=== PATIENT | female | born 1950 | race Caucasian/White ===

== ENCOUNTER 2024-02-19 14:09 | Emergency (ER) | payer MEDICARE, MEDICAID, SELFPAY ==
[2024-02-19 14:10] VITALS: BP 146/87; PULSE 75; RESP 20; TEMP 36.4; O2SAT 96; BMI 28.1
--- NOTE | 2024-02-19 14:24 | EX.ED.DYSGE1 ---
HPI History of Present Illness Chief Complaint: Numb/Ting PFSH PFSH Home Medications ?Medication ?Instructions ?Recorded ?Last Taken ?Type Oxazepam [Serax] 10 mg PO BID PRN PRN Agitation 04/22/13 Unknown History aspirin 81 mg chewable tablet 81 mg PO DAILY@0800 04/22/13 02/18/24 History atenolol 25 mg tablet 75 mg PO BID 04/22/13 Unknown History pravastatin 10 mg tablet 10 mg PO QHS 04/22/13 Unknown History sotalol 80 mg tablet 80 mg PO BID 04/22/13 Unknown History verapamil 80 mg tablet 40 mg PO BID 05/14/14 Unknown History Allergy/AdvReac Type Severity Reaction Status Date / Time thiopental (From Pentothal) Allergy Severe Anaphylaxis Verified 02/19/24 14:14 codeine Allergy Itching Verified 02/19/24 14:14 Penicillins Allergy Unknown Verified 02/19/24 14:14 Social History Smoking Status: Heavy Smoker (>10/day) EXAM Physical Exam Const Vital Signs: 02/19/24 14:10 Temperature 97.5 F L Temperature Source Oral Pulse Rate 75 Respiratory Rate 20 H Blood Pressure 146/87 H Blood Pressure Mean 106 Pulse Ox 96 Oxygen Delivery Method Room Air MDM MDM MDM Narrative Medical decision making narrative: HISTORY OF PRESENT ILLNESS: 73-year-old female presents with concern for numbness in her right leg. She endorses a history of DVT. She further states she developed acute pain, numbness in her right leg approximately 2 hours ago. She states it hurt so bad that her leg gave out on her. She states since then she has had constant pain made difficult for her to even sit on her left side. She denies chest pain palpitations she notes baseline shortness of breath. She know she is answered COPD and still smokes approximately 10 cigarettes a day. She notes history of DVT and denies taking blood thinners. Denies leg swelling. Denies recent surgery, chemotherapy, estrogen use. She denies any falls or trauma. REVIEW OF SYSTEMS: Pertinent positives: Right leg pain Pertinent negatives: Chest pain, shortness of breath, palpitation PHYSICAL EXAM: Nursing triage notes reviewed, Vital signs reviewed Constitutional: please see mdm HENT: MMM Eyes: Pupils equal round and reactive to light, Extraocular muscles intact Neck: No stridor, no JVD, full neck ROM Lungs: Clear to auscultation, No wheezing or rales. No increased work of breathing, no conversational dyspnea, no accessory muscle use, no nasal flaring. No respiratory distress noted Heart: Regular rate and rhythm, No murmurs, No rubs and No gallops, 2+ distal pulses (radial, femoral, posterior tibial) in all extremities Abdomen: Soft, there is no tenderness, rigidity, rebound or guarding, no obvious peritoneal signs, no palpable pulsatile abdominal masses, no auscultated abdominal bruit : No CVAT Extremities: No edema, no calf tenderness, compartments are soft. Right lower extremity appeared dusky/mottled compared to left. Right lower extremity. Slightly cooler to touch. Was difficult to palpate pulses right lower extremity. It is difficult to Doppler pulses right lower extremity as well. No bruising ecchymosis or TTP over right hip. Intact range of motion in hip flexion extension internal/external rotation. Neuro: Patient is alert, oriented x 3, cranial nerves II through XII are intact, intact strength sensation bilateral upper extremities, intact strength sensation in left lower extremity. Patient had some slight weakness secondary to pain in the right lower extremity but had full sensation all dermatomal distributions Skin: No rash or lesions noted MEDICAL DECISION MAKING: Chief Complaint: Numbness External records reviewed: Reviewed prior imaging studies, allergies, reviewed the patient's problem list, vital signs, current medication Factors affecting care: History of hyperlipidemia, tobacco abuse, COPD hypertension A-fib Social determinants of health: none History obtained from others: EMS Consults: Vascular surgery (Dr. Dill), emergency medicine (Dr. Robbins) MDM Narrative: Patient was initially hemodynamically stable, afebrile and nontoxic-appearing. Exam with a cool, mottled right lower extremity, unable to Doppler pulses this is concerning for acute limb ischemia. I considered the following differential diagnosis: CVA, DVT, lumbar radiculopathy, peripheral neuropathy, acute limb ischemia, A-fib, rhabdomyolysis ALL IMAGES (IF OBTAINED) HAVE BEEN PERSONALLY REVIEWED AND INTERPRETED BY MYSELF. EKG with normal sinus rhythm, normal axis, normal intervals, no STEMI Lactate elevated consistent with endorgan hypoperfusion likely secondary to acute limb ischemia CBC with leukocytosis suggestive of systemic inflammation, no anemia or thrombocytopenia No coagulopathy BMP without evidence of significant electrolyte abnormalities, no anion gap, no acute kidney injury. CK within normal limit CTA of the abdomen with runoff was read reviewed personally by myself and showed evidence of acute limb ischemia that is consistent with patient's clinical exam. I have personally reviewed the patient's chest x-ray. Chest x-ray is unremarkable for pulmonary edema, pneumothorax, pneumonia or focal cardiopulmonary abnormality. The synthesis of the patient's history, physical exam, labs images suggest likely acute limb ischemia. I have a low suspicion for DVT as a more likely diagnosis given cool mottled extremity with no palpable abdominal pulse and signs of ischemia is acute limb ischemia. Patient to be transferred. Discussed with vascular surgery at [facility] not have vascular surgery on-call today. Vascular surgery recommended ED to ED transfer. Discussed case with the ED who accepted the patient's case The patient and/or family, caregivers express understanding. The patient and/or family, caregivers agrees with the plan. Shared decision making: I will have a discussion with the patient and or visitors regarding risk/benefits of further testing or admission. They will be made aware of of the risk/benefits inherent in this decision they will be given the opportunity to voice understanding. Total critical care time today provided was at least 60 minutes. This excludes separately billable procedures. Critical care time (if documented) is secondary to the patient having high probability of clinically significant/life threatening deterioration in the patient's condition which required my urgent intervention. Impression: 1. Acute right leg pain 2. Acute limb ischemia 3. Elevated lactate 4. History tobacco Dispo: Transfer to higher level of care This note was generated with [employer] dictation software. It may contain incorrect words, spelling, and punctuation that were not noted in review of the chart prior to signing. Discharge Plan Triage Chief Complaint: Numb/Ting ED Provider: Bryan Felder Dx/Rx/DC Orders Prescriptions: No Action atenolol 25 MG tablet 75 mg PO BID sotalol 80 MG tablet 80 mg PO BID pravastatin 10 MG tablet 10 mg PO QHS aspirin 81 MG tablet,chewable 81 mg PO DAILY@0800 Oxazepam [Serax] 10 MG capsule 10 mg PO BID PRN PRN (Reason: Agitation) verapamil 80 MG tablet 40 mg PO BID Primary Care Provider: Fanta Nichols Referrals: Fanta Nichols MD [Primary Care Provider] - Print Language: Malawian
--- NOTE | 2024-02-19 14:35 | ED.RN ---
Dr. Felder bedside
--- NOTE | 2024-02-19 14:55 | CT_ITS ---
EXAM: CT HEAD WITHOUT INTRAVENOUS CONTRAST CLINICAL INDICATION: right leg numbness TECHNIQUE: Multiple axial images were obtained of the head without intravenous contrast. This CT exam was performed using one or more of the following dose reduction techniques: automated exposure control, adjustment of the mA and/or kV according to patient size, and/or use of iterative reconstruction technique. RADIATION DOSE: CTDIvol = 44.99 mGy, DLP = 748.30 mGy-cm COMPARISON: No relevant prior studies available. FINDINGS: BRAIN AND EXTRA-AXIAL SPACES: Unremarkable. No intra- or extra-axial hemorrhage. No evidence of acute infarct. No intracranial mass or mass effect. There is preservation of the saab/white matter interface. Posterior fossa structures are unremarkable. Ventricles are appropriate for age. No hydrocephalus. Basal cisterns are patent. BONES/JOINTS: Unremarkable. No discrete lytic or blastic abnormalities. SINUSES: Maxillary sinus disease. MASTOID AIR CELLS: Unremarkable. Clear. ORBITS: Visualized globes, extraocular muscles, optic nerves and retrobulbar fat appear unremarkable. CT/Brain/Head without Contrast IMPRESSION: No acute findings in the head/brain. Electronically Signed: Ace Al MD at 16:49 EST ,
--- NOTE | 2024-02-19 14:55 | CT_ITS ---
We are attempting to reach an attending provider to discuss findings. An addendum with communication details will be sent when the communication is complete. STUDY: CTA OF THE ABDOMINAL AORTA AND BILATERAL LOWER EXTREMITIES REASON FOR EXAM: Female, 73 years old. right leg pain, dusky appearance r/o limb ischemia TECHNIQUE: Axial CT angiography multi-detector data acquisition was obtained following intravenous administration of 100mL Isovue-370 contrast. Axial images and MIP images were reconstructed from the axial data set. Post-processing of the angiographic images was performed, with multiplanar reformation and 3D reconstruction. MIPS images were obtained. Individualized dose optimization techniques were used for this CT. COMPARISON: None. FINDINGS: The visualized lung bases are unremarkable. The visualized portions of the heart are within normal limits. Normal liver. Normal gallbladder and extrahepatic biliary system. There are multiple benign calcified granulomata of the spleen. Normal pancreas. Normal bilateral adrenal glands. Normal right kidney. 2 mm nonobstructive left renal stone. Nonspecific hypodense area in the left kidney may be a cyst. Ultrasound can further evaluate if of concern. Normal visualized stomach. Normal small intestine. There are multiple colonic diverticula consistent with diverticulosis. There is non-visualization of the appendix. Normal inferior vena cava. Normal retroperitoneum. Normal urinary bladder. There is a small umbilical hernia containing fat. There are diffuse degenerative changes of the visualized lumbar spine. There is an unremarkable-appearing IVC. Abdominal aorta: There are calcifications of the abdominal aorta. This is consistent for atherosclerotic disease. There is no abdominal aortic aneurysm. Celiac and superior mesenteric arteries: There is mild diffuse narrowing. Inferior mesenteric artery: There is mild diffuse narrowing. Right renal artery(arteries): There is mild diffuse narrowing. Left renal artery(arteries): There is mild diffuse narrowing. Right common iliac artery: Occluded. Right external iliac artery: Occluded. Right internal iliac artery: There is mild diffuse narrowing. Left common iliac artery: There is mild diffuse narrowing. Left external iliac artery: There is mild diffuse narrowing. Left internal iliac artery: There is mild diffuse narrowing. RIGHT LOWER EXTREMITY Right common femoral artery: No demonstrated narrowing. Right profundus femoris: No demonstrated narrowing. Right superficial femoral: No demonstrated narrowing. Right popliteal artery: Nonvisualized. Right tibioperoneal trunk: Nonvisualized. Right anterior tibial artery: Nonvisualized. Right posterior tibial artery: Nonvisualized. Right peroneal artery: Nonvisualized. LEFT LOWER EXTREMITY Left common femoral artery: No demonstrated narrowing. Left profundus femoris: No demonstrated narrowing. Left superficial femoral: No demonstrated narrowing. Left popliteal artery: No demonstrated narrowing. Left tibioperoneal trunk: No demonstrated narrowing. Left anterior tibial artery: There is moderate diffuse narrowing, with visualization of the vessel to the distal calf. Left posterior tibial artery: There is moderate diffuse narrowing, with visualization of the vessel to the distal calf. Left peroneal artery: There is moderate diffuse narrowing, with visualization of the vessel to the distal calf. CT/CTA Abd w/Runoff W/WO Contrast IMPRESSION: Arteries of the left anterior tibial artery, posterior tibial artery, and peroneal artery distal arteries are not seen. This may be related to slow flow, stenosis, or bolus timing. Nonvisualization of the arteries of the right leg distal to the popliteal artery.This may be related to slow flow, stenosis, or bolus timing. Occluded right common iliac and right external iliac artery. Distal reconstitution into the right common femoral artery. Electronically Signed: Ace Al MD at 17:31 EST Reading Location ID and State: [facility] / [place] , Service support ,
--- NOTE | 2024-02-19 14:55 | EKG12_ITS ---
Test Reason : numbness Blood Pressure : */* mmHG Vent. Rate : 71 BPM Atrial Rate : 71 BPM P-R Int : 120 ms QRS Dur : 88 ms QT Int : 432 ms P-R-T Axes : * 61 59 degrees QTcB Int : 469 ms Normal sinus rhythm Normal ECG baseline artifact Confirmed by Reji Kang ([id number]), medical transcription editor JOB AVENDAÑO ([id number]) on 02/20/2024 9:23:06 AM Referred By: Confirmed By: Reji Kang
[2024-02-19 15:12] LABS: Absolute Lymphocyte Count 2.18 X10^3/uL (0.83-4.51); Absolute Neutrophil Count 11.6 X10^3/uL (2.0-7.7); Basophil# 0.06 X10^3/uL; Basophil% 0.4 % (0-1); Eosinophil# 0.33 X10^3/uL; Eosinophils% 2.1 % (0-5); Hematocrit 45.3 % (37-47); Hemoglobin 14.7 g/dL (12.0-15.0); Lymphocyte # 2.18 X10^3/ul (0.83-4.51); Lymphocyte % 14.1 % (19-41); Mean Corp Hgb Conc 32.5 g/dL (32-36); Mean Corpuscular Hgb 30.7 pg (27.0-32.0); Mean Corpuscular Volume 94.6 fL (81-99); Monocyte# 1.31 X10^3/uL; Monocyte% 8.5 % (0-10); NRBC Flagged by Analyzer 0 % (0-5); Neutrophil # 11.55 X10^3/uL (2.7-7.7); Neutrophil % 74.5 % (47-70); Platelet Count 236 K/mm3 (150-450); RBC Distribution Width CV 13.5 % (11.6-14.6); RBC Distribution Width SD 47.3 fl (35.1-43.9); Red Blood Count 4.79 M/mm3 (4.2-5.4); White Blood Count 15.5 K/mm3 (4.4-11.0)
--- NOTE | 2024-02-19 15:16 | ED.RN ---
Patient transportd to CT
[2024-02-19 15:20] VITALS: O2SAT 96
--- NOTE | 2024-02-19 15:20 | RAD_ITS ---
EXAM: XR CHEST, 1 VIEW CLINICAL INDICATION: cough TECHNIQUE: Frontal view of the chest. COMPARISON: 01.06.14 FINDINGS: LUNGS AND PLEURAL SPACES: Unremarkable. No consolidation or edema. No pneumothorax. No effusion. HEART: Unremarkable. Cardiac silhouette not enlarged. MEDIASTINUM: Central airways and mediastinal contour are unremarkable. BONES/JOINTS: Unremarkable. No acute fracture. SOFT TISSUES: Unremarkable. RAD/Chest 1 View (Portable) IMPRESSION: No radiographic evidence of acute cardiopulmonary disease. Electronically Signed: Ace Al MD at 16:17 EST ,
[2024-02-19 15:21] LABS: International Normalized Ratio 1.1; Prothrombin Time (Protime)PT. 13.7 SECONDS (11.7-14.9)
[2024-02-19 15:22] LABS: Partial Thromboplast Time 25.6 Seconds (24.1-36.2)
[2024-02-19 15:35] LABS: Anion Gap 7 (5-15); BUN 18 mg/dL (7-18); BUN/Creat Ratio 22.4 RATIO (10-20); CPK Total, Creatine Kinase 61 U/L (26-192); Chloride 102 mmol/L (98-107); EST Glomerular Filtration Rate 74 mL/min (>60); Est Glom Filt Rate - Afr Amer 90 mL/min (>60); Estimated Creatinine Clearance 56.51 ml/min; Glucose 149 mg/dL (74-106); Potassium 4.5 mmol/L (3.5-5.1); Sodium Level 137 mmol/L (136-145)
[2024-02-19] MEDS: LORazepam 2 MG/ML Syringe IV (15:37)
--- NOTE | 2024-02-19 15:49 | ED.RN ---
Patient transported to CT again
--- NOTE | 2024-02-19 15:50 | ED.RN ---
Addendum entered by Rachael Rizvi 02/19/24 15:54: For CT scan at 1516 Original Note: Patient transported to CT and brought back to ED room. setup technician stated patient refused to lay flat for CT stating she couldn't breathe, O2 96%. This RN attempted to administer ordered Toradol to patient, but she refused stating she didn't want any pain medication. Dr. Felder notified, new order placed and approval given to place patient on supplement oxygen.
[2024-02-19 16:01] LABS: Lactic Acid 2.2 mmol/L (0.4-1.9)
[2024-02-19] MEDS: Heparin Injection (Vial) 5,000 UNIT/ML VIAL 4000 UNIT IV (16:25)
[2024-02-19] MEDS: HEPARIN/D5w 25,000 UNITS 25,000 UNITS/250 ML IV.SOLN. 8 UNITS CONT INF (16:29)
[2024-02-19 17:00] VITALS: BP 153/89; PULSE 66; RESP 24; O2SAT 99
--- NOTE | 2024-02-19 17:45 | ED.RN ---
Report called to Ewa HERRING
[2024-02-19 17:46] VITALS: BP 153/89; PULSE 66; RESP 24; TEMP 36.4; O2SAT 99
[2024-02-19 19:08] LABS: Reflex Lactate? Y
== END 2024-02-19 17:47 | disposition short-term general hospital (02) ==
PROVIDERS: Emergency Provider Emergency Medicine; PCP Internal Medicine; Visit Provider Emergency Medicine
DX: M79.604 Pain in right leg (principal); J44.9 Chronic obstructive pulmonary disease, unspecified; I48.91 Unspecified atrial fibrillation; F17.210 Nicotine dependence, cigarettes, uncomplicated; E78.5 Hyperlipidemia, unspecified; R74.8 Abnormal levels of other serum enzymes; M62.89 Other specified disorders of muscle
CPT/HCPCS: 70450; 71045; 75635; 80048; 82550; 83605; 85025; 85610; 85730; 93005; 96365; 96375; 99285; Q9967; A4216

== ENCOUNTER 2024-03-05 10:05 | Emergency (ER) | payer MEDICARE, MEDICAID, SELFPAY ==
[2024-03-05 10:05] VITALS: BP 140/61; PULSE 68; RESP 14; TEMP 36.8; O2SAT 97
--- NOTE | 2024-03-05 10:19 | EX.ED.DYSGE1 ---
HPI History of Present Illness Chief Complaint: Lower Extremity Injury Detail of Chief Complaint: Tingling left foot that awoke patient from sleep Informant: patient Onset/Context/Timing Onset: Today Context: Sudden Onset Timing: Intermittent and Lasts (Less than 1 minute) Quality: Tingling in the entire foot Location: Left Current Severity: Gone Worsened by: Nothing Relieved by: Shaking and walking on it Associated Symptoms Associated Symptoms: No other symptoms Narrative Narrative: Patient is a 73-year-old woman. She has history of peripheral arterial disease who recently had revascularization surgery at [facility]. She is on Eliquis 5 mg twice daily. She presents because she was instructed to, after contacting her doctor. She had numbness of her left foot that lasted approximately a minute. Presently has no symptoms. There is no history of trauma. She has shortness of breath. She chronically is short of breath. This is no worse than normal. She does have history of atrial fibrillation. She denies paralysis, numbness, pallor or lack of sensation in the left lower extremity. Prior similar symptoms: Yes (Prior to revascularization surgery right lower extremity) Recent Illness/Hospitalization: Yes [facility] Medical History (Updated 03/05/24 @ 11:[address] Hitesh Baker MD) Popliteal artery occlusion, right Anticoagulant long-term use Peripheral arterial disease Home Medications ?Medication ?Instructions ?Recorded ?Last Taken ?Type Oxazepam [Serax] 10 mg PO BID PRN PRN Agitation 04/22/13 Unknown History aspirin 81 mg chewable tablet 81 mg PO DAILY@0800 04/22/13 02/18/24 History atenolol 25 mg tablet 75 mg PO BID 04/22/13 Unknown History pravastatin 10 mg tablet 10 mg PO QHS 04/22/13 Unknown History sotalol 80 mg tablet 80 mg PO BID 04/22/13 Unknown History verapamil 80 mg tablet 40 mg PO BID 05/14/14 Unknown History Allergy/AdvReac Type Severity Reaction Status Date / Time thiopental (From Pentothal) Allergy Severe Anaphylaxis Verified 03/05/24 10:05 codeine Allergy Itching Verified 03/05/24 10:05 Penicillins Allergy Unknown Verified 03/05/24 10:05 Social History Smoking Status: Heavy Smoker (>10/day) ROS ROS ED Constitutional Constitutional ED: Denies chills, fever(s), subjective, sweats or weight loss Eyes Eyes: Denies blurry vision or change in vision ENT ENT ED: Denies ear pain, rhinorrhea or sore throat Cardiovascular Cardiovascular: Denies chest pain, orthopnea, palpitations or paroxysmal nocturnal dyspnea Respiratory/Chest Respiratory/Chest: Reports dyspnea and dyspnea on exertion; Denies cough, orthopnea, paroxysmal nocturnal dyspnea or sputum Gastrointestinal Gastrointestinal: Denies abdominal pain, nausea or vomiting Musculoskeletal Musculoskeletal: Denies back pain Integumentary Denies rash Neurologic Neurologic: Reports paresthesias Hematologic/Lymphatic Hematologic/Lymphatic: Reports systems reviewed and no addt'l complaints, except as documented EXAM Physical Exam Const Vital Signs: 03/05/24 10:05 Temperature 98.3 F Temperature Source Temporal Pulse Rate 68 Respiratory Rate 14 Blood Pressure 140/61 H Blood Pressure Mean 87 Pulse Ox 97 Oxygen Delivery Method Room Air Positive well nourished and well developed General Appearance ED: well developed and NAD; Negative for cyanotic, diaphoretic or pallor HEENT Reports moist mucous membranes HEENT Narrative: Head is atraumatic normocephalic. Ears normal. Nares patent. Posterior pharynx is normal. Eyes PERRL and EOMs intact bilaterally General Eye ED: Negative for pale conjunctiva or scleral icterus Neck no JVD Chest Wall inspection of chest normal and palpation of chest normal Resp normal respiratory effort and clear to auscultation bilaterally Cardio regular rate, S1 normal heart sound, S2 normal heart sound and no murmurs Rhythm: abnormal rhythm irregularly irregular GI normal to inspection, nondistended, normoactive bowel sounds, non-tender, non-distended and no masses; Negative for hepatosplenomegaly Back/Spine no CVA tenderness Extremity Extremity Narrative: Healing wound proximal medial right leg. There is bruising noted. PT pulses 2+ and symmetric. DP pulses not palpable. There is biphasic flow bilaterally. Neither foot is cool or pale. Sensation is not abnormal. Tenderness over the incision site right lower extremity. General Extremety ED: Yes tenderness; Negative for edema General Extremity: Negative for edema Neuro oriented x3, CN's II-XII intact bilaterally and no sensory deficits noted Psych mental status grossly normal Skin Skin Narrative: Healing incision right proximal medial leg with no evidence infection. General Skin Exam: Negative for jaundice or pallor MDM MDM MDM Narrative Medical decision making narrative: CBC was obtained assess white count differential as well as H&H. This patient complained of paresthesias BMP was obtained assess sodium and potassium. Lab Data Attestation: I reviewed the patient's lab results. Lab results narrative: CBC is unremarkable. White count slightly elevated 11.4 with no shift. BMP is unremarkable. Glucose is slightly elevated 109 with a normal CO2 anion gap. Labs: Laboratory Results - last 24 hr 03/05/24 10:20 WBC 11.4 H RBC 4.03 L Hgb 12.3 Hct 39.0 MCV 96.8 MCH 30.5 MCHC 31.5 L RDW Std Deviation 49.5 H RDW Coeff of Kayli 14.3 Plt Count 390 MPV 9.3 Immature Gran % (Auto) 0.700 Neut % (Auto) 60.7 Lymph % (Auto) 23.0 [place] % (Auto) 12.1 H Eos % (Auto) 2.9 Baso % (Auto) 0.6 Absolute Neuts (auto) 6.9 Absolute Lymphs (auto) 2.61 Nucleated RBC % 0 Sodium 136 Potassium 4.2 Chloride 102 Carbon Dioxide 32.0 Anion Gap 2 L BUN 13 Creatinine 0.74 Estim Creat Clear Calc 55.18 Est GFR (MDRD) Af Amer 98 Est GFR (MDRD) Non-Af 81 BUN/Creatinine Ratio 17.5 Glucose 109 H Calcium 9.6 Discharge Plan Triage Chief Complaint: Lower Extremity Injury ED Provider: Hitesh Baker Dx/Rx/DC Orders Clinical Impression: Paresthesia of left foot, Atrial fibrillation, Hypertension, Anticoagulant long-term use, History of peripheral arterial disease Instructions: ED Paraesthesias Prescriptions: No Action atenolol 25 MG tablet 75 mg PO BID sotalol 80 MG tablet 80 mg PO BID pravastatin 10 MG tablet 10 mg PO QHS aspirin 81 MG tablet,chewable 81 mg PO DAILY@0800 Oxazepam [Serax] 10 MG capsule 10 mg PO BID PRN PRN (Reason: Agitation) verapamil 80 MG tablet 40 mg PO BID Primary Care Provider: Fanta Nichols Referrals: Fanta Nichols MD [Primary Care Provider] - As Needed Print Language: Yakut Disposition Disposition: Home, Self Care
[2024-03-05 10:25] VITALS: BMI 26.8
[2024-03-05 10:29] LABS: Absolute Lymphocyte Count 2.61 X10^3/uL (0.83-4.51); Absolute Neutrophil Count 6.9 X10^3/uL (2.0-7.7); Basophil# 0.07 X10^3/uL; Basophil% 0.6 % (0-1); Eosinophil# 0.33 X10^3/uL; Eosinophils% 2.9 % (0-5); Hemoglobin 12.3 g/dL (12.0-15.0); Lymphocyte # 2.61 X10^3/ul (0.83-4.51); Mean Corp Hgb Conc 31.5 g/dL (32-36); Mean Corpuscular Hgb 30.5 pg (27.0-32.0); Mean Corpuscular Volume 96.8 fL (81-99); Mean Platelet Vol. 9.3 fl (6.2-12.0); Monocyte# 1.37 X10^3/uL; Monocyte% 12.1 % (0-10); NRBC Flagged by Analyzer 0 % (0-5); Neutrophil # 6.89 X10^3/uL (2.7-7.7); Neutrophil % 60.7 % (47-70); Platelet Count 390 K/mm3 (150-450); RBC Distribution Width CV 14.3 % (11.6-14.6); RBC Distribution Width SD 49.5 fl (35.1-43.9); Red Blood Count 4.03 M/mm3 (4.2-5.4); White Blood Count 11.4 K/mm3 (4.4-11.0)
[2024-03-05 10:49] LABS: Anion Gap 2 (5-15); BUN 13 mg/dL (7-18); BUN/Creat Ratio 17.5 RATIO (10-20); Calcium,Total 9.6 mg/dL (8.5-10.1); Chloride 102 mmol/L (98-107); Creatinine, Serum 0.74 mg/dL (0.55-1.02); EST Glomerular Filtration Rate 81 mL/min (>60); Est Glom Filt Rate - Afr Amer 98 mL/min (>60); Estimated Creatinine Clearance 55.18 ml/min; Glucose 109 mg/dL (74-106); Potassium 4.2 mmol/L (3.5-5.1); Sodium Level 136 mmol/L (136-145)
[2024-03-05 11:06] VITALS: BP 144/72; PULSE 69; RESP 20; TEMP 37; O2SAT 98
== END 2024-03-05 11:20 | disposition home or self-care (01) ==
LOC: ED 11:07
PROVIDERS: Emergency Provider Emergency Medicine; PCP Internal Medicine; Visit Provider Emergency Medicine
DX: R20.2 Paresthesia of skin (principal); I48.91 Unspecified atrial fibrillation; Z79.01 Long term (current) use of anticoagulants; I10 Essential (primary) hypertension; Z86.79 Personal history of other diseases of the circulatory system; F17.200 Nicotine dependence, unspecified, uncomplicated
CPT/HCPCS: 80048; 85025; 99283; A4216

== ENCOUNTER 2024-04-03 15:18 | Emergency (ER) | payer MEDICARE, MEDICAID, SELFPAY ==
[2024-04-03 15:20] VITALS: BP 149/66; PULSE 64; RESP 18; TEMP 36.1; O2SAT 96; BMI 26.6
--- NOTE | 2024-04-03 15:43 | VDUE_ITS ---
Reason For Study: RUE Pain / Numbness Right Proximal Right jugular vein is spontaneous, widely patent, phasic, with no intraluminal echogenicity noted. Right subclavian vein is spontaneous, widely patent, phasic, with no intraluminal echogenicity noted. Right Lower Arm Right radial vein is compressible. Right ulnar vein is compressible. Right Arm Right axillary vein is spontaneous, patent, phasic, competent, compressible and demonstrates augmentation. Right brachial vein is compressible. Right cephalic vein is compressible. Right basilic vein is compressible. Patient Safety Preliminary Finding given To [facility] ED Nurse Responsible for patient. VL/Venous Duplex US, Unilateral Interpretation Summary Deep veins of the right upper extremity are patent and compressible segmentally . There is no evidence of deep vein thrombosis. The superficial veins of the right upper extr emity, the basilic and cephalic veins, are patent and compressible. There is no evidence of right upper extremity superficial thrombophlebitis involving the veins imaged. Ordering Physician: Flako Arredondo Performed By: Kirill Alfaro RVT ???
--- NOTE | 2024-04-03 15:43 | EX.ED.DYSGE1 ---
HPI History of Present Illness Chief Complaint: Numb/Ting Informant: patient Onset/Context/Timing Onset: Yesterday Context: Sudden Onset Timing: Intermittent Quality: Location: Right hand and index finger Worsened by: Nothing Relieved by: Movement, rubbing Narrative Narrative: Patient presents with paresthesias in her right hand that have been getting worse since yesterday. Patient states they are worse when she wakes up in the morning. Right hand feels . Patient states it is worse over her right index finger. Patient states that when she rubs it and moves it it gets better. Patient denies any weakness. Patient states nothing makes it worse. Patient is concerned that this could be a blood clot because she had similar symptoms in her leg and was diagnosed with a DVT at that time. Prior similar symptoms: Yes PFSH PFSH Medical History (Updated 04/03/24 @ 17:[address] Flako Arredondo DO) Popliteal artery occlusion, right Anticoagulant long-term use Peripheral arterial disease Home Medications ?Medication ?Instructions ?Recorded ?Last Taken ?Type Oxazepam [Serax] 10 mg PO BID PRN PRN Agitation 04/22/13 Unknown History aspirin 81 mg chewable tablet 81 mg PO DAILY@0800 04/22/13 02/18/24 History atenolol 25 mg tablet 75 mg PO BID 04/22/13 Unknown History pravastatin 10 mg tablet 10 mg PO QHS 04/22/13 Unknown History sotalol 80 mg tablet 80 mg PO BID 04/22/13 Unknown History verapamil 80 mg tablet 40 mg PO BID 05/14/14 Unknown History Allergy/AdvReac Type Severity Reaction Status Date / Time thiopental (From Pentothal) Allergy Severe Anaphylaxis Verified 04/03/24 15:19 codeine Allergy Itching Verified 04/03/24 15:19 Penicillins Allergy Unknown Verified 04/03/24 15:19 Surgical History (Updated 04/03/24 @ 15:[address] Flako Arredondo DO) History of thrombectomy Social History Smoking Status: Heavy Smoker (>10/day) ROS ROS ED Constitutional Constitutional ED: Denies chills or fever(s) Eyes Eyes: Denies blurry vision or change in vision ENT ENT ED: Reports rhinorrhea; Denies sore throat Cardiovascular Cardiovascular: Denies chest pain or palpitations Respiratory/Chest Respiratory/Chest: Reports cough; Denies dyspnea Gastrointestinal Gastrointestinal: Denies nausea or vomiting Genitourinary Genitourinary ED: Denies dysuria or hematuria Musculoskeletal Musculoskeletal: Denies back pain or neck pain Integumentary Denies abscess or rash Neurologic Neurologic: Reports paresthesias RUE (Right hand and index finger); Denies headache(s) or weakness Allergic/Immunologic Allergic/Immunologic ED: Denies mouth swelling or urticaria EXAM Physical Exam Const Vital Signs: 04/03/24 15:20 Temperature 97 F L Temperature Source Temporal Pulse Rate 64 Respiratory Rate 18 Blood Pressure 149/66 H Blood Pressure Mean 93 Pulse Ox 96 Oxygen Delivery Method Room Air Positive well nourished and well developed General Appearance ED: well developed and NAD HEENT Reports moist mucous membranes Neck supple and no JVD Extremity Extremity Narrative: Radial pulses are equal bilaterally. Capillary refill was less than 2 seconds in all digits. There is no cyanosis or pallor noted. There is full range of motion. There is some paresthesias on the volar aspect of the forearm with Tinel's testing at the wrist. There is no paresthesias with Tinel testing at the elbow. There are some paresthesias with Phalen's testing at the wrist on the right. Neuro oriented x3, CN's II-XII intact bilaterally and no sensory deficits noted Sensorium / Orientation: alert Motor Exam: strength 5/5 throughout MDM MDM MDM Narrative Medical decision making narrative: Differential diagnosis includes DVT, carpal tunnel syndrome, and paresthesias. Venous duplex of the right upper extremity will be obtained to assess for DVT. Radiography Diagnostic Testing: Venous duplex of the right upper extremity was obtained. There is no evidence of DVT. Treatment and Re-Evaluation :: Patient was advised of her findings. Patient was advised that this could be carpal tunnel syndrome. Patient was given a cock up wrist splint. Patient was instructed to use [id number] ibuprofen as needed for pain. Patient was instructed to follow-up with her primary care physician in 5 to 7 days. Patient understood and was agreeable with the plan. All questions were answered. Discharge Plan Triage Chief Complaint: Numb/Ting ED Provider: Flako Arredondo Dx/Rx/DC Orders Clinical Impression: Hand paresthesia, Atrial fibrillation Instructions: ED Paraesthesias Prescriptions: No Action atenolol 25 MG tablet 75 mg PO BID sotalol 80 MG tablet 80 mg PO BID pravastatin 10 MG tablet 10 mg PO QHS aspirin 81 MG tablet,chewable 81 mg PO DAILY@0800 Oxazepam [Serax] 10 MG capsule 10 mg PO BID PRN PRN (Reason: Agitation) verapamil 80 MG tablet 40 mg PO BID Primary Care Provider: Fanta Nichols Referrals: Fanta Nichols MD [Primary Care Provider] - 5-7 Days Print Language: Ethiopian Disposition Disposition: Home, Self Care
== END 2024-04-03 17:42 | disposition home or self-care (01) ==
PROVIDERS: Emergency Provider Emergency Medicine; PCP Internal Medicine; Visit Provider Emergency Medicine
DX: R20.2 Paresthesia of skin (principal); I48.91 Unspecified atrial fibrillation; F17.200 Nicotine dependence, unspecified, uncomplicated; Z86.718 Personal history of other venous thrombosis and embolism
CPT/HCPCS: 93971; 99282

== ENCOUNTER 2024-12-23 18:45 | Observation (INO) | payer MEDICARE, MEDICAID, SELFPAY ==
[2024-12-23 18:46] VITALS: BP 146/54; PULSE 67; RESP 14; TEMP 36.1; O2SAT 97
--- OUTSIDE RECORDS SUMMARY | 2024-12-23 19:14 | XMS RPT_ITS | CCD ---
Author Organization [facility] Care Team Providers Care [employer] Melt Supervisor Name Role Phone BEN, VERONICA Unavailable Unavailable BEN, VERONICA Unavailable Unavailable TALAMPAS, ELENA Unavailable Unavailable BEN, VERONICA Unavailable Unavailable BEN, VERONICA Unavailable Unavailable TALAMPAS, ELENA Unavailable Unavailable Elena Andino MD Primary Care Provider Javier Leonard RN Unavailable UnavailElena Conde MD Primary Care Provider Javire Leonard RN Unavailable UnavailElena Conde MD Primary Care Provider Amarjit Herrera RN Unavailable Unavailmichael Herrera RN, Amarjit Cruz Unavailable UnavailElena Conde MD Primary Care Provider THU ELENA D Primary Care Unavailable ALLEN PRESTON Admitting Unavailable ALLEN PRESTON Attending Unavailable FAREED CARNEY Consulting Unavailable Love OPTOMECHANICAL ENGINEER.GUIDANCE CONSULTANT, Gene Unavailable Radha OPTOMECHANICAL ENGINEER.CPC CODER, Dorcas Unavailable Bryan Felder Attending Unavailable Talampas, Elena D Primary Care Unavailable Hitesh Baker Attending Unavailable Talampas, Elena D Primary Care Unavailable Flako Arredondo Attending Unavailable Talampas, Elena D Primary Care Unavailable Radha OPTOMECHANICAL ENGINEER.CPC CODER, Dorcas Unavailable Love OPTOMECHANICAL ENGINEER.GUIDANCE CONSULTANT, Gene Unavailable LOVEJUANI Attending Unavailable TALAMPAS, ELENA D Primary Care Unavailable AMY ACOSTA Attending Unavailabl e TALAMPAS, ELENA D Primary Care Unavailable Allergies Allergy Classification Reported Allergen(s) Allergy Type Date of Onset Reaction(s) Facility Albuterol (1 source) Albuterol Drug Allergy 1 Intolerance [facility] Work Phone: Famotidine (1 source) Famotidine Drug Allergy 5 Itching [facility] Work Phone: HMG-CoA Reductase Inhibitors (statins) (1 source) atorvastatin Drug Allergy 2 GI Upset [facility] Lincosamides (antibiotic) (1 source) Clindamycin Drug Allergy 4 Diarrhea [facility] nickel (1 source) nickel Drug Allergy 5 Rash [facility] Work Phone: Opioid Agonists (1 source) Codeine Drug Allergy 5 Unknown [facility] Work Phone: Penicillins (antibiotic) (1 source) Penicillins Drug Allergy 5 Unknown [facility] Thiopental (1 source) Thiopental Drug Allergy 5 Intolerance [facility] Work Phone: (20 sources) atorvastatin; Translations: [ATORVASTATIN CALCIUM] Drug Allergy 2 GI Upset [facility] Repository (20 sources) clindamycin; Translations: [CLINDAMYCIN] Drug Allergy 4 Diarrhea [facility] Rep[facility] (20 sources) codeine; Translations: [CODEINE] Drug Allergy 5 Unknown [facility] (20 sources) nickel; Translations: [NICKEL] Drug Allergy 5 Rash [facility] (20 sources) Penicillins; Translations: [PENICILLINS] Propensity to adverse reactions (disorder) 5 Unknown [facility] (20 sources) PROPOXYPHENE N-ACETAMINOPHEN; Translations: [PROPOXYPHENE N-ACETAMINOPHEN] Propensity to adverse reactions (disorder) 5 Intolerance [facility] Rep[facility] (1 source) OTHER; Translations: [OTHER] Propensity to adverse reactions (disorder) [facility] Rep[facility] (20 sources) NITRATE ANALOGUES; Translations: [NITRATE ANALOGUES] Propensity to adverse reactions (disorder) 3 Intolerance [facility] Rep[facility] (20 sources) FAMOTIDINE IN 0.9 % NACL; Translations: [FAMOTIDINE IN 0.9 % NACL] Propensity to adverse reactions (disorder) 5 Itching [facility] Rep[facility] (20 sources) Albuterol; Translations: [ALBUTEROL] Drug Allergy 1 Intolerance [facility] Work Phone: (20 sources) lotions [Other] Propensity to adverse reactions 5 Intolerance [facility] Work Phone: (20 sources) sodium penathol [Other] Propensity to adverse reactions 5 Intolerance [facility] Work Phone: (20 sources) Thiopental; Translations: [THIOPENTAL] Drug Allergy 5 Intolerance [facility] Work Phone: (1 source) Thiopental Drug Allergy 4 [facility] Repository Medications Current Medications Medication Drug Class(es) Dates Sig (Normalized) Sig (Original) [id number] actuat albuterol 0.09 mg/actuat metered dose inhaler (20 sources) beta2-Adrenergic Agonist Start: 02-09-2021 End: 08-22-2023 take 2 puff(s) by inhalation every four hours as needed for wheezing albuterol HFA (VENTOLIN HFA) 90 mcg/actuation inhaler Inhale 2 Puffs as instructed every 4 hours as needed for wheezing/shortness of breath. 1 Each 2 08/22/2023 Active Comment on above: Inhale 2 Puffs as in structed every 4 hours as needed for wheezing/shortness of breath. apixaban 5 mg oral tablet (20 sources) Factor Xa Inhibitor Start: 02-20-2024 End: 09-17-2024 take 1 tablet by mouth twice daily ELIQUIS 5 mg tab(s) take 1 tablet by mouth twice a day 180 tablet 3 05/23/2024 Active aspirin 81 mg delayed release oral tablet (20 sources) Platelet Aggregation Inhibitor, Nonsteroidal Anti-inflammatory Drug take 1 tablet by mouth once daily aspirin, enteric coated (ASPIRIN, ENTERIC COATED) 81 mg EC tablet Take 81 mg by mouth once daily. Active Comment on above: Take 81 mg by mouth once daily. atenolol 50 mg oral tablet (20 sources) beta-Adrenergic Darlene Start: 09-07-2024 atenolol (TENORMIN) 50 mg tablet Indications: Paroxysmal atrial fibrillation (HCC) take 1 AND 1/2 tablet by mouth twice a day 270 tablet 09/07/2024 Active Start: 03-21-2024 End: 09-17-2024 take 1.5 tablets by mouth twice daily atenolol (TENORMIN) 50 mg tablet Indications: Paroxysmal atrial fibrillation (HCC) Take 1.5 tablets by mouth two times a day. 270 tablet 1 03/21/2024 09/07/2024 Discontinued Start: 09-13-2023 take 1.5 tablets by mouth twice daily atenolol (TENORMIN) 50 mg tablet Indications: Paroxysmal atrial fibrillation (HCC) Take 1.5 tablets by mouth two times a day. 270 tablet 1 09/13/2023 Active Start: 06-29-2022 End: 09-09-2023 take 1.5 tablets by mouth twice daily atenolol (TENORMIN) 50 mg tablet Indications: Paroxysmal atrial fibrillation (HCC) Take 1.5 tablets by mouth two times a day. 90 tablet 2 06/22/2023 09/09/2023 Discontinued Start: 07-06-2021 take 1.5 tablets by mouth twice daily atenolol (TENORMIN) 50 mg tablet Indications: Paroxysmal atrial fibrillation (HCC) Take 1.5 tablets by mouth twice daily. 270 tablet 3 07/06/2021 Active Comment on above: Take 1.5 tablets by mouth twice daily. Take 1.5 tablets by mouth two times a day. levothyroxine sodium 0.025 mg oral tablet (20 sources) l-Thyroxine Start: End: take 1 tablet by mouth once daily levothyroxine (SYNTHROID) 25 mcg tablet Take 1 tablet by mouth once daily. 90 tablet 3 11/19/2024 Active Start: 07-27-2022 take 1 tablet by abelino th once daily for thyroid dysfunction levothyroxine (LEVOXYL) 25 mcg tablet Take 1 tablet by mouth once daily. Take on empty stomach. For Thyroid 30 tablet 11 07/27/2022 Active Comment on above: Take 1 tablet by abelino th once daily. Take on empty stomach. For Thyroid take 1 tablet by abelino th once daily ON AN EMPTY STOMACH for THYROID 10 actuat olodaterol 0.0025 mg/actuat / tiotropium 0.0025 mg/actuat inhalation spray (20 sources) Anticholinergic, beta2-Adrenergic Agonist Start: 1 End: 3 tiotropium-olodater ol (STIOLTO RESPIMAT) 2.5-2.5 mcg/actuation Inhale 2 Puffs as instructed once daily. 4 g 2 07/22/2022 Active Comment on above: Inhale 2 Puffs as in structed once daily. oxazepam 10 mg oral capsule (20 sources) Benzodiazepine Start: 3 End: 5 take 1 capsule by mouth twice daily as needed oxazepam (SERAX) 10 mg capsule Indications: Generalized anxiety disorder Take 1 capsule by mouth two times a day as needed for up to 180 days. 60 capsule 5 10/04/2024 04/02/2025 Active Start: 04-06-2022 End: 02-14-2023 take 1 capsule by mouth twice daily as needed oxazepam (SERAX) 10 mg capsule Indications: Generalized anxiety disorder Take 1 capsule by mouth twice daily as needed for up to 60 days. 60 capsule 1 12/16/2022 02/14/2023 Active Start: 07-21-2021 End: 03-16-2022 take 1 capsule by mouth twice daily as needed oxazepam (SERAX) 10 mg capsule Indications: Generalized anxiety disorder Take 1 capsule by mouth twice daily as needed for up to 180 days. 180 capsule 1 09/17/2021 Active Start: 06-11-2021 take 1 capsule by mo [facility] twice daily as needed oxazepam (SERAX) 10 mg capsule Indications: Generalized anxiety disorder Take 1 capsule by mouth twice daily as needed for up to 30 days. 60 capsule 0 06/11/2021 Active Comment on above: Take 1 capsule by mo ut twice daily as needed for up to 30 days. Take 1 capsule by mo ut twice daily as needed for up to 180 days. Take 1 capsule by mo uth twice daily as needed for up to 60 days. Take 1 capsule by mo uth two times a day as needed for up to 60 days. perflutren lipid microspheres 1.3 mL in NaCl (PF) 0.9% 10 mL injection (DEFINITY) (20 sources) Start: 02-10-20 End: 05-11-19 perflutren lipid microspheres 1.3 mL in NaCl (PF) 0.9% 10 mL injection (DEFINITY) pravastatin sodium 40 mg oral tablet (20 sources) HMG-CoA Reductase Inhibitor Start: 06-11-19 End: 11-22-19 pravastatin (PRAVACHOL) 40 mg tablet Indications: Hyperlipidemia, unspecified hyperlipidemia type TAKE 1 AND 1/2 TABLETS BY MOUTH DAILY AT BEDTIME 135 tablet 3 11/22/2023 Active Comment on above: TAKE 1 AND 1/2 TABLE TS BY MOUTH DAILY AT BEDTIME 125 ml sodium chloride 9 mg/ml prefilled syringe (20 sources) Start: 02-10-20 End: 05-11-19 sodium chloride 0.9 % (flush) 10 mL (BD POSIFLUSH) sotalol hydrochloride 80 mg oral tablet (20 sources) Antiarrhythmic Start: 03-31-20 End: 11-22-19 take 1 tablet by mouth twice daily sotalol (BETAPACE) 80 mg tablet Indications: Paroxysmal atrial fibrillation (HCC) Take 1 tablet by mouth two times a day. 180 tablet 3 11/22/2023 Active Start: 06-29-2022 End: 07-22-2022 take 1 tablet by mouth twice daily sotalol (BETAPACE) 80 mg tablet Indications: Paroxysmal atrial fibrillation (HCC) Take 1 tablet by mouth twice daily. 180 tablet 1 07/22/2022 Active Start: 04-06-2022 take 1 tablet by abelino th twice daily sotalol (BETAPACE) 80 mg tablet Indications: Paroxysmal atrial fibrillation (HCC) Take 1 tablet by mouth twice daily. 180 tablet 0 04/06/2022 Active Start: 01-12-2022 take 1 tablet by abelino th twice daily sotalol (BETAPACE) 80 mg tablet Indications: Paroxysmal atrial fibrillation (HCC) Take 1 tablet by mouth twice daily. 180 tablet 0 01/12/2022 Active Start: 09-08-2020 End: 01-09-2022 take 1 tablet by mouth twice daily sotalol (BETAPACE) 80 mg tablet Indications: Paroxysmal atrial fibrillation (HCC) Take 1 tablet by mouth twice daily. 180 tablet 3 09/08/2020 01/09/2022 Discontinued Comment on above: Take 1 tablet by abelino th twice daily. Take 1 tablet by abelino th two times a day. Trolamine Salicylate-Aloe Vera (ASPERCREME) 10 % crea (20 sources) Start: 5 Trolamine Salicylate-Aloe Vera (ASPERCREME) 10 % crea Apply 1 application to affected area four times daily as needed. 1 Tube 2 01/24/2015 Active Comment on above: Apply 1 application to affected area four times daily as needed. verapamil hydrochloride 40 mg oral tablet (20 sources) Calcium Channel Darlene Start: End: take 1 tablet by mouth twice daily verapamil 40 mg tablet Indications: Paroxysmal atrial fibrillation (HCC) take 1 tablet by mouth twice a day 180 tablet 1 09/11/2024 Active Start: 09-13-2023 take 1 tablet by abelino twice daily verapamil 40 mg tablet Indications: Paroxysmal atrial fibrillation (HCC) Take 1 tablet by mouth two times a day. 180 tablet 1 09/13/2023 Active Start: 07-17-2021 End: 07-17-2021 take 1 tablet by mouth three times daily verapamil (CALAN, ISOPTIN) 40 mg tablet Indications: Paroxysmal atrial fibrillation (HCC) Take 1 tablet by mouth three times daily. 270 tablet 3 07/17/2021 07/17/2021 Discontinued Start: 09-08-2020 End: 09-09-2023 take 1 tablet by mouth twice daily verapamil 40 mg tablet Indications: Paroxysmal atrial fibrillation (HCC) Take 1 tablet by mouth two times a day. 180 tablet 0 08/22/2023 09/09/2023 Discontinued Comment on above: Take 1 tablet by abelino twice daily. Take 1 tablet by abelino three times daily. Take 1 tablet by abelino two times a day. Completed/Discontinued Medications Medication Drug Class(es) Dates Sig (Normalized) Sig (Original) 24 hr nicotine 0.292 mg/hr transdermal system (20 sources) Cholinergic Nicotinic Agonist Start: 03-09-2021 End: 08-22-2023 nicotine (NICODERM CQ) 7 mg/24 hr Apply 1 Patch as directed every 24 hours. 28 Patch 1 07/22/2022 08/22/2023 Discontinued Comment on above: Apply 1 Patch as dir ected every 24 hours. trolamine salicylate 100 mg/ml topical cream (20 sources) Start: 01-24-2015 Trolamine Salicylate-Aloe Vera (ASPERCREME) 10 % crea Apply 1 application to affected area four times daily as needed. 1 Tube 2 01/24/2015 Active Comment on above: Apply 1 application to affected area four times daily as needed. 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] Onset: 02-19-2024 02-20-2024 Chronic Cardiac dysrhythmias (20 sources) Ventricular tachycardia; Translations: [Atrial fibrillation] Onset: 07-23-2005 07-23-2005 Chronic Chronic obstructive pulmonary disease and bronchiectasis (20 sources) Chronic obstructive lung disease; Translations: [Chronic obstructive pulmonary disease, unspecified] Onset: 04-14-2011 01-04-2018 Chronic Coronary atherosclerosis and other heart disease (20 sources) Coronary arteriosclerosis; Translations: [Atherosclerotic heart disease of [place] coronary artery without angina pectoris] Onset: 10-25-2011 10-25-2011 Chronic Disorders of lipid metabolism (20 sources) Hyperlipidemia; Translations: [Hyperlipidemia, unspecified] Onset: 10-25-2011 10-25-2011 Chronic Essential hypertension (20 sources) Essential hypertension; Translations: [Essential (primary) hypertension] Onset: 02-09-2021 02-09-2021 Chronic Immunizations and screening for infectious disease (2 sources) Requires varicella vaccination; Translations: [Encounter for immunization] Onset: 10-04-2024 Episodic Nutritional deficiencies (3 sources) Vitamin D deficiency; Translations: [Vitamin D deficiency, unspecified] Onset: 10-04-2024 08-22-2023 Chronic Osteoarthritis (20 sources) Degenerative joint disease involving multiple joints; Translations: [Polyosteoarthritis, unspecified] 07-04-2017 Chronic Other and ill-defined heart disease (20 sources) Left atrial enlargement; Translations: [Cardiomegaly] Onset: 02-20-2024 02-20-2024 Chronic Other connective tissue disease (1 source) Pain in right leg; Translations: [Pain in right leg] Onset: 03-12-2024 Episodic Other nervous system disorders (1 source) Paresthesia of skin; Translations: [Paresthesia of skin] Onset: 05-04-2024 Episodic Other non-traumatic joint disorders (1 source) Chronic ankle pain; Translations: [Pain in left ankle and joints of left foot] 08-30-2023 Episodic Other screening for suspected conditions (not mental disorders or infectious disease) (20 sources) Patient encounter status; Translations: [Encounter for screening for malignant neoplasm of colon] Onset: 10-04-2024 Episodic Peripheral and visceral atherosclerosis (20 sources) Occlusion of right popliteal artery; Translations: [Unspecified atherosclerosis of [place] arteries of extremities, right leg] Onset: 02-20-2024 02-20-2024 Chronic Residual codes; unclassified (3 sources) Menopause present; Translations: [Asymptomatic menopausal state] Episodic Residual codes; unclassified (1 source) Asymptomatic menopausal state; Translations: [Asymptomatic menopause] Onset: 10-04-2024 Episodic Screening and history of mental health and substance abuse codes (1 source) Encounter for screening for depression; Translations: [Screening for depression] Onset: 10-04-2024 Episodic Substance-related disorders (20 sources) Tobacco user; Translations: [Nicotine dependence, unspecified, uncomplicated] 07-23-2005 Chronic Thyroid disorders (4 sources) Hypothyroidism; Translations: [Hypothyroidism, unspecified] Chronic Unclassified (1 source) Unknown / UNK(Unknown) Onset: 08-19-2017 Past or Other Problems Problem Classification Problem Date Documented Da te Episodic/Chronic Other circulatory disease (20 sources) Other disorder of circulatory system; Translations: [Unspecified circulatory system disorder] Onset: 02-19-2024 02-20-2024 Episodic Other lower respiratory disease (20 sources) Dyspnea on exertion; Translations: [Dyspnea, unspecified] Onset: 02-09-2021 02-09-2021 Episodic Phlebitis; thrombophlebitis and thromboembolism (20 sources) Venous thrombosis; Translations: [Acute embolism and thrombosis of unspecified vein] Onset: 07-06-2010 07-06-2010 Episodic Unclassified (2 sources) Patient encounter status 07-24-2024 Results Test Name Value Interpretation Reference Range Facility CNOVon 10-04-2024 CNOV Office Visit (INTMWS ) LEXI LONDONO ([id number]) 1950 F Date Time Provider Department 10/04/24 2:40 PM GENE LOVE During your visit today, we recorded the following information about you: Pulse Respiration Blood pressure Weight 65/minute 16/minute 109/58 65 kg Height 1.585 m Gene Love APRN.GUIDANCE CONSULTANT 10/04/2024 4:00 PM Addendum Lexi Londono is a 74 year old female here for a Medicare wellness visit. Medicare Health Risk Assessment General Health Fair Exercise: Minutes/Day 0 min Exercise: Days/Week 0 days Alcohol: Daily Use Never Alcohol: Drinks/Day Patient does not drink Alcohol: 6 or more drinks Never Feel off balance No Concerns: Teeth/Dentures Yes Concerns: Sexual function No Troubled by feelings Anxious; Stressed; Angry; Irritable Frequency: Eating healthy diet Several days ADLs requiring help Driving Safety precautions in home/vehicle Yes Smoke, vape, chews tobacco Yes, but I'm not ready to quit Difficulty hearing No Difficulty seeing Yes Current Providers Specialists: I have reviewed specialist-related care of the patient in the medical record. Medical/Family history review Reviewed and updated problem list, medical/surgical/famil y/social history, medications, and allergies. Opioid use review Opioid Medications (last 90 days) No data to display Anxiety/Depression screening PHQ-2 Score: 2 (Lower risk for depression) Recommendation: no further intervention at this time Cognitive screening Mini Cog Score: 4 Cognitive screening reviewed and No further action needed (score 3-5). Functional Observation Was the patient's Timed Up AND Go test unsteady or >= 12 seconds? No Advance Care Planning Patient did not wish or was not able to name a surrogate decision maker or provide an advance care plan Measurements BP 109/58 Pulse 65 Resp 16 Ht 158.5 cm (5' 2.4) Wt 65 kg (143 lb 4.8 oz) BMI 25.87 kg/m? Vision Screening: Declines visual acuity screen Annual Wellness Exam: - Engages in daily physical activity through chores and yard work; reports increased fatigue. - Denies alcohol use. - Reports bad teeth but does not see a dentist due to appointment-related anxiety. - Describes diet as pretty good. - Requires assistance with driving. - Smokes approximately 10 cigarette per day; has attempted to quit multiple times without success. - Reports mediocre mood, with occasional feelings of depression; denies need for medication or counseling. - No issues with memory or getting up and down from a chair. - No family or friends to speak on her behalf if needed. - Denies recent falls. - Reports adequate hearing. - Reports vision difficulties; does not see an eye doctor. - Denies seeing any specialists outside of primary care. - Denies desire for pneumonia vaccine or COVID booster due to previous adverse reactions. - Denies desire for bone density test or mammogram. Anxiety: - Taking Oxazepam; recently switched pharmacy to [facility]. - Denies liking other medications previously tried. Cardiac Issues: - Taking Sotalol and amlodipine. - Not seeing a hand tennis ball coverer; last hand tennis ball coverer was Dr. Mills. - Willing to see a hand tennis ball coverer if available in [place]. - Reports feeling well and managing with current medications. Vascular Issues: - Underwent leg surgery in February; left AMA without understanding the procedure or its outcome. - Denies current follow-up with a vascular doctor. - Reports leg and foot feel numby and dislikes the sensation. Latest Ref Rng 07/22/2022 08/16/2022 WBC 3.70 - 11.00 k/uL 9.86 RBC 3.90 - 5.20 m/uL 4.70 Hemoglobin 11.5 - 15.5 g/dL 14.7 Hematocrit 36.0 - 46.0 % 44.7 MCV 80.0 - 100.0 fL 95.1 MCH 26.0 - 34.0 pg 31.3 MCHC 30.5 - 36.0 g/dL 32.9 RDW-CV 11.5 - 15.0 % 13.3 Platelet Count 150 - 400 k/uL 248 MPV 9.0 - 12.7 fL 11.0 Neut% % 53.7 Abs Neut (ANC) 1.45 - 7.50 k/uL 5.30 Lymph% % 29.4 Abs Lymph 1.00 - 4.00 k/uL 2.90 [place]% % 11.5 Abs [place] <0.87 k/uL 1.13 (H) Eosin% % 4.6 Abs Eosin <0.46 k/uL 0.45 Baso% % 0.6 Abs Baso <0.11 k/uL 0.06 Immature Gran % % 0.2 IMMATURE GRANS (ABS) <0.10 k/uL <0.03 NRBC /100 WBC 0.0 Absolute nRBC <0.01 k/uL <0.01 DTYPE Auto Protein, Total 6.3 - 8.0 g/dL 7.2 Albumin 3.9 - 4.9 g/dL 4.1 Calcium 8.5 - 10.2 mg/dL 9.6 Bilirubin, Total 0.2 - 1.3 mg/dL 0.4 Alkaline Phosphatase 34 - 123 U/L 97 AST 13 - 35 U/L 26 ALT 7 - 38 U/L 20 Glucose 74 - 99 mg/dL 87 BUN 7 - 21 mg/dL 8 Creatinine 0.58 - 0.96 mg/dL 0.81 Sodium 136 - 144 mmol/L 138 Potassium 3.7 - 5.1 mmol/L 4.3 Chloride 97 - 105 mmol/L 99 CO2 22 - 30 mmol/L 27 Anion Gap 9 - 18 mmol/L 12 eGFR >=60 mL/min/1.73m? 77 Total Cholesterol, Nonfasting <200 mg/dL 164 Triglycerides, Nonfasting <150 mg/dL 170 (H) HDL Cholesterol, Nonfasting >39 mg/dL 45 LDL Cholesterol Calculated, Non (more content not included)... Normal [facility] LEXI LONDONO ([id number]) 1950 F Date Time Provider Department 09/13/24 ELENA ANDINO INTMWS During your visit today, we recorded the following information about you: Evelia Cochran RN 09/13/2024 11:05 AM Signed Patient calls and is worried that she has been having issues with sleeping. Patient states that she has not been able to sleep for the past 4-5 days and she is worried that lack of sleep is going to cause her to have a heart attack. Patient states that she had palpitations the other day because she is not sleeping. Patient asking why she is unable to sleep. Advised patient that she needs to set up appointment with provider to discuss sleeping issues. Patient states that she has not showered and her hair is dirty and she cannot come into appointment. Offered to schedule patient an appointment for tomorrow. Patient declined. Patient asked if there is any extra stress in her life that would cause sleeping issues. Patient reports that 2 mother cats with kittens were dropped off at her house and that they are starving. Patient states that she cannot let them starve but she does not have food for the cats. Patient reports that everyone drops cats in her neighborhood. Asked patient if she tried calling [employer]. Patient reports that they will not do anything for cats and she is stressed out by this. Patient is asking what she can do to help her with her sleeping issues. Patient is going to call pharmacy to see what she can take for sleep. Please review and advise, ALEX Varela Rosa, APRN.CPC CODER 09/21/2024 8:34 AM Signed Noted, agree, recommend appointment to discuss options to help with sleep, she has an upcoming appointment with Gene, can discuss then or sooner if needing addressed before that. Allergies As of Date: 09/13/2024 Noted Allergy Reaction ALBUTEROL 03/09/2021 5 - Intolerance Comments: Anxiety. Something zoomed through my heart. CLINDAMYCIN 10/01/2013 6 - Diarrhea CODEINE 12/29/2004 16 - Unknown DARVOCET A500 (PROPOXYPHENE N-PAT*04/16/2005 5 - Intolerance LIPITOR (ATORVASTATIN CALCIUM) 04/05/2012 8 - GI Upset Comments: abdomen bloating initial c/o then retracted by pt NICKEL 12/17/2014 2 - Rash Comments: allergic to all metals, including gold and razor blades NTG (NITRATE ANALOGUES) 03/06/2013 5 - Intolerance Comments: hypotension PENICILLINS 12/29/2004 16 - Unknown PEPCID (FAMOTIDINE IN 0.9 % NACL) 04/16/2005 9 - Itching Comments: face itched SODIUM PENTATHAL (THIOPENTAL) 04/16/2005 5 - Intolerance Comments: No listed severity or specific reaction when entered as Other Date Reviewed: 03/21/2024 Reviewed by: Amy Acosta APRN.CPC CODER - Fully Assessed Reason for Visit: Patient Update [1234] Prescriptions as of 09/21/2024 - verapamil 40 mg tablet take 1 tablet by mouth twice a day - atenolol (TENORMIN) 50 mg tablet take 1 AND 1/2 tablet by mouth twice a day - ELIQUIS 5 mg tab(s) take 1 tablet by mouth twice a day - oxazepam (SERAX) 10 mg capsule Take 1 capsule by mouth two times a day as needed for up to 120 days. - pravastatin (PRAVACHOL) 40 mg tablet TAKE 1 AND 1/2 TABLETS BY MOUTH DAILY AT BEDTIME - levothyroxine (SYNTHROID) 25 mcg tablet Take 1 tablet by mouth once daily. - sotalol (BETAPACE) 80 mg tablet Take 1 tablet by mouth two times a day. - albuterol HFA (VENTOLIN HFA) 90 mcg/actuation inhaler Inhale 2 Puffs as instructed every 4 hours as needed for wheezing/shortness of breath. - tiotropium-olodaterol (STIOLTO RESPIMAT) 2.5-2.5 mcg/actuation Inhale 2 Puffs as instructed once daily. - aspirin, enteric coated (ASPIRIN, ENTERIC COATED) 81 mg EC tablet Take 81 mg by mouth once daily. - Trolamine Salicylate-Aloe Vera (ASPERCREME) 10 % crea Apply 1 application to affected area four times daily as needed. 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] 02/19/2024 Acute lower limb ischemia [I99.8] 02/19/2024 Popliteal artery occlusion, 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*02/20/2024 Femoral popliteal artery thrombus (HCC) [I74.3] 02/20/2024 Enlarged LA (left atrium) [I51.7] 02/20/2024 Encounter Status:Closed by DORCAS RIOS on 09/21/24 [facility] 08-07-2024 CNPN Telephone (COUMWS) LEXI LONDONO ([id number]) 1950 F Date Time Provider Department 08/07/24 ELENA ANDINO COUMTAZ During your visit today, we recorded the following information about you: Kenia Negrete, ALEX 08/07/2024 5:16 PM Signed patient is calling in stating that Oxazepam is on the national shortage list, and is wanting to see if she can be prescribed something similar to it that is not on a shortage as knowing this is making her anxiety increase wondering if she will be able to have her medication or not. please review and advise patient needs called back with information Elena Andino MD 08/09/2024 1:20 AM Signed Lorazepam 0.5 mg is the closest to oxazepam 10mg with how it is metabolized and how long it takes to work as well as how long it lasts. The equivalency is 1 mg lorazepam to 15 to 30 mg of oxazepam. Can try lorazepam 0.5 mg twice daily If dose is too potent (strong), may cut the dose in half. Will try a 2 weeks supply for now. Let me know whether med effective and tolerated by Tuesday before RX due for refill so know if need to try something else Lynn De León MA 08/10/2024 9:25 AM Signed Call to pt and notified her of message and instructions below from pt. Pt verbalized understanding. Pt may try taking 1/2 dosage first prior to taking full dosage. She will update office on how she's doing prior to needing a refill. She's hoping the shortage will be over prior to needing next refill. Lynn De León MA Allergies As of Date: 08/07/2024 Noted Allergy Reaction ALBUTEROL 03/09/2021 5 - Intolerance Comments: Anxiety. Something zoomed through my heart. CLINDAMYCIN 10/01/2013 6 - Diarrhea CODEINE 12/29/2004 16 - Unknown DARVOCET A500 (PROPOXYPHENE N-PAT*04/16/2005 5 - Intolerance LIPITOR (ATORVASTATIN CALCIUM) 04/05/2012 8 - GI Upset Comments: abdomen bloating initial c/o then retracted by pt NICKEL 12/17/2014 2 - Rash Comments: allergic to all metals, including gold and razor blades NTG (NITRATE ANALOGUES) 03/06/2013 5 - Intolerance Comments: hypotension PENICILLINS 12/29/2004 16 - Unknown PEPCID (FAMOTIDINE IN 0.9 % NACL) 04/16/2005 9 - Itching Comments: face itched SODIUM PENTATHAL (THIOPENTAL) 04/16/2005 5 - Intolerance Comments: No listed severity or specific reaction when entered as Other Date Reviewed: 03/21/2024 Reviewed by: Amy Acosta APRN.CPC CODER - Fully Assessed Reason for Visit: Medication Problem [65] Primary Visit Diagnosis:Generalized anxiety disorder [F41.1] Order(s):LORazepam (ATIVAN) 0.5 mgTake 1 tablet by mouth two times a day as needed for up to 14 days.Disp: 28 tabletRfl: 0 Prescriptions as of 08/10/2024 - LORazepam (ATIVAN) 0.5 mg Take 1 tablet by mouth two times a day as needed for up to 14 days. - ELIQUIS 5 mg tab(s) take 1 tablet by mouth twice a day - oxazepam (SERAX) 10 mg capsule Take 1 capsule by mouth two times a day as needed for up to 120 days. - atenolol (TENORMIN) 50 mg tablet Take 1.5 tablets by mouth two times a day. - verapamil 40 mg tablet Take 1 tablet by mouth two times a day. - pravastatin (PRAVACHOL) 40 mg tablet TAKE 1 AND 1/2 TABLETS BY MOUTH DAILY AT BEDTIME - levothyroxine (SYNTHROID) 25 mcg tablet Take 1 tablet by mouth once daily. - sotalol (BETAPACE) 80 mg tablet Take 1 tablet by mouth two times a day. - albuterol HFA (VENTOLIN HFA) 90 mcg/actuation inhaler Inhale 2 Puffs as instructed every 4 hours as needed for wheezing/shortness of breath. - tiotropium-olodaterol (STIOLTO RESPIMAT) 2.5-2.5 mcg/actuation Inhale 2 Puffs as instructed once daily. - aspirin, enteric coated (ASPIRIN, ENTERIC COATED) 81 mg EC tablet Take 81 mg by mouth once daily. - Trolamine Salicylate-Aloe Vera (ASPERCREME) 10 % crea Apply 1 application to affected area four times daily as needed. 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 Will try this m (more content not included)... [facility] CNPN Telephone (INTMWS) LEXI LONDONO ([id number]) 1950 F Date Time Provider Department 07/30/24 ELENA ANDINO INTMWS During your visit today, we recorded the following information about you: Evelia Cochran, RN 07/30/2024 9:29 AM Signed Patient calls and states that prior authorization needs done on medication. Called and spoke with pharmacist at [facility]. Pharmacy did send over prior authorization for medication through cover my medications. Insurance is not wanting to cover the medication due to patient's age and the class medication is in. Prior Authorization Documentation Prior authorization requested for the following medication: Medication: Oxepam Provider: Dr. Elena Andino Insurance Company Name: Medicare Patient ID number: [id number] Pharmacy Name: [facility] Telephone number: [phone] Blanca Polanco LPN 07/30/2024 10:24 AM Signed Unable to complete PA electronically. Called the pharmacy and pharmacy benefits info is ID number [id number] [facility] [id number] N [id number] Group rx [id number]. This was completed via covermymeds. lexi londono (Styles: [id number]) - [id number] Oxazepam 10MG capsules status: PA Request Created: July 30, 2024 Sent: July 30, 2024 Blanca Polanco LPN 07/30/2024 1:47 PM Signed lexi londono (Styles: [id number]) ELISABETH Need Help? Call us at Outcome Approved today by [facility] 2017 ELISABETH Case: [id number], Status: Approved, Coverage Starts on: 04/18/2024 12:00:00 AM, Coverage Ends on: 04/17/2025 12:00:00 AM. Questions? Contact . Effective Date: 04/18/2024 Authorization Expiration Date: 04/17/2025 Drug Oxazepam 10MG capsules Blanca PolancoBUCKY 07/30/2024 2:10 PM Signed Message left to pt with approval. Allergies As of Date: 07/30/2024 Noted Allergy Reaction ALBUTEROL 03/09/2021 5 - Intolerance Comments: Anxiety. Something zoomed through my heart. CLINDAMYCIN 10/01/2013 6 - Diarrhea CODEINE 12/29/2004 16 - Unknown DARVOCET A500 (PROPOXYPHENE N-PAT*04/16/2005 5 - Intolerance LIPITOR (ATORVASTATIN CALCIUM) 04/05/2012 8 - GI Upset Comments: abdomen bloating initial c/o then retracted by pt NICKEL 12/17/2014 2 - Rash Comments: allergic to all metals, including gold and razor blades NTG (NITRATE ANALOGUES) 03/06/2013 5 - Intolerance Comments: hypotension PENICILLINS 12/29/2004 16 - Unknown PEPCID (FAMOTIDINE IN 0.9 % NACL) 04/16/2005 9 - Itching Comments: face itched SODIUM PENTATHAL (THIOPENTAL) 04/16/2005 5 - Intolerance Comments: No listed severity or specific reaction when entered as Other Date Reviewed: 03/21/2024 Reviewed by: Amy Acosta APRN.CPC CODER - Fully Assessed Reason for Visit: Insurance Authorization [[id number]] Visit Diagnosis:Generalized anxiety disorder [F41.1] Comment:Stable on current dose Serax. Prescriptions as of 07/30/2024 - ELIQUIS 5 mg tab(s) take 1 tablet by mouth twice a day - oxazepam (SERAX) 10 mg capsule Take 1 capsule by mouth two times a day as needed for up to 120 days. - atenolol (TENORMIN) 50 mg tablet Take 1.5 tablets by mouth two times a day. - verapamil 40 mg tablet Take 1 tablet by mouth two times a day. - pravastatin (PRAVACHOL) 40 mg tablet TAKE 1 AND 1/2 TABLETS BY MOUTH DAILY AT BEDTIME - levothyroxine (SYNTHROID) 25 mcg tablet Take 1 tablet by mouth once daily. - sotalol (BETAPACE) 80 mg tablet Take 1 tablet by mouth two times a day. - albuterol HFA (VENTOLIN HFA) 90 mcg/actuation inhaler Inhale 2 Puffs as instructed every 4 hours as needed for wheezing/shortness of breath. - tiotropium-olodaterol (STIOLTO RESPIMAT) 2.5-2.5 mcg/actuation Inhale 2 Puffs as instructed once daily. - aspirin, enteric coated (ASPIRIN, ENTERIC COATED) 81 mg EC tablet Take 81 mg by mouth once daily. - Trolamine Salicylate-Aloe Vera (ASPERCREME) 10 % crea Apply 1 application to affected area four times daily as needed. 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] 02/19/2024 Acute lower limb ischemia [I99.8] 02/19/2024 Popliteal artery occlusion, 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 Pt was not sure why. Please advise and contact patient. Monica Maguire, RN 07/24/2024 8:31 AM Signed Called and spoke with pt to get more information. Pt states she isn't sure why her insurance isn't paying for it anymore. Informed pt that she needs to contact her insurance or the pharmacy to find out the reason why the medication is not covered anymore. Pt did not have any prescription information. Pt instructed to call Medicare to confirm her prescription coverage. Will send to PA to see for review. Per Prior Auth note on Oxazepam: [facility] message stating waiting for auth details sent on 07/22 at 541 pm. The below is noted: [employer] MEDICARE PART D (BIN#[id number] PCN#[id number]) - MR: Product Not on FormularyHUMANA MEDICARE PART D (BIN#[id number] PCN#[id number] MEDICARE PART D (BIN#[id number] PCN#[id number]) - RAPD: PREFERRED PRODUCT INFORMATION. Allergies As of Date: 07/23/2024 Noted Allergy Reaction ALBUTEROL 03/09/2021 5 - Intolerance Comments: Anxiety. Something zoomed through my heart. CLINDAMYCIN 10/01/2013 6 - Diarrhea CODEINE 12/29/2004 16 - Unknown DARVOCET A500 (PROPOXYPHENE N-PAT*04/16/2005 5 - Intolerance LIPITOR (ATORVASTATIN CALCIUM) 04/05/2012 8 - GI Upset Comments: abdomen bloating initial c/o then retracted by pt NICKEL 12/17/2014 2 - Rash Comments: allergic to all metals, including gold and razor blades NTG (NITRATE ANALOGUES) 03/06/2013 5 - Intolerance Comments: hypotension PENICILLINS 12/29/2004 16 - Unknown PEPCID (FAMOTIDINE IN 0.9 % NACL) 04/16/2005 9 - Itching Comments: face itched SODIUM PENTATHAL (THIOPENTAL) 04/16/2005 5 - Intolerance Comments: No listed severity or specific reaction when entered as Other Date Reviewed: 03/21/2024 Reviewed by: Amy Acosat APRN.CPC CODER - Fully Assessed Reason for Visit: Medication Problem [65] Prescriptions as of 07/25/2024 - ELIQUIS 5 mg tab(s) take 1 tablet by mouth twice a day - oxazepam (SERAX) 10 mg capsule Take 1 capsule by mouth two times a day as needed for up to 120 days. - atenolol (TENORMIN) 50 mg tablet Take 1.5 tablets by mouth two times a day. - verapamil 40 mg tablet Take 1 tablet by mouth two times a day. - pravastatin (PRAVACHOL) 40 mg tablet TAKE 1 AND 1/2 TABLETS BY MOUTH DAILY AT BEDTIME - levothyroxine (SYNTHROID) 25 mcg tablet Take 1 tablet by mouth once daily. - sotalol (BETAPACE) 80 mg tablet Take 1 tablet by mouth two times a day. - albuterol HFA (VENTOLIN HFA) 90 mcg/actuation inhaler Inhale 2 Puffs as instructed every 4 hours as needed for wheezing/shortness of breath. - tiotropium-olodaterol (STIOLTO RESPIMAT) 2.5-2.5 mcg/actuation Inhale 2 Puffs as instructed once daily. - aspirin, enteric coated (ASPIRIN, ENTERIC COATED) 81 mg EC tablet Take 81 mg by mouth once daily. - Trolamine Salicylate-Aloe Vera (ASPERCREME) 10 % crea Apply 1 application to affected area four times daily as needed. 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] 02/19/2024 Acute lower limb ischemia [I99.8] 02/19/2024 Popliteal artery occlusion, 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 Elena Andino MD Status:DEP ER Location: ED HPI History of Present Illness Chief Complaint: Numb/Ting Informant: patient Onset/Context/Timing Onset: Yesterday Context: Sudden Onset Timing: Intermittent Quality: Location: Right hand and index finger Worsened by: Nothing Relieved by: Movement, rubbing Narrative Narrative: Patient presents with paresthesias in her right hand that have been getting worse since yesterday. Patient states they are worse when she wakes up in the morning. Right hand feels . Patient states it is worse over her right index finger. Patient states that when she rubs it and moves it it gets better. Patient denies any weakness. Patient states nothing makes it worse. Patient is concerned that this could be a blood clot because she had similar symptoms in her leg and was diagnosed with a DVT at that time. Prior similar symptoms: Yes [facility] Medical History (Updated 04/03/24 @ 17:[address] Flako Arredondo, DO) Popliteal artery occlusion, right Anticoagulant long-term use Peripheral arterial disease Home Medications ???Medication ???Instructions ???Recorded ???Last Taken ???Type Oxazepam [Serax] 10 mg PO BID PRN PRN Agitation 04/22/13 Unknown History aspirin 81 mg chewable tablet 81 mg PO DAILY@0800 04/22/13 02/18/24 History atenolol 25 mg tablet 75 mg PO BID 04/22/13 Unknown History pravastatin 10 mg tablet 10 mg PO QHS 04/22/13 Unknown History sotalol 80 mg tablet 80 mg PO BID 04/22/13 Unknown History verapamil 80 mg tablet 40 mg PO BID 05/14/14 Unknown History Allergy/AdvReac Type Severity Reaction Status Date / Time thiopental (From Pentothal) Allergy Severe Anaphylaxis Verified 04/03/24 15:19 codeine Allergy Itching Verified 04/03/24 15:19 Penicillins Allergy Unknown Verified 04/03/24 15:19 Surgical History (Updated 04/03/24 @ 15:[address] Flako Arredondo, DO) History of thrombectomy Social History Smoking Status: Heavy Smoker (>10/day) ROS ROS ED Constitutional Constitutional ED: Denies chills or fever(s) Eyes Eyes: Denies blurry vision or change in vision ENT ENT ED: Reports rhinorrhea; Denies sore throat Cardiovascular Cardiovascular: Denies chest pain or palpitations Respiratory/Chest Respiratory/Chest: Reports cough; Denies dyspnea Gastrointestinal Gastrointestinal: Denies nausea or vomiting Genitourinary Genitourinary ED: Denies dysuria or hematuria Musculoskeletal Musculoskeletal: Denies back pain or neck pain Integumentary Denies abscess or rash Neurologic Neurologic: Reports paresthesias RUE (Right hand and index finger); Denies headache(s) or weakness Allergic/Immunologic Allergic/Immunologic ED: Denies mouth swelling or urticaria EXAM Physical Exam Const Vital Signs: 04/03/24 15:20 Temperature 97 F L Temperature Source Temporal Pulse Rate 64 Respiratory Rate 18 Blood Pressure 149/66 H Blood Pressure Mean 93 Pulse Ox 96 Oxygen Delivery Method Room Air Positive well nourished and well developed General Appearance ED: well developed and NAD HEENT Reports moist mucous membranes Neck supple and no JVD Extremity Extremity Narrative: Radial pulses are equal bilaterally. Capillary refill was less than 2 seconds in all digits. There is no cyanosis or pallor noted. There is full range of motion. There is some paresthesias on the volar aspect of the forearm with Tinel's testing at the wrist. There is no paresthesias with Tinel testing at the elbow. There are some paresthesias with Phalen's testing at the wrist on the right. Neuro oriented x3, CN's II-XII intact bilaterally and no sensory deficits noted Sensorium / Orientation: alert Motor Exam: strength 5/5 throughout MDM MDM MDM Narrative Medical decision making narrative: Differential diagnosis includes DVT, carpal tunnel syndrome, and paresthesias. Venous duplex of the right upper extremity will be obtained to assess for DVT. Radiography Diagnostic Testing: Venous duplex of the right upper extremity was obtained. There is no evidence of DVT. Treatment and Re-Evaluation :: Patient was advised of her findings. Patient was advised that this could be carpal tunnel syndrome. Patient was given a cock up wrist splint. Patient was instructed to use [id number] ibuprofen as needed for pain. Patient was instructed to follow-up with her primary care physician in 5 to 7 days. Patient understood and was agreeable with the plan. All questions were answered. Dischar (more content not included)... Normal [facility] Venous Duplex US, Unilateral on 04-03-2024 Venous Duplex US, Unilateral [facility] [address] [place] [address] Venous Duplex US, Unilateral 04/03/24 1546 MR#: [id number] Acct: [id number] Name: LEXI LONDONO Rep #: [id number] : 1950 73 From: Willard Schmidt MD Attending Dr: Status: DEP ER Ordering Dr: Flako Arredondo DO Date: 04/03/24 Location: ED Sex: F C Admitted: Reason For Study: RUE Pain / Numbness Right Proximal Right jugular vein is spontaneous, widely patent, phasic, with no intraluminal echogenicity noted. Right subclavian vein is spontaneous, widely patent, phasic, with no intraluminal echogenicity noted. Right Lower Arm Right radial vein is compressible. Right ulnar vein is compressible. Right Arm Right axillary vein is spontaneous, patent, phasic, competent, compressible and demonstrates augmentation. Right brachial vein is compressible. Right cephalic vein is compressible. Right basilic vein is compressible. Patient Safety Preliminary Finding given To [facility] ED Nurse Responsible for patient. VL/Venous Duplex US, Unilateral Interpretation Summary Deep veins of the right upper extremity are patent and compressible segmentally. There is no evidence of deep vein thrombosis. The superficial veins of the right upper extremity, the basilic and cephalic veins, are patent and compressible. There is no evidence of right upper extremity superficial thrombophlebitis involving the veins imaged. Ordering Physician: Flako Arredondo Performed By: Kirill Alfaro, Alex ??? 04/03/242240 Date Willard Schmidt MD CC: Dr. Flako Arredondo, DO; Dr. Elena nAdino MD Date Dictated: 04/03/24 1546 Date Transcribed: 04/03/242240 Electrical Instrumentation Technician: Blanca [facility] 04-02-2024 [facility] Telephone (INTMWS) LEXI LONDONO ([id number]) 1950 F Date Time Provider Department 04/02/24 ELENA ANDINO INTMWS During your visit today, we recorded the following information about you: Evelia Cochran RN 04/02/2024 3:58 PM Signed Patient calls and states that she is on Eliquis 5 mg twice a day. Patient is also taking baby aspirin 81 mg. Patient calling and asking if it is ok to continue taking both medications? Please review and advise, ALEX Varela Liza D, MD 04/03/2024 12:52 AM Signed Reviewed that she left AMA in February after treated for peripheral limb ischemia with thrombectomy of iliac artery and popliteal artery. Her discharge summary included Eliquis and aspirin was continued. Okay to continue on both. Noted that she was seen by Amy Acosta CNP 03/21/24. Next appointment in August. Follow up sooner as needed. Nasra Ruiz RN 04/03/2024 9:22 AM Signed Attempted to contact patient and no answer. Voicemail box is not set up. Please try contacting patient again. Thank you. Nelli Ibarra LPN 04/03/2024 4:13 PM Signed Attempted to call x2, vm has not been set up, will continue to try to contact Patient. Sherie Oneill LPN, LPN 04/03/2024 4:16 PM Signed Pt called in and message below given. Pt verbalizes understanding. Sherie Calles LPN Allergies As of Date: 04/02/2024 Noted Allergy Reaction ALBUTEROL 03/09/2021 5 - Intolerance Comments: Anxiety. Something zoomed through my heart. CLINDAMYCIN 10/01/2013 6 - Diarrhea CODEINE 12/29/2004 16 - Unknown DARVOCET A500 (PROPOXYPHENE N-PAT*04/16/2005 5 - Intolerance LIPITOR (ATORVASTATIN CALCIUM) 04/05/2012 8 - GI Upset Comments: abdomen bloating initial c/o then retracted by pt NICKEL 12/17/2014 2 - Rash Comments: allergic to all metals, including gold and razor blades NTG (NITRATE ANALOGUES) 03/06/2013 5 - Intolerance Comments: hypotension PENICILLINS 12/29/2004 16 - Unknown PEPCID (FAMOTIDINE IN 0.9 % NACL) 04/16/2005 9 - Itching Comments: face itched SODIUM PENTATHAL (THIOPENTAL) 04/16/2005 5 - Intolerance Comments: No listed severity or specific reaction when entered as Other Date Reviewed: 03/21/2024 Reviewed by: Amy Acosta APRN.CPC CODER - Fully Assessed Reason for Visit: Patient Question [7367] Prescriptions as of 04/03/2024 - apixaban (ELIQUIS) 5 mg tab(s) Take 1 tablet by mouth two times a day. - oxazepam (SERAX) 10 mg capsule Take 1 capsule by mouth two times a day as needed for up to 180 days. - atenolol (TENORMIN) 50 mg tablet Take 1.5 tablets by mouth two times a day. - verapamil 40 mg tablet Take 1 tablet by mouth two times a day. - pravastatin (PRAVACHOL) 40 mg tablet TAKE 1 AND 1/2 TABLETS BY MOUTH DAILY AT BEDTIME - levothyroxine (SYNTHROID) 25 mcg tablet Take 1 tablet by mouth once daily. - sotalol (BETAPACE) 80 mg tablet Take 1 tablet by mouth two times a day. - albuterol HFA (VENTOLIN HFA) 90 mcg/actuation inhaler Inhale 2 Puffs as instructed every 4 hours as needed for wheezing/shortness of breath. - tiotropium-olodaterol (STIOLTO RESPIMAT) 2.5-2.5 mcg/actuation Inhale 2 Puffs as instructed once daily. - aspirin, enteric coated (ASPIRIN, ENTERIC COATED) 81 mg EC tablet Take 81 mg by mouth once daily. - Trolamine Salicylate-Aloe Vera (ASPERCREME) 10 % crea Apply 1 application to affected area four times daily as needed. 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] 02/19/2024 Acute lower limb ischemia [I99.8] 02/19/2024 Popliteal artery occlusion, 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*02/20/2024 Femoral popliteal artery thrombus (HCC) [I74.3] 02/20/2024 Enlarged LA (left atrium) [I51.7] 02/20/2024 Encounter Status:Closed by SHERIE CALLES on 04/03/24 [facility] CNOVon 03-21-2024 CNOV Office Visit (FAMPWS ) LEXI LONDONO ([id number]) 1950 F Date Time Provider Department 03/21/24 6:20 PM AMY ACOSTA FAMPWS During your visit today, we recorded the following information about you: Pulse Respiration Blood pressure Weight 63/minute 16/minute 118/64 66.7 kg Amy Acosta, LYRIC.CPC CODER 03/21/2024 7:10 PM Signed Chief Complaint Patient presents with: 6 month fup HPI Lexi Londono is a 73 year old female who presents here today for Above Complaints. Lexi is an established patient of Dr. Thu MD. She is a new patient to me today. Concerns today... Needing refills of medications. No concerns or complaints today. Recent [facility] ER visit on 03/05 d/t LLE tingling x 1 min. Hx of PAD with recent revascularization surgery via thrombectomy last month. Reports leg is still sore sometimes but otherwise doing very well. Past medical history, appointments, medications, allergies reviewed. Previous Medical History PAST MEDICAL HISTORY Diagnosis Date Adhesive capsulitis of right shoulder 12/17/2014 Atrial fibrillation (HCC) Benign neoplasm of colon Tubular adenoma in 2005 Claudication (HCC) 12/01/2010 COPD (chronic obstructive pulmonary disease) (HCC) Generalized osteoarthrosis, unspecified site HLD (hyperlipidemia) HTN (hypertension) Internal hemorrhoids without mention of complication Noncompliance with medication regimen 12/06/2010 PMH - PAST MEDICAL HISTORY OF ASPVD Tendonitis left leg 04/14/2011 Tobacco use disorder Unspecified constipation Previous Surgical History PAST SURGICAL HISTORY Procedure Laterality Date COLSC FLX W/RMVL OF TUMOR POLYP LESION SNARE TQ 09/16/05 Family History FAMILY HISTORY Problem Relation Age of Onset Heart Father Heart Mother None Mother None Brother None Brother None Sister None Sister Hypertension Sister Hypertension Sister other (hepatitis) Sister C Cancer Maternal Grandmother colon ca Cancer Maternal Aunt ca Patient Allergies ALLERGIES Allergen Reactions Albuterol Intolerance Anxiety. Something zoomed through my heart. Clindamycin Diarrhea Codeine Unknown Darvocet A500 [Prop* Intolerance Lipitor [Atorvastat* GI Upset abdomen bloating initial c/o then retracted by pt Nickel Rash allergic to all metals, including gold and razor blades Ntg [Nitrate Analog* Intolerance hypotension Penicillins Unknown Pepcid [Famotidine * Itching face itched Sodium Pentathal [T* Intolerance No listed severity or specific reaction when entered as Other Current Medications Current Outpatient Medications on File Prior to Visit Medication Sig apixaban (ELIQUIS) 5 mg tab(s) Take 1 tablet by mouth two times a day. oxazepam (SERAX) 10 mg capsule Take 1 capsule by mouth two times a day as needed for up to 60 days. pravastatin (PRAVACHOL) 40 mg tablet TAKE 1 AND 1/2 TABLETS BY MOUTH DAILY AT BEDTIME levothyroxine (SYNTHROID) 25 mcg tablet Take 1 tablet by mouth once daily. sotalol (BETAPACE) 80 mg tablet Take 1 tablet by mouth two times a day. albuterol HFA (VENTOLIN HFA) 90 mcg/actuation inhaler Inhale 2 Puffs as instructed every 4 hours as needed for wheezing/shortness of breath. tiotropium-olodaterol (STIOLTO RESPIMAT) 2.5-2.5 mcg/actuation Inhale 2 Puffs as instructed once daily. aspirin, enteric coated (ASPIRIN, ENTERIC COATED) 81 mg EC tablet Take 81 mg by mouth once daily. Trolamine Salicylate-Aloe Vera (ASPERCREME) 10 % crea Apply 1 application to affected area four times daily as needed. No current facility-administered medications on file prior to visit. Social History Social History Tobacco Use Smoking status: Every Day Current packs/day: 0.25 Average packs/day: 0.3 packs/day for 30.0 years (7.5 ttl pk-yrs) Types: Cigarettes Smokeless tobacco: Never Tobacco comments: 5-6 cigs to no more than 10 per day the past year or so. August 30, 2023--10 per day or less depending on stressors Substance Use Topics Alcohol use: No Drug use: Yes Frequency: 2.0 times per week Types: Marijuana Comment: for back pain as needed REVIEW OF SYSTEMS: as above Reviewed relevant PMHx, PSHx, Social Hx, current medications and allergies. Review of Symptoms REVIEW OF SYSTEMS See HPI. EXAM: BP 118/64 (BP Site: Left Arm, BP Position: Sitting, BP Cuff Size: Regular Adult) Pulse 63 Resp 16 Wt 66.7 kg (147 lb) SpO2 97% BMI 25.23 kg/m? General Appearance: Well appearing, alert, in no acute distress, well-hydrated, well nourished.. Skin: Skin color, texture, turgor normal, no suspicious rashes or lesions. Head: Normocephalic, no masses, lesions, tenderness or abnormalities. Lungs: Lungs clear to auscultation. No wheezing, rhonchi, rales.. Heart: RRR without murmur, gallop, or rubs. No ectopy. Health Maintenance List Pneumococcal Vaccine: 65+(1 of 2 - (more content not included)... Normal [facility]20[facility] LEXI LOND[facility] ([id number]) 1950 F Date Time Provider Department 03/21/24 ELENA ANDINO INTMWS During your visit today, we recorded the following information about you: CatrerarmandoAnnemarie 03/21/2024 9:33 AM Signed Patient requesting medication that is Patient last seen: 08-30-23 Patient future visit scheduled: yes PHARMACY: [facility] Leonie Anton MA 03/21/2024 9:37 AM Signed Patient phones requesting refills as follows: Requested Prescriptions Pending Prescriptions Disp Refills atenolol (TENORMIN) 50 mg tablet 270 tablet 1 Sig: Take 1.5 tablets by mouth two times a day. Please review and advise. KATIE Campbell Stephanie, RN 03/21/2024 4:14 PM Signed Ijeoma calls back and states that patient does not have enough medication for tomorrow. Please call Ije[facility] when sent to pharmacy. ALEX Varela Sue E, LPN 03/21/2024 5:46 PM Signed Patient called back and states the other medication needing prescribed is for the verapamil 40mg two times daily. BUCKY Braden Liza D, MD 03/21/2024 7:56 PM Signed Seen by Amy Henson. RXs taken care of by her. Allergies As of Date: 03/21/2024 Noted Allergy Reaction ALBUTEROL 03/09/2021 5 - Intolerance Comments: Anxiety. Something zoomed through my heart. CLINDAMYCIN 10/01/2013 6 - Diarrhea CODEINE 12/29/2004 16 - Unknown DARVOCET A500 (PROPOXYPHENE N-PAT*04/16/2005 5 - Intolerance LIPITOR (ATORVASTATIN CALCIUM) 04/05/2012 8 - GI Upset Comments: abdomen bloating initial c/o then retracted by pt NICKEL 12/17/2014 2 - Rash Comments: allergic to all metals, including gold and razor blades NTG (NITRATE ANALOGUES) 03/06/2013 5 - Intolerance Comments: hypotension PENICILLINS 12/29/2004 16 - Unknown PEPCID (FAMOTIDINE IN 0.9 % NACL) 04/16/2005 9 - Itching Comments: face itched SODIUM PENTATHAL (THIOPENTAL) 04/16/2005 5 - Intolerance Comments: No listed severity or specific reaction when entered as Other Date Reviewed: 03/21/2024 Reviewed by: Amy Acosta APRN.CPC CODER - Fully Assessed Reason for Visit: requesting medication that is [Other] Visit Diagnosis:Paroxysmal atrial fibrillation (HCC) [I48.0] Prescriptions as of 03/21/2024 - apixaban (ELIQUIS) 5 mg tab(s) Take 1 tablet by mouth two times a day. - oxazepam (SERAX) 10 mg capsule Take 1 capsule by mouth two times a day as needed for up to 180 days. - atenolol (TENORMIN) 50 mg tablet Take 1.5 tablets by mouth two times a day. - verapamil 40 mg tablet Take 1 tablet by mouth two times a day. - pravastatin (PRAVACHOL) 40 mg tablet TAKE 1 AND 1/2 TABLETS BY MOUTH DAILY AT BEDTIME - levothyroxine (SYNTHROID) 25 mcg tablet Take 1 tablet by mouth once daily. - sotalol (BETAPACE) 80 mg tablet Take 1 tablet by mouth two times a day. - albuterol HFA (VENTOLIN HFA) 90 mcg/actuation inhaler Inhale 2 Puffs as instructed every 4 hours as needed for wheezing/shortness of breath. - tiotropium-olodaterol (STIOLTO RESPIMAT) 2.5-2.5 mcg/actuation Inhale 2 Puffs as instructed once daily. - aspirin, enteric coated (ASPIRIN, ENTERIC COATED) 81 mg EC tablet Take 81 mg by mouth once daily. - Trolamine Salicylate-Aloe Vera (ASPERCREME) 10 % crea Apply 1 application to affected area four times daily as needed. 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, [address] CA,Total 9.6 mg/dL Normal 8.5-10.1 [facility] Comment on above: Performed By: #### L 500.2500, L100.0100 ####[facility] [address] [place], [address] Chloride [Moles/Vol] 102 mmol/L Normal 98-107 [facility] Comment on above: Performed By: #### L 500.2500, L100.0100 ####[facility] [address] [place], [address] CO2 [Moles/Vol] 32.0 mmol/L Normal 21.0-32.0 [facility] Comment on above: Performed By: #### L 500.2500, L100.0100 ####[facility] [address] [place], [address] Creatinine [Mass/Vol] 0.74 mg/dL Normal 0.55-1.02 [facility] Comment on above: Result Comment: The validity of the calculated GFR GFRAA in patients over 70 years has not been determined. Clinical correlation is essential. Performed By: #### L 500.2500, L100.0100 ####[facility] [address] [place], [address] ECRCL 55.18 ml/min Normal [facility] Comment on above: Performed By: #### L 500.2500, L100.0100 ####[facility] [address] [place], [address] EST GFR - AA 98 mL/min Normal >60 [facility] Comment on above: Result Comment: Afri can Panamanian GFR Calc Performed By: #### L 500.2500, L100.0100 ####[facility] [address] [place], [address] GAP 2 Low 5-15 [facility] Comment on above: Performed By: #### L 500.2500, L100.0100 ####[facility] [address] [place], [address] GFR/1.73 sq M.predicted among non-blacks MDRD (S/P/Bld) [Vol rate/Area] 81 mL/min/{1.73_m2} Normal >60 [facility] Comment on above: Result Comment: Non- GFR Calc Performed By: #### L 500.2500, L100.0100 ####[facility] [address] [place], [address] Glucose [Mass/Vol] 109 mg/dL High 74-106 [facility] Comment on above: Result Comment: Fast ing Glucose result from 100 to 125 mg/dL suggests IMPAIRED HOMEOSTASIS per A.D.A. criteria. Performed By: #### L 500.2500, L100.0100 ####[facility] [address] [place], [address] Potassium [Moles/Vol] 4.2 mmol/L Normal 3.5-5.1 [facility] Comment on above: Performed By: #### L 500.2500, L100.0100 ####[facility] [address] [place], [address] Sodium [Moles/Vol] 136 mmol/L Normal 136-145 [facility] Comment on above: Performed By: #### L 500.2500, L100.0100 ####[facility] [address] [place], [address] Urea nitrogen [Mass/Vol] 13 mg/dL Normal 7-18 [facility] Comment on above: Performed By: #### L 500.2500, L100.0100 ####[facility] [address] [place], [address] CBC W/Diff, Automatedon 02-16 Absolute Lymph 2.61 X10 3/uL Normal 0.83-4.51 [facility] Comment on above: Performed By: #### L 500.2500, L100.0100 ####[facility] [address] [place], [address] Absolute Neut 6.9 X10 3/uL Normal 2.0-7.7 [facility] Comment on above: Performed By: #### L 500.2500, L100.0100 ####[facility] [address] [place], [address] Basophils/100 WBC (Bld) 0.6 % Normal 0-1 [facility] Comment on above: Performed By: #### L 500.2500, L100.0100 ####[facility] [address] [place], [address] Eosinophils/100 WBC (Bld) 2.9 % Normal 0-5 [facility] Comment on above: Performed By: #### L 500.2500, L100.0100 ####[facility] [address] [place], [address] Erythrocyte distribution width (RBC) [Ratio] 14.3 % Normal 11.6-14.6 [facility] Comment on above: Performed By: #### L 500.2500, L100.0100 ####[facility] [address] [place], [address] Hematocrit (Bld) [Volume fraction] 39.0 % Normal 37-47 [facility] Comment on above: Performed By: #### L 500.2500, L100.0100 ####[facility] [address] [place], [address] Hemoglobin (Bld) [Mass/Vol] 12.3 g/dL Normal 12.0-15.0 [facility] Comment on above: Performed By: #### L 500.2500, L100.0100 ####[facility] [address] [place], [address] IG% 0.700 Normal 0.0-0.9 [facility] Comment on above: Result Comment: IG% - Immature Granulocytes (promyelocytes, myelocytes and metamyelocytes) > 1% indicates that a LEFT SHIFT is Present. Performed By: #### L 500.2500, L100.0100 ####[facility] [address] [place], [address] Lymphocytes/100 WBC (Bld) 23.0 % Normal 19-41 [facility] Comment on above: Performed By: #### L 500.2500, L100.0100 ####[facility] [address] [place], [address] MCH (RBC) [Entitic mass] 30.5 pg Normal 27.0-32.0 [facility] Comment on above: Performed By: #### L 500.2500, L100.0100 ####[facility] [address] [place], [address] MCHC (RBC) [Mass/Vol] 31.5 g/dL Low 32-36 [facility] Comment on above: Performed By: #### L 500.2500, L100.0100 ####[facility] [address] [place], [address] MCV (RBC) [Entitic vol] 96.8 fL Normal 81-99 [facility] Comment on above: Performed By: #### L 500.2500, L100.0100 ####[facility] [address] [place], [address] Monocytes/100 WBC (Bld) 12.1 % High 0-10 [facility] Comment on above: Performed By: #### L 500.2500, L100.0100 ####[facility] [address] [place], [address] Neutrophils/100 WBC (Bld) 60.7 % Normal 47-70 [facility] Comment on above: Performed By: #### L 500.2500, L100.0100 ####[facility] [address] [place], [address] Nucleated RBC (Bld) [#/Vol] 0 10*3/uL Normal 0-5 [facility] Comment on above: Performed By: #### L 500.2500, L100.0100 ####[facility] [address] [place], [address] Platelet mean volume (Bld) [Entitic vol] 9.3 fL Normal 6.2-12.0 [facility] Comment on above: Performed By: #### L 500.2500, L100.0100 ####[facility] [address] [place], [address] Platelets (Bld) [#/Vol] 390 10*3/uL Normal 150-450 [facility] Comment on above: Performed By: #### L 500.2500, L100.0100 ####[facility] [address] [place], [address] RBC (Bld) [#/Vol] 4.03 10*6/uL Low 4.2-5.4 [facility] Comment on above: Performed By: #### L 500.2500, L100.0100 ####[facility] [address] [place], [address] RDW SD 49.5 fl High 35.1-43.9 [facility] Comment on above: Performed By: #### L 500.2500, L100.0100 ####[facility] [address] [place], [address] WBC (Bld) [#/Vol] 11.4 10*3/uL High 4.4-11.0 [facility] Comment on above: Performed By: #### L 500.2500, L100.0100 ####[facility] [address] [place], [address] Emergency Department Summary on 03-05-2024 Emergency Department Summary [facility] Medical Records Department [address] [place] [address] Emergency Department Summary 03/05/24 MR#: [id number] Acct: [id number] Name: LEXI LONDONO Rep #: [id number] : 1950 73 From: Hitesh Baker MD PCP: Dr. Elena Andino MD Status:PRE ER Location: ED HPI History of Present Illness Chief Complaint: Lower Extremity Injury Detail of Chief Complaint: Tingling left foot that awoke patient from sleep Informant: patient Onset/Context/Timing Onset: Today Context: Sudden Onset Timing: Intermittent and Lasts (Less than 1 minute) Quality: Tingling in the entire foot Location: Left Current Severity: Gone Worsened by: Nothing Relieved by: Shaking and walking on it Associated Symptoms Associated Symptoms: No other symptoms Narrative Narrative: Patient is a 73-year-old woman. She has history of peripheral arterial disease who recently had revascularization surgery at [facility]. She is on Eliquis 5 mg twice daily. She presents because she was instructed to, after contacting her doctor. She had numbness of her left foot that lasted approximately a minute. Presently has no symptoms. There is no history of trauma. She has shortness of breath. She chronically is short of breath. This is no worse than normal. She does have history of atrial fibrillation. She denies paralysis, numbness, pallor or lack of sensation in the left lower extremity. Prior similar symptoms: Yes (Prior to revascularization surgery right lower extremity) Recent Illness/Hospitalizatio n: Yes [facility] Medical History (Updated 03/05/24 @ 11:[address] Hitesh Baker MD) Popliteal artery occlusion, right Anticoagulant long-term use Peripheral arterial disease Home Medications ???Medication ???Instructions ???Recorded ???Last Taken ???Type Oxazepam [Serax] 10 mg PO BID PRN PRN Agitation 04/22/13 Unknown History aspirin 81 mg chewable tablet 81 mg PO DAILY@0800 04/22/13 02/18/24 History atenolol 25 mg tablet 75 mg PO BID 04/22/13 Unknown History pravastatin 10 mg tablet 10 mg PO QHS 04/22/13 Unknown History sotalol 80 mg tablet 80 mg PO BID 04/22/13 Unknown History verapamil 80 mg tablet 40 mg PO BID 05/14/14 Unknown History Allergy/AdvReac Type Severity Reaction Status Date / Time thiopental (From Pentothal) Allergy Severe Anaphylaxis Verified 03/05/24 10:05 codeine Allergy Itching Verified 03/05/24 10:05 Penicillins Allergy Unknown Verified 03/05/24 10:05 Social History Smoking Status: Heavy Smoker (>10/day) ROS ROS ED Constitutional Constitutional ED: Denies chills, fever(s), subjective, sweats or weight loss Eyes Eyes: Denies blurry vision or change in vision ENT ENT ED: Denies ear pain, rhinorrhea or sore throat Cardiovascular Cardiovascular: Denies chest pain, orthopnea, palpitations or paroxysmal nocturnal dyspnea Respiratory/Chest Respiratory/Chest: Reports dyspnea and dyspnea on exertion; Denies cough, orthopnea, paroxysmal nocturnal dyspnea or sputum Gastrointestinal Gastrointestinal: Denies abdominal pain, nausea or vomiting Musculoskeletal Musculoskeletal: Denies back pain Integumentary Denies rash Neurologic Neurologic: Reports paresthesias Hematologic/Lymphatic Hematologic/Lymphatic: Reports systems reviewed and no addt'l complaints, except as documented EXAM Physical Exam Const Vital Signs: 03/05/24 10:05 Temperature 98.3 F Temperature Source Temporal Pulse Rate 68 Respiratory Rate 14 Blood Pressure 140/61 H Blood Pressure Mean 87 Pulse Ox 97 Oxygen Delivery Method Room Air Positive well nourished and well developed General Appearance ED: well developed and NAD; Negative for cyanotic, diaphoretic or pallor HEENT Reports moist mucous membranes HEENT Narrative: Head is atraumatic normocephalic. Ears normal. Nares patent. Posterior pharynx is normal. Eyes PERRL and EOMs intact bilaterally General Eye ED: Negative for pale conjunctiva or scleral icterus Neck no JVD Chest Wall inspection of chest normal and palpation of chest normal Resp normal respiratory effort and clear to auscultation bilaterally Cardio regular rate, S1 normal heart sound, S2 normal heart sound and no murmurs Rhythm: abnormal rhythm irregularly irregular GI normal to inspection, nondistended, normoactive bowel sounds, non-tender, non-distended and no masses; Negative for hepatosplenomegaly Back/Spine no CVA tenderness Extremity Extremity Narrative: Healing wound proximal medial right leg. There is bruising noted. PT pulses 2+ and symmetric. DP pulses not palpable. There is biphasic flow bilaterally. Neither foot is cool or pale. Sensation is not abnormal. Tenderness over the incision site right lower extremity (more content not included)... Normal [facility] ALLIED HEALTHon 02-20-2024 ALLIED HEALTH HNO ID: [id number] Author: DIANA ROCK RT(R) Service: Radiology Author Type: Swimming Pool Maintenance Supervisor Type: Allied Health Filed: 02/20/2024 09:48 Note Text: Radiology Service Progress Note DATE OF SERVICE: February 20, 2024 TIME: 9:47 AM PATIENT IDENTITY VERIFICATION COMPLETED USING TWO (2) STANDARD IDENTIFIERS: Name and Date of confirmed by patient verbally and Name and Date of confirmed by identification band. FALL SCREENING: Has the patient had 2 falls in the last year or 1 fall with injury or currently using an Ambulatory Assistive Device (Walker, Cane, Wheelchair, Crutches, etc.)? Inpatient: Screened on floor PATIENT GENDER DATA: Female. status: : No status: NO. PATIENT RELEVANT IMPLANT DATA REVIEWED: Not Applicable PATIENT PRESENTS WITH AN IMPLANTABLE OR ATTACHED FOREST LOGISTICS MANAGER: No ALLERGIES: Reviewed and unchanged CONTRAST ALLERGY: NO. EXAM: CT -CONTRAST INDUCED NEPHROPATHY RISK FACTORS: Not applicable CREATININE: Creatinine Date Value Ref Range Status 02/20/2024 0.50 (L) 0.58 - 0.96 mg/dL Final 07/22/2022 0.81 0.58 - 0.96 mg/dL Final 08/10/2018 0.74 0.58 - 0.96 mg/dL Final Estimated Glomerular Filtration Rate Date Value Ref Range Status 02/20/2024 99 >=60 mL/min/1.73m? Final Comment: Estimated Glomerular Filtration Rate (eGFR) is calculated using the 2020 CKD-EPI creatinine equation. This equation utilizes serum creatinine, sex, and age as parameters. The creatinine assay has traceable calibration to isotope dilution-mass spectrometry. Refer to KDIGO guidelines for clinical interpretation. In patients with unstable renal function, e.g. those with acute kidney injury, the eGFR may not accurately reflect actual GFR. eGFR- Date Value Ref Range Status 08/10/2018 >60 Final P.O.C.T. RESULTS: POC done: Yes, See Lab Tab February 20, 2024 TREATMENT: N/A and No Hydration needed. PERIPHERAL IV DATA: Inpatient - refer to LDA documentation RADIOLOGY DEPARTMENT: CT; Exam(s) Completed: CTA Chest SIGNATURE: RT Armand(R) PATIENT NAME: Lexi Londono DATE: February 20, 2024 TIME: 9:47 AM Normal [facility] ANES POSTPROC EVALon 024 ANES POSTPROC EVAL HNO ID: [id number] Author: BETHEL FLAHERTY MD Service: Anesthesiology Author Type: Anesthesiologist Type: Anesthesia Postprocedure Evaluation Filed: 02/20/2024 03:08 Note Text: POST ANESTHESIA EVALUATION NOTE : 1950 Procedure Summary Date: 02/19/24 Room / Location: SD OR / SD OR Anesthesia Start: 2043 Anesthesia Stop: 02/20/2445 Procedures: ANGIOGRAM EXTREMITY LOWER (Right: Leg) THROMBECTOMY FEMOROPOPLITEAL ARTERY VIA LEG INCISION (Right: Leg) Diagnosis: Ischemia of extremity (Ischemia of extremity [I99.8]) Surgeons: Allen Preston MD Responsible Provider: Bethel Flaherty MD Anesthesia Type: general ASA Status: 4 - Emergent Anesthesia Type: general Airway Type: ETT Last Vitals Vitals Value Taken Time BP 169/77 02/20/24224 Temp 02/20/24306 Pulse 65 02/20/24305 Resp 17 02/20/24305 SpO2 98 % 02/20/24305 Vitals shown include unfiled device data. Post Anesthesia Patient Status Patient Evaluation: ICU. PACU/ICU Patient Condition: stable. Anticipated Disposition: inpatient floor planned admission. Neurological Status: aware and responsive. Pulmonary Status: breathing comfortably on supplemental oxygen Airway Control: returned to baseline unsupported. Cardiovascular Status: stable. Pain Management: clinically adequate - multimodal analgesia pain management approach Postoperative Hydration: acceptable. Intraoperative Events: no significant anesthesia events Post Operative Nausea/Vomiting Status: no significant post operative nausea or vomiting Recommendation: further care per PACU/ICU/floor team. Anesthesia Observations No Documentation SIGNATURE: Bethel Flaherty MD PATIENT NAME: Lexi Londono DATE: February 20, 2024 TIME: 3:07 AM CSN: [id number] Normal [facility] BRIEF OP NOTon 02-20-2024 BRIEF OP NOT HNO ID: [id number] Author: ALLEN PRESTON MD Service: Vascular Surgery Author Type: Resident Type: Brief Op Note Filed: 02/22/2024 10:44 Note Text: Attestation signed by Allen Preston MD at 02/22/2024 10:44 AM Attending Note I personally saw and examined the patient. I reviewed the resident's note. I agree with the resident's assessment and plan unless otherwise noted. Signature: Allen Preston MD Date: 02/22/2024 Time: 10:44 AM BRIEF OP NOTE LOG ID: [id number] Surgery/Procedure Date: 02/19/2024 - 02/20/2024 Incision/Procedure Start Time: 9:39 PM Incision Close/Procedure End Time: 12:23 AM Surgeon(s) and Western Philosophy Professor(s): Surgeons and Role: * Allen Preston MD - Primary * Mary Kate Morrow DO - Resident - Assisting Physician Western Philosophy Professor: Christiana Roque PA-C Procedure(s): Angiography, Prenumbra thrombectomy right external iliac, Cut down and thrombectomy of right popliteal artery Anesthesia: General Findings: Right iliac thrombus, right popliteal thrombus. Please see operative report for full details Drains: None Estimated Blood Loss: 100 cc Specimens: ID Type Source Tests Collected by Time Destination 1 : Blood Blood TYPE + SCREEN Allen Preston MD 02/19/2024 9:41 PM 2 : Blood Blood CONFIRM BLOOD TYPE Allen Preston MD 02/19/2024 9:53 PM A : RIGHT POPLITEAL THROMBUS Tissue Blood Clot (Specify Site in Comments) SURGICAL PATHOLOGY Allen Preston MD 02/19/2024 11:52 PM Wound Classification: Class 1, operative wound clean, non-traumatic, with no inflammation encountered, no break in technique, gastrointestinal and genitor-urinary tracts not entered Complications: None Pre-Op/Pre-Procedure Diagnosis: Pre-Op Diagnosis Codes: * Ischemia of extremity [I99.8] Post-Op/Post-Procedure Diagnosis: Same SIGNATURE: Mary Kate Morrow DO PATIENT NAME: Lexi Londono DATE: February 20, 2024 TIME: 12:29 AM PAGER/CONTACT #: [phone] From 5pm to 6 am and on weekends, please page general surgery on-call 2174 Normal [facility] Basic metabolic 2000 panelon 02-20-2024 Anion gap [Moles/Vol] 9 mmol/L Normal 8-15 [facility] Comment on above: Order Comment: Speci men Type: BLOOD SPECIMENOrdering Facility: [facility] Address: [address] [place] [address] Performed By: #### 2 4321-2 ####[facility]ATORYCLIA [id number] [place] [address] [place] Calcium [Mass/Vol] 8.7 mg/dL Normal 8.5-10.2 [facility] Comment on above: Order Comment: Speci men Type: BLOOD SPECIMENOrdering Facility: [facility] Address: [address] [place] [address] Performed By: #### 2 4321-2 ####[facility] LABORATORYCLIA [id number] [place] [address] [place] Chloride [Moles/Vol] 101 mmol/L Normal 98-107 [facility] Comment on above: Order Comment: Speci men Type: BLOOD SPECIMENOrdering Facility: [facility] Address: [address] [place] [address] Performed By: #### 2 4321-2 ####[facility]ORYCLIA [id number] [place] [address] [place] CO2 [Moles/Vol] 26 mmol/L Normal 22-30 [facility] Comment on above: Order Comment: Speci men Type: BLOOD SPECIMENOrdering Facility: [facility] Address: [address] [place] [address] Performed By: #### 2 4321-2 ####[facility] LABORATORYCLIA [id number] [place] [address] [place] Creatinine [Mass/Vol] 0.50 mg/dL Low 0.58-0.96 [facility] Comment on above: Order Comment: Speci men Type: BLOOD SPECIMENOrdering Facility: [facility] Address: [address] [place] [address] Performed By: #### 2 4321-2 ####[facility] LABORATORYCLIA [id number] [place] [address] [place] Creatinine and Glomerular filtration rate.predicted panel (S/P/Bld) 99 mL/min/1.73m??? Normal >=60 [facility] Comment on above: Order Comment: Specjazlyn rolon Type: BLOOD SPECIMENOrdering Facility: [facility] Address: [address] [place] [address] Result Comment: Florencia mated Glomerular Filtration Rate (eGFR) is calculated using the 2020 CKD-EPI creatinine equation. This equation utilizes serum creatinine, sex, and age as parameters. The creatinine assay has traceable calibration to isotope dilution-mass spectrometry. Refer to KDIGO guidelines for clinical interpretation. In patients with unstable renal function, e.g. those with acute kidney injury, the eGFR may not accurately reflect actual GFR. Performed By: #### 2 4321-2 ####[facility] LABORATORYCLIA [id number] [place] [id number] [place] Glucose [Mass/Vol] 157 mg/dL High 74-99 [facility] Comment on above: Order Comment: Brandee rolon Type: BLOOD SPECIMENOrdering Facility: [facility] Address: [address] [place] [address] Result Comment: The [place] Diabetes Association (ADA) provides guidance for cutoff values for fasting glucose and random glucose. The ADA defines fasting as no caloric intake for at least 8 hours. Fasting plasma glucose results between 100 to 125 mg/dL indicate increased risk for diabetes (prediabetes). Fasting plasma glucose results greater than or equal to 126 mg/dL meet the criteria for diagnosis of diabetes. In the absence of unequivocal hyperglycemia, results should be confirmed by repeat testing. In a patient with classic symptoms of hyperglycemia or hyperglycemic crisis, random plasma glucose results greater than or equal to 200 mg/dL meet the criteria for diagnosis of diabetes. Reference: Standards of Medical Care in Diabetes 2016, [place] [employer] Association. Diabetes Care. 2016.39(Suppl 1). Performed By: #### 2 4321-2 ####[facility] LABORATORYCLIA [id number] [place] [id number] [place] Potassium [Moles/Vol] 4.4 mmol/L Normal 3.7-5.1 [facility] Comment on above: Order Comment: Speci men Type: BLOOD SPECIMENOrdering Facility: [facility] Address: [address] [place] [address] Performed By: #### 2 4321-2 ####[facility] LABORATORYCLIA [id number] [address] STATES OF [facility] Sodium [Moles/Vol] 136 mmol/L Normal 136-144 [facility] Comment on above: Order Comment: Speci men Type: BLOOD SPECIMENOrdering Facility: [facility] Address: [address] [place] [address] Performed By: #### 2 4321-2 ####[facility] LABORATORYCLIA [id number] [address] [place] [facility] Urea nitrogen [Mass/Vol] 10 mg/dL Normal 7-21 [facility] Comment on above: Order Comment: Speci men Type: BLOOD SPECIMENOrdering Facility: [facility] Address: [address] [place] [address] Performed By: #### 2 4321-2 ####[facility] LABORATORYCLIA [id number] [address] [place] CBC panel Auto (Bld)on 02-19 Erythrocyte distribution width (RBC) [Ratio] 13.7 % Normal 11.5-15.0 [facility] Comment on above: Order Comment: Speci men Type: BLOOD SPECIMENOrdering Facility: [facility] Address: [address] [place] [address] Performed By: #### 5 8410-2 ####[facility] LABORATORYCLIA [id number] [address] Hematocrit (Bld) [Volume fraction] 40.6 % Normal 36.0-46.0 [facility] Comment on above: Order Comment: Speci men Type: BLOOD SPECIMENOrdering Facility: [facility] Address: [address] [place] [address] Performed By: #### 5 8410-2 ####[facility] LABORATORYCLIA [id number] [address] [place] Hemoglobin (Bld) [Mass/Vol] 13.2 g/dL Normal 11.5-15.5 [facility] Comment on above: Order Comment: Speci men Type: BLOOD SPECIMENOrdering Facility: [facility] Address: [address] [place] [address] Performed By: #### 5 8410-2 ####[facility] LABORATORYCLIA [id number] [address] [place] [facility] MCH (RBC) [Entitic mass] 31.3 pg Normal 26.0-34.0 [facility] Comment on above: Order Comment: Speci men Type: BLOOD SPECIMENOrdering Facility: [facility] Address: [address] [place] [address] Performed By: #### 5 8410-2 ####[facility] LABORATORYCLIA [id number] [address] STATES [facility] MCHC (RBC) [Mass/Vol] 32.5 g/dL Normal 30.5-36.0 [facility] Comment on above: Order Comment: Speci men Type: BLOOD SPECIMENOrdering Facility: [facility] Address: [address] [place] [address] Performed By: #### 5 8410-2 ####[facility] LABORATORYCLIA [id number] [address] [place] MCV (RBC) [Entitic vol] 96.2 fL Normal 80.0-100.0 [facility] Comment on above: Order Comment: Speci men Type: BLOOD SPECIMENOrdering Facility: [facility] Address: [address] [place] [address] Performed By: #### 5 8410-2 ####[facility] LABORATORYCLIA [id number] [address] Nucleated RBC (Bld) [#/Vol] 10*3/uL Normal <0.01 [facility] Comment on above: Order Comment: Speci men Type: BLOOD SPECIMENOrdering Facility: [facility] Address: [address] [place] [address] Performed By: #### 5 8410-2 ####[facility] LABORATORYCLIA [id number] [address] Platelet mean volume (Bld) [Entitic vol] 10.2 fL Normal 9.0-12.7 [facility] Comment on above: Order Comment: Speci men Type: BLOOD SPECIMENOrdering Facility: [facility] Address: [facility] [place] [address] Performed By: #### 5 8410-2 ####[facility] LABORATORYCLIA [id number] [address] [place] Platelets (Bld) [#/Vol] 165 10*3/uL Normal 150-400 [facility] Comment on above: Order Comment: Speci men Type: BLOOD SPECIMENOrdering Facility: [facility] Address: [address] [place] [address] Performed By: #### 5 8410-2 ####[facility] LABORATORYCLIA [id number] [address] STATES [facility] RBC (Bld) [#/Vol] 4.22 10*6/uL Normal 3.90-5.20 [facility] Comment on above: Order Comment: Speci men Type: BLOOD SPECIMENOrdering Facility: [facility] Address: [address] [place] [address] Performed By: #### 5 8410-2 ####[facility]ORATORYCLIA [id number] [address] [place] WBC (Bld) [#/Vol] 16.52 10*3/uL High 3.70-11.00 [facility] Comment on above: Order Comment: Speci men Type: BLOOD SPECIMENOrdering Facility: [facility] Address: [address] [place] [address] Performed By: #### 5 8410-2 ####[facility] LABORATORYCLIA [id number] [address] [place] Erythrocyte distribution width (RBC) [Ratio] 13.4 % Normal 11.5-15.0 [facility] Comment on above: Order Comment: Speci men Type: BLOOD SPECIMENOrdering Facility: [facility] Address: [address] [place] [address] Performed By: #### 5 8410-2 ####[facility]ORATORYCLIA [id number] [address] OF [facility] Hematocrit (Bld) [Volume fraction] 41.9 % Normal 36.0-46.0 [facility] Comment on above: Order Comment: Speci men Type: BLOOD SPECIMENOrdering Facility: [facility] Address: [address] [place] [address] Performed By: #### 5 8410-2 ####[facility]ORATORYCLIA [id number] [address] [place] Hemoglobin (Bld) [Mass/Vol] 13.4 g/dL Normal 11.5-15.5 [facility] Comment on above: Order Comment: Speci men Type: BLOOD SPECIMENOrdering Facility: [facility] Address: [address] [place] [address] Performed By: #### 5 8410-2 ####[facility]ORATORYCLIA [id number] [address] [place] MCH (RBC) [Entitic mass] 30.8 pg Normal 26.0-34.0 [facility] Comment on above: Order Comment: Speci men Type: BLOOD SPECIMENOrdering Facility: [facility] Address: [address] [place] [address] Performed By: #### 5 8410-2 ####[facility] LABORATORYCLIA [id number] [address] [place] [facility] MCHC (RBC) [Mass/Vol] 32.0 g/dL Normal 30.5-36.0 [facility] Comment on above: Order Comment: Speci men Type: BLOOD SPECIMENOrdering Facility: [facility] Address: [address] [place] [address] Performed By: #### 5 8410-2 ####[facility] LABORATORYCLIA [id number] [address] [place] [facility] MCV (RBC) [Entitic vol] 96.3 fL Normal 80.0-100.0 [facility] Comment on above: Order Comment: Speci men Type: BLOOD SPECIMENOrdering Facility: [facility] Address: [address] [place] [address] Performed By: #### 5 8410-2 ####[facility] LABORATORYCLIA [id number] [address] [place] Nucleated RBC (Bld) [#/Vol] 10*3/uL Normal <0.01 [facility] Comment on above: Order Comment: Speci men Type: BLOOD SPECIMENOrdering Facility: [facility] Address: [address] [place] [address] Performed By: #### 5 8410-2 ####[facility]ORATORYCLIA [id number] [address] Platelet mean volume (Bld) [Entitic vol] 10.2 fL Normal 9.0-12.7 [facility] Comment on above: Order Comment: Speci men Type: BLOOD SPECIMENOrdering Facility: [facility] Address: [address] [place] [address] Performed By: #### 5 8410-2 ####[facility]ORATORYCLIA [id number] [address] [place] Platelets (Bld) [#/Vol] 192 10*3/uL Normal 150-400 [facility] Comment on above: Order Comment: Speci men Type: BLOOD SPECIMENOrdering Facility: [facility] Address: [address] [place] [address] Performed By: #### 5 8410-2 ####[facility]ORATORYCLIA [id number] [address] [place] RBC (Bld) [#/Vol] 4.35 10*6/uL Normal 3.90-5.20 [facility] Comment on above: Order Comment: Speci gonzales Type: BLOOD SPECIMENOrdering Facility: [facility] Address: [address] [place] [id number] Performed By: #### 5 8410-2 ####[facility] LABORATORYCLIA [id number] [place] [id number] [facility] [place] WBC (Bld) [#/Vol] 15.63 10*3/uL High 3.70-11.00 [facility] Comment on above: Order Comment: Brandee rolon Type: BLOOD SPECIMENOrdering Facility: [facility] Address: [address] [facility]bebeASH[facility] [address] [id number] Performed By: #### 5 8410-2 ####[facility] LABORATORYCLIA [id number] [place] [id number] [facility] CNDSon 02-20-2024 CNDS HNO ID: [id number] Author: DESTINY PAVON MD Service: General Surgery Author Type: Resident Type: Discharge Summary Filed: 02/21/2024 12:44 Note Text: Attestation signed by Destiny Pavon MD at 02/21/2024 12:44 PM Attending Note I discussed with resident. The patient was not examined by the attending. I reviewed the resident's note. I agree with the resident's assessment and plan unless otherwise noted. Patient left AMA Signature: Destiny Pavon MD Date: 02/21/2024. Time: 12:44 PM DISCHARGE SUMMARY PATIENT NAME: Lexi Londono Code Status: Not on file Highest Readmission Risk Score: 18 The 30 day readmissions risk score is derived from an internally validated risk model which evaluates patient level characteristics, utilization history, medication orders and lab results up until the day of discharge. Patients with a score of 40 or above are considered highest risk for readmission. Specific patient level drivers will be listed at the bottom of the summary. Admission Information Admission Information ADMIT DATE: 02/19/2024 DISCHARGE DATE: 02/20/2024 MY DOCTORS AND MEDICAL TEAM: My Main Hospital Doctor: Allen Preston MD Primary Care Provider: Elena Andino MD My Medical Team Members: Treatment Team: Attending Provider: Allen Preston MD Consulting: Fareed Carney MD MY CONDITION AT DISCHARGE: AGAINST MEDICAL ADVICE REASON I WAS IN THE HOSPITAL: Patient came to the hospital as a transfer due to concerns about peripheral limb ischemia. She had a CTA which showed occlusion of the right iliac and right popliteal arteries. After extensive discussion patient agreed to proceed with thrombectomy of iliac artery and popliteal artery. She was taken the operating room and had a thrombectomy performed. Postoperatively she was monitored in the ICU and started on a heparin drip. Cardiology evaluated the patient due to the multiple antihypertensive and A-fib. They recommended patient only needs to be on the sotalol twice daily. She was adamant that she needed to be on all of her antihypertensive medications as she wanted to leave in order to self treat. We discussed the implications of her leaving AGAINST MEDICAL ADVICE. She was understanding of all of this. She still continued to ask for Numbers. At this point she was discharged AGAINST MEDICAL ADVICE. 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 * OPERATIONS PERFORMED WHILE IN THE HOSPITAL: Left-sided groin puncture, thrombectomy of right iliac artery, popliteal cutdown and thrombectomy of popliteal artery IMPORTANT TEST/PROCEDURES: No procedures performed TEST RESULTS NOT AVAILABLE AT THIS TIME: No pending results Discharge Disposition Discharge Disposition: AMA Activity When You Leave the Hospital Other: Continue use wheeled walker as utilized by Occupational Therapy. They also recommended outpatient Occupational Therapy. Diet Instructions Drink 6 to 8 glasses of fluids per day Resume your pre-hospital diet For Pain When You Leave the Hospital Continue taking previously prescribed pain medications as directed If you become constipated, you may use any dnyd-wxv-zkfydgd treatment such as Milk of Magnesia, Sennakot, Prune Juice, Suppositories, etc. in addition to the stool softener/fiber supplement No alcohol or driving while on pain medication Use acetaminophen (Tylenol) as recommended on the bottle Use the dispensed medication (see prescription) You should use an xyju-nhn-bnhhhdo stool softener (Docusate sodium) and/or a fiber supplement (Metamucil, Fiber Con) every day while taking prescribed pain medication Wound/Surgical Site Care Your incision has skin glue. It will peel off on its own. It can get wet Call Your Doctor If There is severe pain at the operative site You have persistent nausea/vomiting over 24 hours You have persistent or heavy bleeding You have redness, swelling, pus or drainage from the wound Your temperature is greater than 101F Follow Up Appointments Follow-Up Appointment When: In 2 weeks Patient/Parents to call for appointment?: Yes Allen Preston MD [phone] [address], [address] [facility] [address] PCP Requested Referral Additional Provider to Provider Information: Principal Problem: Acute lower limb ischemia Active Problems: Iliac artery occlusion, right (HCC) Popliteal artery occlusion, 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 Normal [facility] CONSULTon 02-20-2024 CONSULT HNO ID: [id number] Author: HIREN TANNER MD Service: Cardiovascular Medicine Author Type: Physician Type: Consults Filed: 02/20/2024 15:37 Note Text: CVICU Consult PATIENT NAME: Lexi Londono CONSULTED FOR: DATE: 02/19/2024 Subjective HPI 73 year old female with a history of -COPD (not on home O2) -Hypothyroidism on levothyroxine -Afib on sotalol, atenolol and verapamil -Hyperlipidemia on pravastatin -Hypertension -Ventricular arrhythmia [2016] who presents from an outside ED with right lower extremity numbness and ischemia since 2pm today. Patient states around 2 pm today her right lower extremity started to feel numb and heavy, with loss of sensation below the level of her right knee. Motor remained intact. Heparin drip was started at the outside ED and a CTA was obtained revealing a RLE thrombus within the popliteal area. She has a palpable right femoral pulse, but no dopplerable signals in the right popliteal, PT/DP. Pt is a 60 pack year smoking history . She is now s/p right common and external iliac suction thrombectomy and right below knee popliteal artery cutdown with popliteal, anterior tibial, and posterior tibial arteries Juan Carlos thromboembolectomy on 02/19/2024. Cardiology consulted for atrial fibrillation and severely dilated left atrium ECHO 02/20/2024 EF 69%, mild concentric left ventricular hypertrophy. Grade I left ventricular diastolic dysfunction. The left atrial cavity is severely dilated. The right atrial cavity is dilated. EKG- normal sinus rhythm Last Cardiology office visit- Apr 2021 -continue sotalol, atenolol, verapamil -CHADSVASC elevated, eliquis reccommended On bedside evaluation, she has complaints of some pain in the right leg but otherwise no complaints of shortness of breath, pain or palpitations. Review of Systems HENT: Negative for congestion, dental problem, drooling and ear discharge. Eyes: Negative for pain, discharge and itching. Respiratory: Negative for apnea, cough, choking, chest tightness and shortness of breath. Cardiovascular: Negative for chest pain and palpitations. Gastrointestinal: Negative for abdominal distention and abdominal pain. Genitourinary: Negative for difficulty urinating and dyspareunia. Neurological: Negative for dizziness, seizures and light-headedness. Psychiatric/Behavioral : Negative for agitation. PAST MEDICAL HISTORY Diagnosis Date Adhesive capsulitis of right shoulder 12/17/2014 Atrial fibrillation (HCC) Benign neoplasm of colon Tubular adenoma in 2006 Claudication (HCC) 12/01/2010 COPD (chronic obstructive pulmonary disease) (HCC) Generalized osteoarthrosis, unspecified site HLD (hyperlipidemia) HTN (hypertension) Internal hemorrhoids without mention of complication Noncompliance with medication regimen 12/06/2010 PMH - PAST MEDICAL HISTORY OF ASPVD Tendonitis left leg 04/14/2011 Tobacco use disorder Unspecified constipation PAST SURGICAL HISTORY Procedure Laterality Date COLSC FLX W/RMVL OF TUMOR POLYP LESION SNARE TQ 09/16/05 FAMILY HISTORY Problem Relation Age of Onset Heart Father Heart Mother None Mother None Brother None Brother None Sister None Sister Hypertension Sister Hypertension Sister other (hepatitis) Sister C Cancer Maternal Grandmother colon ca Cancer Maternal Aunt ca Social History Tobacco Use Smoking status: Every Day Current packs/day: 0.25 Average packs/day: 0.3 packs/day for 30.0 years (7.5 ttl pk-yrs) Types: Cigarettes Smokeless tobacco: Never Tobacco comments: 5-6 cigs to no more than 10 per day the past year or so. August 30, 2023--10 per day or less depending on stressors Substance Use Topics Alcohol use: No Drug use: Yes Frequency: 2.0 times per week Types: Marijuana Comment: for back pain as needed No current facility-administered medications on file prior to encounter. Current Outpatient Medications on File Prior to Encounter Medication Sig oxazepam (SERAX) 10 mg capsule Take 1 capsule by mouth two times a day as needed for up to 60 days. pravastatin (PRAVACHOL) 40 mg tablet TAKE 1 AND 1/2 TABLETS BY MOUTH DAILY AT BEDTIME levothyroxine (SYNTHROID) 25 mcg tablet Take 1 tablet by mouth once daily. sotalol (BETAPACE) 80 mg tablet Take 1 tablet by mouth two times a day. atenolol (TENORMIN) 50 mg tablet Take 1.5 tablets by mouth two times a day. verapamil 40 mg tablet Take 1 tablet by mouth two times a day. albuterol HFA (VENTOLIN HFA) 90 mcg/actuation inhaler Inhale 2 Puffs as instructed every 4 hours as needed for wheezing/shortness of breath. tiotropium-olodaterol (STIOLTO RESPIMAT) 2.5-2.5 mcg/actuation Inhale 2 Puffs as instructed once daily. aspirin, enteric coated (ASPIRIN, ENTERIC COATED) 81 mg EC tablet Take 81 mg by mouth once daily. Trolamine Salicylate-Aloe Vera (ASPERCREME) 10 % crea Apply 1 application to affected area four times daily as needed. Objective (more content not included)... Normal [facility] CTA CHEST (NONGATED) W IVCON on 02-20-2024 CTA CHEST (NONGATED) W IVCON * * *Final Report* * * DATE OF EXAM: Feb 20 2024 9:48AM [facility] 0123 - CTA CHEST (NONGATED) W IVCON / PROCEDURE REASON: Arterial occlusion, aorta, arch, branches * * * * Physician Interpretation * * * * EXAM TITLE: CTA CHEST (NONGATED) W IVCON DATE: 02/20/2024 INDICATION: Patient with history of right leg ischemia due to thrombosis of the right common iliac and external iliac arteries. COMPARISON: None. Following administration of intravenous contrast, a series of axial images taken from lung apices to hemidiaphragms. Maximum intensity projection images were created in the sagittal coronal plane. Contrast: 100 mL Omnipaque [id number] Dose-Length Product: 409 mGy*cm CT Dose Reduction Employed: Automated exposure control and/or iterative reconstruction was used. Findings: Thoracic aorta: Aortic root: 3.2 cm sinus to sinus. Sinotubular junction: 2.6 cm. Ascending aorta: 3.0 cm. Arch: Anterior 2.9 cm and posterior 2.7 cm. Descendin.3 cm distally. Minimal atherosclerotic plaque within the mid and posterior arch as well as descending aorta. No obvious luminal thrombus or significant ulcerated plaque within the aorta. Arteries arising off the arch: Widely patent. Mediastinum: Heart size upper normal to slightly enlarged. No significant coronary artery calcifications. No significant mediastinal lymph node enlargement. Pulmonary arteries: Patent. No evidence of pulmonary embolus. Lungs: Mild centrilobular emphysema. Bronchial wall thickening noted throughout the bronchi of the right lower lobe particularly. Atelectasis/consolidat ion at right lung base with trace effusion. Trace effusion at left lung base. Minimal wall thickening involving the right and left lower lobe. Chest wall/bony structures: Mild compression deformity superior endplate of T7 and T9. No significant additional findings. Limited images through the upper abdomen: Calcified granuloma in the spleen. Atrophic changes in the right lobe of the liver with slight nodularity of the liver which could be seen in the setting of developing cirrhosis. IMPRESSION: 1. No significant aneurysmal dilatation of thoracic aorta. 2. No luminal thrombus within the thoracic aorta and no obvious ulcerated plaque. 3. Patent arteries arising off the aortic arch. 4. Fairly extensive bronchial wall thickening involving the bronchi in the right lower lobe and to a lesser extent left lower lobe. Suspect an inflammatory/infectiou s bronchitis. Atelectasis versus pneumonia at right lung base. Electrical Instrumentation Technician: VINCENZO Transcribe Date/Time: Feb 20 2024 10:17A Dictated by : PALOMA KHAN MD This examination was interpreted and the report reviewed and electronically signed by: PALOMA KHAN MD on Feb 20 2024 10:50AM EST [id number] Normal [facility] ECHO WITH AGITATED SALINE CO NTRASTon 02-20-2024 ECHO WITH AGITATED SALINE CONTRAST Echocardiography Report: Transthoracic Echo [facility] Date of service: 02/20/2024 7:49:29 [facility] Ordering physician: ALLEN PRESTON Indication: Nonsustained atrial fibrillation Technologist: Tiffanie Torres [facility] and staff Interpreting physician: Fareed Carney MD PATIENT: Name: MISS LEXI LONDONO : 1950 Age: 73 years Gender: F History of arrhythmia, hypertension and COPD. Primary rhythm: sinus. Height: 156.20 cm BSA: 1.77 m Weight: 72.58 kg BMI: 29.7 kg/m Heart rate 70 bpm Blood pressure 129/54 mmHg Technically difficult exam due to suboptimal positioning and body habitus. Color Doppler was utilized to interrogate the cardiac valves assessed and spectral Doppler was utilized to determine the flow velocities and pressure gradients reported in this exam. MEASUREMENTS: Value Indexed Normal Max aortic dimension 2.6 cm Ao < 3.8 Left atrial volume 97 ml (4ch A-L) 54 ml/m Sourav <= 34 LV ID (diastole) 3.5 cm (2D) 2.00 cm/m LV ID (systole) 2.3 cm (2D) 1.31 cm/m IVS, leaflet tips 1.1 cm (2D) Posterior wall thickness 1.1 cm (2D) Left ventricular mass 118 g (2D) 67 g/m LV stroke volume 45 ml (2D biplane) LV end diastolic volume 65 ml (2D biplane) 36.8 ml/m 29<=EDVi<62 LV end systolic volume 20 ml (2D biplane) 11.5 ml/m Ejection Fraction 69 % (2D biplane) EF > 54 FINDINGS: LEFT VENTRICLE The left ventricle is normal in size. There is mild concentric left ventricular hypertrophy. Left ventricular systolic function is normal globally. Grade I left ventricular diastolic dysfunction. Mitral annular lateral E/e': 8.5. Mitral annular septal E/e': 11.3. Definity contrast used for endocardial border detection. Wall Motion: All scored segments are normal. RIGHT VENTRICLE The right ventricle is normal in size. Right ventricular systolic function is normal. Estimated right ventricular systolic pressure is 28 mmHg consistent with normal pulmonary artery pressures. Estimated right atrial pressure is 3 mmHg based on IVC assessment. LEFT ATRIUM The left atrial cavity is severely dilated. RIGHT ATRIUM The right atrial cavity is dilated. Unable to reliably measure RA volume due to technical limitations. Inferior Vena Cava: The inferior vena cava appears normal measuring 1.7 cm. The vessel decreases greater than 50 percent with inspiration. MITRAL VALVE There is mild mitral annular calcification observed posterior. There is trace mitral valve regurgitation. There is no thickening. The pressure half time is 74 msec. The peak mitral E/A ratio is 1.84. The average mitral E/e' ratio is 9.9. The mitral flow deceleration time is 254 msec. TRICUSPID VALVE The tricuspid valve leaflets are structurally normal. There is trace tricuspid valve regurgitation. The hepatic venous pattern showed normal systolic flow. AORTIC VALVE There is no aortic valve regurgitation. Tricuspid aortic valve. There is mild thickening. The peak gradient is 4 mmHg (peak velocity = 97.7 cm/s). The mean gradient is 1 mmHg. The LVOT mean velocity is 35.3 cm/s. The aortic VTI is 16.0 cm. The mean velocity in the aortic valve is 51.3 cm/s. The dimensionless valve index is 0.65. PULMONIC VALVE The pulmonic valve cusps are structurally normal. There is trace pulmonic valve regurgitation. AORTA The visualized aorta is normal in size. Measurements - Sinus: 2.6 cm. INTERATRIAL SEPTUM There is no evidence of intracardiac shunting as detected by Doppler. INTERVENTRICULAR SEPTUM There is no flow through the interventricular septum as detected by Doppler. PERICARDIUM There is no pericardial effusion. There is an epicardial fat pad. CONCLUSIONS: - Technically difficult exam due to suboptimal positioning and body habitus. - Exam indication: Nonsustained atrial fibrillation - The left ventricle is normal in size. There is mild concentric left ventricular hypertrophy. Left ventricular systolic function is normal. EF = 69 5% (2D biplane) Definity contrast used for endocardial border detection. Grade I left ventricular diastolic dysfunction. - The right ventricle is normal in size. Right ventricular systolic function is normal. - The left atrial cavity is severely dilated. - The right atrial cavity is dilated. - Exam was compared with the prior OUTSIDE echocardiographic exam performed on 02/12/2021(Kersey). * * * Final * * * CC [facility] Image : [id number] Normal [facility] PT panel Coag (PPP)on 2023 INR Coag (PPP) [Relative time] 1.1 {INR} Normal 0.9-1.3 [facility] Comment on above: Order Comment: Brandee rolon Type: BLOOD SPECIMENOrdering Facility: [facility] Address: [address] [place] [address] Result Comment: Ligia min K Antagonist (VKA) Therapeutic Range: INR 2 to 3 (Target INR of 2.5) Note: For patients treated with VKA drugs, such as warfarin, the [place] [employer] 2012 Guideline recommends a therapeutic INR range of 2 to 3 (target INR of 2.5). This recommendation includes high-risk patients with antiphospholipid syndrome with previous arterial or venous thromboembolism, current-generation mechanical or bioprosthetic aortic heart valve replacement. Note: Patients with mechanical aortic valve replacement and additional risk factors for thromboembolic events (atrial fibrillation, previous thromboembolism, LV dysfunction, hypercoagulable conditions) or an older generation mechanical AVR (i.e., ball in-Cage) or any mechanical MVR should have a INR therapeutic range of 2.5 to 3.5 (target INR of 3). Hanna GH, et al. Chest 2012, 141:7S-47S Ryan RA, et al. [facility] 2017, 70: 252-289 Performed By: #### 3 4528-0, 83275-5 ####[facility] LABORATORYCLIA [id number] [address] STATES OF [facility] PT Coag (PPP) [Time] 11.3 s Normal 9.7-13.0 [facility] Comment on above: Order Comment: Brandee rolon Type: BLOOD SPECIMENOrdering Facility: [facility] Address: [address] [place] [id number] Performed By: #### 3 4528-0, 71590-8 ####[facility] CENTERIA [id number] [address] OF [facility] THERAPY NTon 02-20-2024 THERAPY NT HNO ID: [id number] Author: ALICIA HAMILTON, OTR/L Service: Occupational Therapy Author Type: Occupational Therapist Type: Therapy (PT/OT/Speech/Resp) Filed: 02/20/2024 16:27 Note Text: Occupational Therapy Evaluation Summary SERVICE DATE: 02/20/2024 SERVICE TIME: 1532 to 1600 RO[facility]: [id number] OT 6 Clicks Score: 18 DISCHARGE RECOMMENDATIONS Home OT Recommended Discharge Disposition Comments: Pt declining SNF placement, adament she will be going home at d/c. Pt would benefit from Home OT and assist from family/friends for ADLs and IADLs, rec use of shower chair and ww at home Recommended Discharge Disposition Due to: Functional deficits requiring ongoing therapy service prior to discharge home., ADL impairment, Functional status decline, Requires multiple therapy disciplines Anticipated Discharge Needs: Physical Assist at Home Physical Assist at Home for: Cleaning, Laundry, Meals, Self Care, Shopping, Transportation ASSESSMENT Response to Therapy Interventions: Good Participation in Activities, Low Activity Tolerance, Requires Additional Time to Complete Activities, Requires Encouragement to Complete Activities Pt seen for OT evaluation today s/p R LE thrombectomy, POD#1. Pt able to naviagate in room with CGA with ww. Benefits from verbal cuing for safety awareness throughout. Pt tolerated brief activity OOB, was mildly short of breath and required frequent rest breaks. Noted to lean on surfaces throughout activities, when standing, and when sitting EOB, reports feeling too tired to hold herself up. PRECAUTIONS Fall Risk CURRENT HOSPITAL COURSE Pt presented to outside ED d/t sensory loss in right lower extremity. 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 Reports she ambulates without a device but will use her power scooter when spending time in the yard. Pt admits to furniture walking. Does not drive, orders groceries online and has them delivered Baseline Cognition: Oriented to self, Oriented to place, Oriented to time, Oriented to situation SUBJECTIVE Pt agreeable to session, reports feeling lethargic today. Wants to go home COGNITION Orientation Deficits: Not oriented to Time Responsiveness: Awake, Lethargic Follows Commands: 1-step Commands, Cueing Needed Cueing to Follow Commands: Minimum Executive Function Deficits: Safety Awareness, Judgement Confusion Assessment Method (CAM - ICU Score): Negative (02/20/24) THERAPY DIAGNOSIS Reduced mobility-other, Decreased activities of daily living (ADL), Muscle Weakness (generalized), Unsteadiness on feet TREATMENT INTERVENTIONS Evaluation, Self Mcfp Management (62903) Timed Code Treatment (minutes): 13 Skilled Treatment Time (minutes): 28 $ Evaluation - Moderate (49784) Billed Units: 1 unit Self Mcfp Management (04800) Treatment Minutes: 13 $ Self Mcfp Management (33085) Billed Units: 1 unit TRAINING AND EDUCATION PROVIDED Activity Adaptation/Brass Roller y Strategies, Bed Mobility, Benefits of In-Hospital Mobility, Discharge Planning, Environmental Modification, Functional Mobility Involving ADLs, Grooming Tasks, Positioning, Sitting Balance to Improve [place] with ADLs/Self-Care, Precautions/Restrictio ns, Standing Balance to Improve [place] with ADLs/Self-Care, Toileting , Transfer - Sit to Stand, Transfer - Toilet/Commode, Upper Extremity Dressing THERAPEUTIC SKILLS USED Activity Dosing, Cues for Sequencing/Proper Technique for Activity, Cuing Verbal, Cuing Visual, Management of Critical Lines, Tubes and/or Drains, Movement Facilitation, Physical Assist, Therapeutic Use of Self, Teach-Back for Education FUNCTIONAL STATUS Activities of Daily Living Assist Level Additional Information Feeding Independent Grooming Contact Guard Assistance, Additional Information Pt able to complete oral hygiene standing at sink, required increased time to complete. Pt O2 desaturated to 87 when standing, pt mildly short of breath and leaning on sink surface for support d/t fatigue. Pt requested comb but then declined to complete task as she was feeling too tired Bathing Upper Body Minimal Assistance Bathing Lower Body Minimal Assistance Dressing Upper Body Minimal Assistance, Additional Information assist to manage gown during mobility Dressing Lower Body Contact Guard Assistance, Additional Information Pt able to complete seated in bed Toileting Contact Guard Assistance, Additional Information Pt able to transfer to [facility] for toile (more content not included)... Normal [facility] aPTT PPPon 02-20-2024 aPTT Coag (PPP) [Time] 46.8 s High 23.0-32.4 [facility] Comment on above: Order Comment: Speci men Type: BLOOD SPECIMENOrdering Facility: [facility] Address: [address] [place] [address] Performed By: #### 1 4979-9 ####[facility] LABORATORYCLIA [id number] [address] aPTT Coag (PPP) [Time] 95.7 s High 23.0-32.4 [facility] Comment on above: Order Comment: Speci men Type: BLOOD SPECIMENOrdering Facility: [facility] Address: [address] [place] [address] Performed By: #### 1 4979-9 ####[facility] LABORATORYCLIA [id number] [address] aPTT Coag (PPP) [Time] 34.9 s High 23.0-32.4 [facility] Comment on above: Order Comment: Speci men Type: BLOOD SPECIMENOrdering Facility: [facility] Address: [address] [place] [address] Performed By: #### 3 4528-0, 03564-7 ####[facility] LABORATORYCLIA [id number] [address] [place] 12 Lead EKGon 02-19-2024 12 Lead EKG [facility] Cardiovascular Services [address] [place] [address] 12 Lead EKG 02/19/24 1509 MR#: [id number] Acct: [id number] Name: LEXI LONDONO Rep #: [id number] : 1950 73 From: Reji Kang MD Attending Dr: Status: DEP ER Ordering Dr: Bryan Felder DO Date: 02/19/24 Location: ED Sex: F C Admitted: Test Reason : numbness Blood Pressure : */* mmHG Vent. Rate : 71 BPM Atrial Rate : 71 BPM P-R Int : 120 ms QRS Dur : 88 ms QT Int : 432 ms P-R-T Axes : * 61 59 degrees QTcB Int : 469 ms Normal sinus rhythm Normal ECG baseline artifact Confirmed by Reji Kang ([id number]), legal editor JOB AVENDAÑO ([id number]) on 02/20/2024 9:23:06 AM Referred By: Confirmed By: Reji Kang 02/20/24 0923 Date Reji Kang MD CC: Dr. Elena Andino MD; Dr. Bryan Felder DO Signed Normal [facility] ANES PRE-OPon 02-19-2024 ANES PRE-OP HNO ID: [id number] Author: BETHEL FLAHERTY MD Service: Anesthesiology Author Type: Anesthesiologist Type: Anesthesia Preprocedure Evaluation Filed: 02/20/2024 01:05 Note Text: ANESTHESIOLOGY DAY OF SURGERY NOTE : 1950 Procedure Information Date/Time: 02/19/242019 Procedures: ANGIOGRAM EXTREMITY LOWER (Right: Leg) THROMBECTOMY FEMOROPOPLITEAL ARTERY VIA LEG INCISION (Right: Leg) Location: [place] OR [address] [place] [address] OR Surgeons: Allen Preston MD Estimated body mass index is 29.74 kg/m? as calculated from the following: Height as of 07/22/22: 156.2 cm (5' 1.5). Weight as of this encounter: 72.6 kg (160 lb). Most recent hematocrit and potassium results: Hematocrit 44.7 07/22/2022 Potassium 4.3 07/22/2022 Relevant Problems CARDIO (+) ASHD (arteriosclerotic heart disease) (+) Acute lower limb ischemia (+) Atrial fibrillation (HCC) (+) Dyspnea on exertion (+) Femoral popliteal artery thrombus (HCC) (+) Iliac artery occlusion, right (HCC) (+) Popliteal artery occlusion, right (HCC) (+) Primary hypertension (+) Venous thrombosis PULMONARY (+) COPD (chronic obstructive pulmonary disease) (HCC) (+) Dyspnea on exertion - 1/2 PPD smoker, COPD, inconsistent inhaler use - Presents for thrombectomy due to cold leg I - PHYSICAL EVALUATION AIRWAY Patient intubated: No. Tracheostomy tube not present Mallampati: III. TM distance: >3 FB. Neck ROM: full ROM without neurological symptoms. Mouth opening: adequate. Short neck: no. Thick neck: no DENTAL Dental findings: missing tooth/teeth and poor dentition. II - ANESTHESIA PLAN ASA Score: 4; emergent. Anesthetic Plan: general Airway type: ETT The patient is a current smoker. NPO Status: adequate Beta Darlene Monitoring Plan Monitoring plan: invasive hemodynamic monitoring. Monitoring method: arterial Line Post Procedure Analgesic Plan Postoperative analgesic plan: multimodal analgesia and go to ICU. Informed Consent Anesthetic risks, benefits, alternatives, personnel and consent discussed: yes. Patient / Responsible Alliance Party agrees to proceed: yes Patient / Surrogate agrees to blood products: Yes Potential Anesthesia issues that may suggest increased risk of complications or contraindication to planned procedure: none. Vitals Value Taken Time BP 133/71 02/19/241999 Pulse 66 02/19/241999 Resp 29 02/19/241999 Temp 36.8 ?C (98.2 ?F) 02/19/24 1848 SpO2 93 % 02/19/241999 Vitals shown include unfiled device data. Facility-Administered Medications as of 02/19/2024 Medication Dose Route Frequency heparin iv infusion 25,000 units in NaCl 0.45% 250 mL STANDARD NOMOGRAM 0-3,000 Units/hr INTRAVENOUS CONTINUOUS And heparin RATE CHANGE bolus 1,000-10,000 Units for subtherapeutic PTTAC results 1,000-10,000 Units INTRAVENOUS PRN heparin nomogram - NO INITIAL BOLUS OTHER ONCE (heparin bolus) Outpatient Medications as of 02/19/2024 Medication Sig oxazepam (SERAX) 10 mg capsule Take 1 capsule by mouth two times a day as needed for up to 60 days. pravastatin (PRAVACHOL) 40 mg tablet TAKE 1 AND 1/2 TABLETS BY MOUTH DAILY AT BEDTIME levothyroxine (SYNTHROID) 25 mcg tablet Take 1 tablet by mouth once daily. sotalol (BETAPACE) 80 mg tablet Take 1 tablet by mouth two times a day. atenolol (TENORMIN) 50 mg tablet Take 1.5 tablets by mouth two times a day. verapamil 40 mg tablet Take 1 tablet by mouth two times a day. albuterol HFA (VENTOLIN HFA) 90 mcg/actuation inhaler Inhale 2 Puffs as instructed every 4 hours as needed for wheezing/shortness of breath. tiotropium-olodaterol (STIOLTO RESPIMAT) 2.5-2.5 mcg/actuation Inhale 2 Puffs as instructed once daily. aspirin, enteric coated (ASPIRIN, ENTERIC COATED) 81 mg EC tablet Take 81 mg by mouth once daily. Trolamine Salicylate-Aloe Vera (ASPERCREME) 10 % crea Apply 1 application to affected area four times daily as needed. I have interviewed and examined the patient. I have reviewed the medical record and/or the pre-anesthesia evaluation, pertinent labs, and test results. This contains updated information obtained within 48 hours of Surgery/Procedure. SIGNATURE: Bethel Flaherty MD PATIENT NAME: Lexi Londono DATE: February 19, 2024 TIME: 8:01 PM CSN: [id number] Normal [facility] Basic Metabolic Profile (BMP )on 02-19-2024 BUN/CRE 22.4 RATIO High 10-20 [facility] Comment on above: Performed By: #### L 100.0100, L300.3900, L300.4310, L500.2500, L501.3620, L503.6005 #### [facility] Laboratory [address] [place], [address] CA,Total 9.0 mg/dL Normal 8.5-10.1 [facility] Comment on above: Performed By: #### L 100.0100, L300.3900, L300.4310, L500.2500, L501.3620, L503.6005 #### [facility] [address] [place], [address] Chloride [Moles/Vol] 102 mmol/L Normal 98-107 [facility] Comment on above: Performed By: #### L 100.0100, L300.3900, L300.4310, L500.2500, L501.3620, L503.6005 #### [facility] [address] [place], [address] CO2 [Moles/Vol] 28.0 mmol/L Normal 21.0-32.0 [facility] Comment on above: Performed By: #### L 100.0100, L300.3900, L300.4310, L500.2500, L501.3620, L503.6005 #### [facility] [address] [place], [address] Creatinine [Mass/Vol] 0.80 mg/dL Normal 0.55-1.02 [facility] Comment on above: Result Comment: The validity of the calculated GFR GFRAA in patients over 70 years has not been determined. Clinical correlation is essential. Performed By: #### L 100.0100, L300.3900, L300.4310, L500.2500, L501.3620, L503.6005 #### [facility] [address] [place], [address] ECRCL 56.51 ml/min Normal [facility] Comment on above: Performed By: #### L 100.0100, L300.3900, L300.4310, L500.2500, L501.3620, L503.6005 #### [facility] [address] [place], [address] EST GFR - AA 90 mL/min Normal >60 [facility] Comment on above: Result Comment: Afri can Panamanian GFR Calc Performed By: #### L 100.0100, L300.3900, L300.4310, L500.2500, L501.3620, L503.6005 #### [facility] [address] [place], [address] GAP 7 Normal 5-15 [facility] Comment on above: Performed By: #### L 100.0100, L300.3900, L300.4310, L500.2500, L501.3620, L503.6005 #### [facility] [address] [place], [address] GFR/1.73 sq M.predicted among non-blacks MDRD (S/P/Bld) [Vol rate/Area] 74 mL/min/{1.73_m2} Normal >60 [facility] Comment on above: Result Comment: Non- GFR Calc Performed By: #### L 100.0100, L300.3900, L300.4310, L500.2500, L501.3620, L503.6005 #### [facility] [address] [place], [address] Glucose [Mass/Vol] 149 mg/dL High 74-106 [facility] Comment on above: Result Comment: Fast ing Glucose result greater than or equal to 126 mg/dL suggests DIABETES MELLITUS per A.D.A. criteria. Performed By: #### L 100.0100, L300.3900, L300.4310, L500.2500, L501.3620, L503.6005 #### [facility] [address] [place], [address] Potassium [Moles/Vol] 4.5 mmol/L Normal 3.5-5.1 [facility] Comment on above: Result Comment: Slig ht Hemolysis, Result may be falsely increased. Performed By: #### L 100.0100, L300.3900, L300.4310, L500.2500, L501.3620, L503.6005 #### [facility] [address] [place], [address] Sodium [Moles/Vol] 137 mmol/L Normal 136-145 [facility] Comment on above: Performed By: #### L 100.0100, L300.3900, L300.4310, L500.2500, L501.3620, L503.6005 #### [facility] [address] [place], [address] Urea nitrogen [Mass/Vol] 18 mg/dL Normal 7-18 [facility] Comment on above: Performed By: #### L 100.0100, L300.3900, L300.4310, L500.2500, L501.3620, L503.6005 #### [facility] [address] [place], [address] Brain/Head without Contrasto n 02-19-2024 Brain/Head without Contrast [facility] Imaging Services [address] [place] [address] Brain/Head without Contrast MR#: [id number] Acct: [id number] Name: LEXI LONDONO Rep #: [id number] : 1950 F 73 From: Ace Quijano PCP: Dr. Elena Andino MD Status: [facility] ER Study: Brain/Head without Contrast Date of Exam: 07/09 Exam# [id number] Ordering Dr: Bryan Felder DO [id number] EXAM: CT HEAD WITHOUT INTRAVENOUS CONTRAST CLINICAL INDICATION: right leg numbness TECHNIQUE: Multiple axial images were obtained of the head without intravenous contrast. This CT exam was performed using one or more of the following dose reduction techniques: automated exposure control, adjustment of the mA and/or kV according to patient size, and/or use of iterative reconstruction technique. RADIATION DOSE: CTDIvol = 44.99 mGy, DLP = 748.30 mGy-cm COMPARISON: No relevant prior studies available. FINDINGS: BRAIN AND EXTRA-AXIAL SPACES: Unremarkable. No intra- or extra-axial hemorrhage. No evidence of acute infarct. No intracranial mass or mass effect. There is preservation of the saab/white matter interface. Posterior fossa structures are unremarkable. Ventricles are appropriate for age. No hydrocephalus. Basal cisterns are patent. BONES/JOINTS: Unremarkable. No discrete lytic or blastic abnormalities. SINUSES: Maxillary sinus disease. MASTOID AIR CELLS: Unremarkable. Clear. ORBITS: Visualized globes, extraocular muscles, optic nerves and retrobulbar fat appear unremarkable. CT/Brain/Head without Contrast IMPRESSION: No acute findings in the head/brain. Electronically Signed: Ace Al MD at 16:49 EST , CC: Dr. Elena Andino MD; Dr. Bryan Felder DO Electrical Instrumentation Technician: Signed Normal [facility] CBC W/Diff, Automatedon 11-0 -2023 Absolute Lymph 2.18 X10 3/uL Normal 0.83-4.51 [facility] Comment on above: Performed By: #### L 100.0100, L300.3900, L300.4310, L500.2500, L501.3620, L503.6005 #### [facility] [address] [place], [address] Absolute Neut 11.6 X10 3/uL High 2.0-7.7 [facility] Comment on above: Performed By: #### L 100.0100, L300.3900, L300.4310, L500.2500, L501.3620, L503.6005 #### [facility] [address] [place], [address] Basophils/100 WBC (Bld) 0.4 % Normal 0-1 [facility] Comment on above: Performed By: #### L 100.0100, L300.3900, L300.4310, L500.2500, L501.3620, L503.6005 #### [facility] [address] [place], [address] Eosinophils/100 WBC (Bld) 2.1 % Normal 0-5 [facility] Comment on above: Performed By: #### L 100.0100, L300.3900, L300.4310, L500.2500, L501.3620, L503.6005 #### [facility] [address] [place], [address] Erythrocyte distribution width (RBC) [Ratio] 13.5 % Normal 11.6-14.6 [facility] Comment on above: Performed By: #### L 100.0100, L300.3900, L300.4310, L500.2500, L501.3620, L503.6005 #### [facility] [address] [place], [address] Hematocrit (Bld) [Volume fraction] 45.3 % Normal 37-47 [facility] Comment on above: Performed By: #### L 100.0100, L300.3900, L300.4310, L500.2500, L501.3620, L503.6005 #### [facility] [address] [place], [address] Hemoglobin (Bld) [Mass/Vol] 14.7 g/dL Normal 12.0-15.0 [facility] Comment on above: Performed By: #### L 100.0100, L300.3900, L300.4310, L500.2500, L501.3620, L503.6005 #### [facility] [address] [place], [address] IG% 0.400 Normal 0.0-0.9 [facility] Comment on above: Result Comment: IG% - Immature Granulocytes (promyelocytes, myelocytes and metamyelocytes) > 1% indicates that a LEFT SHIFT is Present. Performed By: #### L 100.0100, L300.3900, L300.4310, L500.2500, L501.3620, L503.6005 #### [facility] [address] [place], [address] Lymphocytes/100 WBC (Bld) 14.1 % Low 19-41 [facility] Comment on above: Performed By: #### L 100.0100, L300.3900, L300.4310, L500.2500, L501.3620, L503.6005 #### [facility] [address] [place], [address] MCH (RBC) [Entitic mass] 30.7 pg Normal 27.0-32.0 [facility] Comment on above: Performed By: #### L 100.0100, L300.3900, L300.4310, L500.2500, L501.3620, L503.6005 #### [facility] [address] [place], [address] MCHC (RBC) [Mass/Vol] 32.5 g/dL Normal 32-36 [facility] Comment on above: Performed By: #### L 100.0100, L300.3900, L300.4310, L500.2500, L501.3620, L503.6005 #### [facility] [address] [place], [address] MCV (RBC) [Entitic vol] 94.6 fL Normal 81-99 [facility] Comment on above: Performed By: #### L 100.0100, L300.3900, L300.4310, L500.2500, L501.3620, L503.6005 #### [facility] [address] [place], [address] Monocytes/100 WBC (Bld) 8.5 % Normal 0-10 [facility] Comment on above: Performed By: #### L 100.0100, L300.3900, L300.4310, L500.2500, L501.3620, L503.6005 #### [facility] [address] [place], [address] Neutrophils/100 WBC (Bld) 74.5 % High 47-70 [facility] Comment on above: Performed By: #### L 100.0100, L300.3900, L300.4310, L500.2500, L501.3620, L503.6005 #### [facility] [address] [place], [address] Nucleated RBC (Bld) [#/Vol] 0 10*3/uL Normal 0-5 [facility] Comment on above: Performed By: #### L 100.0100, L300.3900, L300.4310, L500.2500, L501.3620, L503.6005 #### [facility] [address] [place], [address] Platelet mean volume (Bld) [Entitic vol] 10.0 fL Normal 6.2-12.0 [facility] Comment on above: Performed By: #### L 100.0100, L300.3900, L300.4310, L500.2500, L501.3620, L503.6005 #### [facility] [address] [place], [address] Platelets (Bld) [#/Vol] 236 10*3/uL Normal 150-450 [facility] Comment on above: Performed By: #### L 100.0100, L300.3900, L300.4310, L500.2500, L501.3620, L503.6005 #### [facility] [address] [place], [address] RBC (Bld) [#/Vol] 4.79 10*6/uL Normal 4.2-5.4 [facility] Comment on above: Performed By: #### L 100.0100, L300.3900, L300.4310, L500.2500, L501.3620, L503.6005 #### [facility] [address] [place], [address] RDW SD 47.3 fl High 35.1-43.9 [facility] Comment on above: Performed By: #### L 100.0100, L300.3900, L300.4310, L500.2500, L501.3620, L503.6005 #### [facility] [address] [place], [address] WBC (Bld) [#/Vol] 15.5 10*3/uL High 4.4-11.0 [facility] Comment on above: Performed By: #### L 100.0100, L300.3900, L300.4310, L500.2500, L501.3620, L503.6005 #### [facility] [address] [place], [place], [address] CONFIRM BLOOD TYPEon 024 ABO O Normal [facility] Comment on above: Order Comment: Speci men Type: BLOOD SPECIMENOrdering Facility: [facility] Address: [address] [place] [address] Performed By: #### C ONABO ####[facility] BLOOD BANKCLIA [id number] [place] [address] [place] Rh Nom (Bld) Positive Normal [facility] Comment on above: Order Comment: Speci men Type: BLOOD SPECIMENOrdering Facility: [facility] Address: [address] [place] [address] Performed By: #### C ONABO ####[facility] BLOOD BANKCLIA [id number] [place] [address] [place] CPK Total, Creatine Kinaseon 02-19-2024 CPK TOTAL 61 U/L Normal 26-192 [facility] Comment on above: Performed By: #### L 100.0100, L300.3900, L300.4310, L500.2500, L501.3620, L503.6005 ####[facility] [id number] [place], [place], [id number] CTA Abd w/Runoff W/WO Contra ston 02-19-2024 CTA Abd w/Runoff W/WO Contrast [facility] Imaging Services [address] [place] [address] CTA Abd w/Runoff W/WO Contrast MR#: [id number] Acct: [id number] Name: LEXI LONDONO Rep #: [id number] : 1950 F 73 From: Ace Quijano PCP: Dr. Elena Andino MD Status: DEP ER Study: CTA Abd w/Runoff W/WO Contrast Date of Exam: 04/20/23 Exam# [id number] Ordering Dr: Bryan Felder DO ADDENDUM by Dr. Ace Al MD on 02/19/24 at 1746 ====== ADDENDUM ====== [id number] ADDENDUM: Additional delayed images were obtained of the bilateral lower extremities. Persistent nonvisualization of the arteries distal to the right trifurcation. The vessels of the trifurcation are seen on the left side to the level of the ankle. Electronically Signed: Ace Al MD at 17:46 EST Reading Location ID and State: [facility] / [place] , Service support , N.B. : The above Results were Read Back by Ace Al MD to Bryan Felder DO, and understanding confirmed on 02/19/2024 17:41:27 (ET). 02/19/24 1746 Date cc: Dr. Elena Andino MD; Dr. Bryan Felder DO * Signed ADDENDUM by Dr. Ace Al MD on 02/19/[address]/CTA Abd w/Runoff W/WO Contrast IMPRESSION: undefined 02/19/24 1753 Date cc: Dr. Elena Andino MD; Dr. Bryan Felder, DO * Signed We are attempting to reach an attending provider to discuss findings. An addendum with communication details will be sent when the communication is complete. [id number] STUDY: CTA OF THE ABDOMINAL AORTA AND BILATERAL LOWER EXTREMITIES REASON FOR EXAM: Female, 73 years old. right leg pain, dusky appearance r/o limb ischemia TECHNIQUE: Axial CT angiography multi-detector data acquisition was obtained following intravenous administration of 100mL Isovue-370 contrast. Axial images and MIP images were reconstructed from the axial data set. Post-processing of the angiographic images was performed, with multiplanar reformation and 3D reconstruction. MIPS images were obtained. Individualized dose optimization techniques were used for this CT. COMPARISON: None. FINDINGS: The visualized lung bases are unremarkable. The visualized portions of the heart are within normal limits. Normal liver. Normal gallbladder and extrahepatic biliary system. There are multiple benign calcified granulomata of the spleen. Normal pancreas. Normal bilateral adrenal glands. Normal right kidney. 2 mm nonobstructive left renal stone. Nonspecific hypodense area in the left kidney may be a cyst. Ultrasound can further evaluate if of concern. Normal visualized stomach. Normal small intestine. There are multiple colonic diverticula consistent with diverticulosis. There is non-visualization of the appendix. Normal inferior vena cava. Normal retroperitoneum. Normal urinary bladder. There is a small umbilical hernia containing fat. There are diffuse degenerative changes of the visualized lumbar spine. There is an unremarkable-appearing IVC. Abdominal aorta: There are calcifications of the abdominal aorta. This is consistent for atherosclerotic disease. There is no abdominal aortic aneurysm. Celiac and superior mesenteric arteries: There is mild diffuse narrowing. Inferior mesenteric artery: There is mild diffuse narrowing. Right renal artery(arteries): There is mild diffuse narrowing. Left renal artery(arteries): There is mild diffuse narrowing. Right common iliac artery: Occluded. Right external iliac artery: Occluded. Right internal iliac artery: There is mild diffuse narrowing. Left common iliac artery: There is mild diffuse narrowing. Left external iliac artery: There is mild diffuse narrowing. Left internal iliac artery: There is mild diffuse narrowing. RIGHT LOWER EXTREMITY Right common femoral artery: No demonstrated narrowing. Right profundus femoris: No demonstrated narrowing. Right superficial femoral: No demonstrated narrowing. Right popliteal artery: Nonvisualized. Right tibioperoneal trunk: Nonvisualized. Right anterior tibial artery: Nonvisualized. Right posterior tibial artery: Nonvisualized. Right peroneal artery: Nonvisualized. LEFT LOWER EXTREMITY Left common femoral artery: No demonstrated narrowing. Left profundus femoris: No demonstrated narrowing. Left superficial femoral: No demonstrated narrowing. Left popliteal artery: No demonstrated narrowing. Left tibioperoneal trunk: No demonstrated narrowing. Left anterior tibial artery: There is moderate diffuse narrowing, with visualization of the vessel to the distal calf. Left posterio (more content not included)... Normal [facility] Chest 1 View (Portable)on Chest 1 View (Portable) [facility] Imaging Services [address] [place] [address] Chest 1 View (Portable) MR#: [id number] Acct: [id number] Name: LEXI LONDONO Rep #: [id number] : 1950 F 73 From: Ace Quijano PCP: Dr. Elena Andino MD Status: REG ER Study: Chest 1 View (Portable) Date of Exam: 02/19/24 Exam# [id number] Ordering Dr: Bryan eFlder DO [id number] EXAM: XR CHEST, 1 VIEW CLINICAL INDICATION: cough TECHNIQUE: Frontal view of the chest. COMPARISON: 01.06.14 FINDINGS: LUNGS AND PLEURAL SPACES: Unremarkable. No consolidation or edema. No pneumothorax. No effusion. HEART: Unremarkable. Cardiac silhouette not enlarged. MEDIASTINUM: Central airways and mediastinal contour are unremarkable. BONES/JOINTS: Unremarkable. No acute fracture. SOFT TISSUES: Unremarkable. RAD/Chest 1 View (Portable) IMPRESSION: No radiographic evidence of acute cardiopulmonary disease. Electronically Signed: Ace Al MD at 16:17 EST , CC: Dr. Elena Andino MD; Dr. Bryan Felder DO Electrical Instrumentation Technician: Signed [facility] ED NOTEon 02-19-2024 ED NOTE HNO ID: [id number] Author: ESSENCE FRIEND, ALEX Service: ? Author Type: Registered Nurse Type: ED Notes Filed: 02/19/2024 20:38 Note Text: Pt to OR 10 at this time. [facility] ED NOTE HNO ID: [id number] Author: NAMRATA FAYE RN Service: ? Author Type: Registered Nurse Type: ED Notes Filed: 02/19/2024 18:41 Note Text: Bed: 45-ED Expected date: Expected time: Means of arrival: Comments: [place] tx [facility] ED PROV NOTEon 02-19-2024 ED PROV NOTE HNO ID: [id number] Author: DEBBY LAYNE MD Service: Emergency Medicine Author Type: Physician Type: ED Provider Notes Filed: 02/19/2024 19:14 Note Text: ED attending note 73-year-old female transferred here from outside hospital for urgent vascular evaluation. Reports feeling changes in her leg this afternoon around 1 PM. Went to an outside hospital where she was found to have a cold leg without pulses. Vascular CT study with runoff to the leg showed blockage at the popliteal area. They initiated heparin after discussing with vascular surgery here. Arrange for ED to ED transfer. On arrival patient thinks that her leg might be feeling a little bit improved. Leg is still cold by my exam. No pulses dopplerable at the PT or the DP. Weakly dopplerable at the popliteal. Heparin continued and surgery notified DEBBY LAYNE 02/19/241913 [facility] ED PROV NOTE HNO ID: [id number] Author: DEBBY LAYNE MD Service: Emergency Medicine Author Type: Physician Type: ED Provider Notes Filed: 02/24/2024 12:35 Note Text: ED Provider Note Patient Name: Lexi Londono : 1950 SERVICE DATE: 02/19/24 History Patient presents with: Leg Pain: Pt transfer from [facility] where she presented with RLE numbness. Pt transferred for vascular consult r/t RLE ischemia. Pt presents with cool RLE but states she is getting some feeling back in leg and it feels cold. Heparin at 800 units/hr running. Patient is a 73-year-old female presenting to the emergency department as a transfer from [facility] for vascular consult due to right leg numbness and concern for ischemia on imaging. Patient states she used to be on Eliquis for A-fib but took herself off of it 2 years ago. She states that today around 1 PM she started feeling some numbness and coolness in her right lower extremity. She was found to not have pulses either palpable or dopplerable there. CT study showed no flow below the popliteal region. Heparin was started and vascular surgery was notified here. She was transferred here for vascular consult. Patient states that she is starting to have some feeling back in her right lower extremity since heparin has been started. PAST MEDICAL HISTORY Diagnosis Date Adhesive capsulitis of right shoulder 12/17/2014 Atrial fibrillation (HCC) Benign neoplasm of colon Tubular adenoma in 2006 Claudication (HCC) 12/01/2010 COPD (chronic obstructive pulmonary disease) (HCC) Generalized osteoarthrosis, unspecified site HLD (hyperlipidemia) HTN (hypertension) Internal hemorrhoids without mention of complication Noncompliance with medication regimen 12/06/2010 PMH - PAST MEDICAL HISTORY OF ASPVD Tendonitis left leg 04/14/2011 Tobacco use disorder Unspecified constipation PAST SURGICAL HISTORY Procedure Laterality Date COLSC FLX W/RMVL OF TUMOR POLYP LESION SNARE TQ 09/16/05 FAMILY HISTORY Problem Relation Age of Onset Heart Father Heart Mother None Mother None Brother None Brother None Sister None Sister Hypertension Sister Hypertension Sister other (hepatitis) Sister C Cancer Maternal Grandmother colon ca Cancer Maternal Aunt ca Social History Tobacco Use Smoking status: Every Day Current packs/day: 0.25 Average packs/day: 0.3 packs/day for 30.0 years (7.5 ttl pk-yrs) Types: Cigarettes Smokeless tobacco: Never Tobacco comments: 5-6 cigs to no more than 10 per day the past year or so. August 30, 2023--10 per day or less depending on stressors Substance and Sexual Activity Alcohol use: No Drug use: Yes Frequency: 2.0 times per week Types: Marijuana Comment: for back pain as needed Sexual activity: Not Currently ALLERGIES Allergen Reactions Albuterol Intolerance Anxiety. Something zoomed through my heart. Clindamycin Diarrhea Codeine Unknown Darvocet A500 [Prop* Intolerance Lipitor [Atorvastat* GI Upset abdomen bloating initial c/o then retracted by pt Nickel Rash allergic to all metals, including gold and razor blades Ntg [Nitrate Analog* Intolerance hypotension Penicillins Unknown Pepcid [Famotidine * Itching face itched Sodium Pentathal [T* Intolerance No listed severity or specific reaction when entered as Other Review of Systems Constitutional: Negative for chills and fever. Respiratory: Negative for shortness of breath. Cardiovascular: Negative for chest pain and palpitations. Gastrointestinal: Negative for abdominal pain, nausea and vomiting. Neurological: Positive for numbness. All other systems reviewed and are negative. Physical Exam Vitals BP Pulse Temp Temp src Resp SpO2 Weight Height 02/19/24 1848 02/19/24 1848 02/19/24 1848 02/19/24 1848 02/19/24 1848 02/19/24 1848 02/19/24 18402/20/24 0100 115/65 64 36.8 ?C (98.2 ?F) Oral (!) 29 99 % 72.6 kg (160 lb) 1.626 m (5' 4) Physical Exam Vitals and nursing note reviewed. Constitutional: General: She is not in acute distress. Appearance: Normal appearance. She is not toxic-appearing or diaphoretic. HENT: Head: Normocephalic and atraumatic. Cardiovascular: Rate and Rhythm: Normal rate and regular rhythm. Pulses: Normal pulses. Heart sounds: Normal heart sounds. No murmur heard. No friction rub. No gallop. Pulmonary: Effort: Pulmonary effort is normal. Breath sounds: Normal breath sounds. No wheezing, rhonchi or rales. Comments: On 2 L nasal cannula Abdominal: General: Abdomen is flat. Palpations: Abdomen is soft. Tenderness: There is no abdominal tenderness. There is no guarding or rebound. Musculoskeletal: Cervical back: Normal range of motion and neck supple. Comments: Right lower extremity is cool to the touch compared to the left lower extremity. No palpable or dopplerable DP or PT pulses on the right. They are present on the left. There are (more content not included)... Normal [facility] EKGon 02-19-2024 Electrocardiogram Ventricular Rate : 6 4 BPM Atrial Rate : 64 BPM P-R Interval : 142 ms QRS Duration : 76 ms Q-T Interval : 462 ms QTC Calculation(Bazett) : 476 ms Calculated R Alex : 61 degrees Calculated T Alex : 81 degrees NORMAL SINUS RHYTHM NORMAL ECG NO PREVIOUS ECGS AVAILABLE Confirmed by CHARLENE SMITH MD ([id number]) on 03/14/2024 4:12:12 AM NAME : LEXI LONDONO PID : [id number] : 1950 Gender : Female Race : ORD : Procedure Date : Feb 19 2024 18:50:01 Edit Date : Mar 14 2024 04:12:14 Diagnosis: NORMAL SINUS RHYTHM NORMAL ECG NO PREVIOUS ECGS AVAILABLE Confirmed by CHARLENE SMITH MD ([id number]) on 03/14/2024 4:12:12 AM Test Reason : Location : 4 : [facility] EM Overread By : CHARLENE SMITH MD Edited By : CHARLENE SMITH MD Referred By : , Acquired by : ALLEN GARCIA [facility] Emergency Department Summary on 02-19-2024 Emergency Department Summary [facility] Medical Records Department [address] [place] [id number] Emergency Department Summary 02/19/24 MR#: [id number] Acct: [id number] Name: LEXI LONDONO Rep #: [id number] : 1950 73 From: Bryan Felder DO PCP: Dr. Elena Andino MD Status:REG ER Location: ED HPI History of Present Illness Chief Complaint: Numb/Ting PFSH PFSH Home Medications ???Medication ???Instructions ???Recorded ???Last Taken ???Type Oxazepam [Serax] 10 mg PO BID PRN PRN Agitation 04/22/13 Unknown History aspirin 81 mg chewable tablet 81 mg PO DAILY@0800 04/22/13 02/18/24 History atenolol 25 mg tablet 75 mg PO BID 04/22/13 Unknown History pravastatin 10 mg tablet 10 mg PO QHS 04/22/13 Unknown History sotalol 80 mg tablet 80 mg PO BID 04/22/13 Unknown History verapamil 80 mg tablet 40 mg PO BID 05/14/14 Unknown History Allergy/AdvReac Type Severity Reaction Status Date / Time thiopental (From Pentothal) Allergy Severe Anaphylaxis Verified 02/19/24 14:14 codeine Allergy Itching Verified 02/19/24 14:14 Penicillins Allergy Unknown Verified 02/19/24 14:14 Social History Smoking Status: Heavy Smoker (>10/day) EXAM Physical Exam Const Vital Signs: 02/19/24 14:10 Temperature 97.5 F L Temperature Source Oral Pulse Rate 75 Respiratory Rate 20 H Blood Pressure 146/87 H Blood Pressure Mean 106 Pulse Ox 96 Oxygen Delivery Method Room Air MDM MDM MDM Narrative Medical decision making narrative: HISTORY OF PRESENT ILLNESS: 73-year-old female presents with concern for numbness in her right leg. She endorses a history of DVT. She further states she developed acute pain, numbness in her right leg approximately 2 hours ago. She states it hurt so bad that her leg gave out on her. She states since then she has had constant pain made difficult for her to even sit on her left side. She denies chest pain palpitations she notes baseline shortness of breath. She know she is answered COPD and still smokes approximately 10 cigarettes a day. She notes history of DVT and denies taking blood thinners. Denies leg swelling. Denies recent surgery, chemotherapy, estrogen use. She denies any falls or trauma. REVIEW OF SYSTEMS: Pertinent positives: Right leg pain Pertinent negatives: Chest pain, shortness of breath, palpitation PHYSICAL EXAM: Nursing triage notes reviewed, Vital signs reviewed Constitutional: please see mdm HENT: MMM Eyes: Pupils equal round and reactive to light, Extraocular muscles intact Neck: No stridor, no JVD, full neck ROM Lungs: Clear to auscultation, No wheezing or rales. No increased work of breathing, no conversational dyspnea, no accessory muscle use, no nasal flaring. No respiratory distress noted Heart: Regular rate and rhythm, No murmurs, No rubs and No gallops, 2+ distal pulses (radial, femoral, posterior tibial) in all extremities Abdomen: Soft, there is no tenderness, rigidity, rebound or guarding, no obvious peritoneal signs, no palpable pulsatile abdominal masses, no auscultated abdominal bruit : No CVAT Extremities: No edema, no calf tenderness, compartments are soft. Right lower extremity appeared dusky/mottled compared to left. Right lower extremity. Slightly cooler to touch. Was difficult to palpate pulses right lower extremity. It is difficult to Doppler pulses right lower extremity as well. No bruising ecchymosis or TTP over right hip. Intact range of motion in hip flexion extension internal/external rotation. Neuro: Patient is alert, oriented x 3, cranial nerves II through XII are intact, intact strength sensation bilateral upper extremities, intact strength sensation in left lower extremity. Patient had some slight weakness secondary to pain in the right lower extremity but had full sensation all dermatomal distributions Skin: No rash or lesions noted MEDICAL DECISION MAKING: Chief Complaint: Numbness External records reviewed: Reviewed prior imaging studies, allergies, reviewed the patient's problem list, vital signs, current medication Factors affecting care: History of hyperlipidemia, tobacco abuse, COPD hypertension A-fib Social determinants of health: none History obtained from others: EMS Consults: Vascular surgery (Dr. Preston), emergency medicine (Dr. Robbins) MDM Narrative: Patient was initially hemodynamically stable, afebrile and nontoxic-appearing. Exam with a cool, mottled right lower extremity, unable to Doppler pulses this is concerning for acute limb ischemia. I considered the following differential diagnosis: CVA, DVT, lumbar radiculopathy, peripheral neuropathy, acute limb ischemia, A-fib, rhabdomyolysis ALL IMAGES (IF OBTAINED) HAVE BEEN PERSONALLY REVIEWED AND INTERPRETED BY MYSELF. EKG with normal sinus rhythm, normal axis (more content not included)... Normal [facility] HISTORY PHYSICALon HISTORY PHYSICAL HNO ID: [id number] Author: ALLEN PRESTON MD Service: Vascular Surgery Author Type: Resident Type: H&P Filed: 02/19/2024 21:15 Note Text: Attestation signed by Allen Preston MD at 02/19/2024 9:15 PM Attending Note I personally saw and examined the patient. I reviewed the resident's note. I agree with the resident's assessment and plan unless otherwise noted. Patient presenting with Marissa 2A ALI with sensory deficit to RLE CTA showing Right IVETTE/EIA occlusion with no opacification of R popliteal or infrageniculate vessels. History of AF non-compliant with AC. Started on heparin gtt, foot with mottling, pale, numbness. Plan for RLE thrombectomy possible 4 compartment fasciotomy. The risks and benefits of this planned approach were discussed in detail including but not limited to bleeding, arterial injury, infection, HI, contrast nephropathy, distal embolization and limb loss. We also discussed that the outcome of the arteriogram may be that Ms. Londono will require open surgery to address the arterial disease. Alternatives of continued medical therapy and observation were discussed. Ms. Londono expressed a clear understanding of our discussion as well as the procedure and alternatives and agreed to proceed with thrombectomy. Signature: Allen Preston MD Date: 02/19/2024 Time: 8:44 PM CONSULT: Vascular Surgery Service SERVICE DATE: 02/19/2024 SERVICE TIME: 7:34 PM REASON FOR CONSULT: RLE ischemia REQUESTING PHYSICIAN: ED NATURE OF CONSULT: emergent Subjective 73 year old female with a history of COPD (not on home O2), Afib (not on AC for years as she states she does not need it), who presents from an outside ED with right lower extremity numbness and ischemia since 2pm today. Patient states around 2 pm today her right lower extremity started to feel numb and heavy, with loss of sensation below the level of her right knee. Motor remained intact. Heparin drip was started at the outside ED and a CTA was obtained revealing a RLE thrombus within the popliteal area. Patient states she has some sensation back in her RLE and motor is intact, pain has improved as well. She has a palpable right femoral pulse, but no dopplerable signals in the right popliteal, PT/DP. Pt is a 60 pack year smoking history Vascular/Thoracic Surgical History or Testing: None Smoking Status: 60 pack year smoking history Ambulatory Status: mobile FUNCTIONAL STATUS: Independent PAST MEDICAL HISTORY Diagnosis Date Adhesive capsulitis of right shoulder 12/17/2014 Atrial fibrillation (HCC) Benign neoplasm of colon Tubular adenoma in 2006 Claudication (HCC) 12/01/2010 COPD (chronic obstructive pulmonary disease) (HCC) Generalized osteoarthrosis, unspecified site HLD (hyperlipidemia) HTN (hypertension) Internal hemorrhoids without mention of complication Noncompliance with medication regimen 12/06/2010 PMH - PAST MEDICAL HISTORY OF ASPVD Tendonitis left leg 04/14/2011 Tobacco use disorder Unspecified constipation PAST SURGICAL HISTORY Procedure Laterality Date COLSC FLX W/RMVL OF TUMOR POLYP LESION SNARE TQ 09/16/05 FAMILY HISTORY Problem Relation Age of Onset Heart Father Heart Mother None Mother None Brother None Brother None Sister None Sister Hypertension Sister Hypertension Sister other (hepatitis) Sister C Cancer Maternal Grandmother colon ca Cancer Maternal Aunt ca Social History Tobacco Use Smoking status: Every Day Current packs/day: 0.25 Average packs/day: 0.3 packs/day for 30.0 years (7.5 ttl pk-yrs) Types: Cigarettes Smokeless tobacco: Never Tobacco comments: 5-6 cigs to no more than 10 per day the past year or so. August 30, 2023--10 per day or less depending on stressors Substance Use Topics Alcohol use: No Drug use: Yes Frequency: 2.0 times per week Types: Marijuana Comment: for back pain as needed (Not in a hospital admission) No current facility-administered medications for this encounter. Allergies As of Date: 02/19/2024 Allergen Noted Reaction ALBUTEROL 03/09/2021 Intolerance CLINDAMYCIN 10/01/2013 Diarrhea CODEINE 12/29/2004 Unknown DARVOCET A500 [PROPOXYPHENE N-PAT*04/16/2005 Intolerance LIPITOR [ATORVASTATIN CALCIUM] 04/05/2012 GI Upset NICKEL 12/17/2014 Rash NTG [NITRATE ANALOGUES] 03/06/2013 Intolerance PENICILLINS 12/29/2004 Unknown PEPCID [FAMOTIDINE IN 0.9 % NACL] 04/16/2005 Itching SODIUM PENTATHAL [THIOPENTAL] 04/16/2005 Intolerance Fully Assessed 02/19/2024 COMPLETE REVIEW OF SYSTEMS: GENERAL: No weight loss, malaise or fevers RESPIRATORY: Severe COPD, Coarse breath sounds CARDIOVASCULAR: Negative for chest pain, leg swelling, hypertension, CHF or palpitations GI: No nausea, vomiting, or diarrhea MUSCULOSKELETAL: Endors (more content not included)... Normal [facility] Lactic Acidon 02-19-2024 Lactate [Moles/Vol] 2.2 mmol/L Invalid Interpretation Code 0.4-1.9 [facility] Comment on above: Order Comment: Y Result Comment: Crit ical Result(s) Called at: 16:00:40 02/19/2024 by: JOSE WHITTINGTON. Results read back by Hannah Mckenzie Performed By: #### L 100.0100, L300.3900, L300.4310, L500.2500, L501.3620, L503.6005 ####[facility] [address] [place], [address] OPERATIVE NOon 02-19-2024 OPERATIVE NO HNO ID: [id number] Author: ALLEN PRESTON MD Service: Vascular Surgery Author Type: Physician Type: Operative Report Filed: 02/20/2024 00:53 Note Text: OPERATIVE/PROCEDURE REPORT LOG ID: [id number] Surgery/Procedure Date: 02/19/2024 - 02/20/2024 Incision/Procedure Start Time: 9:39 PM Incision Close/Procedure End Time: 12:23 AM Surgeon(s)/Procedurali st(s) and [employer] Professor(s): Surgeons and Role: * Allen Preston MD - Primary * Mary Kate Morrow DO - Resident - Assisting Physician [employer] Professor: Christiana Roque PA-C PROCEDURE INDICATION: 73 year old female who presents for a right lower extremity thrombectomy for marissa 2A acute limb ischemia. INTERVENTIONAL PROCEDURE: Ultrasound-guided left common femoral access Aorta and pelvic angiogram with radiographic interpretation Right lower extremity angiogram with radiographic interpretation Right common and external iliac suction thrombectomy Right below knee popliteal artery cutdown Below knee popliteal, anterior tibial, posterior tibial artery Juan Carlos thromboembolectomy Anesthesia: General PROCEDURAL DETAILS The patient was taken to the operating room and laid supine on the table. A huddle was performed with the surgery and nursing teams confirming the patient as Lexi Londono with a date of 1950, the correct medical record number, allergies, as well as and nature and laterality of the procedure. Anesthesia was induced by the anesthesia team. The patient received preoperative antibiotics. The abdomen, entire right leg, left leg to the thigh were prepped and draped in the usual sterile fashion. Ultrasound guidance was used during the procedure to establish and assess the patency of the common femoral artery to be punctured. Using a micropuncture system the left common femoral artery was accessed using real-time sonography. Needle entry into the artery was visualized with ultrasound and permanent ultrasound images were obtained. A 5-Bahamian sheath was exchanged into the COUNTERSINKER over a stiff glide wire. The wire and a SOS catheter were advanced into the distal abdominal aorta and a diagnostic aorto-biiliac arteriogram was performed. Next, up and over access was obtained. A 7F sheath was then exchanged up and over the aortic bifurcation to origin of the contralateral common femoral artery. Systemic heparin was administered with redosing as appropriate for the remainder of the case. Using a Lightening [place] 7 catheter, suction thrombectomy was performed throughout the right common and external iliac artery. Completion arteriogram revealed restored flow through the intervened upon segment with a technically satisfactory result and no evidence of significant residual thrombus. The catheter was advanced to the below knee popliteal artery, suction was attempted with the CAT 7 and CAT 6 catheters, DSA imaging showed persistent total occlusion. The long sheath was exchanged for a short sheath and the wire was removed. A Mynx closure device was used and additional manual pressure was held until hemostasis achieved. On-table duplex ultrasound was performed confirming no access site pseudoaneurysm, dissection, or occlusion. Next, A longitudinal incision was made distal to the knee on the medial leg. The gastroc and soleus muscles were retracted posteriorly and the below knee popliteal artery, anterior tibial, and TPT were circumferentiall dissected and controlled with vessel loops. Transverse arteriotomy was made with an 11 blade and Crump scissors on the BK popliteal artery just above the bifurcation. Embolectomy of the popliteal was performed with a 3 Juan Carlos balloon catheter. There was return of chronic thrombus. Following 2 clean passes, there was excellent pulsatile inflow. Embolectomy of the DUANE and CLIENT INSIGHTS CONSULTANT were performed with a 2 Juan Carlos balloon catheter. No thrombus returned. There was good back bleeding and the outflow was flushed with heparinized saline. The arteriotomy was closed using interrupted 7-0 Prolene sutures. Flow was reestablished in the usual fashion. Doppler signals in the wound were appropriate. There was a biphasic CLIENT INSIGHTS CONSULTANT signal and a monophasic DP in the foot. Protamine was given, hemostasis was achieved in the wound. The wound was irrigated, The deep layers were closed with 2-0 and 3-0 running Vicryl suture, and the skin was closed with running 4-0 Monocryl suture. The skin was dressed with Sureclose. ARTERIOGRAM FINDINGS: Aorta: Patent Right Lower Extremity: Common iliac artery: Acute Total Occlusion External iliac artery:Acute Total Occlusion Common femoral artery: No Stenosis Profunda femoral artery: No Stenosis Superficial femoral artery: No Stenosis Popliteal artery: Acute Total Occlusion No visualization of right DUANE, TPT, CLIENT INSIGHTS CONSULTANT, peroneal Pre-Op/Pre-Procedure Diagnosis: Acute Ischemia of right lower extremity Post-Op/Post-Procedure Diagnosis: Same Estimated Blood Loss: 100 mls Spec (more content not included)... Normal [facility] Partial Thromboplast Timeon 02-19-2024 aPTT Coag (Bld) [Time] 25.6 s Normal 24.1-36.2 [facility] Comment on above: Performed By: #### L 100.0100, L300.3900, L300.4310, L500.2500, L501.3620, L503.6005 #### [facility] [address] [place], [address] Prothrombin Time w/INRon INR Coag (PPP) [Relative time] 1.1 {INR} Normal [facility] Comment on above: Performed By: #### L 100.0100, L300.3900, L300.4310, L500.2500, L501.3620, L503.6005 #### [facility] [address] [place], [address] PT Coag (PPP) [Time] 13.7 s Normal 11.7-14.9 [facility] Comment on above: Performed By: #### L 100.0100, L300.3900, L300.4310, L500.2500, L501.3620, L503.6005 #### [facility] [address] [place], [address] SURGICAL PATHOLOGYon 024 CASE REPORT Normal [facility] Comment on above: Order Comment: Speci men Type: TISSUE SPECIMENOrdering Facility: [facility] Address: [address] [place] [address] Result Comment: Surg ical Pathology Report Case: [id number] Authorizing Provider: Allen Preston MD Collected: 02/19/2024 11:52 PM Ordering Location: [place] [facility] Received: 02/20/2024 08:02 AM Pathologist: Mildred Valenzuela MD Specimen: Blood Clot (Specify Site in Comments), RIGHT POPLITEAL THROMBUS Performed By: #### S ####[facility] LABORATORYCLIA [id number] [address] OF [facility] CLINICAL HISTORY Normal [facility] Comment on above: Order Comment: Francisi gonzales Type: TISSUE SPECIMENOrdering Facility: [facility] Address: [address] [place] [address] Result Comment: Pre- op diagnosis: Ischemia of extremity [I99.8] Performed By: #### S ####[facility] LABORATORYCLIA [id number] [address] FINAL DIAGNOSIS Normal [facility] Comment on above: Order Comment: Speci men Type: TISSUE SPECIMENOrdering Facility: [facility] Address: [address] [place] [address] Result Comment: Cont ents of right popliteal artery, removal: - Organizing blood clot. Performed By: #### S ####[facility] LABORATORYCLIA [id number] [address] FINAL PERFORMING LAB Normal [facility] Comment on above: Order Comment: Speci men Type: TISSUE SPECIMENOrdering Facility: [facility] Address: [address] [place] [address] Result Comment: Diag nostic interpretation performed at [facility], [address] [place] [address] CLIA# [id number] [employer] Hitch Driver: Flako Hamilton M.D. Performed By: #### S ####[facility] LABORATORYCLIA [id number] [address] GROSS DESCRIPTION Normal [facility] Comment on above: Order Comment: Speci men Type: TISSUE SPECIMENOrdering Facility: [facility] Address: [address] [place] [address] Result Comment: A. B lood Clot (Specify Site in Comments) Received in formalin labeled as right popliteal thrombus are multiple irregular shaped segments of dark red organized thrombus aggregating to 2.0 x 2.0 x 0.3 cm. A vascular wall is not grossly appreciated. B2B Sales Professional sections are submitted in 1 cassette. Gross examination performed at [facility], [address] [place] [address] CLIA#[id number] [facility] February 20, 2024 10:37 AM Performed By: #### S ####[facility] LABORATORYCLIA [id number] [address] OF [facility] TYPE + SCREENon 02-19-2024 ABO O Normal [facility] Comment on above: Order Comment: Speci men Type: BLOOD SPECIMENOrdering Facility: [facility] Address: [address] [place] [address] Performed By: #### T SCR ####[facility] BLOOD BANKCLIA [id number] [address] [place] Rh Nom (Bld) Positive Normal [facility] Comment on above: Order Comment: Speci men Type: BLOOD SPECIMENOrdering Facility: [facility] Address: [address] [place] [address] Performed By: #### T SCR ####[facility] BLOOD BANKCLIA [id number] [address] TYPE AND SCREEN EXPIRATION 02/22/2024 23:59 Normal [facility] Comment on above: Order Comment: Speci men Type: BLOOD SPECIMENOrdering Facility: [facility] Address: [facility] [place] [address] Performed By: #### T SCR ####[facility] BLOOD BANKCLIA [id number] [place] [address] [place] T3 FREE BLDon 07-26-2022 Free T3 [Mass/Vol] 3.6 pg/mL 2.3 - 4.1 pg/mL [facility] T4 FREE/FREE THYROXon 2022 Free T4 [Mass/Vol] 1.0 ng/dL 0.9 - 1.7 ng/dL [facility] CBC W Auto Differential pane l (Bld)on 07-23-2022 Basophils (Bld) [#/Vol] 0.06 10*3/uL <0.11 k/uL [facility] Basophils/100 WBC (Bld) 0.6 % [facility] Differential cell count method Nom (Bld) Auto [facility] Eosinophils (Bld) [#/Vol] 0.45 10*3/uL <0.46 k/uL [facility] Eosinophils/100 WBC (Bld) 4.6 % [facility] Erythrocyte distribution width (RBC) [Ratio] 13.3 % 11.5 - 15.0 % [facility] Hematocrit (Bld) [Volume fraction] 44.7 % 36.0 - 46.0 % [facility] Hemoglobin (Bld) [Mass/Vol] 14.7 g/dL 11.5 - 15.5 g/dL [facility] Immature granulocytes (Bld) [#/Vol] <0.10 k/uL [facility] Immature granulocytes/100 WBC (Bld) 0.2 % [facility] Lymphocytes (Bld) [#/Vol] 2.90 10*3/uL 1.00 - 4.00 k/uL [facility] Lymphocytes/100 WBC (Bld) 29.4 % [facility] MCH (RBC) [Entitic mass] 31.3 pg 26.0 - 34.0 pg [facility] MCHC (RBC) [Mass/Vol] 32.9 g/dL 30.5 - 36.0 g/dL [facility] MCV (RBC) [Entitic vol] 95.1 fL 80.0 - 100.0 fL [facility] Monocytes (Bld) [#/Vol] 1.13 10*3/uL High <0.87 k/uL [facility] Monocytes/100 WBC (Bld) 11.5 % [facility] Neutrophils (Bld) [#/Vol] 5.30 10*3/uL 1.45 - 7.50 k/uL [facility] Neutrophils/100 WBC (Bld) 53.7 % [facility] Nucleated RBC (Bld) [#/Vol] <0.01 k/uL [facility] Nucleated RBC/100 WBC (Bld) [Ratio] 0.0 /100 WBC [facility] Platelet mean volume (Bld) [Entitic vol] 11.0 fL 9.0 - 12.7 fL [facility] Platelets (Bld) [#/Vol] 248 10*3/uL 150 - 400 k/uL [facility] RBC (Bld) [#/Vol] 4.70 10*6/uL 3.90 - 5.2 0 m/uL [facility] WBC (Bld) [#/Vol] 9.86 10*3/uL 3.70 - 11. 00 k/uL [facility] Vital Signs Date Time Vital Sign Value Performing Clinician Sumeet back 10-04-2024 14:54-0400 Body height 158.5 cm [facility] OPTOMECHANICAL ENGINEER.GUIDANCE CONSULTANT Work Phone: [facility] 10-04-2024 14:54-0400 Body mass index (BMI) [Ratio] 25.87 kg/m2 [facility] OPTOMECHANICAL ENGINEER.GUIDANCE CONSULTANT Work Phone: [facility] 10-04-2024 14:54-0400 Body weight 65 kg [facility] OPTOMECHANICAL ENGINEER.GUIDANCE CONSULTANT Work Phone: [facility] 10-04-2024 14:54-0400 Diastolic blood pressure 58 mm[Hg] [facility] OPTOMECHANICAL ENGINEER.GUIDANCE CONSULTANT Work Phone: [facility] 10-04-2024 14:54-0400 Heart rate 65 /min [facility] OPTOMECHANICAL ENGINEER.GUIDANCE CONSULTANT Work Phone: [facility] 10-04-2024 14:54-0400 Respiratory rate 16 /min Gene Love OPTOMECHANICAL ENGINEER.GUIDANCE CONSULTANT Work Phone: [facility] 10-04-2024 14:54-0400 Systolic blood pressure 109 mm[Hg] Gene Love OPTOMECHANICAL ENGINEER.GUIDANCE CONSULTANT Work Phone: [facility] 03-21-2024 18:55-0500 Body mass index (BMI) [Ratio] 25.23 kg/m2 Amy Acosta OPTOMECHANICAL ENGINEER.CPC CODER Work Phone: [facility] 03-21-2024 18:55-0500 Body weight 66.68 kg Amy Acosta OPTOMECHANICAL ENGINEER.CPC CODER Work Phone: [facility] 03-21-2024 18:55-0500 Diastolic blood pressure 64 mm[Hg] Amy Acosta OPTOMECHANICAL ENGINEER.CPC CODER Work Phone: [facility] 03-21-2024 18:55-0500 Heart rate 63 /min Amy Acosta OPTOMECHANICAL ENGINEER.CPC CODER Work Phone: [facility] 03-21-2024 18:55-0500 Respiratory rate 16 /min Amy Acosta OPTOMECHANICAL ENGINEER.CPC CODER Work Phone: [facility] 03-21-2024 18:55-0500 SaO2% (BldA) [Mass fraction] 97 % Amy Acosta OPTOMECHANICAL ENGINEER.CPC CODER Work Phone: [facility] 03-21-2024 18:55-0500 Systolic blood pressure 118 mm[Hg] Amy Acosta OPTOMECHANICAL ENGINEER.CPC CODER Work Phone: [facility] 08-30-2023 18:42-0400 Body mass index (BMI) [Ratio] 27.7 kg/m2 Elena Andino MD Work Phone: [facility] 08-30-2023 18:42-0400 Body temperature 97.3 [degF] Elena Andino MD Work Phone: [facility] 08-30-2023 18:42-0400 Body weight 67.59 kg Elena Andino MD Work Phone: [facility] 08-30-2023 18:42-0400 Diastolic blood pressure 62 mm[Hg] Elena Andino MD Work Phone: [facility] 08-30-2023 18:42-0400 Heart rate 66 /min Elena Andino MD Work Phone: [facility] 08-30-2023 18:42-0400 Respiratory rate 18 /min Elena Andino MD Work Phone: [facility] 08-30-2023 18:42-0400 SaO2% (BldA) [Mass fraction] 97 % Elena Andino MD Work Phone: [facility] 08-30-2023 18:42-0400 Systolic blood pressure 108 mm[Hg] Elena Andino MD Work Phone: [facility] 08-31-2022 18:22-0400 Body temperature 98.29 [degF] Elena Andino MD Work Phone: [facility] 08-31-2022 18:22-0400 Body weight 73.03 kg Elena Andino MD Work Phone: [facility] 08-31-2022 18:22-0400 Diastolic blood pressure 62 mm[Hg] Elena Andino MD Work Phone: [facility] 08-31-2022 18:22-0400 Heart rate 62 /min Elena Andino MD Work Phone: [facility] 08-31-2022 18:22-0400 Respiratory rate 18 /min Elena Andino MD Work Phone: [facility] 08-31-2022 18:22-0400 SaO2% (BldA) [Mass fraction] 96 % Elena Andino MD Work Phone: [facility] 08-31-2022 18:22-0400 Systolic blood pressure 116 mm[Hg] Elena Andino MD Work Phone: [facility] 07-22-2022 15:12-0400 Body height 156.2 cm Gene Love OPTOMECHANICAL ENGINEER.GUIDANCE CONSULTANT Work Phone: [facility] 07-22-2022 15:12-0400 Body weight 73.03 kg Gene Love OPTOMECHANICAL ENGINEER.GUIDANCE CONSULTANT Work Phone: [facility] 07-22-2022 15:12-0400 Diastolic blood pressure 84 mm[Hg] Gene Love OPTOMECHANICAL ENGINEER.GUIDANCE CONSULTANT Work Phone: [facility] 07-22-2022 15:12-0400 Heart rate 66 /min Gene Love OPTOMECHANICAL ENGINEER.GUIDANCE CONSULTANT Work Phone: [facility] 07-22-2022 15:12-0400 Respiratory rate 16 /min Gene Love OPTOMECHANICAL ENGINEER.GUIDANCE CONSULTANT Work Phone: [facility] 07-22-2022 15:12-0400 SaO2% (BldA) [Mass fraction] 96 % Gene Love OPTOMECHANICAL ENGINEER.GUIDANCE CONSULTANT Work Phone: [facility] 07-22-2022 15:12-0400 Systolic blood pressure 136 mm[Hg] Gene Love OPTOMECHANICAL ENGINEER.GUIDANCE CONSULTANT Work Phone: [facility] 07-17-2021 14:09-0400 Diastolic blood pressure 83 mm[Hg] Gene Love OPTOMECHANICAL ENGINEER.GUIDANCE CONSULTANT Work Phone: [facility] 07-17-2021 14:09-0400 Systolic blood pressure 163 mm[Hg] Gene Loev OPTOMECHANICAL ENGINEER.GUIDANCE CONSULTANT Work Phone: [facility] 07-17-2021 14:00-0400 Body weight 70.76 kg Gene Love OPTOMECHANICAL ENGINEER.GUIDANCE CONSULTANT Work Phone: [facility] 07-17-2021 14:00-0400 Heart rate 68 /min Gene Love OPTOMECHANICAL ENGINEER.GUIDANCE CONSULTANT Work Phone: [facility] 07-17-2021 14:00-0400 Respiratory rate 16 /min Gene Love OPTOMECHANICAL ENGINEER.GUIDANCE CONSULTANT Work Phone: [facility] 07-17-2021 14:00-0400 SaO2% (BldA) [Mass fraction] 96 % Gene Love OPTOMECHANICAL ENGINEER.GUIDANCE CONSULTANT Work Phone: [facility] Encounters Encounter Date Encounter Type Care Provider Facility Start: 11-19-2024 End: 11-19-2024 Refill Elena Andino MD Work Phone: [facility] [place] Comment on above: Refill Request Start: 10-04-2024 End: 10-04-2024 ambulatory GENE LOVE Facility:[facility] Start: 10-04-2024 End: 10-04-2024 Patient encounter procedure Gene Love OPTOMECHANICAL ENGINEER.GUIDANCE CONSULTANT Work Phone: [facility] [place] Comment on above: Medicare annual well ness visit, subsequent (Primary Dx); Generalized anxiety disorder; Iliac artery occlusion, right (HCC); Chronic obstructive pulmonary disease, unspecified COPD type (HCC); Paroxysmal atrial fibrillation (HCC); Screening for colon cancer; ASHD (arteriosclerotic heart disease); Encounter for immunization; Screening for depression; Asymptomatic menopause; Encounter for screening mammogram for breast cancer; Primary hypertension; Vitamin D deficiency Start: 10-02-2024 End: 10-04-2024 Refill Elena Andino MD Work Phone: [facility] [place] Comment on above: Refill Request Start: 09-13-2024 End: 09-21-2024 Telephone encounter Elena Andino MD Work Phone: [facility] [place] Comment on above: Patient Update Start: 09-08-2024 End: 09-11-2024 Refill Amy Acosta APRN.CPC CODER Work Phone: [facility] [place] Comment on above: Refill Request Start: 09-07-2024 End: 09-17-2024 Refill Amy Acosta OPTOMECHANICAL ENGINEER.CPC CODER Work Phone: [facility] [place] Comment on above: Refill Request Start: 08-27-2024 End: 08-27-2024 [facility] [employer] Start: 08-27-2024 End: 08-27-2024 Patient encounter procedure Cassidy Shine MA [facility] Comment on above: Population Health Na vigation Outreach ([facility] [place] [facility] ) Start: 07-30-2024 End: 07-30-2024 Orders Only Elena Andino MD Work Phone: [facility] [place] Start: 07-30-2024 End: 07-30-2024 Telephone encounter Elena Andino MD Work Phone: [facility] [place] Comment on above: Insurance Authorizat ion Start: 07-25-2024 End: 07-25-2024 ambulatory Elena Andino MD Work Phone: [facility] [place] Comment on above: Patient Question Start: 07-24-2024 End: 08-24-2024 ambulatory Elena Andino MD Work Phone: [facility] [place] Start: 07-23-2024 End: 07-25-2024 Telephone encounter Elena Andino MD Work Phone: [facility] [place] Comment on above: Medication Problem Start: 07-22-2024 End: 07-22-2024 Orders Only Elena Andino MD Work Phone: [facility] [place] Start: 05-22-2024 End: 05-23-2024 Refill Elena Andino MD Work Phone: [facility] [place] Comment on above: Med Change Request Start: 05-21-2024 End: 05-22-2024 Refill Elena Andino MD Work Phone: [facility] [place] Comment on above: Refill Request Start: 04-12-2024 End: 04-12-2024 Refill Amy Acosta APRN.CPC CODER Work Phone: [facility] [place] Comment on above: Med Change Request Start: 04-03-2024 End: 04-03-2024 Emergency department patient visit Flako Arredondo Facility:[facility] Start: 04-02-2024 End: 04-03-2024 Telephone encounter Elena Andino MD Work Phone: [facility] [place] Comment on above: Patient Question Start: 03-21-2024 End: 03-21-2024 ambulatory AMY ACOSTA Facility:[facility] Start: 03-21-2024 End: 03-21-2024 Office outpatient visit 25 minutes Amy Acosta OPTOMECHANICAL ENGINEER.CPC CODER Work Phone: [facility] [place] Comment on above: Popliteal artery occ lusion, right (HCC) (Primary Dx); Generalized anxiety disorder; Paroxysmal atrial fibrillation (HCC) Start: 03-21-2024 End: 03-21-2024 Telephone encounter Elena Andino MD Work Phone: [facility] [place] Comment on above: requesting medicatio n that is Start: 03-05-2024 End: 03-05-2024 ambulatory Elena Andino MD Work Phone: [facility] [place] Comment on above: Left leg numbness Start: 03-05-2024 End: 03-05-2024 Emergency department patient visit Hitesh Baker Facility:[facility] Start: 02-19-2024 End: 02-20-2024 Evaluation and management of inpatient ELENA ANDINO Facility:[facility] Start: 02-19-2024 End: 02-19-2024 Emergency department patient visit Bryan Felder Facility:[facility] Start: 01-02-2024 End: 01-03-2024 Refill Elena Andino MD Work Phone: [facility] [place] Comment on above: Refill Request Start: 11-22-2023 End: 12-28-2023 Refill Elena Andino MD Work Phone: [facility] [place] Comment on above: Refill Request (Out of one medication, please send today.) Start: 11-14-2023 ambulatory Amarjit Herrera RN [facility] Comment on above: Community Monitoring Outreach Start: 10-10-2023 ambulatory Amarjit Herrera RN [facility] Comment on above: Community Monitoring Outreach Start: 09-09-2023 Refill Elena stern MD Work Phone: [facility] [place] Comment on above: Refill Request Start: 09-01-2023 ambulatory Amarjit M Herrera RN [facility] Comment on above: Community Monitoring Outreach Start: 08-30-2023 End: 08-30-2023 Office outpatient visit 25 minutes Elena Andino MD Work Phone: [facility] [place] Comment on above: Generalized anxiety disorder (Primary Dx); Chronic pain of left ankle; Chronic obstructive pulmonary disease, unspecified COPD type (HCC); Paroxysmal atrial fibrillation (HCC); Encounter for long-term current use of medication Start: 08-24-2023 ambulatory Elena stern MD Work Phone: [facility] [place] Start: 08-22-2023 Refill Elena stern MD Work Phone: [facility] [place] Comment on above: Refill Request Start: 08-20-2023 Refill Dorcas Rios APRN.CNP Work Phone: [facility] Comment on above: Refill Request Start: 08-01-2023 ambulatory Amarjit Herrera RN [facility] Comment on above: Community Monitoring Outreach Start: 06-22-2023 Refill Elena stern MD Work Phone: [facility] [place] Comment on above: Refill Request [facility] Start: 05-19-2023 ambulatory Amarjit Herrera RN [facility] Comment on above: Community Monitoring Outreach Start: 04-14-2023 ambulatory Amarjit Herrera RN [facility] Comment on above: Community Monitoring Outreach Start: 03-07-2023 ambulatory Amarjit Herrera RN [facility] Comment on above: Community Monitoring Outreach Start: 02-10-2023 Refill Elena stern MD Work Phone: [facility] Comment on above: Refill Request Start: 02-01-2023 ambulatory Amarjit Herrera RN [facility] Comment on above: Community Monitoring Outreach Start: 01-07-2023 ambulatory Amarjit Herrera RN [facility] Comment on above: Community Monitoring Outreach Start: 12-23-2022 Telephone encounter Elena waters MD Work Phone: [facility] [place] Comment on above: Patient Question Start: 12-15-2022 Refill Elena stern MD Work Phone: [facility] [place] Comment on above: Refill Request Start: 12-13-2022 ambulatory Amarjit Herrera RN [facility] Comment on above: Community Monitoring Outreach Start: 11-08-2022 ambulatory Amarjit Herrera RN [facility] Comment on above: Community Monitoring Outreach Start: 10-06-2022 ambulatory Amarjit Herrera RN [facility] Comment on above: Community Monitoring Outreach Start: 09-12-2022 ambulatory Amarjit Herrera RN [facility] Comment on above: Community Monitoring Outreach Start: 08-31-2022 End: 08-31-2022 Office outpatient visit 25 minutes Elena Andino MD Work Phone: [facility] [place] Comment on above: Generalized anxiety disorder (Primary Dx); Acquired hypothyroidism; Chronic obstructive pulmonary disease, unspecified COPD type (HCC); Tobacco use disorder; Primary hypertension; Dyspnea on exertion Start: 08-13-2022 ambulatory Amarjit Herrera RN [facility] Comment on above: Community Monitoring Outreach Start: 08-05-2022 Telephone encounter Elena waters MD Work Phone: [facility] [place] Comment on above: Patient Question Start: 07-23-2022 Telephone encounter Gene dutton OPTOMECHANICAL ENGINEER.GUIDANCE CONSULTANT Work Phone: [facility] [place] Comment on above: Results Start: 07-22-2022 End: 07-22-2022 Office outpatient visit 25 minutes Gene Love OPTOMECHANICAL ENGINEER.GUIDANCE CONSULTANT Work Phone: [facility] [place] Comment on above: Chronic obstructive pulmonary disease, unspecified COPD type (HCC) (Primary Dx); Encounter for immunization; Need for shingles vaccine; Screening for osteoporosis; Asymptomatic menopause; Screening for colon cancer; Screening for diabetes mellitus (DM); Paroxysmal atrial fibrillation (HCC); Generalized anxiety disorder; Tobacco use disorder; Hyperlipidemia, unspecified hyperlipidemia type; Primary hypertension; Dyspnea on exertion; Colon cancer screening; ASHD (arteriosclerotic heart disease); Mucopurulent chronic bronchitis (HCC) Start: 07-21-2022 ambulatory Amarjit Herrera RN [facility] Comment on above: Community Monitoring Outreach Start: 07-08-2022 ambulatory Amarjit Herrera RN [facility] Comment on above: Community Monitoring Outreach Start: 06-28-2022 Telephone encounter Elena waters MD Work Phone: [facility] [place] Comment on above: Forms (Appointment R eminder) Start: 06-21-2022 ambulatory Amarjit Herrera RN [facility] Comment on above: Community Monitoring Outreach Start: 05-18-2022 ambulatory Amarjit Herrera RN [facility] Comment on above: Community Monitoring Outreach Start: 04-26-2022 ambulatory Amarjti Herrera RN [facility] Comment on above: Community Monitoring Outreach Start: 03-18-2022 ambulatory Amarjit Herrera RN [facility] Comment on above: Community Monitorig Outreach Start: 03-15-2022 ambulatory Amarjit Herrera RN [facility] Comment on above: Community Monitoring Outreach Start: 02-10-2022 ambulatory Javier Leonard RN [facility] Comment on above: Community Monitoring Outreach Start: 01-19-2022 ambulatory Javier Leonard RN [facility] Comment on above: Community Monitoring Outreach Start: 01-11-2022 ambulatory Javier Leonard RN [facility] Comment on above: Community Monitoring Outreach Start: 01-09-2022 Refill Elena stern MD Work Phone: [facility] [place] Comment on above: Refill Request Start: 12-11-2021 ambulatory Javier Leonard RN [facility] Comment on above: Community Monitoring Outreach Start: 11-09-2021 ambulatory Javier Leonard RN [facility] Comment on above: Community Monitoring Outreach (COPD Telephonic CDM Outreach) Start: 10-14-2021 ambulatory Javier Leonard RN [facility] Comment on above: Community Monitoring Outreach (COPD Telephonic CDM Outreach) Start: 10-05-2021 ambulatory Javier Leonard RN [facility] Comment on above: Community Monitoring Outreach (COPD Telephonic CDM Outreach) Start: 09-28-2021 ambulatory Javier Leonard RN [facility] Comment on above: Community Monitoring Outreach (COPD Telephonic CDM Outreach) Start: 09-17-2021 Refill Elena stern MD Work Phone: [facility] [place] Comment on above: Refill Request (OUT OF MEDICATION) Community Monitoring Outreach (COPD Telephonic CDM Outreach ) Start: 09-16-2021 Telephone encounter Elena waters MD Work Phone: [facility] [place] Comment on above: Forms Start: 09-02-2021 ambulatory Javier Leonard RN [facility] Comment on above: Community Monitoring Outreach (COPD Telephonic CDM Outreach) Start: 08-17-2021 ambulatory Javier Leonard RN [facility] Comment on above: Community Monitoring Outreach (COPD Telephonic CDM Outreach) Start: 08-12-2021 ambulatory Javier Leonard RN [facility] Comment on above: Community Monitoring Outreach (COPD Telephonic CDM Outreach) Start: 08-03-2021 ambulatory Javier Leonard RN [facility] Comment on above: Community Monitoring Outreach (COPD Telephonic CDM Outreach) Start: 07-30-2021 ambulatory Javier Leonard RN [facility] Comment on above: Community Monitoring Outreach (COPD Telephonic CDM Outreach) Start: 07-17-2021 End: 07-17-2021 Patient encounter procedure Gene Gonzalesleena ERVINGUIDANCE CONSULTANT Work Phone: [facility] [place] Comment on above: Tobacco use disorder (Primary Dx); Chronic obstructive pulmonary disease, unspecified COPD type (HCC); Hyperlipidemia, unspecified hyperlipidemia type; Generalized anxiety disorder; Primary hypertension; ASHD (arteriosclerotic heart disease); Dyspnea on exertion; Colon cancer screening; Paroxysmal atrial fibrillation (HCC) Start: 07-16-2021 ambulatory Javier Leonard RN [facility] Comment on above: Community Monitoring Outreach (COPD Telephonic CDM Outreach) Start: 08-22-2018 [facility] Facility :[facility] Start: 08-19-2017 End: 08-19-2017 [facility] Facility:[facility] Procedures Date Procedure Procedure Detail Performing Clinician Start: 10-04-2024 Adult depression scr eening assessment Gene Love OPTOMECHANICAL ENGINEER.GUIDANCE CONSULTANT Work Phone: Start: 02-19-2024 Antibody screen ELENA WEAVER Comment on above: Order Comment: Speci men Type: BLOOD SPECIMENOrdering Facility: [facility] Address: [address] [place] [address] Performed By: #### T SCR ####[facility] BLOOD BANKCLIA [id number] [place] [address] [place] Start: 07-22-2022 [employer] COVI D-19 BIVALENT BOOSTER VACCINE, AGE 12+ YR Gene Love OPTOMECHANICAL ENGINEER.GUIDANCE CONSULTANT Work Phone: Start: 07-22-2022 Lipid 1996 panel - S colin or Plasma Amarjit Herrera RN Start: 09-08-2020 Adult depression scr eening assessment Javier Leonard RN Start: 02-10-2016 Mammography Javier german RN Plan of Treatment Date Care Activity Detail Author Start: 07-23-2027 Lipid 1996 panel - S colin or Plasma Lipid Screening [facility] Start: 07-23-2027 Lipid panel Lipid Screening [facility] Start: 07-23-2027 LIPID SCREEN LIPID SCREEN [facility] Start: 02-19-2027 Diabetes Screening Diabetes Screenin g [facility] Start: 10-04-2025 Annual PCP Team Lock Expert primitivo Disease Visit Annual PCP Team Chronic Disease Visit [facility] Start: 10-04-2025 Covid-19 Vaccine ( season) Covid-19 Vaccine () [facility] Comment on above: Postponed from 12/17 (Declined at this time) Start: 10-04-2025 Depression Screening Depression Scre ening [facility] Start: 10-04-2025 Medicare Annual Well ness Visit Medicare Annual Wellness Visit [facility] Start: 10-04-2025 Pneumococcal Vaccine : 50+ (1 of 2 - PCV) Pneumococcal Vaccine: 50+ (1 of 2 - PCV) [facility] Comment on above: Postponed from 09/23 (Declined at this time) Start: 07-26-2025 End: 07-26-2025 Patient encounter procedure 07/26/2025 4:20 PM EDT Office Visit [facility] [place] [address] [facility] [place] [address] Elena Andino MD [address] [facility] [place] [address] 6 month f/u with ekg (appt per pt) [facility] [place] Comment on above: 6 month f/u with ekg (appt per pt) Start: 07-22-2025 DIABETES SCREEN DIABETES SCREEN [facility] Start: 07-22-2025 Diabetes Screening Diabetes Screenin g [facility] Start: 03-21-2025 Annual PCP Team Lock Expert primitivo Disease Visit Annual PCP Team Chronic Disease Visit [facility] Start: 03-21-2025 BP Controlled (<130/80) BP Controlle d (<130/80) [facility] Start: 12-17-2024 Influenza vaccination [facility] Start: 10-04-2024 End: 10-04-2024 Patient encounter procedure 10/04/2024 2:40 PM EDT Office Visit [facility] [place] [address] [facility] [place] [address] Gene Love APRN.GUIDANCE CONSULTANT [address] [place] [address] medicare wellness/ HCC gaps [facility] [place] Comment on above: medicare wellness/ H CC gaps Start: 10-04-2024 End: 01-03-2025 25-hydroxyvitamin D3 [Mass/volume] in Serum or Plasma VITAMIN D 25 HYDROXY Lab Routine Paroxysmal atrial fibrillation (HCC) Primary hypertension Vitamin D deficiency Expected: 10/04/2024, Expires: 01/03/2025 [facility] [facility] Comment on above: Expected: 10/04/2024 , Expires: 01/03/2025 Start: 10-04-2024 End: 01-03-2025 CBC W Auto Differential panel - Blood COMPLETE BLOOD COUNT AND DIFFERENTIAL Lab Routine Paroxysmal atrial fibrillation (HCC) Primary hypertension Expected: 10/04/2024, Expires: 01/03/2025 [facility] Comment on above: Expected: 10/04/2024 , Expires: 01/03/2025 Start: 10-04-2024 End: 01-03-2025 Comprehensive metabolic 2000 panel - Serum or Plasma COMPREHENSIVE METABOLIC PANEL Lab Routine Paroxysmal atrial fibrillation (HCC) Primary hypertension Expected: 10/04/2024, Expires: 01/03/2025 [facility] Comment on above: Expected: 10/04/2024 , Expires: 01/03/2025 Start: 10-04-2024 End: 01-03-2025 Lipid 1996 panel - Serum or Plasma LIPID PANEL, FASTING Lab Routine Paroxysmal atrial fibrillation (HCC) Primary hypertension Expected: 10/04/2024, Expires: 01/03/2025 [facility] Comment on above: Expected: 10/04/2024 , Expires: 01/03/2025 Start: 10-04-2024 End: 01-03-2025 TSH W/REFLEX FT4 TSH W/REFLEX FT4 Lab Routine Paroxysmal atrial fibrillation (HCC) Primary hypertension Expected: 10/04/2024, Expires: 01/03/2025 [facility] Comment on above: Expected: 10/04/2024 , Expires: 01/03/2025 Start: 2024 RSV Vaccine (1 - 1-d ose 75+ series) RSV Vaccine (1 - 1-dose 75+ series) [facility] Start: 09-04-2024 End: 09-04-2024 Patient encounter procedure 09/04/2024 6:40 PM EDT Office Visit Internal Medicine [place] [address] [facility] [place], [place] [address] Elena Andino MD [address] [place] [address] 6 month follow up [facility] [place] Comment on above: 6 month follow up Start: 08-29-2024 Annual PCP Team Lock Expert primitivo Disease Visit Annual PCP Team Chronic Disease Visit [facility] Start: 08-29-2024 BP Controlled (<130/80) BP Controlle d (<130/80) [facility] Start: 04-18-2024 Advance Directive Discussion Advance Directive Discussion [facility] Start: 03-06-2024 End: 03-06-2024 Patient encounter procedure 03/06/2024 6:40 PM EST Office Visit Internal Medicine [place] [address] [place] [address] Elena Andino MD [address] [place] [address] 6 month follow up Internal Medicine [place] Comment on above: 6 month follow up Start: 12-18-2023 Covid-19 Vaccine () Covid-19 Vaccine () [facility] Start: 12-18-2023 Covid-19 Vaccine () Covid-19 Vaccine () [facility] Start: 12-18-2023 Influenza vaccination [facility] Start: 09-01-2023 ANNUAL PCP TEAM WEALTH MANAGEMENT CONSULTANT PRIMITIVO DISEASE VISIT ANNUAL PCP TEAM CHRONIC DISEASE VISIT [facility] Start: 09-01-2023 BP CONTROLLED (<130/80) BP CONTROLLE D (<130/80) [facility] Start: 08-30-2023 End: 08-30-2023 Patient encounter procedure 08/30/2023 6:20 PM EDT Office Visit Internal Medicine [place] [address] [place] [address] Elena Andino MD [address] [place] [address] 6 mo follow up Internal Medicine [place] Comment on above: 6 mo follow up Start: 08-30-2023 End: 11-29-2023 TOXICOLOGY SCREEN, ROUTINE URINE TOXICOLOGY SCREEN, ROUTINE URINE Lab Routine Encounter for long-term current use of medication Expected: 08/30/2023, Expires: 11/29/2023 [facility] Work Phone: Comment on above: Expected: 08/30/2023 , Expires: 11/29/2023 Start: 08-22-2023 End: 11-21-2023 25-hydroxyvitamin D3 [Mass/volume] in Serum or Plasma VITAMIN D 25 HYDROXY Lab Routine Vitamin D deficiency Encounter for long-term current use of medication Expected: 08/22/2023, Expires: 11/21/2023 [facility] Work Phone: Comment on above: Expected: 08/22/2023 , Expires: 11/21/2023 Start: 08-22-2023 End: 11-21-2023 CBC panel - Blood by Automated count COMPLETE BLOOD COUNT Lab Routine Primary hypertension Encounter for long-term current use of medication Expected: 08/22/2023, Expires: 11/21/2023 [facility] Comment on above: Expected: 08/22/2023 , Expires: 11/21/2023 Start: 08-22-2023 End: 11-21-2023 Comprehensive metabolic 2000 panel - Serum or Plasma COMPREHENSIVE METABOLIC PANEL Lab Routine Primary hypertension Encounter for long-term current use of medication Expected: 08/22/2023, Expires: 11/21/2023 [facility] Comment on above: Expected: 08/22/2023 , Expires: 11/21/2023 Start: 08-22-2023 End: 11-21-2023 Lipid 1996 panel - Serum or Plasma LIPID PANEL BASIC Lab Routine Hyperlipidemia, unspecified hyperlipidemia type Encounter for long-term current use of medication Expected: 08/22/2023, Expires: 11/21/2023 [facility] Comment on above: Expected: 08/22/2023 , Expires: 11/21/2023 Start: 08-22-2023 End: 11-21-2023 Thyrotropin [Units/volume] in Serum or Plasma THYROID STIMULATING HORMONE Lab Routine Acquired hypothyroidism Encounter for long-term current use of medication Expected: 08/22/2023, Expires: 11/21/2023 [facility] Comment on above: Expected: 08/22/2023 , Expires: 11/21/2023 Start: 08-22-2023 End: 11-21-2023 Thyroxine (T4) free [Mass/volume] in Serum or Plasma T4 FREE/FREE THYROXINE Lab Routine Acquired hypothyroidism Encounter for long-term current use of medication Expected: 08/22/2023, Expires: 11/21/2023 [facility] Comment on above: Expected: 08/22/2023 , Expires: 11/21/2023 Start: 08-22-2023 End: 11-21-2023 Triiodothyronine (T3) Free [Mass/volume] in Serum or Plasma T3, FREE Lab Routine Acquired hypothyroidism Encounter for long-term current use of medication Expected: 08/22/2023, Expires: 11/21/2023 [facility] Comment on above: Expected: 08/22/2023 , Expires: 11/21/2023 Start: 08-11-2023 LIPID SCREEN LIPID SCREEN [facility] Start: 07-23-2023 ANNUAL PCP TEAM WEALTH MANAGEMENT CONSULTANT PRIMITIVO DISEASE VISIT ANNUAL PCP TEAM CHRONIC DISEASE VISIT [facility] Start: 07-23-2023 BP CONTROLLED (<130/80) BP CONTROLLE D (<130/80) [facility] Start: 07-23-2023 Hepatitis B surface antibody level LDL CHOLESTEROL [facility] Start: 04-18-2023 Advance Directive Discussion Advance Directive Discussion [facility] Start: 04-18-2023 Behavioral Health Screening Behavioral Health Screening [facility] Start: 04-18-2023 Depression Assessment Depression Ass essment [facility] Start: 12-23-2022 End: 02-22-2023 Thyrotropin [Units/volume] in Serum or Plasma TSH BLD Lab Routine Hypothyroidism, unspecified type Expected: 12/23/2022, Expires: 02/22/2023 [facility] Work Phone: Comment on above: Expected: 12/23/2022 , Expires: 02/22/2023 Start: 12-17-2022 Covid-19 Vaccine ( season) Covid-19 Vaccine ( season) [facility] Start: 12-17-2022 Influenza vaccination [facility] Start: 11-21-2022 COVID-19 VACCINE (6 - Pfizer series) COVID-19 VACCINE (6 - Pfizer series) [facility] Start: 09-16-2022 End: 11-16-2022 Thyrotropin [Units/volume] in Serum or Plasma TSH BLD Lab Routine Elevated TSH Hypothyroidism, unspecified type Expected: 09/16/2022 (Approximate), Expires: 11/16/2022 [facility] Work Phone: Comment on above: Expected: 09/16/2022 (Approximate), Expires: 11/16/2022 Start: 07-23-2022 End: 09-22-2022 THYROID PEROXIDASE ANTIBODY BLOOD THYROID PEROXIDASE ANTIBODY BLOOD Lab Routine Elevated TSH Expected: 07/23/2022, Expires: 09/22/2022 [facility] Work Phone: Comment on above: Expected: 07/23/2022 , Expires: 09/22/2022 Start: 07-22-2022 End: 09-21-2022 Alpha 1 antitrypsin [Mass/volume] in Serum or Plasma [facility] Work Phone: Comment on above: Expected: 07/22/2022 , Expires: 09/21/2022 Start: 07-22-2022 End: 09-21-2022 Comprehensive metabolic 2000 panel - Serum or Plasma [facility] Work Phone: Comment on above: Expected: 07/22/2022 , Expires: 09/21/2022 Start: 07-22-2022 End: 09-21-2022 LIPID PANEL, NONFASTING [facility] Work Phone: Comment on above: Expected: 07/22/2022 , Expires: 09/21/2022 Start: 07-22-2022 End: 09-21-2022 Thyrotropin [Units/volume] in Serum or Plasma [facility] Work Phone: Comment on above: Expected: 07/22/2022 , Expires: 09/21/2022 Start: 07-17-2022 ANNUAL PCP TEAM WEALTH MANAGEMENT CONSULTANT PRIMITIVO DISEASE VISIT ANNUAL PCP TEAM CHRONIC DISEASE VISIT [facility] Start: 04-19-2022 SHINGRIX VACCINE (1 of 2) PARKER GRIX VACCINE (1 of 2) [facility] Comment on above: Postponed from 09/23 (Insurance Coverage) Start: 04-19-2022 Urine microalbumin profile DTAP,TDAP ,TD (1 - Tdap) [facility] Comment on above: Postponed from 09/23 (Insurance Coverage) Start: 04-18-2022 ADVANCE DIRECTIVE DISCUSSION ADVANCE DIRECTIVE DISCUSSION [facility] Start: 04-18-2022 DEPRESSION ASSESSMENT DEPRESSION ASS ESSMENT [facility] Start: 03-09-2022 BP CONTROLLED (<130/80) BP CONTROLLE D (<130/80) [facility] Start: 12-17-2021 Influenza vaccination [facility] Start: 09-08-2021 Adult depression scr eening assessment DEPRESSION SCREENING [facility] Start: 09-08-2021 ANNUAL PCP TEAM WEALTH MANAGEMENT CONSULTANT PRIMITIVO DISEASE VISIT ANNUAL PCP TEAM CHRONIC DISEASE VISIT [facility] Start: 08-10-2021 DIABETES SCREEN DIABETES SCREEN [facility] Start: 07-24-2021 End: 2021 CBC W Auto Differential panel - Blood CBC + DIFF Lab Routine ASHD (arteriosclerotic heart disease) Expected: 07/24/2021 (Approximate), Expires: 2021 [facility] Work Phone: Comment on above: Expected: 07/24/2021 (Approximate), Expires: 2021 Start: 07-24-2021 End: 2021 Comprehensive metabolic 2000 panel - Serum or Plasma COMP METABOLIC PANEL Lab Routine ASHD (arteriosclerotic heart disease) Expected: 07/24/2021 (Approximate), Expires: 2021 [facility] Work Phone: Comment on above: Expected: 07/24/2021 (Approximate), Expires: 2021 Start: 07-24-2021 End: 2021 LIPID PANEL BASIC LIPID PANEL BASIC Lab Routine ASHD (arteriosclerotic heart disease) Expected: 07/24/2021 (Approximate), Expires: 2021 [facility] Work Phone: Comment on above: Expected: 07/24/2021 (Approximate), Expires: 2021 Start: 07-17-2021 End: 09-16-2021 LIPID PANEL, NONFASTING LIPID PANEL, NONFASTING Lab Routine Hyperlipidemia, unspecified hyperlipidemia type ASHD (arteriosclerotic heart disease) Expected: 07/17/2021, Expires: 09/16/2021 [facility] Work Phone: Comment on above: Expected: 07/17/2021 , Expires: 09/16/2021 Start: 04-27-2021 COVID-19 VACCINE (4 - Booster for Pfizer series) COVID-19 VACCINE (4 - Booster for Pfizer series) [facility] Start: 04-18-2021 ADVANCE DIRECTIVE DISCUSSION ADVANCE DIRECTIVE DISCUSSION [facility] Start: 04-18-2021 DEPRESSION ASSESSMENT DEPRESSION ASS ESSMENT [facility] Start: 02-20-2021 COVID-19 VACCINE (4 - Booster for Pfizer series) COVID-19 VACCINE (4 - Booster for Pfizer series) [facility] Start: 12-17-2020 Influenza vaccination INFLUENZA (#1) [facility] Start: 08-11-2019 Hepatitis B surface antibody level LDL CHOLESTEROL [facility] Start: 07-13-2017 COLORECTAL CANCER SCREENING COLORECTAL CANCER SCREENING [facility] Start: 07-13-2017 FECAL OCCULT BLOOD FECAL OCCULT BLOO D [facility] Start: 07-13-2017 Screening for malign ant neoplasm of colon [facility] Start: 02-09-2017 Mammography [facility] Start: 02-09-2017 Screening for malign ant neoplasm of breast Mammogram Screening [facility] Start: 2014 BONE DENSITY BONE DENSITY [facility] Start: 2014 Bone Density Screening Bone Density Screening [facility] Start: 2014 Screening for osteoporosis Bone Dens ity Screening [facility] Start: 2009 RSV Vaccine (1 - 1-d ose 60+ series) RSV Vaccine (1 - 1-dose 60+ series) [facility] Start: 2009 RSV Vaccine (1 - Ris k 60-74 years 1-dose series) RSV Vaccine (1 - Risk 60-74 years 1-dose series) [facility] Start: 09-24-1999 SHINGRIX VACCINE (1 of 2) PARKER GRIX VACCINE (1 of 2) [facility] Start: 1994 COLOGUARD (FIT-DNA) COLOGUARD (FIT-D NA) [facility] Start: 1994 Colonoscopy COLONOSCOPY [facility] Start: [address] COLONOGRAPHY [facility] Start: 1994 Screening for malign ant neoplasm of colon [facility] Start: 1994 SIGMOIDOSCOPY SIGMOIDOSCOPY [facility] Start: 09-24-1979 Zoledronic acid therapy ALPHA- 1 ANTITRYPSIN DEFICIENCY SCREENING [facility] Start: 1968 Pneumococcal Vaccine : 50+ (1 of 2 - PCV) Pneumococcal Vaccine: 50+ (1 of 2 - PCV) [facility] Start: 1968 Urine microalbumin profile [facility] Start: 09-24-1967 BP CONTROLLED (<130/80) BP CONTROLLE D (<130/80) [facility] Start: 09-24-1967 Depression Screening Depression Scre ening [facility] Start: 09-24-1955 Pneumococcal Vaccine : 65+ (1 - PCV) Pneumococcal Vaccine: 65+ (1 - PCV) [facility] Start: 09-24-1955 Pneumococcal Vaccine : 65+ (1 of 2 - PCV) Pneumococcal Vaccine: 65+ (1 of 2 - PCV) [facility] Start: 09-24-1955 PNEUMOCOCCAL: 65+ (1 - PCV) PNEUMOCOCCAL: 65+ (1 - PCV) [facility] End: 11-03-2025 BD DXA TRABECULAR BONE SCORE (TBS) BD DXA TRABECULAR BONE SCORE (TBS) Radiology Routine Asymptomatic menopause 1 Occurrences starting 10/04/2024 until 11/03/2025 [facility] Comment on above: 1 Occurrences starti ng 10/04/2024 until 11/03/2025 End: 08-23-2025 DBT Breast - bilateral screening MARIA R SCREENING W BRADY Radiology Routine Encounter for screening mammogram for breast cancer 1 Occurrences starting 07/24/2024 until 08/23/2025 [facility] Work Phone: Comment on above: 1 Occurrences starti ng 07/24/2024 until 08/23/2025 End: 11-03-2025 DBT Breast - bilateral screening MARIA R SCREENING W BRADY Radiology Routine Encounter for screening mammogram for breast cancer 1 Occurrences starting 10/04/2024 until 11/03/2025 [facility] Comment on above: 1 Occurrences starti ng 10/04/2024 until 11/03/2025 End: 11-03-2025 DXA Skeletal system.axial Views for bone density DXA-AXIAL SKELETON Radiology Routine Asymptomatic menopause 1 Occurrences starting 10/04/2024 until 11/03/2025 [facility] Comment on above: 1 Occurrences starti ng 10/04/2024 until 11/03/2025 End: 08-21-2023 DXA-AXIAL SKELETON DXA-AXIAL SKELETON Radiology Routine Screening for osteoporosis Asymptomatic menopause 1 Occurrences starting 07/22/2022 until 08/21/2023 [facility] Work Phone: Comment on above: 1 Occurrences starti ng 07/22/2022 until 08/21/2023 ECG COMPLETE ECG COMPLETE ECG Routine Paroxysmal atrial fibrillation (HCC) Primary hypertension Ordered: 10/04/2024 [facility] Comment on above: Ordered: 10/04/2024 Hemoglobin.gastroint estina l.lower [Presence] in Stool by Immunoassay FECAL OCCULT BLOOD TEST Lab Routine Colon cancer screening Ordered: 07/17/2021 [facility] Work Phone: Comment on above: Ordered: 07/17/2021 Hemoglobin.gastroint estina l.lower [Presence] in Stool by Immunoassay FECAL OCCULT BLOOD TEST Lab Routine Screening for colon cancer Ordered: 07/22/2022 [facility] Work Phone: Comment on above: Ordered: 07/22/2022 Hemoglobin.gastroint estina l.lower [Presence] in Stool by Immunoassay IMMUNOCHEMICAL FECAL OCCULT BLOOD TEST Lab Routine Screening for colon cancer Ordered: 10/04/2024 [facility] Work Phone: Comment on above: Ordered: 10/04/2024 End: 09-22-2024 MG Breast Screening MARIA R SCREENING Radiology Routine Encounter for screening mammogram for breast cancer 1 Occurrences starting 08/24/2023 until 09/22/2024 [facility] Work Phone: Comment on above: 1 Occurrences starti ng 08/24/2023 until 09/22/2024 Pneumococcal vaccination PNEUMOC OCCAL VACCINE (PREVNAR 20) Immunization/Injection Routine Encounter for immunization 1 Occurrences starting 07/22/2022 [facility] Work Phone: Comment on above: 1 Occurrences starti ng 07/22/2022 End: 11-13-2022 Screening mammography bi 2-view breast inc cad MARIA R SCREENING Radiology Routine Encounter for screening mammogram for breast cancer 1 Occurrences starting 10/14/2021 until 11/13/2022 [facility] Work Phone: Comment on above: 1 Occurrences starti ng 10/14/2021 until 11/13/2022 Tdap vaccine 7 yrs/> im TDAP VAC CINE, AGE 7+ YR (ADACEL, BOOSTRIX) Immunization/Injection Routine Encounter for immunization 1 Occurrences starting 07/22/2022 [facility] Work Phone: Comment on above: 1 Occurrences starti ng 07/22/2022 [facility] Immunizations Immunization Date Immunization Notes Care Provider Silvia longoria 07-22-2022 COVID-19 booster vaccine, age 12+ yr, bivalent (PFIZER-BIONTECH) Gene Love OPTOMECHANICAL ENGINEER.GUIDANCE CONSULTANT Work Phone: [facility] Work Phone: 07-30-2021 COVID-19 original vaccine, age 12+ yr, monovalent (PFIZER-BIONTECH - MONTENEGRO TOP) Amarjit Herrera RN [facility] 12-26-2020 COVID-19 vaccine, ag e 12+ yr (PFIZER-BIONTECH - PURPLE TOP) Javier Leonard RN [facility] 07-23-2020 COVID-19 vaccine, ag e 12+ yr (PFIZER-BIONTECH - PURPLE TOP) Javier Leonard RN [facility] Work Phone: 07-01-2020 COVID-19 vaccine, ag e 12+ yr (PFIZER-BIONTECH - PURPLE TOP) Javier Leonard RN [facility] Work Phone: 01-04-2018 influenza virus vaccine, unspecified formulation Amarjit Herrera RN [facility] Payers Date Payer Category Payer Self-pay 2018 Medicaid [employer] [id number] 2018-Present [phone] [address] [place] [address] Medicaid [id number] 2015 Medicaid [id number] 2015 Medicaid [id number] 2014 Medicare MEDICARE MEDICAR E A AND B [id number] 2014-Present [phone] [place] [address] Medicare [id number] 2014 Medicare [id number] 2014 Medicare [id number] Medicare [id number] Unknown [id number] Unknown [id number] Unknown [id number] Social History Date Type Detail Facility Start: 04-22-2021 End: 03-21-2024 Tobacco smoking status NHIS Smokes tobacco daily [facility] History of tobacco use Cigarette Smoker [facility] Start: 04-22-2021 End: 10-04-2024 Alcohol intake Current non-drinker of alcohol (finding) [facility] Start: 04-22-2021 End: 07-22-2022 Tobacco Comment 5-6 cigs daily [facility] Start: 1950 Sex Assigned At Not on file [facility] Start: 07-07-2021 End: 07-17-2021 Exposure to SARS-CoV-2 (event) Not sure [facility] Work Phone: Start: 04-22-2021 End: 08-31-2022 Cigarettes smoked current (pack per day) - Reported 0.3 [facility] Work Phone: Start: 04-22-2021 End: 03-21-2024 Tobacco use and exposure Smokeless tobacco non-user [facility] Start: 08-31-2022 Tobacco Comment 5-6 cigs to no more than 10 per day the past year or so. [facility] Start: 08-31-2022 End: 10-04-2024 Tobacco use panel [facility] Work Phone: Adult Depression Screening Assessment 2 [facility] Work Phone: Start: 08-30-2023 Tobacco Comment 5-6 cigs to no more than 10 per day the past year or so. August 30, 2023--10 per day or less depending on stressors [facility] How often to you hav e a drink containing alcohol? Never [facility] Goals Date Patient Goal Desired Activity /State Personal health goal Comment on above: Formatting of this n ote might be different from the original. Decrease the number of cigarette's smoked Personal health goal Comment on above: Formatting of this n ote might be different from the original. Improve Health, decrease amount smoked Personal health goal Comment on above: Formatting of this n ote might be different from the original. Patient has the following Chronic Obstructive Pulmonary Disease goals: Two PCP visits annually Education provided and reviewed with patient - sent on 03/08/23 Understanding COPD Patient will meet these goals by 04/17/2024 (describe interventions done by PCC) Comment on above: Formatting of this n ote might be different from the original. Decrease the number of cigarette's smoked Comment on above: Formatting of this n ote might be different from the original. Improve Health, decrease amount smoked Functional Status Date Assessment Result Facility 10-04-2024 Total score [AUDIT-C] 0 10/05/19 25 2:56 PM Sonia Garcia LPN [facility] 02-20-2024 Are you deaf, or do you have serious difficulty hearing No 02/20/2024 10:59 PM Janel Thakur RN No [facility] 02-20-2024 Are you blind, or do you have serious difficulty seeing, even when wearing glasses No 02/20/2024 10:59 PM Janel Thakur RN No [facility] 02-20-2024 Do you have serious difficulty walking or climbing stairs Yes 02/20/2024 10:59 PM Janel Thakur RN Yes [facility] 02-20-2024 Do you have difficul ty dressing or bathing No 02/20/2024 10:59 PM Janel Thakur RN No [facility] 02-20-2024 Because of a physica l, mental, or emotional condition, do you have difficulty doing errands alone such as visiting a physician's office or shopping No 02/20/2024 10:59 PM Janel Thakur RN No [facility] Mental Status Date Assessment Result Facility 02-20-2024 Because of a physica l, mental, or emotional condition, do you have serious difficulty concentrating, remembering, or making decisions No 02/20/2024 10:59 PM Janel Thakur RN No [facility] Clinical Notes 07-16-2021 to 11-19-2024 Telephone Encounter - Anthony Gonzalez RN - 11/19/2024 12:49 PM EDTTelephone Encounter - Anthony Gonzalez RN - 11/19/2024 12:49 PM EDTTelephone Encounter - Anthony Gonzalez RN - 10/02/2024 4:13 PM EDT Note Date & Type Note Facility 11-19-2024 Telephone encounter Note Ijeoma checking on refill and advise Rx was sent to pharmacy today. [facility] 11-19-2024 Miscellaneous Notes Ijeoma checking on refill and advise Rx was sent to pharmacy today. TC patient. No answer or VM. Nelly Aaron MA The patient has been identified by name and date of : Yes Caregiver verified no other encounters exist for this prescription request: Yes Caregiver confirmed with patient/requestor that no other refills are due, in the near future, with this provider at this time: Yes The last office visit in the department: 10/04/2024 Does the patient have a future office visit with this provider/department: Yes 07/26/2025 Requested Prescriptions No prescriptions requested or ordered in this encounter Patient is out of medication after dose today. Patient didn't realize she didn't have refills sent to [facility]. Ijeoma would like a call at [phone] once sent so she knows to reach out to [facility] to have filled. Katrina Link RN November 19, 2024 8:39 AM documented in this encounter [facility] 11-19-2024 Telephone encounter Note TC patient. No answer or VM. Nelly Aaron MA [facility] 11-19-2024 Telephone encounter Note The patient has been identified by name and date of : Yes Caregiver verified no other encounters exist for this prescription request: Yes Caregiver confirmed with patient/requestor that no other refills are due, in the near future, with this provider at this time: Yes The last office visit in the department: 10/04/2024 Does the patient have a future office visit with this provider/department: Yes 07/26/2025 Requested Prescriptions No prescriptions requested or ordered in this encounter Patient is out of medication after dose today. Patient didn't realize she didn't have refills sent to [facility]. Ijeoma would like a call at [phone] once sent so she knows to reach out to [facility] to have filled. Katrina Link RN November 19, 2024 8:39 AM [facility] 10-04-2024 Telephone encounter Note Already filled today when saw Gene [facility] 10-04-2024 Miscellaneous Notes Already filled today when saw Gene The patient has been identified by name and date of : Yes Caregiver verified no other encounters exist for this prescription request: Yes Caregiver confirmed with patient/requestor that no other refills are due, in the near future, with this provider at this time: Yes The last office visit in the department: 08/30/2023 Does the patient have a future office visit with this provider/department: Yes 10/04/2024 Requested Prescriptions Pending Prescriptions Disp Refills oxazepam (SERAX) 10 mg capsule 60 capsule 3 Sig: Take 1 capsule by mouth two times a day as needed for up to 120 days. Anthony Gonzalez RN October 02, 2024 4:13 PM documented in this encounter [facility] 10-04-2024 Note HNO ID: [id number] Author: GENE LOVE APRN.GUIDANCE CONSULTANT Service: ? Author Type: Nurse Specialist Type: Progress Notes Filed: 10/04/2024 16:00 Note Text: Lexi Londono is a 74 year old female here for a Medicare wellness visit. Medicare Health Risk Assessment General Health Fair Exercise: Minutes/Day 0 min Exercise: Days/Week 0 days Alcohol: Daily Use Never Alcohol: Drinks/Day Patient does not drink Alcohol: 6 or more drinks Never Feel off balance No Concerns: Teeth/Dentures Yes Concerns: Sexual function No Troubled by feelings Anxious; Stressed; Angry; Irritable Frequency: Eating healthy diet Several days ADLs requiring help Driving Safety precautions in home/vehicle Yes Smoke, vape, chews tobacco Yes, but I'm not ready to quit Difficulty hearing No Difficulty seeing Yes Current Providers Specialists: I have reviewed specialist-related care of the patient in the medical record. Medical/Family history review Reviewed and updated problem list, medical/surgical/family/social history, medications, and allergies. Opioid use review Opioid Medications (last 90 days) No data to display Anxiety/Depression screening PHQ-2 Score: 2 (Lower risk for depression) Recommendation: no further intervention at this time Cognitive screening Mini Cog Score: 4 Cognitive screening reviewed and No further action needed (score 3-5). Functional Observation Was the patient's Timed Up AND Go test unsteady or >= 12 seconds? No Advance Care Planning Patient did not wish or was not able to name a surrogate decision maker or provide an advance care plan Measurements BP 109/58 Pulse 65 Resp 16 Ht 158.5 cm (5' 2.4) Wt 65 kg (143 lb 4.8 oz) BMI 25.87 kg/m? Vision Screening: Declines visual acuity screen Annual Wellness Exam: - Engages in daily physical activity through chores and yard work; reports increased fatigue. - Denies alcohol use. - Reports bad teeth but does not see a dentist due to appointment-related anxiety. - Describes diet as pretty good. - Requires assistance with driving. - Smokes approximately 10 cigarette per day; has attempted to quit multiple times without success. - Reports mediocre mood, with occasional feelings of depression; denies need for medication or counseling. - No issues with memory or getting up and down from a chair. - No family or friends to speak on her behalf if needed. - Denies recent falls. - Reports adequate hearing. - Reports vision difficulties; does not see an eye doctor. - Denies seeing any specialists outside of primary care. - Denies desire for pneumonia vaccine or COVID booster due to previous adverse reactions. - Denies desire for bone density test or mammogram. Anxiety: - Taking Oxazepam; recently switched pharmacy to [facility]. - Denies liking other medications previously tried. Cardiac Issues: - Taking Sotalol and amlodipine. - Not seeing a hand tennis ball coverer; last hand tennis ball coverer was Dr. Mills. - Willing to see a hand tennis ball coverer if available in [place]. - Reports feeling well and managing with current medications. Vascular Issues: - Underwent leg surgery in February; left AMA without understanding the procedure or its outcome. - Denies current follow-up with a vascular doctor. - Reports leg and foot feel numby and dislikes the sensation. Latest Ref Rng 07/22/2022 08/16/2022 WBC 3.70 - 11.00 k/uL 9.86 RBC 3.90 - 5.20 m/uL 4.70 Hemoglobin 11.5 - 15.5 g/dL 14.7 Hematocrit 36.0 - 46.0 % 44.7 MCV 80.0 - 100.0 fL 95.1 MCH 26.0 - 34.0 pg 31.3 MCHC 30.5 - 36.0 g/dL 32.9 RDW-CV 11.5 - 15.0 % 13.3 Platelet Count 150 - 400 k/uL 248 MPV 9.0 - 12.7 fL 11.0 Neut% % 53.7 Abs Neut (ANC) 1.45 - 7.50 k/uL 5.30 Lymph% % 29.4 Abs Lymph 1.00 - 4.00 k/uL 2.90 [place]% % 11.5 Abs [place] <0.87 k/uL 1.13 (H) Eosin% % 4.6 Abs Eosin <0.46 k/uL 0.45 Baso% % 0.6 Abs Baso <0.11 k/uL 0.06 Immature Gran % % 0.2 IMMATURE GRANS (ABS) <0.10 k/uL <0.03 NRBC /100 WBC 0.0 Absolute nRBC <0.01 k/uL <0.01 DTYPE Auto Protein, Total 6.3 - 8.0 g/dL 7.2 Albumin 3.9 - 4.9 g/dL 4.1 Calcium 8.5 - 10.2 mg/dL 9.6 Bilirubin, Total 0.2 - 1.3 mg/dL 0.4 Alkaline Phosphatase 34 - 123 U/L 97 AST 13 - 35 U/L 26 ALT 7 - 38 U/L 20 Glucose 74 - 99 mg/dL 87 BUN 7 - 21 mg/dL 8 Creatinine 0.58 - 0.96 mg/dL 0.81 Sodium 136 - 144 mmol/L 138 Potassium 3.7 - 5.1 mmol/L 4.3 Chloride 97 - 105 mmol/L 99 CO2 22 - 30 mmol/L 27 Anion Gap 9 - 18 mmol/L 12 eGFR >=60 mL/min/1.73m? 77 Total Cholesterol, Nonfasting <200 mg/dL 164 Triglycerides, Nonfasting <150 mg/dL 170 (H) HDL Cholesterol, Nonfasting >39 mg/dL 45 LDL Cholesterol Calculated, Nonfasting <100 mg/dL 85 Non HDL Cholesterol, Nonfasting <130 mg/dL 119 VLDL Cholesterol, Nonfasting <30 mg/dL 34 (H) Total Chol/HDL Ratio, Nonfasting <5.10 mg/dL 3.64 LDL/HDL Ratio, Nonfasting <2.54 mg/dL 1.89 Alpha 1 Antitrypsin 90 - 200 mg/dL 177 TSH 0.270 - 4.200 mIU/L (more content not included)... [facility] 10-04-2024 History of Present illness Narrative Images from the original note were not included. Lexi Londono is a 74 year old female here for a Medicare wellness visit. Medicare Health Risk Assessment General Health Fair Exercise: Minutes/Day 0 min Exercise: Days/Week 0 days Alcohol: Daily Use Never Alcohol: Drinks/Day Patient does not drink Alcohol: 6 or more drinks Never Feel off balance No Concerns: Teeth/Dentures Yes Concerns: Sexual function No Troubled by feelings Anxious; Stressed; Angry; Irritable Frequency: Eating healthy diet Several days ADLs requiring help Driving Safety precautions in home/vehicle Yes Smoke, vape, chews tobacco Yes, but I'm not ready to quit Difficulty hearing No Difficulty seeing Yes Current Providers Specialists: I have reviewed specialist-related care of the patient in the medical record. Medical/Family history review Reviewed and updated problem list, medical/surgical/family/social history, medications, and allergies. Opioid use review Opioid Medications (last 90 days) No data to display Anxiety/Depression screening PHQ-2 Score: 2 (Lower risk for depression) Recommendation: no further intervention at this time Cognitive screening Mini Cog Score: 4 Cognitive screening reviewed and No further action needed (score 3-5). Functional Observation Was the patient's Timed Up & Go test unsteady or >= 12 seconds? No Advance Care Planning Patient did not wish or was not able to name a surrogate decision maker or provide an advance care plan Measurements BP 109/58 Pulse 65 Resp 16 Ht 158.5 cm (5' 2.4) Wt 65 kg (143 lb 4.8 oz) BMI 25.87 kg/m Vision Screening: Declines visual acuity screen Annual Wellness Exam: - Engages in daily physical activity through chores and yard work; reports increased fatigue. - Denies alcohol use. - Reports bad teeth but does not see a dentist due to appointment-related anxiety. - Describes diet as pretty good. - Requires assistance with driving. - Smokes approximately 10 cigarette per day; has attempted to quit multiple times without success. - Reports mediocre mood, with occasional feelings of depression; denies need for medication or counseling. - No issues with memory or getting up and down from a chair. - No family or friends to speak on her behalf if needed. - Denies recent falls. - Reports adequate hearing. - Reports vision difficulties; does not see an eye doctor. - Denies seeing any specialists outside of primary care. - Denies desire for pneumonia vaccine or COVID booster due to previous adverse reactions. - Denies desire for bone density test or mammogram. Anxiety: - Taking Oxazepam; recently switched pharmacy to [facility]. - Denies liking other medications previously tried. Cardiac Issues: - Taking Sotalol and amlodipine. - Not seeing a hand tennis ball coverer; last hand tennis ball coverer was Dr. Mills. - Willing to see a hand tennis ball coverer if available in [place]. - Reports feeling well and managing with current medications. Vascular Issues: - Underwent leg surgery in February; left AMA without understanding the procedure or its outcome. - Denies current follow-up with a vascular doctor. - Reports leg and foot feel numby and dislikes the sensation. Latest Ref Rng 07/22/2022 08/16/2022 WBC 3.70 - 11.00 k/uL 9.86 RBC 3.90 - 5.20 m/uL 4.70 Hemoglobin 11.5 - 15.5 g/dL 14.7 Hematocrit 36.0 - 46.0 % 44.7 MCV 80.0 - 100.0 fL 95.1 MCH 26.0 - 34.0 pg 31.3 MCHC 30.5 - 36.0 g/dL 32.9 RDW-CV 11.5 - 15.0 % 13.3 Platelet Count 150 - 400 k/uL 248 MPV 9.0 - 12.7 fL 11.0 Neut% % 53.7 Abs Neut (ANC) 1.45 - 7.50 k/uL 5.30 Lymph% % 29.4 Abs Lymph 1.00 - 4.00 k/uL 2.90 [place]% % 11.5 Abs [place] <0.87 k/uL 1.13 (H) Eosin% % 4.6 Abs Eosin <0.46 k/uL 0.45 Baso% % 0.6 Abs Baso <0.11 k/uL 0.06 Immature Gran % % 0.2 IMMATURE GRANS (ABS) <0.10 k/uL <0.03 NRBC /100 WBC 0.0 Absolute nRBC <0.01 k/uL <0.01 DTYPE Auto Protein, Total 6.3 - 8.0 g/dL 7.2 Albumin 3.9 - 4.9 g/dL 4.1 Calcium 8.5 - 10.2 mg/dL 9.6 Bilirubin, Total 0.2 - 1.3 mg/dL 0.4 Alkaline Phosphatase 34 - 123 U/L 97 AST 13 - 35 U/L 26 ALT 7 - 38 U/L 20 Glucose 74 - 99 mg/dL 87 BUN 7 - 21 mg/dL 8 Creatinine 0.58 - 0.96 mg/dL 0.81 Sodium 136 - 144 mmol/L 138 Potassium 3.7 - 5.1 mmol/L 4.3 Chloride 97 - 105 mmol/L 99 CO2 22 - 30 mmol/L 27 Anion Gap 9 - 18 mmol/L 12 eGFR >=60 mL/min/1.73m 77 Total Cholesterol, Nonfasting <200 mg/dL 164 Triglycerides, Nonfasting <150 mg/dL 170 (H) HDL Cholesterol, Nonfasting >39 mg/dL 45 LDL Cholesterol Calculated, Nonfasting <100 mg/dL 85 Non HDL Cholesterol, Nonfasting <130 mg/dL 119 VLDL Cholesterol, Nonfasting <30 mg/dL 34 (H) Total Chol/HDL Ratio, Nonfasting <5.10 mg/dL 3.64 LDL/HDL Ratio, Nonfasting <2.54 mg/dL 1.89 Alpha 1 Antitrypsin 90 - 200 mg/dL 177 TSH 0.270 - 4.200 mIU/L 8.670 (H) Free T4 0.9 - 1.7 ng/dL 1.0 Free T3 2.3 - 4.1 pg/mL 3.6 THYROID PEROXIDASE ANTIBODY <5.6 IU/mL <3.0 Assessment/Plan Medicare annual wellness visit, subsequent (Z00.00) - Counseled on healthy diet and regular exercise - Fall avoidance information provided - Personalized prevention plan provided ASSESSMENT/PLAN: 2. Generalized anxiety disorder - ICD9: 300.02, ICD10: F41.1 Continue current treatment unchanged. Consider counseling if so desires. - OXAZEPAM 10 MG CAPSULE 3. 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 4. Chronic obstructive pulmonary disease, unspecified COPD type (HCC) - ICD9: 496, ICD10: J44.9 - Symptoms controlled - Continue current medications 5. Paroxysmal atrial fibrillation (HCC) - ICD9: 427.31, ICD10: I48.0 Continue present management for now. EKG at next visit. Endorse follow-up with cardiology at least annually. - ECG COMPLETE - COMPREHENSIVE METABOLIC PANEL - COMPLETE BLOOD COUNT AND DIFFERENTIAL - LIPID PANEL, FASTING - TSH W/REFLEX FT4 - VITAMIN D 25 HYDROXY - CONSULT TO CARDIOLOGY 6. Screning for colon cancer - ICD9: V76.51, ICD10: Z12.11 - IMMUNOCHEMICAL FECAL OCCULT BLOOD TEST 7. ASHD (arteriosclerotic heart disease) - ICD9: 414.00, ICD10: I25.10 - LIPID PANEL, FASTING 8. Encounter for immunization - ICD9: V03.89, ICD10: Z23 declined - [employer] COVID-19 VACCINE AGE 12+ YR (COMIRNATY) - TDAP PRINTED PHARMACY INSTRUCTIONS - PNEUMOCOCCAL VACCINE, 20 VALENT (PREVNAR 20) - SHINGRIX PRINTED PHARMACY INSTRUCTIONS - RSV PRINTED PHARMACY INSTRUCTIONS 9. Screening for depression - ICD9: V79.0, ICD10: Z13.31 - DEPRESSION SCREENING 10. Asymptomatic menopause - ICD9: V49.81, ICD10: Z78.0 - DXA-AXIAL SKELETON - BD DXA TRABECULAR BONE SCORE (TBS) 11. Encounter for screening mammogram for breast cancer - ICD9: V76.12, ICD10: Z12.31 - Encourage monthly BSE - MARIA R SCREENING W BRADY 12. Primary hypertension - ICD9: 401.9, ICD10: I10 controlled - Continue current medications - Encouraged sodium restriction, DASH or Mediterranean diet - Recommend regular aerobic exercise - ECG COMPLETE - COMPREHENSIVE METABOLIC PANEL - COMPLETE BLOOD COUNT AND DIFFERENTIAL - LIPID PANEL, FASTING - TSH W/REFLEX FT4 - VITAMIN D 25 HYDROXY - CONSULT TO CARDIOLOGY 13. Vitamin D deficiency - ICD9: 268.9, ICD10: E55.9 - VITAMIN D 25 HYDROXY Gene Love APRN.CNS documented in this encounter [facility] 10-04-2024 Instructions Gene Love APRN.CNS - 10/04/2024 3:01 PM EDT Screening schedule The following prevention plan is recommended: Depression Screening Never done DTaP,Tdap,Td Vaccine(1 - Tdap) Never done Pneumococcal Vaccine: 50+(1 of 2 - PCV) Never done Shingrix Vaccine(1 of 2) Never done Bone Density Screening Never done Mammogram Screening due on 02/09/2017 Colorectal Cancer Screening due on 07/13/2017 LDL Cholesterol due on 07/23/2023 Covid-19 Vaccine(2023- season) due on 12/18/2023 Advance Directive Discussion due on 04/18/2024 RSV Vaccine(1 - 1-dose 75+ series) Never done WHAT YOU CAN DO TO PREVENT FALLS Many falls can be prevented. By making some changes, you can lower your chances of falling. Four things YOU can do to prevent falls for you* and your caregiver 1. Begin a regular exercise program Exercise is one of the most important ways to lower your chances of falling. It makes you stronger and helps you feel better. Exercises that improve balance and coordination (like Yo Chi) are the most helpful. Lack of exercise leads to weakness and increases your chances of falling. Ask your doctor or health care provider about the best type of exercise program for you. 2. Have your health care provider review your medicines Have your doctor or pharmacist review all the medicines you take, even [id number] medicines. As you get older, the way medicines work in your body can change. Some medicines, or combinations of medicines, can make you sleepy or dizzy and can cause you to fall. 3. Have your vision checked Have your eyes checked by an eye doctor at least once a year. You may be wearing the wrong glasses or have a condition like glaucoma or cataracts that limits your vision. Poor vision can increase your chances of falling. 4. Make your home safer About half of all falls happen at home. To make your home safer: Remove things you can trip over (like papers, books, clothes, and shoes) from stairs and places where you walk. Remove small throw rugs or use double-sided tape to keep the rugs from slipping. Keep items you use often in cabinets you can reach easily without using a step stool. Have grab bars put in next to your toilet and in the tub or shower. Use non-slip mats in the bathtub and on shower floors. Improve the lighting in your home. As you get older, you need brighter lights to see well. Hang light-weight curtains or shades to reduce glare. Have handrails and lights put in on all staircases. Wear shoes both inside and outside the house. Avoid going barefoot or wearing slippers. For more information, contact: Centers for Disease Control and Prevention www.cdc.gov/injury * This information may not apply if you have certain medical conditions. BONE MINERAL DENSITY PATIENT INSTRUCTIONS ======== Bone mineral density testing measures the amount of calcium in certain parts of your bones. This information determines how strong your bones are. The test is used to detect osteoporosis, a disease in which the bone's mineral content and density are low, increasing a person's risk of fractures. The lumbar spine (lower back) and the hip are the skeletal sites usually examined. For the test, remember that: 1. You cannot take this test if you are . 2. Eat a normal diet on the day of the test. 3. Take your medications as you normally would. 4. DO NOT take calcium supplements (such as Tums) for 24 hours before the test. 5. On the day of the test, leave valuables (jewelry or credit cards) at home. 6. The test should be performed prior to oral, rectal or IV contrast studies, or at least 7 days after any of these studies. For the test, you may be asked to wear a hospital gown. You will lie on your back, on a padded table, in a comfortable position. Generally, you can resume your usual activities immediately. documented in this encounter [facility] 10-02-2024 Telephone encounter Note The patient has been identified by name and date of : Yes Caregiver verified no other encounters exist for this prescription request: Yes Caregiver confirmed with patient/requestor that no other refills are due, in the near future, with this provider at this time: Yes The last office visit in the department: 08/30/2023 Does the patient have a future office visit with this provider/department: Yes 10/04/2024 Requested Prescriptions Pending Prescriptions Disp Refills oxazepam (SERAX) 10 mg capsule 60 capsule 3 Sig: Take 1 capsule by mouth two times a day as needed for up to 120 days. Anthony Gonzalez RN October 02, 2024 4:13 PM [facility] 09-21-2024 Telephone encounter Note Noted, agree, recommend appointment to discuss options to help with sleep, she has an upcoming appointment with Gene, can discuss then or sooner if needing addressed before that. [facility] 09-21-2024 Miscellaneous Notes Noted, agree, recommend appointment to discuss options to help with sleep, she has an upcoming appointment with Gene, can discuss then or sooner if needing addressed before that. Patient calls and is worried that she has been having issues with sleeping. Patient states that she has not been able to sleep for the past 4-5 days and she is worried that lack of sleep is going to cause her to have a heart attack. Patient states that she had palpitations the other day because she is not sleeping. Patient asking why she is unable to sleep. Advised patient that she needs to set up appointment with provider to discuss sleeping issues. Patient states that she has not showered and her hair is dirty and she cannot come into appointment. Offered to schedule patient an appointment for tomorrow. Patient declined. Patient asked if there is any extra stress in her life that would cause sleeping issues. Patient reports that 2 mother cats with kittens were dropped off at her house and that they are starving. Patient states that she cannot let them starve but she does not have food for the cats. Patient reports that everyone drops cats in her neighborhood. Asked patient if she tried calling [employer]. Patient reports that they will not do anything for cats and she is stressed out by this. Patient is asking what she can do to help her with her sleeping issues. Patient is going to call pharmacy to see what she can take for sleep. Please review and advise, Evelia Cochran RN documented in this encounter [facility] 09-17-2024 Telephone encounter Note Patient scheduled 10/04/24 with Gene Love. [facility] 09-17-2024 Miscellaneous Notes Patient scheduled 10/04/24 with Gene Love. Patient missed May appointment. Not yet rescheduled The following approved medication requests have been transmitted electronically. Requested Prescriptions Signed Prescriptions Disp Refills atenolol (TENORMIN) 50 mg tablet 270 tablet 0 Sig: take 1 AND 1/2 tablet by mouth twice a day Authorizing Provider: ELENA ANDINO MD Will give more refills at follow up appointment. Prescription Refill Information The patient has been identified by name and date of : Yes Caregiver verified no other encounters exist for this prescription request: Yes Caregiver confirmed with patient/requestor that no other refills are due, in the near future, with this provider at this time: Yes The last office visit in the department: 03/21/24 Does the patient have a future office visit with this provider/department: No Requested Prescriptions Pending Prescriptions Disp Refills atenolol (TENORMIN) 50 mg tablet [Pharmacy Med Name: ATENOLOL 50 MG TABLET] 270 tablet 1 Sig: take 1 AND 1/2 tablet by mouth twice a day Yarelis Stevens LPN September 07, 2024 11:20 AM documented in this encounter [facility] 09-13-2024 Telephone encounter Note Patient calls and is worried that she has been having issues with sleeping. Patient states that she has not been able to sleep for the past 4-5 days and she is worried that lack of sleep is going to cause her to have a heart attack. Patient states that she had palpitations the other day because she is not sleeping. Patient asking why she is unable to sleep. Advised patient that she needs to set up appointment with provider to discuss sleeping issues. Patient states that she has not showered and her hair is dirty and she cannot come into appointment. Offered to schedule patient an appointment for tomorrow. Patient declined. Patient asked if there is any extra stress in her life that would cause sleeping issues. Patient reports that 2 mother cats with kittens were dropped off at her house and that they are starving. Patient states that she cannot let them starve but she does not have food for the cats. Patient reports that everyone drops cats in her neighborhood. Asked patient if she tried calling [employer]. Patient reports that they will not do anything for cats and she is stressed out by this. Patient is asking what she can do to help her with her sleeping issues. Patient is going to call pharmacy to see what she can take for sleep. Please review and advise, Evelia Cochran RN [facility] 09-11-2024 Telephone encounter Note Prescription Refill Information The patient has been identified by name and date of : Yes Caregiver verified no other encounters exist for this prescription request: Yes Caregiver confirmed with patient/requestor that no other refills are due, in the near future, with this provider at this time: Yes The last office visit in the department: 03/21/2024 Does the patient have a future office visit with this provider/department: No Requested Prescriptions Pending Prescriptions Disp Refills verapamil 40 mg tablet [Pharmacy Med Name: VERAPAMIL 40 MG TABLET] 180 tablet 1 Sig: take 1 tablet by mouth twice a day Mildred Rahman LPN September 11, 2024 10:12 AM [facility] 09-11-2024 Miscellaneous Notes Prescription Refill Information The patient has been identified by name and date of : Yes Caregiver verified no other encounters exist for this prescription request: Yes Caregiver confirmed with patient/requestor that no other refills are due, in the near future, with this provider at this time: Yes The last office visit in the department: 03/21/2024 Does the patient have a future office visit with this provider/department: No Requested Prescriptions Pending Prescriptions Disp Refills verapamil 40 mg tablet [Pharmacy Med Name: VERAPAMIL 40 MG TABLET] 180 tablet 1 Sig: take 1 tablet by mouth twice a day Mildred Rahman LPN September 11, 2024 10:12 AM documented in this encounter [facility] 09-07-2024 Telephone encounter Note Patient missed May appointment. Not yet rescheduled The following approved medication requests have been transmitted electronically. Requested Prescriptions Signed Prescriptions Disp Refills atenolol (TENORMIN) 50 mg tablet 270 tablet 0 Sig: take 1 AND 1/2 tablet by mouth twice a day Authorizing Provider: ELENA ANDINO MD Will give more refills at follow up appointment. [facility] 09-07-2024 Telephone encounter Note Prescription Refill Information The patient has been identified by name and date of : Yes Caregiver verified no other encounters exist for this prescription request: Yes Caregiver confirmed with patient/requestor that no other refills are due, in the near future, with this provider at this time: Yes The last office visit in the department: 03/21/24 Does the patient have a future office visit with this provider/department: No Requested Prescriptions Pending Prescriptions Disp Refills atenolol (TENORMIN) 50 mg tablet [Pharmacy Med Name: ATENOLOL 50 MG TABLET] 270 tablet 1 Sig: take 1 AND 1/2 tablet by mouth twice a day Yarelis Stevens LPN September 07, 2024 11:20 AM [facility] 08-27-2024 History of Present illness Narrative POPULATION HEALTH NAVIGATION OUTREACH Actio Updated appointment note [facility] Topic Due (Y or N) Comments Medicare Wellness Y PCP Follow up Colorectal Cancer Screening Y Controlling Blood Pressure A1C HCC Y Flu Vaccine Care Everywhere Reviewed MyChart Activation Updated Appointment Note Y Reason for Outreach Care Gap/HCC or Scheduling Wellness Visits Care Gaps due: Medicare Annual Wellness Visit Colorectal Cancer Screening Patient Contacted: Unable or unnecessary to reach patient: HCC related PCP field updated Updated appointment notes Navigation Signature: Cassidy Shine MA August 27, 2024 11:54 AM documented in this encounter [facility] 08-27-2024 Note HNO ID: [id number] Author: CASSIDY SHINE MA Service: ? Author Type: Billing Assistant Type: Progress Notes Filed: 08/27/2024 11:58 Note Text: POPULATION HEALTH NAVIGATION OUTREACH Actio Updated appointment note HCC Cl[facility]re Topic Due (Y or N) Comments Medicare Wellness Y PCP Follow up Colorectal Cancer Screening Y Controlling Blood Pressure A1C HCC Y Flu Vaccine Care Everywhere Reviewed MyChart Activation Updated Appointment Note Y Reason for Outreach Care Gap/HCC or Scheduling Wellness Visits Care Gaps due: Medicare Annual Wellness Visit Colorectal Cancer Screening Patient Contacted: Unable or unnecessary to reach patient: HCC related PCP field updated Updated appointment notes Navigation Signature: Cassidy Shine MA August 27, 2024 11:54 AM [facility] 08-27-2024 Note Patient Outreach (JUDITH TNAV) LEXI LONDONO ([id number]) 1950 F Date Time Provider Department 5/12/25 CASSIDY SHINEV During your visit today, we recorded the following information about you: Cassidy Shine MA 08/27/2024 11:58 AM Signed POPULATION HEALTH NAVIGATION OUTREACH Actio Updated appointment note [facility] Topic Due (Y or N) Comments Medicare Wellness Y PCP Follow up Colorectal Cancer Screening Y Controlling Blood Pressure A1C HCC Y Flu Vaccine Care Everywhere Reviewed MyChart Activation Updated Appointment Note Y Reason for Outreach Care Gap/HCC or Scheduling Wellness Visits Care Gaps due: Medicare Annual Wellness Visit Colorectal Cancer Screening Patient Contacted: Unable or unnecessary to reach patient: HCC related PCP field updated Updated appointment notes Navigation Signature: Cassidy Shine MA August 27, 2024 11:54 AM Allergies As of Date: 08/27/2024 Noted Allergy Reaction ALBUTEROL 03/09/2021 5 - Intolerance Comments: Anxiety. Something zoomed through my heart. CLINDAMYCIN 10/01/2013 6 - Diarrhea CODEINE 12/29/2004 16 - Unknown DARVOCET A500 (PROPOXYPHENE N-PAT*04/16/2005 5 - Intolerance LIPITOR (ATORVASTATIN CALCIUM) 04/05/2012 8 - GI Upset Comments: abdomen bloating initial c/o then retracted by pt NICKEL 12/17/2014 2 - Rash Comments: allergic to all metals, including gold and razor blades NTG (NITRATE ANALOGUES) 03/06/2013 5 - Intolerance Comments: hypotension PENICILLINS 12/29/2004 16 - Unknown PEPCID (FAMOTIDINE IN 0.9 % NACL) 04/16/2005 9 - Itching Comments: face itched SODIUM PENTATHAL (THIOPENTAL) 04/16/2005 5 - Intolerance Comments: No listed severity or specific reaction when entered as Other Date Reviewed: 03/21/2024 Reviewed by: Amy Acosta, LYRIC.CPC CODER - Fully Assessed Reason for Visit: Population Health Navigation Outreach [3910] Cmt: LORA CURIEL PCSA Prescriptions as of 08/27/2024 - ELIQUIS 5 mg tab(s) take 1 tablet by mouth twice a day - oxazepam (SERAX) 10 mg capsule Take 1 capsule by mouth two times a day as needed for up to 120 days. - atenolol (TENORMIN) 50 mg tablet Take 1.5 tablets by mouth two times a day. - verapamil 40 mg tablet Take 1 tablet by mouth two times a day. - pravastatin (PRAVACHOL) 40 mg tablet TAKE 1 AND 1/2 TABLETS BY MOUTH DAILY AT BEDTIME - levothyroxine (SYNTHROID) 25 mcg tablet Take 1 tablet by mouth once daily. - sotalol (BETAPACE) 80 mg tablet Take 1 tablet by mouth two times a day. - albuterol HFA (VENTOLIN HFA) 90 mcg/actuation inhaler Inhale 2 Puffs as instructed every 4 hours as needed for wheezing/shortness of breath. - tiotropium-olodaterol (STIOLTO RESPIMAT) 2.5-2.5 mcg/actuation Inhale 2 Puffs as instructed once daily. - aspirin, enteric coated (ASPIRIN, ENTERIC COATED) 81 mg EC tablet Take 81 mg by mouth once daily. - Trolamine Salicylate-Aloe Vera (ASPERCREME) 10 % crea Apply 1 application to affected area four times daily as needed. 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 [facility] 07-30-2024 Miscellaneous Notes Message left to pt with approval. lexi londono (Styles: [id number]) PA Need Help? Call us at Outcome Approved today by [facility] 2017 PA Case: [id number], Status: Approved, Coverage Starts on: 04/18/2024 12:00:00 AM, Coverage Ends on: 04/17/2025 12:00:00 AM. Questions? Contact . Effective Date: 04/18/2024 Authorization Expiration Date: 04/17/2025 Drug Oxazepam 10MG capsules Unable to complete PA electronically. Called the pharmacy and pharmacy benefits info is ID number [id number] [facility] [id number] N [id number] Group rx [id number]. This was completed via covermymeds. lexi londono (Styles: [email or web address]) - [id number] Oxazepam 10MG capsules status: PA Request Created: July 30, 2024 Sent: July 30, 2024 Patient calls and states that prior authorization needs done on medication. Called and spoke with pharmacist at [facility]. Pharmacy did send over prior authorization for medication through cover my medications. Insurance is not wanting to cover the medication due to patient's age and the class medication is in. Prior Authorization Documentation Prior authorization requested for the following medication: Medication: Oxepam Provider: Dr. Elena Andino Insurance Company Name: Medicare Patient ID number: [id number] Pharmacy Name: [facility] Telephone number: [phone] documented in this encounter [facility] 07-30-2024 Telephone encounter Note lexi londono (Styles: [id number]) PA Need Help? Call us at Outcome Approved today by [facility] 2017 PA Case: [id number], Status: Approved, Coverage Starts on: 04/18/2024 12:00:00 AM, Coverage Ends on: 04/17/2025 12:00:00 AM. Questions? Contact . Effective Date: 04/18/2024 Authorization Expiration Date: 04/17/2025 Drug Oxazepam 10MG capsules [facility] 07-30-2024 Telephone encounter Note Unable to complete PA electronically. Called the pharmacy and pharmacy benefits info is ID number [id number] [facility] [id number] N [id number] Group rx [id number]. This was completed via covermymeds. lexi londono (Styles: [email or web address]) - [id number] Oxazepam 10MG capsules status: PA Request Created: July 30, 2024 Sent: July 30, 2024 [facility] 07-30-2024 Telephone encounter Note Patient calls and states that prior authorization needs done on medication. Called and spoke with pharmacist at [facility]. Pharmacy did send over prior authorization for medication through cover my medications. Insurance is not wanting to cover the medication due to patient's age and the class medication is in. Prior Authorization Documentation Prior authorization requested for the following medication: Medication: Oxepam Provider: Dr. Elena Andino Insurance Company Name: Medicare Patient ID number: [id number] Pharmacy Name: [facility] Telephone number: [phone] [facility] 07-25-2024 Telephone encounter Note Triage Protocol Advised: (Upgraded): Pt to follow advise given and call PCP office by 07/30/24 if sx's do not improve, to make appt. Reason for Disposition All other vaginal symptoms (Exception: Feels like prior yeast infection, minor abrasion, mild rash < 24 hour duration, mild itching.) Answer Assessment - Initial Assessment Questions . Answer Assessment - Initial Assessment Questions Pt reports irritation to perineum area. Began months ago after having hospital procedure and had catheter. Pt unable to see area but states irritation. Pt reports some pink discharge at times after wiping. Pt states she believes this is not coming from her vagina or rectum, that it is the skin that is irritated. Pt has been applying alcohol to her perineum in hope to heal area but this has worsened it. Has been using Dial soap as well. 1. SYMPTOM: irritation 2. LOCATION: perineum 3. ONSET: months ago 4. PAIN: only when wiping area 5. ITCHING:no 6. CAUSE: 7. OTHER SYMPTOMS: No fever, itching, vaginal bleeding, pain with urination, injury to genital area, no vaginal foreign body Protocols used: Medication Question Vtoh-ERUJA-KE, Vaginal Riwaekul-GEHJJ-XE [facility] 07-25-2024 Miscellaneous Notes Triage Protocol Advised: (Upgraded): Pt to follow advise given and call PCP office by 07/30/24 if sx's do not improve, to make appt. Reason for Disposition All other vaginal symptoms (Exception: Feels like prior yeast infection, minor abrasion, mild rash < 24 hour duration, mild itching.) Answer Assessment - Initial Assessment Questions . Answer Assessment - Initial Assessment Questions Pt reports irritation to perineum area. Began months ago after having hospital procedure and had catheter. Pt unable to see area but states irritation. Pt reports some pink discharge at times after wiping. Pt states she believes this is not coming from her vagina or rectum, that it is the skin that is irritated. Pt has been applying alcohol to her perineum in hope to heal area but this has worsened it. Has been using Dial soap as well. 1. SYMPTOM: irritation 2. LOCATION: perineum 3. ONSET: months ago 4. PAIN: only when wiping area 5. ITCHING:no 6. CAUSE: 7. OTHER SYMPTOMS: No fever, itching, vaginal bleeding, pain with urination, injury to genital area, no vaginal foreign body Protocols used: Medication Question Klhr-[id number]-OP, Vaginal Nvedqupr-ARMOR-AI documented in this encounter [facility] 07-24-2024 Telephone encounter Note Called and spoke with pt to get more information. Pt states she isn't sure why her insurance isn't paying for it anymore. Informed pt that she needs to contact her insurance or the pharmacy to find out the reason why the medication is not covered anymore. Pt did not have any prescription information. Pt instructed to call Medicare to confirm her prescription coverage. Will send to PA to see for review. Per Prior Auth note on Oxazepam: [employer] has a message stating waiting for auth details sent on 07/22 at 541 pm. The below is noted: [employer] MEDICARE PART D (BIN#[id number] PCN#[id number]) - MR: Product Not on FormularyHUMANA MEDICARE PART D (BIN#[id number] PCN#[id number] MEDICARE PART D (BIN#[id number] PCN#[id number]) - RAPD: PREFERRED PRODUCT INFORMATION. [facility] 07-24-2024 Miscellaneous Notes Called and spoke with pt to get more information. Pt states she isn't sure why her insurance isn't paying for it anymore. Informed pt that she needs to contact her insurance or the pharmacy to find out the reason why the medication is not covered anymore. Pt did not have any prescription information. Pt instructed to call Medicare to confirm her prescription coverage. Will send to PA to see for review. Per Prior Auth note on Oxazepam: [employer] has a message stating waiting for auth details sent on 07/22 at 541 pm. The below is noted: [employer] MEDICARE PART D (BIN#[id number] PCN#[id number]) - MR: Product Not on FormularyHUMANA MEDICARE PART D (BIN#[id number] PCN#[id number] MEDICARE PART D (BIN#[id number] PCN#[id number]) - RAPD: PREFERRED PRODUCT INFORMATION. Pt called in stating that the pharmacy called her and her insurance stated they would not cover the oxazepam. Pt was not sure why. Please advise and contact patient. documented in this encounter [facility] 07-24-2024 Note Patient Outreach (IN TMWS) LEXI LONDONO ([id number]) 1950 F Date Time Provider Department 07/24/24 ELENA ANDINO INTMWS During your visit today, we recorded the following information about you: Allergies As of Date: 07/24/2024 Noted Allergy Reaction ALBUTEROL 03/09/2021 5 - Intolerance Comments: Anxiety. Something zoomed through my heart. CLINDAMYCIN 10/01/2013 6 - Diarrhea CODEINE 12/29/2004 16 - Unknown DARVOCET A500 (PROPOXYPHENE N-PAT*04/16/2005 5 - Intolerance LIPITOR (ATORVASTATIN CALCIUM) 04/05/2012 8 - GI Upset Comments: abdomen bloating initial c/o then retracted by pt NICKEL 12/17/2014 2 - Rash Comments: allergic to all metals, including gold and razor blades NTG (NITRATE ANALOGUES) 03/06/2013 5 - Intolerance Comments: hypotension PENICILLINS 12/29/2004 16 - Unknown PEPCID (FAMOTIDINE IN 0.9 % NACL) 04/16/2005 9 - Itching Comments: face itched SODIUM PENTATHAL (THIOPENTAL) 04/16/2005 5 - Intolerance Comments: No listed severity or specific reaction when entered as Other Date Reviewed: 03/21/2024 Reviewed by: Amy Acosta APRN.CPC CODER - Fully Assessed Visit Diagnosis:Encounter for screening mammogram for breast cancer [Z12.31] Order(s):[facility] [[id number]] Order #: [id number] FUTURE Prescriptions as of 08/24/2024 - ELIQUIS 5 mg tab(s) take 1 tablet by mouth twice a day - oxazepam (SERAX) 10 mg capsule Take 1 capsule by mouth two times a day as needed for up to 120 days. - atenolol (TENORMIN) 50 mg tablet Take 1.5 tablets by mouth two times a day. - verapamil 40 mg tablet Take 1 tablet by mouth two times a day. - pravastatin (PRAVACHOL) 40 mg tablet TAKE 1 AND 1/2 TABLETS BY MOUTH DAILY AT BEDTIME - levothyroxine (SYNTHROID) 25 mcg tablet Take 1 tablet by mouth once daily. - sotalol (BETAPACE) 80 mg tablet Take 1 tablet by mouth two times a day. - albuterol HFA (VENTOLIN HFA) 90 mcg/actuation inhaler Inhale 2 Puffs as instructed every 4 hours as needed for wheezing/shortness of breath. - tiotropium-olodaterol (STIOLTO RESPIMAT) 2.5-2.5 mcg/actuation Inhale 2 Puffs as instructed once daily. - aspirin, enteric coated (ASPIRIN, ENTERIC COATED) 81 mg EC tablet Take 81 mg by mouth once daily. - Trolamine Salicylate-Aloe Vera (ASPERCREME) 10 % crea Apply 1 application to affected area four times daily as needed. 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 Pt was not sure why. Please advise and contact patient. [facility] 05-23-2024 Telephone encounter Note The following approved medication requests have been transmitted electronically. Requested Prescriptions Signed Prescriptions Disp Refills ELIQUIS 5 mg tab(s) 180 tablet 3 Sig: take 1 tablet by mouth twice a day Authorizing Provider: ELENA ANDINO MD [facility] 05-23-2024 Miscellaneous Notes The following approved medication requests have been transmitted electronically. Requested Prescriptions Signed Prescriptions Disp Refills ELIQUIS 5 mg tab(s) 180 tablet 3 Sig: take 1 tablet by mouth twice a day Authorizing Provider: ELENA ANDINO MD Requesting 90 day supply. Nelli Ibarra LPN documented in this encounter [facility] 05-22-2024 Telephone encounter Note Requesting 90 day supply. Nelli Ibarra LPN [facility] 05-22-2024 Telephone encounter Note Was seen in March. Has May follow up scheduled with me. Refills to last till August appointment. Will give refills at August appointment. The following approved medication requests have been transmitted electronically. Requested Prescriptions Signed Prescriptions Disp Refills apixaban (ELIQUIS) 5 mg tab(s) 60 tablet 3 Sig: Take 1 tablet by mouth two times a day. Authorizing Provider: ELENA ANDINO oxazepam (SERAX) 10 mg capsule 60 capsule 3 Sig: Take 1 capsule by mouth two times a day as needed for up to 120 days. Authorizing Provider: ELENA ANDINO MD [facility] 05-22-2024 Miscellaneous Notes Was seen in March. Has May follow up scheduled with me. Refills to last till August appointment. Will give refills at August appointment. The following approved medication requests have been transmitted electronically. Requested Prescriptions Signed Prescriptions Disp Refills apixaban (ELIQUIS) 5 mg tab(s) 60 tablet 3 Sig: Take 1 tablet by mouth two times a day. Authorizing Provider: ELENA ANDINO oxazepam (SERAX) 10 mg capsule 60 capsule 3 Sig: Take 1 capsule by mouth two times a day as needed for up to 120 days. Authorizing Provider: ELENA ANDINO MD Prescription Refill Information The patient has been identified by name and date of : Yes Caregiver verified no other encounters exist for this prescription request: Yes Caregiver confirmed with patient/requestor that no other refills are due, in the near future, with this provider at this time: Yes The last office visit in the department: 08-30-23 Does the patient have a future office visit with this provider/department: Yes Requested Prescriptions Pending Prescriptions Disp Refills apixaban (ELIQUIS) 5 mg tab(s) 60 tablet 5 Sig: Take 1 tablet by mouth two times a day. oxazepam (SERAX) 10 mg capsule 60 capsule 5 Sig: Take 1 capsule by mouth two times a day as needed for up to 180 days. Patient requesting 90 days Annemarie Rosaline May 21, 2024 10:40 AM documented in this encounter [facility] 05-21-2024 Telephone encounter Note Prescription Refill Information The patient has been identified by name and date of : Yes Caregiver verified no other encounters exist for this prescription request: Yes Caregiver confirmed with patient/requestor that no other refills are due, in the near future, with this provider at this time: Yes The last office visit in the department: 08-30-23 Does the patient have a future office visit with this provider/department: Yes Requested Prescriptions Pending Prescriptions Disp Refills apixaban (ELIQUIS) 5 mg tab(s) 60 tablet 5 Sig: Take 1 tablet by mouth two times a day. oxazepam (SERAX) 10 mg capsule 60 capsule 5 Sig: Take 1 capsule by mouth two times a day as needed for up to 180 days. Patient requesting 90 days Annemarie Rosaline May 21, 2024 10:40 AM [facility] 04-03-2024 Telephone encounter Note Pt called in and message below given. Pt verbalizes understanding. Sherie Calles LPN [facility] 04-03-2024 Miscellaneous Notes Pt called in and message below given. Pt verbalizes understanding. Sherie Calles LPN Attempted to call x2, vm has not been set up, will continue to try to contact Patient. Nelli Ibarra LPN Attempted to contact patient and no answer. Voicemail box is not set up. Please try contacting patient again. Thank you. Reviewed that she left [place] in February after treated for peripheral limb ischemia with thrombectomy of iliac artery and popliteal artery. Her discharge summary included Eliquis and aspirin was continued. Okay to continue on both. Noted that she was seen by Amy Acosta CNP 03/21/24. Next appointment in August. Follow up sooner as needed. Patient calls and states that she is on Eliquis 5 mg twice a day. Patient is also taking baby aspirin 81 mg. Patient calling and asking if it is ok to continue taking both medications? Please review and advise, Evelia Cochran RN documented in this encounter [facility] 04-03-2024 Telephone encounter Note Attempted to call x2, vm has not been set up, will continue to try to contact Patient. Nelli Ibarra LPN [facility] 04-03-2024 Telephone encounter Note Attempted to contact patient and no answer. Voicemail box is not set up. Please try contacting patient again. Thank you. [facility] 04-03-2024 Telephone encounter Note Reviewed that she left [place] in February after treated for peripheral limb ischemia with thrombectomy of iliac artery and popliteal artery. Her discharge summary included Eliquis and aspirin was continued. Okay to continue on both. Noted that she was seen by Amy Acosta CNP 03/21/24. Next appointment in August. Follow up sooner as needed. [facility] 04-02-2024 Telephone encounter Note Patient calls and states that she is on Eliquis 5 mg twice a day. Patient is also taking baby aspirin 81 mg. Patient calling and asking if it is ok to continue taking both medications? Please review and advise, Evelia Cochran RN [facility] 03-21-2024 Telephone encounter Note Seen by Amy Henson. RXs taken care of by her. [facility] 03-21-2024 Miscellaneous Notes Seen by Amy Henson. RXs taken care of by her. Patient called back and states the other medication needing prescribed is for the verapamil 40mg two times daily. Stefani Vega LPN Ije[facility] calls back and states that patient does not have enough medication for tomorrow. Please call Ijeoma when sent to pharmacy. Evelia Cochran RN Patient phones requesting refills as follows: Requested Prescriptions Pending Prescriptions Disp Refills atenolol (TENORMIN) 50 mg tablet 270 tablet 1 Sig: Take 1.5 tablets by mouth two times a day. Please review and advise. Leonie Anton MA Patient requesting medication that is Patient last seen: 08-30-23 Patient future visit scheduled: yes PHARMACY: [facility]. documented in this encounter [facility] 03-21-2024 History of Present illness Narrative Chief Complaint Patient presents with: 6 month fup HPI Lexi Londono is a 73 year old female who presents here today for Above Complaints. Lexi is an established patient of Dr. Thu MD. She is a new patient to me today. Concerns today... Needing refills of medications. No concerns or complaints today. Recent [facility] ER visit on 03/05 d/t LLE tingling x 1 min. Hx of PAD with recent revascularization surgery via thrombectomy last month. Reports leg is still sore sometimes but otherwise doing very well. Past medical history, appointments, medications, allergies reviewed. Previous Medical History PAST MEDICAL HISTORY Diagnosis Date Adhesive capsulitis of right shoulder 12/17/2014 Atrial fibrillation (HCC) Benign neoplasm of colon Tubular adenoma in 2005 Claudication (HCC) 12/01/2010 COPD (chronic obstructive pulmonary disease) (HCC) Generalized osteoarthrosis, unspecified site HLD (hyperlipidemia) HTN (hypertension) Internal hemorrhoids without mention of complication Noncompliance with medication regimen 12/06/2010 PMH - PAST MEDICAL HISTORY OF ASPVD Tendonitis left leg 04/14/2011 Tobacco use disorder Unspecified constipation Previous Surgical History PAST SURGICAL HISTORY Procedure Laterality Date COLSC FLX W/RMVL OF TUMOR POLYP LESION SNARE TQ 09/16/05 Family History FAMILY HISTORY Problem Relation Age of Onset Heart Father Heart Mother None Mother None Brother None Brother None Sister None Sister Hypertension Sister Hypertension Sister other (hepatitis) Sister C Cancer Maternal Grandmother colon ca Cancer Maternal Aunt ca Patient Allergies ALLERGIES Allergen Reactions Albuterol Intolerance Anxiety. Something zoomed through my heart. Clindamycin Diarrhea Codeine Unknown Darvocet A500 [Prop* Intolerance Lipitor [Atorvastat* GI Upset abdomen bloating initial c/o then retracted by pt Nickel Rash allergic to all metals, including gold and razor blades Ntg [Nitrate Analog* Intolerance hypotension Penicillins Unknown Pepcid [Famotidine * Itching face itched Sodium Pentathal [T* Intolerance No listed severity or specific reaction when entered as Other Current Medications Current Outpatient Medications on File Prior to Visit Medication Sig apixaban (ELIQUIS) 5 mg tab(s) Take 1 tablet by mouth two times a day. oxazepam (SERAX) 10 mg capsule Take 1 capsule by mouth two times a day as needed for up to 60 days. pravastatin (PRAVACHOL) 40 mg tablet TAKE 1 AND 1/2 TABLETS BY MOUTH DAILY AT BEDTIME levothyroxine (SYNTHROID) 25 mcg tablet Take 1 tablet by mouth once daily. sotalol (BETAPACE) 80 mg tablet Take 1 tablet by mouth two times a day. albuterol HFA (VENTOLIN HFA) 90 mcg/actuation inhaler Inhale 2 Puffs as instructed every 4 hours as needed for wheezing/shortness of breath. tiotropium-olodaterol (STIOLTO RESPIMAT) 2.5-2.5 mcg/actuation Inhale 2 Puffs as instructed once daily. aspirin, enteric coated (ASPIRIN, ENTERIC COATED) 81 mg EC tablet Take 81 mg by mouth once daily. Trolamine Salicylate-Aloe Vera (ASPERCREME) 10 % crea Apply 1 application to affected area four times daily as needed. No current facility-administered medications on file prior to visit. Social History Social History Tobacco Use Smoking status: Every Day Current packs/day: 0.25 Average packs/day: 0.3 packs/day for 30.0 years (7.5 ttl pk-yrs) Types: Cigarettes Smokeless tobacco: Never Tobacco comments: 5-6 cigs to no more than 10 per day the past year or so. August 30, 2023--10 per day or less depending on stressors Substance Use Topics Alcohol use: No Drug use: Yes Frequency: 2.0 times per week Types: Marijuana Comment: for back pain as needed REVIEW OF SYSTEMS: as above Reviewed relevant PMHx, PSHx, Social Hx, current medications and allergies. Review of Symptoms REVIEW OF SYSTEMS See HPI. EXAM: BP 118/64 (BP Site: Left Arm, BP Position: Sitting, BP Cuff Size: Regular Adult) Pulse 63 Resp 16 Wt 66.7 kg (147 lb) SpO2 97% BMI 25.23 kg/m General Appearance: Well appearing, alert, in no acute distress, well-hydrated, well nourished.. Skin: Skin color, texture, turgor normal, no suspicious rashes or lesions. Head: Normocephalic, no masses, lesions, tenderness or abnormalities. Lungs: Lungs clear to auscultation. No wheezing, rhonchi, rales.. Heart: RRR without murmur, gallop, or rubs. No ectopy. Health Maintenance List Pneumococcal Vaccine: 65+(1 of 2 - PCV) Never done Depression Screening Never done DTaP,Tdap,Td Vaccine(1 - Tdap) Never done Shingrix Vaccine(1 of 2) Never done RSV Vaccine(1 - Risk 60-74 years 1-dose series) Never done Bone Density Screening Never done Mammogram Screening due on 02/09/2017 Colorectal Cancer Screening due on 07/13/2017 Advance Directive Discussion due on 04/18/2023 LDL Cholesterol due on 07/23/2023 Influenza Vaccine(1) due on 12/18/2023 Covid-19 Vaccine( season) due on 12/18/2023 Annual PCP Team Chronic Disease Visit due on 08/29/2024 BP Controlled (<130/80) due on 08/29/2024 Diabetes Screening due on 02/19/2027 Lipid Screening due on 07/23/2027 Alpha-1 Antitrypsin Deficiency Screening Completed Spirometry Completed Hepatitis C Screening Completed ASSESSMENT/PLAN: 1. Generalized anxiety disorder - ICD9: 300.02, ICD10: F41.1 Stable, refilled. - OXAZEPAM 10 MG CAPSULE PDMP website checked and validated. All prescriptions have been APPROPRIATELY filled. No suspicious activity was identified. 03/21/2024 by Amy Acosta APRN.CNP 2. Paroxysmal atrial fibrillation (HCC) - ICD9: 427.31, ICD10: I48.0 stable, refilled. - ATENOLOL 50 MG TABLET - VERAPAMIL 40 MG TABLET 3. 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 RTO as scheduled with PCP team for routine physical. Medical Decision Making: Problems: Moderate: 2+ stable chronic illnesses Data: Independent interpretation of test from other physician/QHCP Risk: Moderate: Drug management Medical Decision Making Level: 4 - Moderate Prescription instructions reviewed with patient as applicable. Potential red flag symptoms discussed with the patient. Reviewed appropriate action plan to take if red flag symptoms occur. Patient agreeable to treatment plan. Amy Henson APRN.[facility]PC COD[facility] [id number] [place] [address] documented in this encounter [facility] 03-21-2024 Note HNO ID: [id number] Author: AMY ACOSTA APRN.CNP Service: ? Author Type: Nurse Practitioner Type: Progress Notes Filed: 03/21/2024 19:10 Note Text: Chief Complaint Patient presents with: 6 month fup HPI Lexi Londono is a 73 year old female who presents here today for Above Complaints. Lexi is an established patient of Dr. Thu MD. She is a new patient to me today. Concerns today... Needing refills of medications. No concerns or complaints today. Recent [facility] ER visit on 03/05 d/t LLE tingling x 1 min. Hx of PAD with recent revascularization surgery via thrombectomy last month. Reports leg is still sore sometimes but otherwise doing very well. Past medical history, appointments, medications, allergies reviewed. Previous Medical History PAST MEDICAL HISTORY Diagnosis Date Adhesive capsulitis of right shoulder 12/17/2014 Atrial fibrillation (HCC) Benign neoplasm of colon Tubular adenoma in 2006 Claudication (HCC) 12/01/2010 COPD (chronic obstructive pulmonary disease) (HCC) Generalized osteoarthrosis, unspecified site HLD (hyperlipidemia) HTN (hypertension) Internal hemorrhoids without mention of complication Noncompliance with medication regimen 12/06/2010 PMH - PAST MEDICAL HISTORY OF ASPVD Tendonitis left leg 04/14/2011 Tobacco use disorder Unspecified constipation Previous Surgical History PAST SURGICAL HISTORY Procedure Laterality Date COLSC FLX W/RMVL OF TUMOR POLYP LESION SNARE TQ 09/16/05 Family History FAMILY HISTORY Problem Relation Age of Onset Heart Father Heart Mother None Mother None Brother None Brother None Sister None Sister Hypertension Sister Hypertension Sister other (hepatitis) Sister C Cancer Maternal Grandmother colon ca Cancer Maternal Aunt ca Patient Allergies ALLERGIES Allergen Reactions Albuterol Intolerance Anxiety. Something zoomed through my heart. Clindamycin Diarrhea Codeine Unknown Darvocet A500 [Prop* Intolerance Lipitor [Atorvastat* GI Upset abdomen bloating initial c/o then retracted by pt Nickel Rash allergic to all metals, including gold and razor blades Ntg [Nitrate Analog* Intolerance hypotension Penicillins Unknown Pepcid [Famotidine * Itching face itched Sodium Pentathal [T* Intolerance No listed severity or specific reaction when entered as Other Current Medications Current Outpatient Medications on File Prior to Visit Medication Sig apixaban (ELIQUIS) 5 mg tab(s) Take 1 tablet by mouth two times a day. oxazepam (SERAX) 10 mg capsule Take 1 capsule by mouth two times a day as needed for up to 60 days. pravastatin (PRAVACHOL) 40 mg tablet TAKE 1 AND 1/2 TABLETS BY MOUTH DAILY AT BEDTIME levothyroxine (SYNTHROID) 25 mcg tablet Take 1 tablet by mouth once daily. sotalol (BETAPACE) 80 mg tablet Take 1 tablet by mouth two times a day. albuterol HFA (VENTOLIN HFA) 90 mcg/actuation inhaler Inhale 2 Puffs as instructed every 4 hours as needed for wheezing/shortness of breath. tiotropium-olodaterol (STIOLTO RESPIMAT) 2.5-2.5 mcg/actuation Inhale 2 Puffs as instructed once daily. aspirin, enteric coated (ASPIRIN, ENTERIC COATED) 81 mg EC tablet Take 81 mg by mouth once daily. Trolamine Salicylate-Aloe Vera (ASPERCREME) 10 % crea Apply 1 application to affected area four times daily as needed. No current facility-administered medications on file prior to visit. Social History Social History Tobacco Use Smoking status: Every Day Current packs/day: 0.25 Average packs/day: 0.3 packs/day for 30.0 years (7.5 ttl pk-yrs) Types: Cigarettes Smokeless tobacco: Never Tobacco comments: 5-6 cigs to no more than 10 per day the past year or so. August 30, 2023--10 per day or less depending on stressors Substance Use Topics Alcohol use: No Drug use: Yes Frequency: 2.0 times per week Types: Marijuana Comment: for back pain as needed REVIEW OF SYSTEMS: as above Reviewed relevant PMHx, PSHx, Social Hx, current medications and allergies. Review of Symptoms REVIEW OF SYSTEMS See HPI. EXAM: BP 118/64 (BP Site: Left Arm, BP Position: Sitting, BP Cuff Size: Regular Adult) Pulse 63 Resp 16 Wt 66.7 kg (147 lb) SpO2 97% BMI 25.23 kg/m? General Appearance: Well appearing, alert, in no acute distress, well-hydrated, well nourished.. Skin: Skin color, texture, turgor normal, no suspicious rashes or lesions. Head: Normocephalic, no masses, lesions, tenderness or abnormalities. Lungs: Lungs clear to auscultation. No wheezing, rhonchi, rales.. Heart: RRR without murmur, gallop, or rubs. No ectopy. Health Maintenance List Pneumococcal Vaccine: 65+(1 of 2 - PCV) Never done Depression Screening Never done DTaP,Tdap,Td Vaccine(1 - Tdap) Never done Shingrix Vaccine(1 of 2) Never done RSV Vaccine(1 - Risk 60-74 years 1-dose series) Never done Bone Density Screening Never done Mammogram Screening due on 02/09/2017 [facility] (more content not included)... [facility] 03-21-2024 Telephone encounter Note Patient called back and states the other medication needing prescribed is for the verapamil 40mg two times daily. Stefani Vega LPN [facility] 03-21-2024 Telephone encounter Note Ijeoma calls back and states that patient does not have enough medication for tomorrow. Please call Ijeoma when sent to pharmacy. Evelia Cochran RN [facility] 03-21-2024 Telephone encounter Note Patient phones requesting refills as follows: Requested Prescriptions Pending Prescriptions Disp Refills atenolol (TENORMIN) 50 mg tablet 270 tablet 1 Sig: Take 1.5 tablets by mouth two times a day. Please review and advise. Leonie Anton MA [facility] 03-21-2024 Telephone encounter Note Patient requesting medication that is Patient last seen: 08-30-23 Patient future visit scheduled: yes PH[facility]ACY: [facility] 03-05-2024 Telephone encounter Note Patient reports she woke up this morning with numbness in left foot. Reports no other symptoms. Reports 2-3 weeks ago she was admitted to [facility] with blood clots in right leg- and surgery was done to remove them. Reports she didn't have any symptoms with the right leg blood clots. Reports she has hx of blood clots in both legs years ago. Protocol recommends ER Now or pcp triage. Pt agreeable to ER to r/o DVT left leg. Pt has a friend who will drive her. Pt agreeable to call back to schedule f/u appt with pcp. Reason for Disposition [1] Numbness (i.e., loss of sensation) of the face, arm / hand, or leg / foot on one side of the body AND [2] sudden onset AND [3] brief (now gone) Answer Assessment - Initial Assessment Questions 1. SYMPTOM: Woke up this morning with numbness in left foot. Reports when she walked it off the numbness went away. [place] normal except for the numbness. Reports no reddness or swelling in left leg and no pain, but didn't have these signs with the right leg either. 2-3 weeks ago was admitted to [facility] and had emergency surgery to remove blood clots in right leg. Patient doesn't know how many blood clots. Taking eliquis. Pt left AMA because her heart was racing, and she begged them to give her atenolol, but they would not. Reports she was in the hospital one night and one day. Patient reports when she got home, she took her atenolol, and after 2 days she started feeling better, and palpitations went away. Reports she had DVT's in both legs years ago- took blood thinner back then for maybe a year and took herself off of them. 2. ONSET This morning. 3. LAST NORMAL: Yesterday left foot felt normal. 4. PATTERN Gone now. Went back to normal within minutes after waking up. 5. CARDIAC SYMPTOMS: No CP, No SOB, No palpitations. Left leg is a little more tired than right, but that is not new. Reports it's b/c she is using it more than her right. 6. NEUROLOGIC SYMPTOMS: No headache, No dizziness, No vision loss, No double vision, No changes in her speech, Is not unsteady on feet. Reports the left leg is stronger than the right leg. Has a glued incision on right leg due to surgery, below the knee on inside near the calf. Reports this area is getting stronger. 7. OTHER SYMPTOMS: No other symptoms. 8. : No Protocols used: Neurologic [id number] [facility] 03-05-2024 Miscellaneous Notes Patient reports she woke up this morning with numbness in left foot. Reports no other symptoms. Reports 2-3 weeks ago she was admitted to [facility] with blood clots in right leg- and surgery was done to remove them. Reports she didn't have any symptoms with the right leg blood clots. Reports she has hx of blood clots in both legs years ago. Protocol recommends ER Now or pcp triage. Pt agreeable to ER to r/o DVT left leg. Pt has a friend who will drive her. Pt agreeable to call back to schedule f/u appt with pcp. Reason for Disposition [1] Numbness (i.e., loss of sensation) of the face, arm / hand, or leg / foot on one side of the body AND [2] sudden onset AND [3] brief (now gone) Answer Assessment - Initial Assessment Questions 1. SYMPTOM: Woke up this morning with numbness in left foot. Reports when she walked it off the numbness went away. [place] normal except for the numbness. Reports no reddness or swelling in left leg and no pain, but didn't have these signs with the right leg either. 2-3 weeks ago was admitted to [facility] and had emergency surgery to remove blood clots in right leg. Patient doesn't know how many blood clots. Taking eliquis. Pt left AMA because her heart was racing, and she begged them to give her atenolol, but they would not. Reports she was in the hospital one night and one day. Patient reports when she got home, she took her atenolol, and after 2 days she started feeling better, and palpitations went away. Reports she had DVT's in both legs years ago- took blood thinner back then for maybe a year and took herself off of them. 2. ONSET This morning. 3. LAST NORMAL: Yesterday left foot felt normal. 4. PATTERN Gone now. Went back to normal within minutes after waking up. 5. CARDIAC SYMPTOMS: No CP, No SOB, No palpitations. Left leg is a little more tired than right, but that is not new. Reports it's b/c she is using it more than her right. 6. NEUROLOGIC SYMPTOMS: No headache, No dizziness, No vision loss, No double vision, No changes in her speech, Is not unsteady on feet. Reports the left leg is stronger than the right leg. Has a glued incision on right leg due to surgery, below the knee on inside near the calf. Reports this area is getting stronger. 7. OTHER SYMPTOMS: No other symptoms. 8. : No Protocols used: Neurologic [id number] documented in this encounter [facility] 02-20-2024 Note HNO ID: [id number] Author: MARY KATE MORROW DO Service: General Surgery Author Type: Resident Type: Plan of Care Filed: 02/20/2024 22:18 Note Text: Was paged bedside due to patient's desire to leave the hospital. When discussed with the patient. She is very concerned that she is not receiving all of her antihypertensive in a day A-fib medications. She states that she has not received her atenolol. And that she would like to leave the hospital because she is afraid that she will go into A-fib and have a heart attack. I discussed with the patient in detail that our cardiology service had seen and evaluated the patient for atrial fibrillation and recommended continuation of home sotalol 80 mg twice daily would be the only antihypertensive patient would need. Would not need atenolol or verapamil. They would recommend Eliquis at discharge for A-fib. We discussed how she is not currently medically stable for discharge. We discussed in depth that she would be leaving AGAINST MEDICAL ADVICE. I tried numerous times to convince the patient to stay for further treatment. We discussed her current perioperative state. We discussed how she were to not continue with treatment that she could have a rethrombosis of her extremity. She states that she understands these but she believes that she needs her atenolol and wants to go home and self treat. This was all discussed with Dr. Pavon. At this point patient will be discharged AGAINST MEDICAL ADVICE. Mary Kate Morrow DO PGY-5 02/20/2024 10:18 PM [facility] 02-20-2024 Note HNO ID: [id number] Author: MYRTLE MCLEAN RN Service: Care Management Author Type: Registered Nurse Type: Care Mgt Initial Assessment Filed: 02/20/2024 16:01 Note Text: CARE MANAGEMENT: ASSESSMENT AND DISCHARGE PLAN SERVICE DATE: February 20, 2024 SERVICE TIME: 3:55 PM PCP: Elena Andino MD Primary Contact: Extended Emergency Contact Information Primary Emergency Contact: Ijeoma Pereyra Mobile Relation: Friend Admission Status: Inpatient Insurance Provider: MEDICARE A AND B Discharge Planning requested by: Per Department Practice Potential Transition Plans To Be Determined;Home;Home Care Advance Directives Current Advance Directive: None Housing Counselor Attempted to Assist with AD Completion: Yes Action: Education Provided Current Living Arrangements and Support Lives with: Alone Type of Residence: Private Residence (House) Does the patient have to climb stairs at home?: Yes Support: Family members, Friends/neighbors How do you manage to accomplish the following: Independent: Bathe/Shower;Dress;Meals/Meal Prep;Going to the bathroom;Medication Management;Transportation to appointments/community Needs Assistance: Ambulation Current Services/Equipment Current Post-Acute Service(s): DME Current DME Type: Rollator Scooter, Rolling walker Discharge Planning Patient Goal(s): General wellness, Be able to go home [place] of Choice Explained: [place] of [place] Given: No Reason Not Given: No placements necessary Are you interested in bedside delivery of your medications? Yes Discharge Planning Participant(s): Patient Patient/Family Comments: Caregiver Assessment: Caregiver is ready, willing and able to meet the patient's needs as recommended by the inter-professional team: No Caregiver needed Transport at Discharge: Transportation Arrangements: Car Destination: Home Needs Prior to Discharge: Needs Prior to Discharge: To Be Determined;OT/PT Evaluation;Facility or Agency Choices;Discharge Prescriptions;Pharmacy Bedside Delivery Post-Acute Discharge Plan: Met with patient at bedside. Lives alone in ranch-style home. Has family support - brother and grandson who reside nearby. Indep with self-care. Has scooter and walker for mobility. Doesn't drive. Friend Ijeoma takes her to appts. (+) PCP (+) RX. - [facility]. Awaiting PT/OT evals. D/C plan TBD. CM to follow. SIGNATURE: Myrtle Mclean RN PATIENT NAME: Lexi Londono DATE: February 20, 2024 TIME: 3:54 PM CONTACT #: [phone] [facility] 02-20-2024 Note HNO ID: [id number] Author: ALLEN PRESTON MD Service: Vascular Surgery Author Type: Resident Type: Progress Notes Filed: 02/20/2024 14:30 Note Text: Attestation with edits by Allen Preston MD at 02/20/2024 2:30 PM Attending Note I personally saw and examined the patient. I reviewed the resident's note. I agree with the resident's assessment and plan unless otherwise noted. 1 Day Post-Op right common and external iliac suction thrombectomy and right below knee popliteal artery cutdown with popliteal, anterior tibial, and posterior tibial arteries Juan Carlos thromboembolectomy for Marissa 2A. Pain controlled this AM, motor and sensory intact. Foot WWP. Palpable bilateral DP/PT - Cardiology consult for GMT guidance with history of AF, no OP hand tennis ball coverer following - Continue hep gtt, will transition to DOAC on dc - PVRs - Anticipate dc today v. tomorrow Signature: Allen Preston MD Date: 02/20/2024 Time: 2:26 PM Vascular Surgery Progress Note SERVICE DATE: February 20, 2024 Vascular and Thoracic Service Pager: For questions or concerns Mon-Fri 6a-5p please page [phone]. After 5pm and on Weekends and Holidays, please page [phone] if in ICU or [phone] if on RNF. Subjective SUBJECTIVE: NAEON. Patient met on rounds lying comfortably in bed. She has no complaints of pain, and denies any changes to motor/sensation in her lower extremities. No concerns or complaints at this time. Denies N/V/CP/SOB Diet: DIET HEART HEALTHY Objective OBJECTIVE: Vitals: Temp (24hrs), Av.5 ?C (97.7 ?F), Min:36.1 ?C (97 ?F), Max:36.8 ?C (98.2 ?F) BP (!) 116/46 Pulse 76 Temp 36.1 ?C (97 ?F) (Temporal) Resp 21 Ht 162.6 cm (5' 4) Wt 69.5 kg (153 lb 3.5 oz) SpO2 95% BMI 26.30 kg/m? O2 Therapy: Room Air IANDO: Date 02/19/24699 - 02/20/2465802/20/24699 - 02/21/24 0659 Shift [id number] 2087-8379 9886-1964 24 Hour Total [id number] [id number] 5878-6363 24 Hour Total INTAKE IV 200 1636 1836 Volume (mL) 36 36 Volume (mL) (vancomycin iv piggyback 1 g in D5W 200 mL (VANCOCIN)) 200 200 Volume (mL) (ceFAZolin iv piggyback 1 g in D5W (iso-osmotic) 50 mL (ANCEF)) 100 100 Volume (mL) (lactated ringers iv infusion) 500 500 Volume (mL) (NaCl 0.9% iv infusion) 1000 1000 Shift Total 200 1636 1836 OUTPUT Urine 550 550 200 200 Output ([REMOVED] Indwelling Urinary Catheter 02/20/24 [facility] Deutsch 16 Fr 02/20/24 0900) 550 550 200 200 Shift Total 550 550 200 200 Weight (kg) 72.6 69.5 69.5 69.5 69.5 69.5 69.5 MEDICATIONS Current Facility-Administered Medications Medication Dose Route Frequency sotalol 80 mg (BETAPACE) 80 mg ORAL BID albuterol HFA 90 mcg/actuation 2 Puff (PROVENTIL HFA, VENTOLIN HFA) 2 Puff INHALATION q 4 H PRN levothyroxine 25 mcg tab(s) (SYNTHROID) 25 mcg ORAL DAILY NaCl 0.9% iv flush bag 20 mL INTRAVENOUS PRN acetaminophen 975 mg tab(s) (TYLENOL) 975 mg ORAL QID heparin iv infusion 25,000 units in NaCl 0.45% 250 mL LOW DOSE/ACS NOMOGRAM 0-3,000 Units/hr INTRAVENOUS CONTINUOUS And heparin RATE CHANGE bolus 1,000-4,000 Units for subtherapeutic PTTAC results 1,000-4,000 Units INTRAVENOUS PRN iv contrast (radiology procedure) INTRAVENOUS DIRECTED PRN sodium chloride 0.9 % (flush) 2-10 mL (BD POSIFLUSH) 2-10 mL INTRAVENOUS DIRECTED PRN aspirin, enteric coated 81 mg tab(s) 81 mg ORAL DAILY verapamil 40 mg tab(s) 40 mg ORAL BID oxyCODONE IR 5-10 mg tab(s) (ROXICODONE) 5-10 mg ORAL q 4 H PRN fentaNYL 50 mcg/mL 25 mcg injection (SUBLIMAZE) 25 mcg INTRAVENOUS q 2 H PRN Labs: Recent Labs 02/20/24 0424 02/20/24 0124 NA 136 -- K 4.4 -- CHLOR 101 -- CO2 26 -- BUN 10 -- CREAT 0.50* -- GLUC 157* -- ANION 9 -- CA 8.7 -- WBC 16.52* 15.63* HB 13.2 13.4 HCT 40.6 41.9 PLT 165 192 INR -- 1.1 Physical Exam: GENERAL: No distress, Alert NEURO: AANDOx3, CN II-XII grossly intact HEENT: Normocephalic, atraumatic LUNGS: Equal chest rise, Unlabored breathing O2 Therapy: Room Air CARDIAC: Regular rate as above, warm extremities ABDOMEN: Soft, non-tender, non-distended EXTREMITIES: ARGUETA, No deformities, No edema. Surgical sites are clean, dry, and intact with no evidence of hematoma. 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 CTA leila (more content not included)... [facility] 02-19-2024 Note HNO ID: [id number] Author: BETHEL FLAHERTY MD Service: Nursing Author Type: Anesthesiologist Type: Anesthesia Procedure Notes Filed: 02/19/2024 21:45 Note Text: ANESTHESIOLOGY PROCEDURE NOTE A-Line General Information Procedure Start Time/Medication Administration: 02/19/2024 9:09 PM Procedure End Time: 02/19/2024 9:12 PM Patient location during procedure: OR Timeout Performed Pre-procedure: timeout performed Indications: continuous blood pressure monitoring and blood sampling needed Staffing Anesthesiologist: Bethel Flaherty MD Performed by: anesthesiologist Preparation Sterility Preparation: hand hygiene performed prior to procedure, surgical cap used, mask used, skin prep agent completely dried prior to procedure Site Prep: Chloraprep Procedure Details Catheter Type: arterial line Catheter Size: 20 G Catheter Length: 1.75 in Micropuncture Kit Used: No Guidewire Used: No Laterality: left Site: radial artery Ultrasound Guided: Yes Image in Chart: No Sites: potential access sites evaluated, selected vessel patent, concurrent real time ultrasound visualization of vascular needle entry Vessel: target vessel identified and guidewire advanced into vessel Line Secured: Tegaderm Events Events: patient tolerated procedure well with no complications SIGNATURE: Sandeep Collier APRN.CRNA PATIENT NAME: Lexi Londono DATE: February 19, 2024 TIME: 9:32 PM CSN: [id number] [facility] 02-19-2024 Note HNO ID: [id number] Author: SANDEEP COLLIER APRN.CRNA Service: Nursing Author Type: Nurse Volleyball Assistant Coach Type: Anesthesia Procedure Notes Filed: 02/19/2024 21:24 Note Text: ANESTHESIOLOGY PROCEDURE NOTE Airway General Information Procedure Start Time/Medication Administration: 02/19/2024 9:10 PM Procedure End Time: 02/19/2024 9:10 PM Patient location during procedure: OR Timeout Performed Pre-procedure: timeout performed Consent Obtained: Yes Patient identity confirmed: arm band Staffing AMBULANCE OPERATIONS SUPERVISOR: Sandeep Collier APRN.AMBULANCE OPERATIONS SUPERVISOR Performed by: TIMMY Indications and Patient Condition Indications for airway management: anesthesia Preoxygenated: yes anesthesia circuit Patient position: sniffing Method: asleep Cricoid Pressure: No Manual In-Line Stabilization: No Difficult Mask: No Final Airway Details Final airway type: endotracheal airway Final Endotracheal Airway: ETT Cuffed: yes Successful intubation technique: direct laryngoscopy Devices used: intubating stylet Endotracheal tube insertion site: oral Blade: Abdon Blade size: #3 ETT size (mm): 7.5 Measured from: lips Measurement (cm): 22 Placement verified by: capnometry Cormack-Lehane Classification: grade I - full view of glottis Number of attempts at approach: 1 SIGNATURE: Sandeep Collier APRN.CRNA PATIENT NAME: Lexi Londono DATE: February 19, 2024 TIME: 9:24 PM CSN: [id number] [facility] 01-03-2024 Telephone encounter Note Prior RXs for 60 pills last up to 60 days; sometime more, sometimes 30 days Last filled 10/23 follow up. This RX should last till that appointment if not longer. The following approved medication requests have been transmitted electronically. Requested Prescriptions Signed Prescriptions Disp Refills oxazepam (SERAX) 10 mg capsule 60 capsule 1 Sig: Take 1 capsule by mouth two times a day as needed for up to 60 days. Authorizing Provider: ELENA ANDINO MD [facility] 01-03-2024 Miscellaneous Notes Prior RXs for 60 pills last up to 60 days; sometime more, sometimes 30 days Last filled 10/23 Has February follow up. This RX should last till that appointment if not longer. The following approved medication requests have been transmitted electronically. Requested Prescriptions Signed Prescriptions Disp Refills oxazepam (SERAX) 10 mg capsule 60 capsule 1 Sig: Take 1 capsule by mouth two times a day as needed for up to 60 days. Authorizing Provider: ELENA ANDINO MD Prescription Refill Information The patient has been identified by name and date of : Yes Caregiver verified no other encounters exist for this prescription request: Yes Caregiver confirmed with patient/requestor that no other refills are due, in the near future, with this provider at this time: Yes The last office visit in the department: 08/30/23 Does the patient have a future office visit with this provider/department: Yes Requested Prescriptions Pending Prescriptions Disp Refills oxazepam (SERAX) 10 mg capsule 60 capsule 1 Sig: Take 1 capsule by mouth two times a day as needed for up to 60 days. Kenia Negrete RN January 02, 2024 6:10 PM documented in this encounter [facility] 01-02-2024 Telephone encounter Note Prescription Refill Information The patient has been identified by name and date of : Yes Caregiver verified no other encounters exist for this prescription request: Yes Caregiver confirmed with patient/requestor that no other refills are due, in the near future, with this provider at this time: Yes The last office visit in the department: 08/30/23 Does the patient have a future office visit with this provider/department: Yes Requested Prescriptions Pending Prescriptions Disp Refills oxazepam (SERAX) 10 mg capsule 60 capsule 1 Sig: Take 1 capsule by mouth two times a day as needed for up to 60 days. Kenia Negrete RN January 02, 2024 6:10 PM [facility] 11-22-2023 Telephone encounter Note The following approved medication requests have been transmitted electronically. Requested Prescriptions Signed Prescriptions Disp Refills pravastatin (PRAVACHOL) 40 mg tablet 135 tablet 3 Sig: TAKE 1 AND 1/2 TABLETS BY MOUTH DAILY AT BEDTIME Authorizing Provider: ELENA ANDINO levothyroxine (SYNTHROID) 25 mcg tablet 90 tablet 3 Sig: Take 1 tablet by mouth once daily. Authorizing Provider: ELENA ANDINO sotalol (BETAPACE) 80 mg tablet 180 tablet 3 Sig: Take 1 tablet by mouth two times a day. Authorizing Provider: EELNA ANDINO MD [facility] 11-22-2023 Miscellaneous Notes The following approved medication requests have been transmitted electronically. Requested Prescriptions Signed Prescriptions Disp Refills pravastatin (PRAVACHOL) 40 mg tablet 135 tablet 3 Sig: TAKE 1 AND 1/2 TABLETS BY MOUTH DAILY AT BEDTIME Authorizing Provider: ELENA ANDINO levothyroxine (SYNTHROID) 25 mcg tablet 90 tablet 3 Sig: Take 1 tablet by mouth once daily. Authorizing Provider: ELENA ANDINO sotalol (BETAPACE) 80 mg tablet 180 tablet 3 Sig: Take 1 tablet by mouth two times a day. Authorizing Provider: ELENA ANDINO MD Prescription Refill Information The patient has been identified by name and date of : Yes Caregiver verified no other encounters exist for this prescription request: Yes Caregiver confirmed with patient/requestor that no other refills are due, in the near future, with this provider at this time: Yes The last office visit in the department: 08/30/23 Does the patient have a future office visit with this provider/department: Yes 03/06/24 Requested Prescriptions Pending Prescriptions Disp Refills pravastatin (PRAVACHOL) 40 mg tablet 135 tablet 3 Sig: TAKE 1 AND 1/2 TABLETS BY MOUTH DAILY AT BEDTIME levothyroxine (SYNTHROID) 25 mcg tablet 90 tablet 3 Sig: Take 1 tablet by mouth once daily. sotalol (BETAPACE) 80 mg tablet 180 tablet 3 Sig: Take 1 tablet by mouth two times a day. Out of levothyroxine. Please send today. Susana Rosales November 22, 2023 12:02 PM documented in this encounter [facility] 11-22-2023 Telephone encounter Note Prescription Refill Information The patient has been identified by name and date of : Yes Caregiver verified no other encounters exist for this prescription request: Yes Caregiver confirmed with patient/requestor that no other refills are due, in the near future, with this provider at this time: Yes The last office visit in the department: 08/30/23 Does the patient have a future office visit with this provider/department: Yes 03/06/24 Requested Prescriptions Pending Prescriptions Disp Refills pravastatin (PRAVACHOL) 40 mg tablet 135 tablet 3 Sig: TAKE 1 AND 1/2 TABLETS BY MOUTH DAILY AT BEDTIME levothyroxine (SYNTHROID) 25 mcg tablet 90 tablet 3 Sig: Take 1 tablet by mouth once daily. sotalol (BETAPACE) 80 mg tablet 180 tablet 3 Sig: Take 1 tablet by mouth two times a day. Out of levothyroxine. Please send today. Susana Rosales November 22, 2023 12:02 PM [facility] 11-15-2023 Note HNO ID: [id number] Author: AMARJIT HERRERA RN Service: ? Author Type: Registered Nurse Type: Progress Notes Filed: 11/15/2023 13:28 Note Text: CDM Telephonic Outreach Provider Action/FYI CDM: Copd Called Pt, unable to leave a message to verify symptom status and needs Contacted for: Routine Telephonic Outreach Contact made with patient: No, unable to leave message. Amarjit Herrera RN November 15, 2023 1:21 PM [facility] 11-15-2023 History of Present illness Narrative CDM Telephonic Outreach Provider Action/FYI CDM: Copd Called Pt, unable to leave a message to verify symptom status and needs Contacted for: Routine Telephonic Outreach Contact made with patient: No, unable to leave message. Amarjit Herrera RN November 15, 2023 1:21 PM CDM Telephonic Outreach Provider Action/FYI CDM: Copd Called Pt, unable to leave a message to verify symptom status and needs. Goals updated Contacted for: Routine Telephonic Outreach Contact made with patient: No, unable to leave message. Will reattempt call Amarjit Herrera RN November 14, 2023 3:37 PM documented in this encounter [facility] 11-14-2023 Note HNO ID: [id number] Author: AMARJIT HERRERA RN Service: ? Author Type: Registered Nurse Type: Progress Notes Filed: 11/15/2023 13:28 Note Text: CDM Telephonic Outreach Provider Action/FYI CDM: Copd Called Pt, unable to leave a message to verify symptom status and needs. Goals updated Contacted for: Routine Telephonic Outreach Contact made with patient: No, unable to leave message. Will reattempt call Amarjit Herrera RN November 14, 2023 3:37 PM [facility] 11-14-2023 Note Patient Outreach (AM [facility]) LEXI LONDONO ([id number]) 1950 F Date Time Provider Department 11/14/23 AMARJIT HERRERA [facility] During your visit today, we recorded the following information about you: Amarjit Herrera RN 11/15/2023 1:28 PM Signed CDM Telephonic Outreach Provider Action/FYI CDM: Copd Called Pt, unable to leave a message to verify symptom status and needs. Goals updated Contacted for: Routine Telephonic Outreach Contact made with patient: No, unable to leave message. Will reattempt call Amarjit Herrera RN November 14, 2023 3:37 PM Amarjit Herrera RN 11/15/2023 1:28 PM Signed CDM Telephonic Outreach Provider Action/FYI CDM: Copd Called Pt, unable to leave a message to verify symptom status and needs Contacted for: Routine Telephonic Outreach Contact made with patient: No, unable to leave message. Amarjit Herrera RN November 15, 2023 1:21 PM Allergies As of Date: 11/14/2023 Noted Allergy Reaction ALBUTEROL 03/09/2021 5 - Intolerance Comments: Anxiety. Something zoomed through my heart. CLINDAMYCIN 10/01/2013 6 - Diarrhea CODEINE 12/29/2004 16 - Unknown DARVOCET A500 (PROPOXYPHENE N-PAT*04/16/2005 5 - Intolerance LIPITOR (ATORVASTATIN CALCIUM) 04/05/2012 8 - GI Upset Comments: abdomen bloating initial c/o then retracted by pt NICKEL 12/17/2014 2 - Rash Comments: allergic to all metals, including gold and razor blades NTG (NITRATE ANALOGUES) 03/06/2013 5 - Intolerance Comments: hypotension PENICILLINS 12/29/2004 16 - Unknown PEPCID (FAMOTIDINE IN 0.9 % NACL) 04/16/2005 9 - Itching Comments: face itched SODIUM PENTATHAL (THIOPENTAL) 04/16/2005 5 - Intolerance Comments: No listed severity or specific reaction when entered as Other Date Reviewed: 08/30/2023 Reviewed by: Stefani Vega LPN - Fully Assessed Reason for Visit: Community Monitoring Outreach [Other] Prescriptions as of 11/16/2023 - atenolol (TENORMIN) 50 mg tablet Take 1.5 tablets by mouth two times a day. - verapamil 40 mg tablet Take 1 tablet by mouth two times a day. - oxazepam (SERAX) 10 mg capsule Take 1 capsule by mouth two times a day as needed for up to 60 days. - pravastatin (PRAVACHOL) 40 mg tablet TAKE 1 AND 1/2 TABLETS BY MOUTH DAILY AT BEDTIME - albuterol HFA (VENTOLIN HFA) 90 mcg/actuation inhaler Inhale 2 Puffs as instructed every 4 hours as needed for wheezing/shortness of breath. - sotalol (BETAPACE) 80 mg tablet Take 1 tablet by mouth two times a day. - levothyroxine (SYNTHROID) 25 mcg tablet take 1 tablet by mouth once daily ON AN EMPTY STOMACH for THYROID - tiotropium-olodaterol (STIOLTO RESPIMAT) 2.5-2.5 mcg/actuation Inhale 2 Puffs as instructed once daily. - aspirin, enteric coated (ASPIRIN, ENTERIC COATED) 81 mg EC tablet Take 81 mg by mouth once daily. - Trolamine Salicylate-Aloe Vera (ASPERCREME) 10 % crea Apply 1 application to affected area four times daily as needed. Meds Comments as of 03/14/2018: Doesn't use aspercream any more Em Eli RN 8:34 PM Problem List As Of Date 11/14/2023 Noted Resolved ATRIAL FIBRILLATION [I48.91] Generalized OA [M15.9] TOBACCO USE DISORDER [F17.200] Venous thrombosis [I82.90] 07/06/2010 COPD (chronic obstructive pulmonary disease) (H*04/14/2011 Hyperlipidemia [E78.5] 10/25/2011 ASHD (arteriosclerotic heart disease) [I25.10] 10/25/2011 Generalized anxiety disorder [F41.1] 09/30/2014 Dyspnea on exertion [R06.09] 02/09/2021 Primary hypertension [I10] 02/09/2021 Encounter Status:Closed by AMARJIT HERRERA on 11/15/23 [facility] 10-14-2023 Note HNO ID: [id number] Author: AMARJIT HERRERA RN Service: ? Author Type: Registered Nurse Type: Progress Notes Filed: 10/14/2023 16:59 Note Text: CDM Telephonic Outreach Provider Action/FYI CDM: Copd Called Pt, unable to leave a message to verify symptom status and needs, mail box is not set up. Contacted for: Routine Telephonic Outreach Contact made with patient: No, unable to leave message. Third attempt - patient is unable to be reached. Amarjit Herrera RN October 14, 2023 4:58 PM [facility] 10-14-2023 History of Present illness Narrative CDM Telephonic Outreach Provider Action/FYI CDM: Copd Called Pt, unable to leave a message to verify symptom status and needs, mail box is not set up. Contacted for: Routine Telephonic Outreach Contact made with patient: No, unable to leave message. Third attempt - patient is unable to be reached. Amarjit Herrera RN October 14, 2023 4:58 PM CDM Telephonic Outreach Provider Action/FYI CDM: Copd Called Pt, unable to leave a message to verify symptom status and needs, mail box is not set up. Contacted for: Routine Telephonic Outreach Contact made with patient: No, unable to leave message. Will reattempt call Amarjit Herrera RN October 12, 2023 5:08 PM CDM Telephonic Outreach Provider Action/FYI CDM: Copd Called Pt, unable to leave a message to verify symptom status and needs, mail box is not set up. Contacted for: Routine Telephonic Outreach Contact made with patient: No, unable to leave message. Will reattempt call Amarjit Herrera RN October 10, 2023 12:52 PM documented in this encounter [facility] 10-12-2023 Note HNO ID: [id number] Author: AMARJIT HERRERA RN Service: ? Author Type: Registered Nurse Type: Progress Notes Filed: 10/14/2023 16:59 Note Text: CDM Telephonic Outreach Provider Action/FYI CDM: Copd Called Pt, unable to leave a message to verify symptom status and needs, mail box is not set up. Contacted for: Routine Telephonic Outreach Contact made with patient: No, unable to leave message. Will reattempt call Amarjit Herrera RN October 12, 2023 5:08 PM [facility] 10-10-2023 Note HNO ID: [id number] Author: AMARJIT HERRERA RN Service: ? Author Type: Registered Nurse Type: Progress Notes Filed: 10/14/2023 16:59 Note Text: CDM Telephonic Outreach Provider Action/FYI CDM: Copd Called Pt, unable to leave a message to verify symptom status and needs, mail box is not set up. Contacted for: Routine Telephonic Outreach Contact made with patient: No, unable to leave message. Will reattempt call Amarjit Herrera RN October 10, 2023 12:52 PM [facility] 10-10-2023 Note Patient Outreach (AM [facility]) LEXI LONDONO Batool ([id number]) 1950 F Date Time Provider Department 10/10/23 AMARJIT HERRERA [facility] During your visit today, we recorded the following information about you: Amarjit Herrera RN 10/14/2023 4:59 PM Signed CDM Telephonic Outreach Provider Action/FYI CDM: Copd Called Pt, unable to leave a message to verify symptom status and needs, mail box is not set up. Contacted for: Routine Telephonic Outreach Contact made with patient: No, unable to leave message. Will reattempt call Amarjit Herrera RN October 10, 2023 12:52 PM Amarjit Herrera RN 10/14/2023 4:59 PM Signed CDM Telephonic Outreach Provider Action/FYI CDM: Copd Called Pt, unable to leave a message to verify symptom status and needs, mail box is not set up. Contacted for: Routine Telephonic Outreach Contact made with patient: No, unable to leave message. Will reattempt call Amarjit Herrera RN October 12, 2023 5:08 PM Amarjit Herrera RN 10/14/2023 4:59 PM Signed CD Telephonic Outreach Provider Action/FYI CDM: Copd Called Pt, unable to leave a message to verify symptom status and needs, mail box is not set up. Contacted for: Routine Telephonic Outreach Contact made with patient: No, unable to leave message. Third attempt - patient is unable to be reached. Amarjit Herrera RN October 14, 2023 4:58 PM Allergies As of Date: 10/10/2023 Noted Allergy Reaction ALBUTEROL 03/09/2021 5 - Intolerance Comments: Anxiety. Something zoomed through my heart. CLINDAMYCIN 10/01/2013 6 - Diarrhea CODEINE 12/29/2004 16 - Unknown DARVOCET A500 (PROPOXYPHENE N-PAT*04/16/2005 5 - Intolerance LIPITOR (ATORVASTATIN CALCIUM) 04/05/2012 8 - GI Upset Comments: abdomen bloating initial c/o then retracted by pt NICKEL 12/17/2014 2 - Rash Comments: allergic to all metals, including gold and razor blades NTG (NITRATE ANALOGUES) 03/06/2013 5 - Intolerance Comments: hypotension PENICILLINS 12/29/2004 16 - Unknown PEPCID (FAMOTIDINE IN 0.9 % NACL) 04/16/2005 9 - Itching Comments: face itched SODIUM PENTATHAL (THIOPENTAL) 04/16/2005 5 - Intolerance Comments: No listed severity or specific reaction when entered as Other Date Reviewed: 08/30/2023 Reviewed by: Stefani Vega LPN - Fully Assessed Reason for Visit: Community Monitoring Outreach [Other] Prescriptions as of 10/14/2023 - atenolol (TENORMIN) 50 mg tablet Take 1.5 tablets by mouth two times a day. - verapamil 40 mg tablet Take 1 tablet by mouth two times a day. - oxazepam (SERAX) 10 mg capsule Take 1 capsule by mouth two times a day as needed for up to 60 days. - pravastatin (PRAVACHOL) 40 mg tablet TAKE 1 AND 1/2 TABLETS BY MOUTH DAILY AT BEDTIME - albuterol HFA (VENTOLIN HFA) 90 mcg/actuation inhaler Inhale 2 Puffs as instructed every 4 hours as needed for wheezing/shortness of breath. - sotalol (BETAPACE) 80 mg tablet Take 1 tablet by mouth two times a day. - levothyroxine (SYNTHROID) 25 mcg tablet take 1 tablet by mouth once daily ON AN EMPTY STOMACH for THYROID - tiotropium-olodaterol (STIOLTO RESPIMAT) 2.5-2.5 mcg/actuation Inhale 2 Puffs as instructed once daily. - aspirin, enteric coated (ASPIRIN, ENTERIC COATED) 81 mg EC tablet Take 81 mg by mouth once daily. - Trolamine Salicylate-Aloe Vera (ASPERCREME) 10 % crea Apply 1 application to affected area four times daily as needed. Meds Comments as of 03/14/2018: Doesn't use aspercream any more Em L Alcira, RN 8:34 PM Problem List As Of Date 10/10/2023 Noted Resolved ATRIAL FIBRILLATION [I48.91] Generalized OA [M15.9] TOBACCO USE DISORDER [F17.200] Venous thrombosis [I82.90] 07/06/2010 COPD (chronic obstructive pulmonary disease) (H*04/14/2011 Hyperlipidemia [E78.5] 10/25/2011 ASHD (arteriosclerotic heart disease) [I25.10] 10/25/2011 Generalized anxiety disorder [F41.1] 09/30/2014 Dyspnea on exertion [R06.09] 02/09/2021 Primary hypertension [I10] 02/09/2021 Encounter Status:Closed by AMARJIT HERRERA on 10/14/23 [facility] 09-13-2023 Telephone encounter Note Attempted to reach patient, no answer and no VM. Leonie Anton MA [facility] 09-13-2023 Miscellaneous Notes Attempted to reach patient, no answer and no VM. Leonie Anton MA The following approved medication requests have been transmitted electronically. Requested Prescriptions Signed Prescriptions Disp Refills atenolol (TENORMIN) 50 mg tablet 270 tablet 1 Sig: Take 1.5 tablets by mouth two times a day. Authorizing Provider: ELENA ANDINO verapamil 40 mg tablet 180 tablet 1 Sig: Take 1 tablet by mouth two times a day. Authorizing Provider: ELENA ANDINO MD Noted that patient has not seen hand tennis ball coverer within [facility] system since Dr. Benitez left. See if saw someone outside of [facility] system. She should be established with hand tennis ball coverer. Noted that had referred to cardiology in 2021 but no appointment made/kept after that. Patient requesting 90 days. Patient has been identified by name and date of : Yes Patient phones for refill(s): Requested Prescriptions Pending Prescriptions Disp Refills atenolol (TENORMIN) 50 mg tablet 90 tablet 2 Sig: Take 1.5 tablets by mouth two times a day. verapamil 40 mg tablet 180 tablet 0 Sig: Take 1 tablet by mouth two times a day. Date of last office visit in primary care: 08/30/2023 Date of next office visit in primary care: 03/06/2024 Please advise. Thank you. Celina Leonard. documented in this encounter [facility] 09-13-2023 Telephone encounter Note The following approved medication requests have been transmitted electronically. Requested Prescriptions Signed Prescriptions Disp Refills atenolol (TENORMIN) 50 mg tablet 270 tablet 1 Sig: Take 1.5 tablets by mouth two times a day. Authorizing Provider: ELENA ANDINO verapamil 40 mg tablet 180 tablet 1 Sig: Take 1 tablet by mouth two times a day. Authorizing Provider: ELENA ANDINO MD Noted that patient has not seen hand tennis ball coverer within [facility] system since Dr. Benitez left. See if saw someone outside of [facility] system. She should be established with hand tennis ball coverer. Noted that had referred to cardiology in 2021 but no appointment made/kept after that. [facility] 09-09-2023 Telephone encounter Note Patient requesting 90 days. Patient has been identified by name and date of : Yes Patient phones for refill(s): Requested Prescriptions Pending Prescriptions Disp Refills atenolol (TENORMIN) 50 mg tablet 90 tablet 2 Sig: Take 1.5 tablets by mouth two times a day. verapamil 40 mg tablet 180 tablet 0 Sig: Take 1 tablet by mouth two times a day. Date of last office visit in primary care: 08/30/2023 Date of next office visit in primary care: 03/06/2024 Please advise. Thank you. Celina Leonard. [facility] 09-04-2023 History of Present illness Narrative CDM Telephonic Outreach Provider Action/FYI CDM: Copd Called Pt, unable to leave a message to verify symptom status and needs, mail box is not set up. Contacted for: Routine Telephonic Outreach Contact made with patient: No, unable to leave message. Third attempt - patient is unable to be reached. Amarjit Herrera RN September 04, 2023 1:56 PM CDM Telephonic Outreach Provider Action/FYI CDM: Copd Called Pt, unable to leave a message to verify symptom status and needs, mail box is not set up. Contacted for: Routine Telephonic Outreach Contact made with patient: No, unable to leave message. Will reattempt call Amarjit Herrera RN September 02, 2023 2:39 PM CDM Telephonic Outreach Provider Action/FYI CDM: Copd Called Pt, unable to leave a message to verify symptom status and needs. Contacted for: Routine Telephonic Outreach Contact made with patient: No, unable to leave message. Will reattempt call Amarjit Herrera RN September 01, 2023 4:47 PM documented in this encounter [facility] 08-30-2023 Instructions Elena Andino MD - 08/30/2023 7:06 PM EDT Can get labs drawn at the specialty center close to [facility]. documented in this encounter [facility] 08-30-2023 History of Present illness Narrative This note was created using [employer]. Subjective Lexi Londono is a 72 year old female. Patient presents with: Follow Up Rx Refills SUBJECTIVE: Lexi Londono is a 72 year old year old lady here today for follow up appointment for review of medical conditions. Meds working well. Clinically euthyroid. Energy level good. Oxazepam--some days needs twice a day and some weeks needs more than others. Not ready to quit smoking. Noted left ankle pain that come and goes. Feels deeper in ankle. Sometimes tender a tender spot found. No injuries noted PAST MEDICAL HISTORY Diagnosis Date Adhesive capsulitis of right shoulder 12/17/2014 Atrial fibrillation (HCC) Benign neoplasm of colon Tubular adenoma in 2005 Claudication (HCC) 12/01/2010 COPD (chronic obstructive pulmonary disease) (HCC) Generalized osteoarthrosis, unspecified site HLD (hyperlipidemia) HTN (hypertension) Internal hemorrhoids without mention of complication Noncompliance with medication regimen 12/06/2010 PMH - PAST MEDICAL HISTORY OF ASPVD Tendonitis left leg 04/14/2011 Tobacco use disorder Unspecified constipation Current Outpatient Medications Medication Sig pravastatin (PRAVACHOL) 40 mg tablet TAKE 1 AND 1/2 TABLETS BY MOUTH DAILY AT BEDTIME albuterol HFA (VENTOLIN HFA) 90 mcg/actuation inhaler Inhale 2 Puffs as instructed every 4 hours as needed for wheezing/shortness of breath. sotalol (BETAPACE) 80 mg tablet Take 1 tablet by mouth two times a day. verapamil 40 mg tablet Take 1 tablet by mouth two times a day. atenolol (TENORMIN) 50 mg tablet Take 1.5 tablets by mouth two times a day. oxazepam (SERAX) 10 mg capsule Take 1 capsule by mouth two times a day as needed for up to 60 days. levothyroxine (SYNTHROID) 25 mcg tablet take 1 tablet by mouth once daily ON AN EMPTY STOMACH for THYROID aspirin, enteric coated (ASPIRIN, ENTERIC COATED) 81 mg EC tablet Take 81 mg by mouth once daily. Trolamine Salicylate-Aloe Vera (ASPERCREME) 10 % crea Apply 1 application to affected area four times daily as needed. tiotropium-olodaterol (STIOLTO RESPIMAT) 2.5-2.5 mcg/actuation Inhale 2 Puffs as instructed once daily. No current facility-administered medications for this visit. Review of Systems Objective BP 108/62 Pulse 66 Temp 36.3 C (97.3 F) Resp 18 Wt 67.6 kg (149 lb) SpO2 97% BMI 27.70 kg/m Last 5 Encounter Wt Readings: Date: Wt: 08/30/2023 67.6 kg (149 lb) 08/31/2022 73 kg (161 lb) 07/22/2022 73 kg (161 lb) 07/17/2021 70.8 kg (156 lb) 04/22/2021 68 kg (150 lb) No waist measurement recorded Estimated body mass index is 27.7 kg/m as calculated from the following: Height as of 07/22/22: 156.2 cm (5' 1.5). Weight as of this encounter: 67.6 kg (149 lb). Last 5 Encounter BP Readings: Date: BP: 08/30/2023 108/62 08/31/2022 116/62 07/22/2022 136/84 07/17/2021 163/83[average of 2 BP[ 03/09/2021 118/66[manual[ Physical Exam Constitutional: Appearance: Normal appearance. HENT: Head: Normocephalic. Eyes: Conjunctiva/sclera: Conjunctivae normal. Cardiovascular: Rate and Rhythm: Normal rate and regular rhythm. Heart sounds: Normal heart sounds. Pulmonary: Effort: Pulmonary effort is normal. Breath sounds: Normal breath sounds. Musculoskeletal: Right lower leg: No edema. Left lower leg: No edema. Skin: General: Skin is warm and dry. Neurological: General: No focal deficit present. Mental Status: She is alert and oriented to person, place, and time. Psychiatric: Mood and Affect: Mood normal. Behavior: Behavior normal. Thought Content: Thought content normal. Judgment: Judgment normal. Assessment and Plan Encounter Diagnosis ICD-10-CM 1. Generalized anxiety disorder F41.1 oxazepam (SERAX) 10 mg capsule Stable on current dose Serax. 2. Chronic pain of left ankle M25.572 G89.29 Try ankle exercises. See if any shoe(s) are causing the pain. Further evaluation and treatment as needed. 3. Chronic obstructive pulmonary disease, unspecified COPD type (HCC) J44.9 Encouragd to quit smoking. Continue present management 4. Paroxysmal atrial fibrillation ([facility]) I48.0 5. Encounter for long-term current use of medication Z79.899 TOXICOLOGY SCREEN, ROUTINE URINE Above issues addressed with patient. Patient involved in shared decision making for management of medical issues. History and medications reviewed. Epic updated as needed Refills and/or prescriptions taken care of and meds adjusted as indicated after reviewed history, exam and labs. Health Maintenance reviewed. Updated record and/or ordered tests as recorded. Encouraged on efforts at healthy diet and regular exercise and adequate sleep. Elena Andino MD documented in this encounter [facility] 08-22-2023 Telephone encounter Note The following approved medication requests have been transmitted electronically. Requested Prescriptions Signed Prescriptions Disp Refills pravastatin (PRAVACHOL) 40 mg tablet 135 tablet 0 Sig: TAKE 1 AND 1/2 TABLETS BY MOUTH DAILY AT BEDTIME Authorizing Provider: ELENA ANDINO albuterol HFA (VENTOLIN HFA) 90 mcg/actuation inhaler 1 Each 2 Sig: Inhale 2 Puffs as instructed every 4 hours as needed for wheezing/shortness of breath. Authorizing Provider: ELENA ANDINO sotalol (BETAPACE) 80 mg tablet 180 tablet 0 Sig: Take 1 tablet by mouth two times a day. Authorizing Provider: ELENA ANDINO verapamil 40 mg tablet 180 tablet 0 Sig: Take 1 tablet by mouth two times a day. Authorizing Provider: ELENA ANDINO Refused Prescriptions Disp Refills oxazepam (SERAX) 10 mg capsule 60 capsule 1 Sig: Take 1 capsule by mouth two times a day as needed for up to 60 days. Refused By: ELENA ANDINO Reason for Refusal: Patient needs appointment Elena Andino MD Still has refills for levothyroxine till October 2023--was given 90 day supply 08/15 according to Medication Reconcile history. Removed from requested medications. No Serax till seen for follow up as noted when requested refill in March. Was last seen August 2022 and canceled February appointment--(one canceled when Dorcas out and had to reschedule; other canceled by patient and said was going to call back to reschedule but did not). Needs seen every 6 months in order to refill this med. Since has not needed the past 6 months, would consider changing medication to only as needed rather than routinely. Will discuss at upcoming August appointment. [facility] 08-22-2023 Miscellaneous Notes The following approved medication requests have been transmitted electronically. Requested Prescriptions Signed Prescriptions Disp Refills pravastatin (PRAVACHOL) 40 mg tablet 135 tablet 0 Sig: TAKE 1 AND 1/2 TABLETS BY MOUTH DAILY AT BEDTIME Authorizing Provider: ELENA ANDINO albuterol HFA (VENTOLIN HFA) 90 mcg/actuation inhaler 1 Each 2 Sig: Inhale 2 Puffs as instructed every 4 hours as needed for wheezing/shortness of breath. Authorizing Provider: ELENA ANDINO sotalol (BETAPACE) 80 mg tablet 180 tablet 0 Sig: Take 1 tablet by mouth two times a day. Authorizing Provider: ELENA ANDINO verapamil 40 mg tablet 180 tablet 0 Sig: Take 1 tablet by mouth two times a day. Authorizing Provider: ELENA ANDINO Refused Prescriptions Disp Refills oxazepam (SERAX) 10 mg capsule 60 capsule 1 Sig: Take 1 capsule by mouth two times a day as needed for up to 60 days. Refused By: ELENA ANDINO Reason for Refusal: Patient needs appointment Elena Andino MD Still has refills for levothyroxine till October 2023--was given 90 day supply 08/15 according to Medication Reconcile history. Removed from requested medications. No Serax till seen for follow up as noted when requested refill in March. Was last seen August 2022 and canceled February appointment--(one canceled when [facility] out and had to reschedule; other canceled by patient and said was going to call back to reschedule but did not). Needs seen every 6 months in order to refill this med. Since has not needed the past 6 months, would consider changing medication to only as needed rather than routinely. Will discuss at upcoming August appointment. [facility] Patient has been identified by name and date of : Yes Patient aware RX will be sent to pharmacy. No need to notify patient. Patient phones for refill(s): Requested Prescriptions Pending Prescriptions Disp Refills levothyroxine (SYNTHROID) 25 mcg tablet 90 tablet 11 pravastatin (PRAVACHOL) 40 mg tablet 135 tablet 3 Sig: TAKE 1 AND 1/2 TABLETS BY MOUTH DAILY AT BEDTIME albuterol HFA (VENTOLIN HFA) 90 mcg/actuation inhaler 1 Each 2 Sig: Inhale 2 Puffs as instructed every 4 hours as needed for wheezing/shortness of breath. oxazepam (SERAX) 10 mg capsule 60 capsule 1 Sig: Take 1 capsule by mouth two times a day as needed for up to 60 days. sotalol (BETAPACE) 80 mg tablet 180 tablet 1 Sig: Take 1 tablet by mouth two times a day. verapamil 40 mg tablet 180 tablet 1 Sig: Take 1 tablet by mouth two times a day. Date of last office visit : 08/31/2022 Date of next office visit : 08/30/2023 Last 2 Encounter Wt Readings: Date: Wt: 08/31/2022 73 kg (161 lb) 07/22/2022 73 kg (161 lb) Not applicable Please advise. Erlinda Rosales documented in this encounter [facility] 08-22-2023 Telephone encounter Note Pharmacy [facility] Patient has been identified by name and date of : Yes Patient aware RX will be sent to pharmacy. No need to notify patient. Patient phones for refill(s): Requested Prescriptions Pending Prescriptions Disp Refills levothyroxine (SYNTHROID) 25 mcg tablet 90 tablet 11 pravastatin (PRAVACHOL) 40 mg tablet 135 tablet 3 Sig: TAKE 1 AND 1/2 TABLETS BY MOUTH DAILY AT BEDTIME albuterol HFA (VENTOLIN HFA) 90 mcg/actuation inhaler 1 Each 2 Sig: Inhale 2 Puffs as instructed every 4 hours as needed for wheezing/shortness of breath. oxazepam (SERAX) 10 mg capsule 60 capsule 1 Sig: Take 1 capsule by mouth two times a day as needed for up to 60 days. sotalol (BETAPACE) 80 mg tablet 180 tablet 1 Sig: Take 1 tablet by mouth two times a day. verapamil 40 mg tablet 180 tablet 1 Sig: Take 1 tablet by mouth two times a day. Date of last office visit : 08/31/2022 Date of next office visit : 08/30/2023 Last 2 Encounter Wt Readings: Date: Wt: 08/31/2022 73 kg (161 lb) 07/22/2022 73 kg (161 lb) Not applicable Please advise. Erlinda Carrillo Pss [facility] 08-22-2023 Telephone encounter Note Pt needs to contact office [facility] 08-22-2023 Miscellaneous Notes Pt needs to contact office documented in this encounter [facility] 08-03-2023 History of Present illness Narrative CDM Telephonic Outreach Provider Action/FYI CDM: COPD Called Pt, unable to leave?a message to verify symptom status and needs. Pt has a scheduled 08/30/[address] Andino Contacted for: Routine Telephonic Outreach Contact made with patient: No, unable to leave message. Third attempt - patient is unable to be reached. Amarjit Herrera RN August 03, 2023 1:06 PM CDM Telephonic Outreach Provider Action/FYI CDM: COPD Called Pt, unable to leave?a message to verify symptom status and needs. Pt has a scheduled 08/30/[address] Andino Contacted for: Routine Telephonic Outreach Contact made with patient: No, unable to leave message. Will reattempt call Amarjit Herrera RN August 02, 2023 1:02 PM CDM Telephonic Outreach Provider Action/FYI CDM: Copd Called Pt, unable to leave?a message to verify symptom status and needs. Pt has a scheduled 08/30/[address] Andino Contacted for: Routine Telephonic Outreach Contact made with patient: No, unable to leave message. Will reattempt call Amarjit Herrera RN August 01, 2023 4:40 PM documented in this encounter [facility] 06-28-2023 History of Present illness Narrative CDM Telephonic Outreach Provider Action/FYI CDM: Copd Called Pt, unable to leave?a message to verify symptom status and needs, voice mail box is not set up. Contacted for: Routine Telephonic Outreach Contact made with patient: No, unable to leave message. Third attempt - patient is unable to be reached. Amarjit Herrera RN June 28, 2023 11:42 AM CDM Telephonic Outreach Provider Action/FYI CDM: Copd Called Pt, unable to leave?a message to verify symptom status and needs, voice mail box is not set up. . Contacted for: Routine Telephonic Outreach Contact made with patient: No, unable to leave message. Will reattempt call Amarjit Herrera RN June 23, 2023 9:23 AM CDM Telephonic Outreach Provider Action/FYI CDM: Copd Called Pt, unable to leave?a message to verify symptom status and needs. Contacted for: Routine Telephonic Outreach Contact made with patient: No, unable to leave message. Will reattempt call Amarjit Herrera RN June 22, 2023 4:14 PM documented in this encounter [facility] 06-22-2023 Miscellaneous Notes Pt reports she is out of Atenolol, She said she will call in and schedule an appointment after this week once things calm down in her house. Pt was supposed to have a 6 month f/u after her last appointment, but has not been in since 09/01/23. Gave Pt a 30 day Rx. Patient has been identified by name and date of : Yes, Provider Dr Andino Date 06/22/23 Time 1533. Patient phones for refill(s): Requested Prescriptions Pending Prescriptions Disp Refills atenolol (TENORMIN) 50 mg tablet 90 tablet 0 Sig: Take 1.5 tablets by mouth two times a day. Date of last office visit in primary care: 08/31/2022 Date of next office visit in primary care: 08/30/2023 Please advise. Thank you. Brenna Lamb RN. documented in this encounter [facility] 05-20-2023 History of Present illness Narrative CDM Telephonic Outreach Provider Action/FYI CDM: Copd Called Pt, unable to leave?a message to verify symptom status and needs. Contacted for: Routine Telephonic Outreach Contact made with patient: No, unable to leave message. Will reattempt call Amarjit Herrera RN May 20, 2023 5:04 PM CDM Telephonic Outreach Provider Action/FYI CDM: Copd Called Pt, unable to leave?a message to verify symptom status and needs. Contacted for: Routine Telephonic Outreach Contact made with patient: No, unable to leave message. Will reattempt call Amarjit Herrera RN May 19, 2023 2:23 PM documented in this encounter [facility] 04-17-2023 History of Present illness Narrative CDM Telephonic Outreach Provider Action/FYI CDM: COPD Called Pt, unable to leave a message to verify symptom status and needs. Contacted for: Routine Telephonic Outreach Contact made with patient: No, unable to leave message. Will reattempt call Amarjit Herrera RN April 17, 2023 1:42 PM CDM Telephonic Outreach Provider Action/FYI CDM: COPD Called Pt, unable to leave a message to verify symptom status and needs. Contacted for: Routine Telephonic Outreach Contact made with patient: No, unable to leave message. Will reattempt call Amarjit Herrera RN April 14, 2023 11:36 AM documented in this encounter [facility] 03-08-2023 History of Present illness Narrative CDM Telephonic Outreach Provider Action/FYI CDM: COPD Left a message to verify symptom status, instructed to contact PCP for condition changes and needs. COPD Goals completed Contacted for: Routine Telephonic Outreach Contact made with patient: No, left message. Amarjit Herrera RN March 08, 2023 5:18 PM CDM Telephonic Outreach Provider Action/FYI CDM: COPD Left a message to verify symptom status, instructed to contact PCP for condition changes and needs. Contacted for: Routine Telephonic Outreach Contact made with patient: No, left message. Amarjit Herrera RN March 07, 2023 3:40 PM documented in this encounter [facility] 02-10-2023 Miscellaneous Notes Patient has been identified by name and date of : Yes Requested Prescriptions Pending Prescriptions Disp Refills verapamil 40 mg tablet 180 tablet 1 Sig: Take 1 tablet by mouth two times a day. pravastatin (PRAVACHOL) 40 mg tablet 135 tablet 3 Sig: TAKE 1 AND 1/2 TABLETS BY MOUTH DAILY AT BEDTIME RX INSTRUCTIONS: Patient aware RX will be sent to pharmacy. No need to notify patient. Maggie Sue documented in this encounter [facility] 02-04-2023 History of Present illness Narrative CDM Telephonic Outreach Provider Action/FYI CDM: COPD Left a message to verify symptom status, instructed to contact PCP for condition changes and needs. Contacted for: Routine Telephonic Outreach Contact made with patient: No, left message. Amarjit Herrera RN February 04, 2023 3:52 PM CDM Telephonic Outreach Provider Action/FYI CDM: COPD Called Pt, unable to leave?a message to verify symptom status and needs. Contacted for: Routine Telephonic Outreach Contact made with patient: No, unable to leave message. Will reattempt call Amarjit Herrera RN February 03, 2023 6:56 PM CDM Telephonic Outreach Provider Action/FYI CDM: COPD Left a message to verify symptom status, instructed to contact PCP for condition changes and needs. Contacted for: Routine Telephonic Outreach Contact made with patient: No, left message. Amarjit Herrera RN February 01, 2023 11:23 AM documented in this encounter [facility] 01-10-2023 History of Present illness Narrative CDM Telephonic Outreach Provider Action/FYI CDM: COPD Called Pt, unable to leave a message to verify symptom status and needs Contacted for: Routine Telephonic Outreach Contact made with patient: No, unable to leave message. Will reattempt call Amarjit Herrera RN January 10, 2023 4:38 PM CDM Telephonic Outreach Provider Action/FYI CDM: COPD Left a message to verify symptom status and needs. Contacted for: Routine Telephonic Outreach Contact made with patient: No, left message. Amarjit Herrera RN January 07, 2023 1:51 PM documented in this encounter [facility] 12-23-2022 Miscellaneous Notes Patient called back and said she is going to take Atenolol 100 mg in the morning and 75 mg in the evening, said she knows her body. Patient said she needs to get batteries for her bp cuff and still refuses to make appt. Recommendations as previously stated stand. Patient notified of providers message. She states again that she knows her body and that she already took an extra 25mg yesterday and her body felt better and she is going to continue taking 100mg twice daily. When asked if she had taken her bp before or after the increase she said no that her bp machine needed batteries. I reinforced recommendations and dangers of increasing medications without bp or heart rate readings. Patient declined appointment stating she was too old to keep going to appointment. States states she will go get batteries for bp machine and call in bp and hr readings for three days. I see no mention of that in my note or Elena Andino MD. We have her taking 75 mg of atenolol twice daily. Would recommend continuing with that dose unchanged for now. Recommend come in for a visit to check blood pressure and heart rate and discuss symptoms so we can determine if an additional treatment is needed. TSH was high in July, check to see if taking levothyroxine. Patient calls to request an increased dose of atenolol to 100 mg twice daily. Patient reports that it was discussed at her last appointment with Gene but patient declined at that time. Last appointment was 07/22/2022. Patient reports that at this time my body let me know I needed it but I can't explain the symptoms. Denies chest pain or SOB (beyond her normal). Next follow up appointment is 03/04/2023. Patient declined sooner follow up appointment. Patient has no current BP or HR readings. No batteries on hand for her at home machine. Patient requesting message be sent to [facility]. She reports she has been self adjusting atenolol dose for 40 + years. Katrina Link, RN documented in this encounter [facility] 12-21-2022 Miscellaneous Notes Apts booked. Sherie Calles LPN 1st attempt left vm Needs 6 months follow up scheduled--last seen May and not done yet. Alternate with Gene and The following approved medication requests have been transmitted electronically. Requested Prescriptions Signed Prescriptions Disp Refills oxazepam (SERAX) 10 mg capsule 60 capsule 1 Sig: Take 1 capsule by mouth twice daily as needed for up to 60 days. Authorizing Provider: ELENA ANDINO MD Patient has been identified by name and date of : Yes Patient phones for refill(s): Requested Prescriptions Pending Prescriptions Disp Refills oxazepam (SERAX) 10 mg capsule 60 capsule 1 Sig: Take 1 capsule by mouth twice daily as needed for up to 60 days. Date of last office visit in primary care: 08/31/2022 No future appt scheduled. Last 2 Encounter Wt Readings: Date: Wt: 08/31/2022 73 kg (161 lb) 07/22/2022 73 kg (161 lb) Previous labs/tests for medication: Not applicable Please advise. Thank you. Nelil Ibarra LPN [facility] Patient has been identified by name and date of : Yes Patient requesting a call when RX is approved and sent to the pharmacy. Please call patient at: [phone] Patient phones for refill(s): Requested Prescriptions Pending Prescriptions Disp Refills oxazepam (SERAX) 10 mg capsule 60 capsule 1 Sig: Take 1 capsule by mouth twice daily as needed for up to 60 days. Date of last office visit : 08/31/2022 Date of next office visit : Visit date not found Last 2 Encounter Wt Readings: Date: Wt: 08/31/2022 73 kg (161 lb) 07/22/2022 73 kg (161 lb) Not applicable Please advise. Erlinda Rosales documented in this encounter [facility] 12-15-2022 History of Present illness Narrative CDM Telephonic Outreach Provider Action/FYI CDM: COPD Left a message to verify symptom status and needs. Contacted for: Routine Telephonic Outreach Contact made with patient: No, left message. Amarjit Herrera RN December 15, 2022 10:14 AM CDM Telephonic Outreach Provider Action/FYI CDM: COPD Left a message to verify symptom status and needs. Contacted for: Routine Telephonic Outreach Contact made with patient: No, left message. Amarjit Herrera RN December 13, 2022 11:29 AM documented in this encounter [facility] 11-10-2022 History of Present illness Narrative CDM Telephonic Outreach Provider Action/FYI CDM COPD Called Pt, unable to leave a message to verify symptom status and needs Contacted for: Routine Telephonic Outreach Contact made with patient: No, unable to leave message. Third attempt - patient is unable to be reached. Amarjit Herrera RN November 10, 2022 4:02 PM CDM Telephonic Outreach Provider Action/FYI CDM COPD Called Pt, unable to leave a message to verify symptom status and needs Contacted for: Routine Telephonic Outreach Contact made with patient: No, unable to leave message. Will reattempt call Amarjit Herrera RN November 09, 2022 10:44 AM CDM Telephonic Outreach Provider Action/FYI CDM COPD Called Pt, unable to leave a message to verify symptom status and needs Contacted for: Routine Telephonic Outreach Contact made with patient: No, unable to leave message. Will reattempt call Amarjit Herrera RN November 08, 2022 1:47 PM documented in this encounter [facility] 10-08-2022 History of Present illness Narrative CDM Telephonic Outreach Provider Action/FYI CDM: COPD Called home number, unable to leave a message to verify symptom status and needs.Line was busy. Contacted for: Routine Telephonic Outreach Contact made with patient: No, unable to leave message. Will reattempt call Amarjit Herrera RN October 08, 2022 4:08 PM CDM Telephonic Outreach Provider Action/FYI CDM: COPD Called home number, unable to leave a message to verify symptom status and needs.Line was busy. Contacted for: Routine Telephonic Outreach Contact made with patient: No, unable to leave message. Will reattempt call Amarjit Herrera RN October 06, 2022 2:09 PM documented in this encounter [facility] 09-12-2022 History of Present illness Narrative CDM Telephonic Outreach Provider Action/FYI CDM: COPD Left a message to verify symptom status and needs, Instructed to call PCP with any changes in symptoms or condition. Contacted for: Routine Telephonic Outreach Contact made with patient: No, left message. Amarjit Herrera RN September 12, 2022 7:37 PM documented in this encounter [facility] 08-31-2022 History of Present illness Narrative This note was created using Droid system masterriter. Subjective Lexi Londono is a 71 year old female. Patient presents with: F/U 6 months: Labs prior SUBJECTIVE: Lexi Londono is a 71 year old year old lady here today for 6 month follow up appointment for review of medical conditions. Wondering about HH Aide because issues with back pain. Not able to do sweeping. Still drives and is able to leave home independently. Cut down to 10 cig per day. Not sure what keeps her from quitting. States has been smoking for so long. Stress contributes to smoking. Reviewed that was given 7 patch when saw Gene since did not tolerate higher dose patch. Noted get SOB with exertion and needs parking placard. Anxiety doing okay. overall. Sometimes can go longer than 1 to 2 months with Serax RX. PAST MEDICAL HISTORY Diagnosis Date Adhesive capsulitis of right shoulder 12/17/2014 Atrial fibrillation (HCC) Benign neoplasm of colon Tubular adenoma in 2005 Claudication (HCC) 12/01/2010 COPD (chronic obstructive pulmonary disease) (HCC) Generalized osteoarthrosis, unspecified site HLD (hyperlipidemia) HTN (hypertension) Internal hemorrhoids without mention of complication Noncompliance with medication regimen 12/06/2010 PMH - PAST MEDICAL HISTORY OF ASPVD Tendonitis left leg 04/14/2011 Tobacco use disorder Unspecified constipation Current Outpatient Medications Medication Sig levothyroxine (LEVOXYL) 25 mcg tablet Take 1 tablet by mouth once daily. Take on empty stomach. For Thyroid albuterol HFA (VENTOLIN HFA) 90 mcg/actuation inhaler Inhale 2 Puffs as instructed every 4 hours as needed for wheezing/shortness of breath. pravastatin (PRAVACHOL) 40 mg tablet TAKE 1 AND 1/2 TABLETS BY MOUTH DAILY AT BEDTIME verapamil 40 mg tablet Take 1 tablet by mouth twice daily. sotalol (BETAPACE) 80 mg tablet Take 1 tablet by mouth twice daily. atenolol (TENORMIN) 50 mg tablet Take 1.5 tablets by mouth twice daily. tiotropium-olodaterol (STIOLTO RESPIMAT) 2.5-2.5 mcg/actuation Inhale 2 Puffs as instructed once daily. oxazepam (SERAX) 10 mg capsule Take 1 capsule by mouth twice daily as needed for up to 30 days. aspirin, enteric coated (ASPIRIN, ENTERIC COATED) 81 mg EC tablet Take 81 mg by mouth once daily. Trolamine Salicylate-Aloe Vera (ASPERCREME) 10 % crea Apply 1 application to affected area four times daily as needed. nicotine (NICODERM CQ) 7 mg/24 hr Apply 1 Patch as directed every 24 hours. (Patient not taking: Reported on 08/31/2022) No current facility-administered medications for this visit. Review of Systems Objective BP 116/62 Pulse 62 Temp 36.8 C (98.3 F) Resp 18 Wt 73 kg (161 lb) SpO2 96% BMI 29.93 kg/m Last 5 Encounter Wt Readings: Date: Wt: 08/31/2022 73 kg (161 lb) 07/22/2022 73 kg (161 lb) 07/17/2021 70.8 kg (156 lb) 04/22/2021 68 kg (150 lb) 03/09/2021 70.3 kg (155 lb) No waist measurement recorded Estimated body mass index is 29.93 kg/m as calculated from the following: Height as of 07/22/22: 156.2 cm (5' 1.5). Weight as of this encounter: 73 kg (161 lb). Last 5 Encounter BP Readings: Date: BP: 08/31/2022 116/62 07/22/2022 136/84 07/17/2021 163/83[average of 2 BP[ 03/09/2021 118/66[manual[ 02/09/2021 134/76[auto[ Physical Exam Constitutional: Appearance: Normal appearance. HENT: Head: Normocephalic. Eyes: Conjunctiva/sclera: Conjunctivae normal. Cardiovascular: Rate and Rhythm: Normal rate and regular rhythm. Heart sounds: Normal heart sounds. Pulmonary: Effort: Pulmonary effort is normal. Breath sounds: Wheezing (low pitched) present. Skin: General: Skin is warm and dry. Neurological: General: No focal deficit present. Mental Status: She is alert and oriented to person, place, and time. Psychiatric: Mood and Affect: Mood normal. Behavior: Behavior normal. Thought Content: Thought content normal. Judgment: Judgment normal. Component Latest Ref Rng & Units 07/22/2022 WBC 3.70 - 11.00 k/uL 9.86 RBC 3.90 - 5.20 m/uL 4.70 Hemoglobin 11.5 - 15.5 g/dL 14.7 Hematocrit 36.0 - 46.0 % 44.7 MCV 80.0 - 100.0 fL 95.1 MCH 26.0 - 34.0 pg 31.3 MCHC 30.5 - 36.0 g/dL 32.9 RDW-CV 11.5 - 15.0 % 13.3 Platelet Count 150 - 400 k/uL 248 MPV 9.0 - 12.7 fL 11.0 Neut% % 53.7 Abs Neut (ANC) 1.45 - 7.50 k/uL 5.30 Lymph% % 29.4 Abs Lymph 1.00 - 4.00 k/uL 2.90 [place]% % 11.5 Abs [place] <0.87 k/uL 1.13 (H) Eosin% % 4.6 Abs Eosin <0.46 k/uL 0.45 Baso% % 0.6 Abs Baso <0.11 k/uL 0.06 Immature Gran % % 0.2 IMMATURE GRANS (ABS) <0.10 k/uL <0.03 NRBC /100 WBC 0.0 Absolute nRBC <0.01 k/uL <0.01 DTYPE Auto Protein, Total 6.3 - 8.0 g/dL 7.2 Albumin 3.9 - 4.9 g/dL 4.1 Calcium 8.5 - 10.2 mg/dL 9.6 Bilirubin, Total 0.2 - 1.3 mg/dL 0.4 Alkaline Phosphatase 34 - 123 U/L 97 AST 13 - 35 U/L 26 ALT 7 - 38 U/L 20 Glucose 74 - 99 mg/dL 87 BUN 7 - 21 mg/dL 8 Creatinine 0.58 - 0.96 mg/dL 0.81 Sodium 136 - 144 mmol/L 138 Potassium 3.7 - 5.1 mmol/L 4.3 Chloride 97 - 105 mmol/L 99 CO2 22 - 30 mmol/L 27 Anion Gap 9 - 18 mmol/L 12 eGFR >=60 mL/min/1.73m 77 Total Cholesterol, Nonfasting <200 mg/dL 164 Triglycerides, Nonfasting <150 mg/dL 170 (H) HDL Cholesterol, Nonfasting >39 mg/dL 45 LDL Cholesterol, Nonfasting <100 mg/dL 85 Non HDL Cholesterol, Nonfasting <130 mg/dL 119 VLDL Cholesterol, Nonfasting <30 mg/dL 34 (H) Total Chol/HDL Ratio, Nonfasting <5.10 mg/dL 3.64 LDL/HDL Ratio, Nonfasting <2.54 mg/dL 1.89 Alpha 1 Antitrypsin 90 - 200 mg/dL 177 TSH 0.270 - 4.200 mIU/L 8.670 (H) Free T4 0.9 - 1.7 ng/dL 1.0 Free T3 2.3 - 4.1 pg/mL 3.6 Assessment and Plan Encounter Diagnosis ICD-10-CM 1. Generalized anxiety disorder F41.1 oxazepam (SERAX) 10 mg capsule 2. Acquired hypothyroidism E03.9 TSH elevated. Will recheck TSH as ordered in September. Adjust dose as needed 3. Chronic obstructive pulmonary disease, unspecified COPD type (HCC) J44.9 4. Tobacco use disorder F17.200 Not ready to quit smoking yet 5. Primary hypertension I10 Well controlled 6. Dyspnea on exertion R06.09 Encouraged on smoking cessation. Monitor. Further evaluation and treatment as needed Above issues addressed with patient. Patient involved in shared decision making for management of medical issues. History and medications reviewed. Epic updated as needed Refills and/or prescriptions taken care of and meds adjusted as indicated after reviewed history, exam and labs. Health Maintenance reviewed. Updated record and/or ordered tests as recorded. Encouraged on efforts at healthy diet and regular exercise and adequate sleep. Stable with control of anxiety. Discussed with patient that benefits outweigh risks at this time. Patient prefers to stay on current medication.. Med effective so can continue to function and do ADLs and iADLs. No signs of diversion or abuse of medication(s); no adverse effects. Continue present management. Elena Andino MD documented in this encounter [facility] 08-16-2022 History of Present illness Narrative CDM Telephonic Outreach Provider Action/FYI CDM: COPD Left a message to verify symptom status and needs, Instructed to call PCP with any changes in symptoms or condition. Contacted for: Routine Telephonic Outreach Contact made with patient: No, left message. Amarjit Herrera RN August 16, 2022 4:41 PM CD Telephonic Outreach Provider Action/FYI CDM: COPD Left a message to verify symptom status and needs, Instructed to call PCP with any changes in symptoms or condition. Contacted for: Routine Telephonic Outreach Contact made with patient: No, left message. Amarjit Herrera RN August 13, 2022 1:20 PM documented in this encounter [facility] 08-11-2022 Miscellaneous Notes Spoke with patient and she did start taking the levothyroxine and will repeat TSH in 6 weeks. Will attempt to get the peroxidase mickey. LEFT MESSAGE FOR PATIENT TO CALL OFFICE. LEFT MESSAGE FOR PATIENT TO CALL OFFICE. Has not yet completed thyroid peroxidase antibodies. Recommend these at her earliest convenience. If she does not want to take levothyroxine now can recheck TSH and thyroid peroxidase antibodies in 6 weeks. Most people do not have palpitations. This is replacing a hormone that her body needs if indicated. She can still treat gas if she is taking levothyroxine. She can schedule an appointment in office if she wants to discuss in more detail Patient calls and states that she has not taken prescribed levothyroxine yet. Patient states that she had read about the side effects of medications and saw that medication can cause heart palpitations. Patient states that she already has heart palpitations at times so she is scared to take medication. Patient also reports that directions states that she should not take antacids if she is taking levothyroxine. Patient states that she gets so much gas pain at times she has to take Swetha [place]. Patient states that she has to take this 2-4 times a week for gas pain. Patient also states that when she eats, her eyes get heavy and she falls asleep. Patient asking for provider to advise about levothyroxine. Please review and advise, Evelia Cochran RN documented in this encounter [facility] 07-27-2022 Miscellaneous Notes Pt called and is notified of providers message and instructions. Pt voices understanding. Brenna Lamb RN yes Pt called and is notified of providers message and instructions. Pt voices understanding. Pt states it will be a while before she can come in and get the Thyroid antibody lab, she wanted to know if she can take the Levothyroxine before doing it. Please call and advise. Brenna Lamb RN If she is currently without symptoms attributed to vaccine then she can continue to monitor and let us know if any recurrence. Recommend ER if any severe or concerning symptoms. Pt called and is notified of providers results and instructions. Pt voices understanding. Pt states she has noticed fatigue and weight gain and is willing to take the medication. She states she will come in and get the last test done as soon as she can find a ride. Pt states when she was in to see provider she received her Covid vaccine. She states she was sick after she had body aches, head ache, head felt foggy, she slept a lot, and she reports she was having heart palpitations. She said she hasn't had any palpitations Tuesday or Tuesday. I told her if she was having palpitations she should have gone to the ER to get her heart checked out. She said she thinks it was just the vaccine, because she isn't having them now. Brenna Lamb RN No answer. Left message for patient to call office and ask to speak to a nurse regarding lab results. Ok for what lab services can do. She can come in at her earliest convenience for thyroid antibody test. Can treat with levothyroxine as indicated below if willing. Spoke with lab client services and they are able to do the free T3 and T4 but they do not have enough serum to do the thyroid antibody. Please advise Please let her know that : TSH is elevated. Triglycerides slightly elevated otherwise acceptable lipid panel. CBC and metabolic panel in acceptable range. Would recommend free T3 free T4 and thyroid antibody test be completed, check to see if add-on lab can do this. Would recommend treatment with levothyroxine if noting fatigue, lethargy or weight gain. documented in this encounter [facility] 07-22-2022 History of Present illness Narrative INSIGHT CDM TELEPHONIC OUTREACH Provider Action/FYI: CDM: COPD Called Pt to verify COPD or other symptom status and needs, unable to leave a message. Contact made with patient: No - Left message Regi my name is Amarjit Herrera RN your Health Care Sanitary Technician from the [facility] I am calling today for your bi-weekly check in. I am sorry I missed your call. I will reach out to you again tomorrow. (if the third call I will reach out to you again next week) Enter next patient outreach date for the following business day using the Track Pt Outreach. End outreach. Amarjit Herrera RN July 22, 2022 4:24 PM INSIGHT CDM TELEPHONIC OUTREACH Provider Action/FYI: CDM: COPD Called Pt to verify COPD or other symptom status and needs, unable to leave a message. Contact made with patient: No - Unable to leave message Entered next patient outreach date for the following business day, if third call please enter next outreach date for one week in the Track Pt. Outreach - End Outreach Amarjit Herrera RN July 21, 2022 4:39 PM documented in this encounter [facility] 07-22-2022 History of Present illness Narrative SUBJECTIVE: PNEUMOCOCCAL: 65+(1 - PCV) Never done BP CONTROLLED (<130/80) Never done DTAP,TDAP,TD(1 - Tdap) Never done ALPHA-1 ANTITRYPSIN DEFICIENCY SCREENING Never done SHINGRIX VACCINE(1 of 2) Never done BONE DENSITY Never done MAMMOGRAM due on 02/09/2017 COLORECTAL CANCER SCREENING due on 07/13/2017 LDL CHOLESTEROL due on 08/11/2019 DIABETES SCREEN due on 08/10/2021 ANNUAL PCP TEAM CHRONIC DISEASE VISIT due on 09/08/2021 COVID-19 VACCINE(5 - Booster for Pfizer series) due on 09/24/2021 ADVANCE DIRECTIVE DISCUSSION due on 04/18/2022 DEPRESSION ASSESSMENT Never done HPI Lexi Londono is a 71 year old female. PMH significant for ACTIVE PROBLEM LIST Atrial Fibrillation (Hcc) Generalized Oa Tobacco Use Disorder Venous Thrombosis Copd (Chronic Obstructive Pulmonary Disease) (Hcc) Hyperlipidemia Ashd (Arteriosclerotic Heart Disease) Generalized Anxiety Disorder Dyspnea On Exertion Primary Hypertension Cardiology for PMH significant for NSVT, PAF, HLD. Last seen by Kirsty Pineda 04/2021. Last EKG completed 2020. Smoking: current smoker, 10 per day, trying to quit. Would like to use patches No recent fill of maintenance or rescue inhaler noted in outside medication review. Cutlery Grinder: no recent visit, one visit 02/[address] Montero She notes history of anxiety and depression. States she has not left her house for 6 months. Notes she was very anxious to come in for her visit today. Not interested in medication for depression or counseling at this time. States did not do well with depression meds in the past. Notes counseling did not help her much in the past. HTN: Without report of headache, chest pain, palpitations, dyspnea, peripheral edema, orthopnea, fatigue and PND. Last 14 Encounter BP Readings: Date: BP: 07/22/2022 136/84 07/17/2021 163/83[average of 2 BP[ 03/09/2021 118/66[manual[ 02/09/2021 134/76[auto[ 09/08/2020 122/76 08/22/2018 111/63 08/10/2018 100/70 01/04/2018 116/62 08/19/2017 102/66 07/04/2017 110/60 01/03/2017 130/80 08/27/2016 102/70 08/18/2016 100/60 06/03/2016 108/70 Hyperlipidemia. Ms. Londono reports doing well on current therapy Her most recent lipid panels are: Cholesterol, Total (mg/dL) Date Value 08/10/2018 155 06/27/2017 178 HDL Cholesterol (mg/dL) Date Value 08/10/2018 40 06/27/2017 46 LDL Cholesterol (mg/dL) Date Value 08/10/2018 76 06/27/2017 102 Triglyceride (mg/dL) Date Value 08/10/2018 193 06/27/2017 149 COPD. She notes chronic shortness of breath, currently stable. No report of exacerbation. She reports she has completed living will, has a copy of this [facility] at [facility]. Previously noted her friend Ijeoma is her surrogate. Review of Systems Constitutional: Negative. Respiratory: Positive for cough and shortness of breath. Cardiovascular: Negative. Endocrine: Negative. Psychiatric/Behavioral: Positive for dysphoric mood. The patient is nervous/anxious. Objective BP 136/84 Pulse 66 Resp 16 Ht 156.2 cm (5' 1.5) Wt 73 kg (161 lb) SpO2 96% BMI 29.93 kg/m Physical Exam Vitals and nursing note reviewed. Constitutional: Appearance: Normal appearance. HENT: Head: Normocephalic and atraumatic. Eyes: Conjunctiva/sclera: Conjunctivae normal. Neck: Thyroid: No thyromegaly. Vascular: Normal carotid pulses. No JVD. Cardiovascular: Rate and Rhythm: Normal rate and regular rhythm. Pulses: Carotid pulses are 2+ on the right side and 2+ on the left side. Radial pulses are 2+ on the right side and 2+ on the left side. Heart sounds: Normal heart sounds. Pulmonary: Effort: Pulmonary effort is normal. Breath sounds: Normal breath sounds. Abdominal: General: Bowel sounds are normal. Palpations: Abdomen is soft. Skin: General: Skin is warm and dry. Neurological: Mental Status: She is alert. Mental status is at baseline. ALLERGIES Allergen Reactions Albuterol Intolerance Anxiety. Something zoomed through my heart. Clindamycin Diarrhea Codeine Unknown Darvocet A500 [Prop* Intolerance Lipitor [Atorvastat* GI Upset abdomen bloating initial c/o then retracted by pt Lotions [Other] Intolerance Nickel Rash allergic to all metals, including gold and razor blades Ntg [Nitrate Analog* Intolerance hypotension Penicillins Unknown Pepcid [Famotidine * Itching face itched Sodium Penathol [Ot* Intolerance Medication aspirin, enteric coated (ASPIRIN, ENTERIC COATED) 81 mg EC tablet Take 81 mg by mouth once daily. Trolamine Salicylate-Aloe Vera (ASPERCREME) 10 % crea Apply 1 application to affected area four times daily as needed. nicotine (NICODERM CQ) 7 mg/24 hr Apply 1 Patch as directed every 24 hours. albuterol HFA (VENTOLIN HFA) 90 mcg/actuation inhaler Inhale 2 Puffs as instructed every 4 hours as needed for wheezing/shortness of breath. pravastatin (PRAVACHOL) 40 mg tablet TAKE 1 AND 1/2 TABLETS BY MOUTH DAILY AT BEDTIME verapamil 40 mg tablet Take 1 tablet by mouth twice daily. sotalol (BETAPACE) 80 mg tablet Take 1 tablet by mouth twice daily. atenolol (TENORMIN) 50 mg tablet Take 1.5 tablets by mouth twice daily. tiotropium-olodaterol (STIOLTO RESPIMAT) 2.5-2.5 mcg/actuation Inhale 2 Puffs as instructed once daily. oxazepam (SERAX) 10 mg capsule Take 1 capsule by mouth twice daily as needed for up to 30 days. PAST MEDICAL HISTORY Diagnosis Date Adhesive capsulitis of right shoulder 12/17/2014 Atrial fibrillation (HCC) Benign neoplasm of colon Tubular adenoma in 2006 Claudication (HCC) 12/01/2010 COPD (chronic obstructive pulmonary disease) (HCC) Generalized osteoarthrosis, unspecified site HLD (hyperlipidemia) HTN (hypertension) Internal hemorrhoids without mention of complication Noncompliance with medication regimen 12/06/2010 PMH - PAST MEDICAL HISTORY OF ASPVD Tendonitis left leg 04/14/2011 Tobacco use disorder Unspecified constipation Social History Tobacco Use Smoking status: Every Day Packs/day: 0.25 Years: 30.00 Pack years: 7.50 Types: Cigarettes Smokeless tobacco: Never Tobacco comments: 5-6 cigs daily Substance Use Topics Alcohol use: No Drug use: Yes Frequency: 2.0 times per week Types: Marijuana Comment: for back pain as needed ASSESSMENT/PLAN: 1. Chronic obstructive pulmonary disease, unspecified COPD type (HCC) - ICD9: 496, ICD10: J44.9 (primary diagnosis) - [id number] 2. Encounter for immunization - ICD9: V03.89, ICD10: Z23 - PNEUMOCOCCAL VACCINE (PREVNAR 20) - future - TDAP VACCINE, AGE 7+ YR (ADACEL, BOOSTRIX) - future - PFIZER-BIONTECH COVID-19 BIVALENT BOOSTER VACCINE, AGE 12+ YR -today 4. Screening for osteoporosis - ICD9: V82.81, ICD10: Z13.820 5. Asymptomatic menopause - ICD9: V49.81, ICD10: Z78.0 - DXA-AXIAL SKELETON 6. Screening for colon cancer - ICD9: V76.51, ICD10: Z12.11 - FECAL OCCULT BLOOD TEST 7. Screening for diabetes mellitus (DM) - ICD9: V77.1, ICD10: Z13.1 8. Paroxysmal atrial fibrillation (HCC) - ICD9: 427.31, ICD10: I48.0 - COMP METABOLIC PANEL - CBC + DIFF - TSH BLD - VERAPAMIL 40 MG TABLET - SOTALOL 80 MG TABLET - ATENOLOL 50 MG TABLET 9. Generalized anxiety disorder - ICD9: 300.02, ICD10: F41.1 - OXAZEPAM 10 MG CAPSULE 10. Tobacco use disorder - ICD9: 305.1, ICD10: F17.200 - Cessation encouraged. - CONSULT TO PULM/CRITICAL CARE 11. Hyperlipidemia, unspecified hyperlipidemia type - ICD9: 272.4, ICD10: E78.5 - Continue current medication. - COMP METABOLIC PANEL - PRAVASTATIN 40 MG TABLET - LIPID PANEL, NONFASTING 12. Primary hypertension - ICD9: 401.9, ICD10: I10 Controlled - Continue current medication(s) - Encouraged dietary sodium restriction/DASH diet - Recommended regular aerobic exercise. 13. Dyspnea on exertion - ICD9: 786.09, ICD10: R06.09 Stable SOBOE 14. Colon cancer screening - ICD9: V76.51, ICD10: Z12.11 FOBT 15. ASHD (arteriosclerotic heart disease) - ICD9: 414.00, ICD10: I25.10 - COMP METABOLIC PANEL - CBC + DIFF - TSH BLD - LIPID PANEL, NONFASTING 16. Mucopurulent chronic bronchitis (HCC) - ICD9: 491.1, ICD10: J41.1 - CONSULT TO PULM/CRITICAL CARE Complete EKG Complete labs schedule pulmonology visit 6-12 mo follow up MD Gene Griffith APRN.GUIDANCE CONSULTANT Medical Decision Making: Problems: Moderate: 2+ stable chronic illnesses Data: Unique test(s) ordered: 3+ Risk: Moderate: Moderate risk from testing/treatment Medical Decision Making Level: 4 - Moderate documented in this encounter [facility] 07-12-2022 History of Present illness Narrative INSIGHT CDM TELEPHONIC OUTREACH Provider Action/FYI: CDM: COPD 2nd Call, Left a message to verify symptom status and needs, Instructed to call PCP with any changes in symptoms or condition. Contact made with patient: No - Left message Regi my name is Amarjit Herrera RN your Health Care Sanitary Technician from the [facility] I am calling today for your bi-weekly check in. I am sorry I missed your call. I will reach out to you again tomorrow. (if the third call I will reach out to you again next week) Enter next patient outreach date for the following business day using the Track Pt Outreach. End outreach. Amarjit Herrera RN July 12, 2022 6:04 PM INSIGHT [facility] TELEPHONIC OUTREACH Provider Action/FYI: CDM: COPD Left a message to verify symptom status and needs, Instructed to call PCP with any changes in symptoms or condition. Contact made with patient: No - Left message Regi my name is Amarjit Herrera RN your Health Care Sanitary Technician from the [facility] I am calling today for your bi-weekly check in. I am sorry I missed your call. I will reach out to you again tomorrow. (if the third call I will reach out to you again next week) Enter next patient outreach date for the following business day using the Track Pt Outreach. End outreach. Amarjit Herrera RN July 08, 2022 5:13 PM documented in this encounter [facility] 07-01-2022 Miscellaneous Notes Email sent to [facility] to mail out appointment reminder. Patient is calling in today and asked if a print out of all her appointments please be printed out and mailed to her home. I verified address. Thank you. Kait Calles Pss documented in this encounter [facility] 06-22-2022 History of Present illness Narrative [facility]IC OUTREACH Provider Action/FYI: CDM: COPD Left a message to verify symptom status and needs, Instructed to call PCP with any changes in symptoms or condition. Contact made with patient: No - Left message Regi my name is Amarjit Herrera RN your Health Care Sanitary Technician from the [facility] I am calling today for your bi-weekly check in. I am sorry I missed your call. I will reach out to you again tomorrow. (if the third call I will reach out to you again next week) Enter next patient outreach date for the following business day using the Track Pt Outreach. End outreach. Amarjit Herrera RN June 22, 2022 11:05 AM [facility] TE[facility] OUTREACH Provider Action/FYI: CDM: COPD Left a message to verify symptom status and needs, Instructed to call PCP with any changes in symptoms or condition. Contact made with patient: No - Left message Hello my name is Amarjit Herrera RN your Health Care Sanitary Technician from the [facility] I am calling today for your bi-weekly check in. I am sorry I missed your call. I will reach out to you again tomorrow. (if the third call I will reach out to you again next week) Enter next patient outreach date for the following business day using the Track Pt Outreach. End outreach. Amarjit Herrera RN June 21, 2022 11:11 AM documented in this encounter [facility] 05-20-2022 History of Present illness Narrative [facility] OUTREACH Provider Action/FYI: CDM: COPD Left a message to verify symptom status and needs, Instructed to call PCP with any changes in symptoms or condition. Contact made with patient: No - Left message Hello my name is Amarjit Herrera RN your Health Care Sanitary Technician from the [facility] I am calling today for your bi-weekly check in. I am sorry I missed your call. I will reach out to you again tomorrow. (if the third call I will reach out to you again next week) Enter next patient outreach date for the following business day using the Track Pt Outreach. End outreach. Amarjit Herrera RN May 20, 2022 10:53 AM [facility] OUTREACH Provider Action/FYI: CDM: COPD Left a message to verify symptom status and needs, Instructed to call PCP with any changes in condition Contact made with patient: No - Left message Hello my name is Amarjit Herrera RN your Health Care Sanitary Technician from the [facility] I am calling today for your bi-weekly check in. I am sorry I missed your call. I will reach out to you again tomorrow. (if the third call I will reach out to you again next week) Enter next patient outreach date for the following business day using the Track Pt Outreach. End outreach. Amarjit Herrera RN May 18, 2022 2:20 PM documented in this encounter [facility] 04-28-2022 History of Present illness Narrative [facility] OUTREACH Provider Action/FYI: CDM: COPD Left a message to verify symptom status and needs, Instructed to call PCP with any changes in symptoms or condition. Contact made with patient: No - Left message Regi my name is Amarjit Herrera RN your Health Care Sanitary Technician from the [facility] I am calling today for your bi-weekly check in. I am sorry I missed your call. I will reach out to you again tomorrow. (if the third call I will reach out to you again next week) Enter next patient outreach date for the following business day using the Track Pt Outreach. End outreach. Amarjit Herrera RN April 28, 2022 10:02 AM [facility] OUTREACH Provider Action/FYI: CDM: COPD Left a message to verify symptom status and needs, Instructed to call PCP with any changes in symptoms or condition Contact made with patient: No - Left message Hello my name is Amarjit Herrera RN your Health Care Sanitary Technician from the [facility] I am calling today for your bi-weekly check in. I am sorry I missed your call. I will reach out to you again tomorrow. (if the third call I will reach out to you again next week) Enter next patient outreach date for the following business day using the Track Pt Outreach. End outreach. Amarjit Herrera RN April 26, 2022 12:43 PM documented in this encounter [facility] 03-18-2022 History of Present illness Narrative [facility] OUTREACH Provider Action/FYI: Left a message to verify COPD or other symptoms or needs. Contact made with patient: No - Left message Regi my name is Amarjit Herrera RN your Health Care Sanitary Technician from the [facility] I am calling today for your bi-weekly check in. I am sorry I missed your call. I will reach out to you again tomorrow. (if the third call I will reach out to you again next week) Enter next patient outreach date for the following business day using the Track Pt Outreach. End outreach. Amarjit Herrera RN March 18, 2022 1:39 PM documented in this encounter [facility] 03-15-2022 History of Present illness Narrative [facility]REACH Provider Action/FYI: Left a message to verify COPD or other symptoms or needs. Contact made with patient: No - Left message Regi my name is Amarjit Herrera RN your Health Care Sanitary Technician from the [facility] I am calling today for your bi-weekly check in. I am sorry I missed your call. I will reach out to you again tomorrow. (if the third call I will reach out to you again next week) Enter next patient outreach date for the following business day using the Track Pt Outreach. End outreach. Amarjit Herrera RN March 15, 2022 10:52 AM documented in this encounter [facility] 02-11-2022 Miscellaneous Notes Schedule her with Rukhsana Pineda or one of the cardiologists. Needs to complete an EKG on the same date Pt states it had been a while since last seen. Sherie Calles LPN Spoke with pt and she states she saw cardiology at the [facility]. Do you want her to make another apt.? 1) needs order for EKG 2)help her schedule apt with cardiology. 3)needs order for blood work Help pt get apts booked. Call pt after 4 pm. Sherie VIZCAINO Left a message for pt to call the office and ask to speak to a nurse. Sherie Calles LPN Left a message for pt to call the office and ask to speak to a nurse. Sherie Calles LPN LEFT MESSAGE FOR PATIENT TO CALL OFFICE. Needs follow up EKG and serum creatinine at her convenience unless sotalol being followed by hand tennis ball coverer elsewhere. Patient has been identified by name and date of : Yes Patient phones for refill(s): Requested Prescriptions Pending Prescriptions Disp Refills sotalol (BETAPACE) 80 mg tablet 180 tablet 3 Sig: Take 1 tablet by mouth twice daily. Date of last office visit in primary care: 07/17/2021 6 month follow-up: 03/30/2022 Last 2 Encounter Wt Readings: Date: Wt: 07/17/2021 70.8 kg (156 lb) 04/22/2021 68 kg (150 lb) Previous labs/tests for medication: Blood Pressure: BUN (mg/dL) Date Value 08/10/2018 13 Sodium (mmol/L) Date Value 08/10/2018 140 Last 1 Encounter BP Readings: Date: BP: 07/17/2021 163/83[average of 2 BP[ Please advise. Thank you. Nelli Ibarra LPN Florinda is calling to check on status. She is out of the medication. Patient has been identified by name and date of : Yes Last office visit in this department: 07/17/2021 RX INSTRUCTIONS: Patient aware RX will be sent to pharmacy. No need to notify patient. Pt has has 1 pill left Patient phones requesting refills as follows: Requested Prescriptions Pending Prescriptions Disp Refills sotalol (BETAPACE) 80 mg tablet 180 tablet 3 Sig: Take 1 tablet by mouth twice daily. Please review and advise. Erlinda Magaña documented in this encounter [facility] 02-10-2022 History of Present illness Narrative [facility] OUTREACH Provider Action/FYI: Spk with Pt she denies worsening or new COPD symptoms or needs. Contact made with patient: No - Left message Hello my name is Amarjit Herrera RN your Health Care Sanitary Technician from the [facility] I am calling today for your bi-weekly check in. I am sorry I missed your call. I will reach out to you again tomorrow. (if the third call I will reach out to you again next week) Enter next patient outreach date for the following business day using the Track Pt Outreach. End outreach. Amarjit Herrera RN February 10, 2022 12:48 PM documented in this encounter [facility] 01-19-2022 History of Present illness Narrative [facility] OUTREACH Provider Action/FYI: Spk with Pt she denies worsening or new COPD symptoms or needs. Contact made with patient: Yes Patient identified by name and . Discussed care with patient It s nice talking to you again. As a reminder, this is our bi-weekly check-in where I will be asking you questions about your health. This will only take a few minutes of your time. Is this a good time? Yes Symptoms What Chronic Disease(s) does the patient have: COPD Do you check your blood pressures at home? No Do you have new or worse shortness of breath with activity? No Do you have new or worsening cough? No Do you have new or worsening wheezing? No Do you need to use your rescue (Albuterol) inhaler or nebulizer more often than normal? No Are you having any other symptoms that your PCP needs to know about? No Symptom Escalation The patient required an escalation for symptom(s)? No Medications Do you have any questions about taking your medication or which medications you should be on? No Do you need any medication refills at this time, including any of the medications you might take only when needed? No Social We would like to make sure you have what you need so that your basic needs are met- including your personal safety, food, housing and medications? Would you like to speak with a social work clinical team lead to help give you support for any of these needs? No It can be normal to feel anxious or down during a time like this. Would you like to talk to a mental health professional about how you have been feeling? No Closing Thank you for taking the time to talk with me today. We want to work with you to ensure that we are keeping your medical condition(s) well-controlled and to keep you healthy and out of the doctor's office or hospital. It s also not too late for me to sign you up for automated weekly questionnaires through [employer]. This is an easy way for us to stay connected each week. Are you interested? No, I understand. We can always sign you up in the future if you change your mind. Just as a reminder, will continue to call you every other week to check in on your health. Our calls should take 10-15 minutes or less. Remember, if you have concerns in between our calls, please call your PCP's office right away. Thank you. Enter next patient outreach date for two weeks on the same day of the week as today in the Track Pt Outreach and End outreach. Amarjit Herrera RN January 19, 2022 2:36 PM documented in this encounter [facility] 01-11-2022 History of Present illness Narrative [facility] OUTREACH Provider Action/FYI: Called Pt left a message to verify COPD symptom status and needs. Contact made with patient: No - Left message Hello my name is Amarjit Herrera RN your Health Care Sanitary Technician from the [facility] I am calling today for your bi-weekly check in. I am sorry I missed your call. I will reach out to yo u again tomorrow. (if the third call I will reach out to you again next week) Enter next patient outreach date for the following business day using the Track Pt Outreach. End outreach. Amarjit Herrera RN January 11, 2022 12:10 PM documented in this encounter [facility] 12-11-2021 History of Present illness Narrative [facility] OUTREACH Provider Action/FYI: Called Pt left a message to verify COPD symptom status and needs. Contact made with patient: No - Left message Hello my name is Amarjit Herrera RN your Health Care Sanitary Technician from the [facility] I am calling today for your bi-weekly check in. I am sorry I missed your call. I will reach out to you again tomorrow. (if the third call I will reach out to you again next week) Enter next patient outreach date for the following business day using the Track Pt Outreach. End outreach. Amarjit Herrera RN December 11, 2021 11:33 AM documented in this encounter [facility] 11-11-2021 History of Present illness Narrative [facility]REACH Provider Action/FYI: Called Pt left a message to verify COPD symptom status and needs. Contact made with patient: No - Left message Hello my name is Amarjit Herrera RN your Health Care Sanitary Technician from the [facility] I am calling today for your bi-weekly check in. I am sorry I missed your call. I will reach out to you again tomorrow. (if the third call I will reach out to you again next week) Enter next patient outreach date for the following business day using the Track Pt Outreach. End outreach. Amarjit Herrera RN November 11, 2021 9:27 AM [facility] OUTREACH Provider Action/FYI: Called Pt left a message to verify COPD symptom status and needs. Contact made with patient: No - Left message Hello my name is Amarjit Herrera RN your Health Care Sanitary Technician from the [facility] I am calling today for your bi-weekly check in. I am sorry I missed your call. I will reach out to you again tomorrow. (if the third call I will reach out to you again next week) Enter next patient outreach date for the following business day using the Track Pt Outreach. End outreach. Amarjit Herrera RN November 09, 2021 2:44 PM documented in this encounter [facility] 10-14-2021 History of Present illness Narrative [facility]REACH Provider Action/FYI: Called Pt left a message to verify COPD symptom status and needs. Contact made with patient: No - Left message Joaolo my name is Amarjit Herrera RN your Health Care Sanitary Technician from the [facility] I am calling today for your bi-weekly check in. I am sorry I missed your call. I will reach out to you again tomorrow. (if the third call I will reach out to you again next week) Enter next patient outreach date for the following business day using the Track Pt Outreach. End outreach. Amarjit Herrera RN October 14, 2021 3:40 PM documented in this encounter [facility] 10-06-2021 History of Present illness Narrative [facility] OUTREACH Provider Action/FYI: Called Pt left a message to verify COPD symptom status and needs. Contact made with patient: No - Left message Hello my name is Amarjit Herrera RN your Health Care Sanitary Technician from the [facility] I am calling today for your bi-weekly check in. I am sorry I missed your call. I will reach out to you again tomorrow. (if the third call I will reach out to you again next week) Enter next patient outreach date for the following business day using the Track Pt Outreach. End outreach. Amarjit Herrera RN October 06, 2021 11:51 AM [facility] OUTREACH Provider Action/FYI: Call to Pt left a message to verify COPD symptom status and needs. Contact made with patient: No - Left message Hello my name is Amarjit Herrera RN your Health Care Sanitary Technician from the [facility] I am calling today for your bi-weekly check in. I am sorry I missed your call. I will reach out to you again tomorrow. (if the third call I will reach out to you again next week) Enter next patient outreach date for the following business day using the Track Pt Outreach. End outreach. Amarjit Herrera RN October 05, 2021 2:22 PM documented in this encounter [facility] 09-28-2021 History of Present illness Narrative [facility] OUTREACH Provider Action/FYI: Call to Pt left a message to verify COPD symptom status and needs. Contact made with patient: No - Left message Hello my name is Amarjit Herrera RN your Health Care Sanitary Technician from the [facility] I am calling today for your bi-weekly check in. I am sorry I missed your call. I will reach out to you again tomorrow. (if the third call I will reach out to you again next week) Enter next patient outreach date for the following business day using the Track Pt Outreach. End outreach. Amarjit Herrera RN September 28, 2021 9:22 AM documented in this encounter [facility] 09-17-2021 Miscellaneous Notes PDMP website checked and validated. All prescriptions have been APPROPRIATELY filled. No suspicious activity was identified. 09/17/2021 by Gene Love APRN.GUIDANCE CONSULTANT rx sent Last appt with DERRICK BARGE OPERATOR 07/17/21. Patient has been identified by name and date of : Yes Pending Prescriptions Disp Refills OXAZEPAM 10 MG CAPSULE 180 capsule 1 Sig: Take 1 capsule by mouth twice daily as needed for up to 30 days. NEELAM Class: C-IV TAMMY: No RX INSTRUCTIONS: She is out of medication, please send today. Patient aware RX will be sent to pharmacy. No need to notify patient. Susana Wilson Pss documented in this encounter [facility] 09-17-2021 History of Present illness Narrative [facility]RE[facility] Provider Action/FYI: Call to Pt left a message to verify COPD symptom status and needs. Contact made with patient: No - Left message Regi my name is Amarjit Herrera RN your Health Care Sanitary Technician from the [facility] I am calling today for your bi-weekly check in. I am sorry I missed your call. I will reach out to you again tomorrow. (if the third call I will reach out to you again next week) Enter next patient outreach date for the following business day using the Track Pt Outreach. End outreach. Amarjit Herrera RN September 17, 2021 3:24 PM documented in this encounter [facility] 09-16-2021 Miscellaneous Notes rec'd via fax from [facility] form expense report. This has been sent to correct department via internal mail. documented in this encounter [facility] 09-03-2021 History of Present illness Narrative [facility]RE[facility] Provider Action/FYI: Call to Pt left a message to verify COPD symptom status and needs. Contact made with patient: No - Left message Regi my name is Amarjit Herrera RN your Health Care Sanitary Technician from the [facility] I am calling today for your bi-weekly check in. I am sorry I missed your call. I will reach out to you again tomorrow. (if the third call I will reach out to you again next week) Enter next patient outreach date for the following business day using the Track Pt Outreach. End outreach. Amarjit Herrera RN September 03, 2021 1:15 PM [facility]RE[facility] Provider Action/FYI: Call to Pt left a message to verify COPD symptom status and needs. Contact made with patient: No - Left message Hellorie my name is Amarjit Herrera RN your Health Care Sanitary Technician from the [facility] I am calling today for your bi-weekly check in. I am sorry I missed your call. I will reach out to you again tomorrow. (if the third call I will reach out to you again next week) Enter next patient outreach date for the following business day using the Track Pt Outreach. End outreach. Amarjit Herrera RN September 02, 2021 12:54 PM documented in this encounter [facility] 08-17-2021 History of Present illness Narrative [facility] OUTREACH Provider Action/FYI: Spk with Pt, denies new or worsening COPD or other symptoms or needs.. Contact made with patient: Yes Patient identified by name and . Discussed care with patient It s nice talking to you again. As a reminder, this is our bi-weekly check-in where I will be asking you questions about your health. This will only take a few minutes of your time. Is this a good time? Yes Symptoms What Chronic Disease(s) does the patient have: COPD Do you check your blood pressures at home? No Do you have new or worse shortness of breath with activity? No Do you have new or worsening cough? No Do you have new or worsening wheezing? No Do you need to use your rescue (Albuterol) inhaler or nebulizer more often than normal? No Are you having any other symptoms that your PCP needs to know about? No Symptom Escalation The patient required an escalation for symptom(s)? No Medications Do you have any questions about taking your medication or which medications you should be on? No Do you need any medication refills at this time, including any of the medications you might take only when needed? No Social We would like to make sure you have what you need so that your basic needs are met- including your personal safety, food, housing and medications? Would you like to speak with a social work clinical team lead to help give you support for any of these needs? No It can be normal to feel anxious or down during a time like this. Would you like to talk to a mental health professional about how you have been feeling? No Closing Thank you for taking the time to talk with me today. We want to work with you to ensure that we are keeping your medical condition(s) well-controlled and to keep you healthy and out of the doctor's office or hospital. It s also not too late for me to sign you up for automated weekly questionnaires through [employer]. This is an easy way for us to stay connected each week. Are you interested? No, I understand. We can always sign you up in the future if you change your mind. Just as a reminder, will continue to call you every other week to check in on your health. Our calls should take 10-15 minutes or less. Remember, if you have concerns in between our calls, please call your PCP's office right away. Thank you. Enter next patient outreach date for two weeks on the same day of the week as today in the Track Pt Outreach and End outreach. Amarjit Herrera RN August 17, 2021 2:00 PM . documented in this encounter [facility] 08-12-2021 History of Present illness Narrative [facility] Provider Action/FYI: Call to Pt left a message to verify COPD symptom status and needs. Contact made with patient: No - Left message Hello my name is Amarjit Herrera RN your Health Care Sanitary Technician from the [facility] I am calling today for your bi-weekly check in. I am sorry I missed your call. I will reach out to you again tomorrow. (if the third call I will reach out to you again next week) Enter next patient outreach date for the following business day using the Track Pt Outreach. End outreach. Amarjit Herrera RN August 12, 2021 11:07 AM documented in this encounter [facility] 08-03-2021 History of Present illness Narrative [facility] TELEPHONIC OUTREACH Provider Action/FYI: Call to Pt left a message to verify COPD or other symptoms or needs. Contact made with patient: No - Left message Hello my name is Amarjit Herrera RN your Health Care Sanitary Technician from the [facility] I am calling today for your bi-weekly check in. I am sorry I missed your call. I will reach out to you again tomorrow. (if the third call I will reach out to you again next week) Enter next patient outreach date for the following business day using the Track Pt Outreach. End outreach. Amarjit Herrera RN August 03, 2021 4:57 PM documented in this encounter [facility] 07-30-2021 History of Present illness Narrative [facility] TELEPHONIC OUTREACH Provider Action/FYI: Call to Pt left a message to verify COPD status and needs. Contact made with patient: No - Left message Regi my name is Amarjit Herrera RN your Health Care Sanitary Technician from the [facility] I am calling today for your bi-weekly check in. I am sorry I missed your call. I will reach out to you again tomorrow. (if the third call I will reach out to you again next week) Enter next patient outreach date for the following business day using the Track Pt Outreach. End outreach. Amarjit Herrera RN July 30, 2021 3:55 PM documented in this encounter [facility] 07-17-2021 Instructions Gene Love APRN.CNS - 07/17/2021 2:35 PM EDT Check to see if your insurance covers Tdap and shingles vaccine and what location to get the vaccine -usually best covered at your local pharmacy where you get prescriptions filled Try the inhaler Dr Montero recommended documented in this encounter [facility] 07-17-2021 History of Present illness Narrative SUBJECTIVE: DTAP,TDAP,TD(1 - Tdap) Never done SHINGRIX VACCINE(1 of 2) Never done BONE DENSITY Never done MAMMOGRAM due on 02/09/2017 COLORECTAL CANCER SCREENING due on 07/13/2017 LDL CHOLESTEROL due on 08/11/2019 ADVANCE DIRECTIVE DISCUSSION Never done DIABETES SCREEN due on 08/10/2021 HPI Lexi Londono is a 70 year old female. PMH significant for ACTIVE PROBLEM LIST Atrial Fibrillation (Hcc) Generalized Oa Tobacco Use Disorder Venous Thrombosis Copd (Chronic Obstructive Pulmonary Disease) (Hcc) Hyperlipidemia Ashd (Arteriosclerotic Heart Disease) Generalized Anxiety Disorder Dyspnea On Exertion Primary Hypertension Smoking: current smoker, 6 per day, trying to quit. She knows she is not been using maintenance inhaler provided. Rarely uses albuterol inhaler. She notes social stressors, states not missing any medication doses for blood pressure. HTN: Without report of headache, chest pain, palpitations, dyspnea, peripheral edema, orthopnea, fatigue and PND. Last 3 Encounter BP Readings: Date: BP: 03/09/2021 118/66[manual[ 02/09/2021 134/76[auto[ 09/08/2020 122/76 Hyperlipidemia. Her most recent lipid panels are: Cholesterol, Total (mg/dL) Date Value 08/10/2018 155 06/27/2017 178 HDL Cholesterol (mg/dL) Date Value 08/10/2018 40 06/27/2017 46 LDL Cholesterol (mg/dL) Date Value 08/10/2018 76 06/27/2017 102 Triglyceride (mg/dL) Date Value 08/10/2018 193 06/27/2017 149 COPD. She notes chronic shortness of breath, currently stable. No report of exacerbation. She reports she has completed living will, has a copy of this [facility] at [facility]. Her friend Ijeoma is her surrogate. Review of Systems Constitutional: Negative. Respiratory: Positive for cough and shortness of breath. Cardiovascular: Negative. Endocrine: Negative. Objective There were no vitals taken for this visit. Physical Exam Vitals and nursing note reviewed. Constitutional: Appearance: Normal appearance. HENT: Head: Normocephalic and atraumatic. Eyes: Conjunctiva/sclera: Conjunctivae normal. Cardiovascular: Rate and Rhythm: Normal rate and regular rhythm. Heart sounds: Normal heart sounds. Pulmonary: Effort: Pulmonary effort is normal. Breath sounds: Normal breath sounds. Comments: + cough Skin: General: Skin is warm and dry. Neurological: Mental Status: She is alert. Mental status is at baseline. ALLERGIES Allergen Reactions Albuterol Intolerance Anxiety. Something zoomed through my heart. Clindamycin Diarrhea Codeine Darvocet A500 [Prop* Intolerance Lipitor [Atorvastat* GI Upset abdomen bloating initial c/o then retracted by pt Lotions [Other] Intolerance Nickel Rash allergic to all metals, including gold and razor blades Ntg [Nitrate Analog* Intolerance hypotension Penicillins Pepcid [Famotidine * Itching face itched Sodium Penathol [Ot* Intolerance atenolol (TENORMIN) 50 mg tablet Take 1.5 tablets by mouth twice daily. oxazepam (SERAX) 10 mg capsule Take 1 capsule by mouth twice daily as needed for up to 30 days. pravastatin (PRAVACHOL) 40 mg tablet TAKE 1 AND 1/2 TABLETS BY MOUTH DAILY AT BEDTIME tiotropium-olodaterol (STIOLTO RESPIMAT) 2.5-2.5 mcg/actuation Inhale 2 Puffs as instructed once daily. nicotine (NICODERM CQ) 7 mg/24 hr Apply 1 Patch as directed every 24 hours. albuterol HFA (VENTOLIN HFA) 90 mcg/actuation inhaler Inhale 2 Puffs as instructed every 4 hours as needed for wheezing/shortness of breath. sotalol (BETAPACE) 80 mg tablet Take 1 tablet by mouth twice daily. verapamil (CALAN, ISOPTIN) 40 mg tablet Take 1 tablet by mouth twice daily. aspirin, enteric coated (ASPIRIN, ENTERIC COATED) 81 mg EC tablet Take 81 mg by mouth once daily. Trolamine Salicylate-Aloe Vera (ASPERCREME) 10 % crea Apply 1 application to affected area four times daily as needed. PAST MEDICAL HISTORY Diagnosis Date Adhesive capsulitis of right shoulder 12/17/2014 Atrial fibrillation (HCC) Benign neoplasm of colon Tubular adenoma in 2005 Claudication (HCC) 12/01/2010 COPD (chronic obstructive pulmonary disease) (HCC) Generalized osteoarthrosis, unspecified site HLD (hyperlipidemia) HTN (hypertension) Internal hemorrhoids without mention of complication Noncompliance with medication regimen 12/06/2010 PMH - PAST MEDICAL HISTORY OF ASPVD Tendonitis left leg 04/14/2011 Tobacco use disorder Unspecified constipation Social History Tobacco Use Smoking status: Current Every Day Smoker Packs/day: 0.25 Years: 30.00 Pack years: 7.50 Types: Cigarettes Smokeless tobacco: Never Used Tobacco comment: 5-6 cigs daily Substance Use Topics Alcohol use: No Drug use: Yes Frequency: 2.0 times per week Types: Marijuana Comment: for back pain as needed ASSESSMENT/PLAN: 1. Tobacco use disorder - ICD9: 305.1, ICD10: F17.200 (primary diagnosis) Cessation endorsed, notes she is trying to quit but has not yet succeeded at this. 2. Chronic obstructive pulmonary disease, unspecified COPD type (HCC) - ICD9: 496, ICD10: J44.9 Recommend she use butyryl as needed, maintenance inhaler as prescribed. Follow-up with reproduction machine loader 3. Hyperlipidemia, unspecified hyperlipidemia type - ICD9: 272.4, ICD10: E78.5 Recommend a plant based diet such as Mediterranean diet with plenty of vegetables, fruits,whole grains, fish, chicken, turkey or plant proteins and routine exercise such as walking - COMP METABOLIC PANEL - LIPID PANEL BASIC - LIPID PANEL, NONFASTING 4. Generalized anxiety disorder - ICD9: 300.02, ICD10: F41.1 5. Primary hypertension - ICD9: 401.9, ICD10: I10 Blood pressure is not in good control today, she declines adjustment of medication. She reports stressors at home that she thinks are elevating her blood pressure States she will return in 4 to 6 weeks for recheck of blood pressure. - COMP METABOLIC PANEL - CBC + DIFF 6. ASHD (arteriosclerotic heart disease) - ICD9: 414.00, ICD10: I25.10 She has been seen and cardiology April 2021. - COMP METABOLIC PANEL - LIPID PANEL BASIC - LIPID PANEL, NONFASTING 7. Dyspnea on exertion - ICD9: 786.09, ICD10: R06.00 Stable, recommend treating COPD as advised 8. Colon cancer screening - ICD9: V76.51, ICD10: Z12.11 - FECAL OCCULT BLOOD TEST 9. Paroxysmal atrial fibrillation (HCC) - ICD9: 427.31, ICD10: I48.0 - VERAPAMIL 40 MG TABLET Due for lab work however she left before obtaining as she needed to go home and use the bathroom, did not want to do it here Recommend lab work at her earliest convenience labs today, schedule mammogram schedule follow up with Dr Montero COPD recheck BP 4-6 weeks 6 mo follow up MD Gene Griffith APRN.GUIDANCE CONSULTANT Medical Decision Making: Problems: Moderate: 1+ chronic illnesses with change and 2+ stable chronic illnesses Data: Unique test(s) ordered: 3+ Risk: Moderate: Drug management Medical Decision Making Level: 4 - Moderate documented in this encounter [facility] 07-16-2021 History of Present illness Narrative [facility] TELEPHONIC OUTREACH Provider Action/FYI: Call to Pt left a message to verify COPD symptom status. Contact made with patient: No - Left message Regi my name is Amarjit Herrera RN your Health Care Sanitary Technician from the [facility] I am calling today for your bi-weekly check in. I am sorry I missed your call. I will reach out to you again tomorrow. (if the third call I will reach out to you again next week) Enter next patient outreach date for the following day using the Track Pt Outreach. End outreach. Amarjit Herrera RN July 16, 2021 12:21 PM documented in this encounter [facility] Evaluation note Diagnosis Tobacco use disorder- Primary Chronic obstructive pulmonary disease, unspecified COPD type (HCC) Hyperlipidemia, unspecified hyperlipidemia type Generalized anxiety disorder Primary hypertension Unspecified essential hypertension ASHD (arteriosclerotic heart disease) Coronary atherosclerosis of unspecified type of vessel, [place] or graft Dyspnea on exertion Other dyspnea and respiratory abnormality Colon cancer screening Special screening for malignant neoplasms, colon Paroxysmal atrial fibrillation (HCC) Atrial fibrillation [facility] Generalized [facility] Encounter for screening mammogram for breast cancer [facility] Diagnosis Paroxysmal atrial fibrillation (HCC) Atrial fibrillation [facility] Diagnosis Chronic obstructive pulmonary disease, unspecified COPD type (HCC)- Primary Encounter for immunization Need for other specified prophylactic vaccination against single bacterial disease Need for shingles vaccine Need for prophylactic vaccination and inoculation against other viral diseases Screening for osteoporosis Special screening for osteoporosis Asymptomatic menopause Screening for colon cancer Special screening for malignant neoplasms, colon Screening for diabetes mellitus (DM) Screening for diabetes mellitus Paroxysmal atrial fibrillation (HCC) Atrial fibrillation Generalized anxiety disorder Tobacco use disorder Hyperlipidemia, unspecified hyperlipidemia type Primary hypertension Unspecified essential hypertension Dyspnea on exertion Other dyspnea and respiratory abnormality Colon cancer screening Special screening for malignant neoplasms, colon ASHD (arteriosclerotic heart disease) Coronary atherosclerosis of unspecified type of vessel, [place] or graft Mucopurulent chronic bronchitis (HCC) Mucopurulent chronic bronchitis [facility] Elevated TSH- Primary Nonspecific abnormal results of thyroid function study Abnormal results of thyroid function studies Nonspecific abnormal results of thyroid function study [facility] Diagnosis Elevated TSH- Primary Nonspecific abnormal results of thyroid function study Hypothyroidism, unspecified type documented in this encounter [facility] note* Diagnosis Generalized anxiety disorder- Primary Acquired hypothyroidism Unspecified hypothyroidism Chronic obstructive pulmonary disease, unspecified COPD type (HCC) Tobacco use disorder Primary hypertension Unspecified essential hypertension Dyspnea on exertion Other dyspnea and respiratory abnormality documented in this encounter [facility] note* Diagnosis Generalized anxiety disorder documented in this encounter [facility] note* Diagnosis Hypothyroidism, unspecified type- Primary documented in this encounter [facility] note* Diagnosis Paroxysmal atrial fibrillation (HCC) Atrial fibrillation Hyperlipidemia, unspecified hyperlipidemia type documented in this encounter [facility] note* Diagnosis Paroxysmal atrial fibrillation (HCC) Atrial fibrillation documented in this encounter [facility] note* Diagnosis Paroxysmal atrial fibrillation (HCC) Atrial fibrillation documented in this encounter [facility] note* Diagnosis Acquired hypothyroidism- Primary Unspecified hypothyroidism Hyperlipidemia, unspecified hyperlipidemia type Generalized anxiety disorder Paroxysmal atrial fibrillation (HCC) Atrial fibrillation Primary hypertension Unspecified essential hypertension Vitamin D deficiency Unspecified vitamin D deficiency Encounter for long-term current use of medication documented in this encounter [facility] note* Diagnosis Encounter for screening mammogram for breast cancer documented in this encounter [facility] note* Diagnosis Paroxysmal atrial fibrillation (HCC) Atrial fibrillation documented in this encounter [facility] note* Diagnosis Generalized anxiety disorder- Primary Chronic pain of left ankle Chronic obstructive pulmonary disease, unspecified COPD type (HCC) Paroxysmal atrial fibrillation (HCC) Atrial fibrillation Encounter for long-term current use of medication documented in this encounter [facility] note* Diagnosis Atrial fibrillation (HCC)- Primary Atrial fibrillation Tobacco use disorder Hyperlipidemia Other and unspecified hyperlipidemia COPD (chronic obstructive pulmonary disease) (HCC) Chronic airway obstruction, not elsewhere classified Breast screening, unspecified Special screening for malignant neoplasms, colon Hyperlipidemia, unspecified hyperlipidemia type Paroxysmal atrial fibrillation (HCC) Atrial fibrillation documented in this encounter [facility] note* Diagnosis Atrial fibrillation (HCC)- Primary Atrial fibrillation Tobacco use disorder Hyperlipidemia Other and unspecified hyperlipidemia COPD (chronic obstructive pulmonary disease) (HCC) Chronic airway obstruction, not elsewhere classified Breast screening, unspecified Special screening for malignant neoplasms, colon Generalized anxiety disorder documented in this encounter [facility] note* Diagnosis Atrial fibrillation (HCC)- Primary Atrial fibrillation Tobacco use disorder Hyperlipidemia Other and unspecified hyperlipidemia COPD (chronic obstructive pulmonary disease) (HCC) Chronic airway obstruction, not elsewhere classified Breast screening, unspecified Special screening for malignant neoplasms, colon Popliteal artery occlusion, 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 Generalized anxiety disorder Paroxysmal atrial fibrillation (HCC) Atrial fibrillation [facility] Diagnosis Atrial fibrillation (HCC)- Primary Atrial fibrillation Tobacco use disorder Hyperlipidemia Other and unspecified hyperlipidemia COPD (chronic obstructive pulmonary disease) (HCC) Chronic airway obstruction, not elsewhere classified Breast screening, unspecified Special screening for malignant neoplasms, colon Paroxysmal atrial fibrillation (HCC) Atrial fibrillation documented in this encounter [facility] note* Diagnosis Atrial fibrillation (HCC)- Primary Atrial fibrillation Tobacco use disorder Hyperlipidemia Other and unspecified hyperlipidemia COPD (chronic obstructive pulmonary disease) (HCC) Chronic airway obstruction, not elsewhere classified Breast screening, unspecified Special screening for malignant neoplasms, colon Generalized anxiety disorder documented in this encounter [facility] note* Diagnosis Atrial fibrillation (HCC)- Primary Atrial fibrillation Tobacco use disorder Hyperlipidemia Other and unspecified hyperlipidemia COPD (chronic obstructive pulmonary disease) (HCC) Chronic airway obstruction, not elsewhere classified Breast screening, unspecified Special screening for malignant neoplasms, colon Generalized anxiety disorder documented in this encounter [facility] note* Diagnosis Atrial fibrillation (HCC)- Primary Atrial fibrillation Tobacco use disorder Hyperlipidemia Other and unspecified hyperlipidemia COPD (chronic obstructive pulmonary disease) (HCC) Chronic airway obstruction, not elsewhere classified Breast screening, unspecified Special screening for malignant neoplasms, colon Encounter for screening mammogram for breast cancer documented in this encounter [facility] note* Diagnosis Atrial fibrillation (HCC)- Primary Atrial fibrillation Tobacco use disorder Hyperlipidemia Other and unspecified hyperlipidemia COPD (chronic obstructive pulmonary disease) (HCC) Chronic airway obstruction, not elsewhere classified Breast screening, unspecified Special screening for malignant neoplasms, colon Paroxysmal atrial fibrillation (HCC) Atrial fibrillation documented in this encounter [facility] note* Diagnosis Atrial fibrillation (HCC)- Primary Atrial fibrillation Tobacco use disorder Hyperlipidemia Other and unspecified hyperlipidemia COPD (chronic obstructive pulmonary disease) (HCC) Chronic airway obstruction, not elsewhere classified Breast screening, unspecified Special screening for malignant neoplasms, colon Paroxysmal atrial fibrillation (HCC) Atrial fibrillation documented in this encounter [facility] note* Diagnosis Atrial fibrillation (HCC)- Primary Atrial fibrillation Tobacco use disorder Hyperlipidemia Other and unspecified hyperlipidemia COPD (chronic obstructive pulmonary disease) (HCC) Chronic airway obstruction, not elsewhere classified Breast screening, unspecified Special screening for malignant neoplasms, colon Medicare annual wellness visit, subsequent- Primary Routine general medical examination at a health care facility Generalized anxiety disorder Iliac artery occlusion, 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 Chronic obstructive pulmonary disease, unspecified COPD type (HCC) Paroxysmal atrial fibrillation (HCC) Atrial fibrillation Screening for colon cancer Special screening for malignant neoplasms, colon ASHD (arteriosclerotic heart disease) Coronary atherosclerosis of unspecified type of vessel, [place] or graft Encounter for immunization Need for other specified prophylactic vaccination against single bacterial disease Screening for depression Asymptomatic menopause Encounter for screening mammogram for breast cancer Primary hypertension Unspecified essential hypertension Vitamin D deficiency Unspecified vitamin D deficiency [facility] Diagnosis Atrial fibrillation (HCC)- Primary Atrial fibrillation Tobacco use disorder Hyperlipidemia Other and unspecified hyperlipidemia COPD (chronic obstructive pulmonary disease) (HCC) Chronic airway obstruction, not elsewhere classified Breast screening, unspecified Special screening for malignant neoplasms, colon Generalized anxiety disorder documented in this encounter [facility] for referral (narrative)* Diagnostic Procedure Only (Routine) - Pending Review Specialty Diagnoses / Procedures Referred By Javid jhaveri Referred To Contact [facility] Diagnoses Encounter for screening mammogram for breast cancer Procedures MARIA R SCREENING SCREENING MAMMOGRAPHY BI 2-VIEW BREAST INC Elena Martinez MD [facility] [place] [address] [facility] [address] [place] [address] Referral ID Status Reason Start Date Expiration Date Visits Requested Visits Authorized [id number] Pending Review Auto-Generat ed Referral 10/14/2021 11/13/2022 1 1 [facility] for referral (narrative)* Diagnostic Procedure Only (Routine) - Pending Review Specialty Diagnoses / Procedures Referred By Javid jhaveri Referred To Contact [facility] Diagnoses Encounter for screening mammogram for breast cancer Procedures MARIA R SCREENING SCREENING MAMMOGRAPHY BI 2-VIEW BREAST INC Elena Martinez MD [facility] [place] [address] [facility] [address] [address] Referral ID Status Reason Start Date Expiration Date Visits Requested Visits Authorized [id number] Pending Review Auto-Generat ed Referral 08/24/2023 09/22/2024 1 1 [facility] Summary Purpose Family History No Family History Records FoundNo Family History Records FoundNo Family History Records FoundNo Family History Records Found Advance Directives No Advanced Directives Records FoundNo Advanced Directives Records FoundNo Advanced Directives Records FoundNo Advanced Directives Records Found Reason for Referral Specialty Diagnoses / Procedures Referred By Contac t Referred To Contact Pulmonary and Critical Care Medicine Diagnoses Tobacco use disorder Mucopurulent chronic bronchitis (HCC) Procedures CONSULT TO PULM/CRITICAL CARE OFFICE/OUTPATIENT [facility] MDM 60-74 MINUTES Gene Love APRN.GUIDANCE CONSULTANT [address] [place] [address] Referral ID Status Reason Start Date Expiration Date Visits Requested Visits Authorized [id number] Authorized PCP Requested Referral 07/22/2022 07/22/2023 1 1 Specialty Diagnoses / Procedures Referred By Contac t Referred To Contact Gene Love, LYRIC.GUIDANCE CONSULTANT [address] [place] [address] Referral ID Status Reason Start Date Expiration Date Visits Re quested Visits Authorized [id number] Closed 1 1 Referral ID Status Reason Start Date Expiration Date Visits Re quested Visits Authorized [id number] Denied 1 1 Specialty Diagnoses / Procedures Referred By Contac t Referred To Contact Elena Andino MD [address] [place] [address] Referral ID Status Reason Start Date Expiration Date Visits Re quested Visits Authorized [id number] Closed 1 1 Additional Source Comments INFORMATION SOURCE (unrecogn ized section and content) DATE CREATED AUTHOR 10/06/2017 [facility] DATE CREATED AUTHOR AUTHOR'S ORGANIZ ATION 03/16/2024 [facility] DATE CREATED AUTHOR AUTHOR'S ORGANIZ ATION 05/07/2024 [facility] DATE CREATED AUTHOR AUTHOR'S ORGANIZ ATION 10/07/2024 [facility] Source Comments (unrecognize d section and content) In the event this informatio n is protected by the Federal Confidentiality of Alcohol and Drug Abuse Patient Records regulations: The Federal rules restrict any use of the information to criminally investigate or prosecute any alcohol or drug abuse patient.[facility] the event this information is protected by the Federal Confidentiality of Alcohol and Drug Abuse Patient Records regulations: The Federal rules restrict any use of the information to criminally investigate or prosecute any alcohol or drug abuse patient.[facility] the event this information is protected by the Federal Confidentiality of Alcohol and Drug Abuse Patient Records regulations: The Federal rules restrict any use of the information to criminally investigate or prosecute any alcohol or drug abuse patient.[facility] the event this information is protected by the Federal Confidentiality of Alcohol and Drug Abuse Patient Records regulations: The Federal rules restrict any use of the information to criminally investigate or prosecute any alcohol or drug abuse patient.[facility] CenterIn the event this information is protected by the Federal Confidentiality of Alcohol and Drug Abuse Patient Records regulations: The Federal rules restrict any use of the information to criminally investigate or prosecute any alcohol or drug abuse patient.[facility] CenterIn the event this information is protected by the Federal Confidentiality of Alcohol and Drug Abuse Patient Records regulations: The Federal rules restrict any use of the information to criminally investigate or prosecute any alcohol or drug abuse patient.[facility] CenterIn the event this information is protected by the Federal Confidentiality of Alcohol and Drug Abuse Patient Records regulations: The Federal rules restrict any use of the information to criminally investigate or prosecute any alcohol or drug abuse patient.[facility] CenterIn the event this information is protected by the Federal Confidentiality of Alcohol and Drug Abuse Patient Records regulations: The Federal rules restrict any use of the information to criminally investigate or prosecute any alcohol or drug abuse patient.[facility] CenterIn the event this information is protected by the Federal Confidentiality of Alcohol and Drug Abuse Patient Records regulations: The Federal rules restrict any use of the information to criminally investigate or prosecute any alcohol or drug abuse patient.[facility] CenterIn the event this information is protected by the Federal Confidentiality of Alcohol and Drug Abuse Patient Records regulations: The Federal rules restrict any use of the information to criminally investigate or prosecute any alcohol or drug abuse patient.[facility] CenterIn the event this information is protected by the Federal Confidentiality of Alcohol and Drug Abuse Patient Records regulations: The Federal rules restrict any use of the information to criminally investigate or prosecute any alcohol or drug abuse patient.[facility] CenterIn the event this information is protected by the Federal Confidentiality of Alcohol and Drug Abuse Patient Records regulations: The Federal rules restrict any use of the information to criminally investigate or prosecute any alcohol or drug abuse patient.[facility] CenterIn the event this information is protected by the Federal Confidentiality of Alcohol and Drug Abuse Patient Records regulations: The Federal rules restrict any use of the information to criminally investigate or prosecute any alcohol or drug abuse patient.[facility] CenterIn the event this information is protected by the Federal Confidentiality of Alcohol and Drug Abuse Patient Records regulations: The Federal rules restrict any use of the information to criminally investigate or prosecute any alcohol or drug abuse patient.[facility] CenterIn the event this information is protected by the Federal Confidentiality of Alcohol and Drug Abuse Patient Records regulations: The Federal rules restrict any use of the information to criminally investigate or prosecute any alcohol or drug abuse patient.[facility] CenterIn the event this information is protected by the Federal Confidentiality of Alcohol and Drug Abuse Patient Records regulations: The Federal rules restrict any use of the information to criminally investigate or prosecute any alcohol or drug abuse patient.[facility] CenterIn the event this information is protected by the Federal Confidentiality of Alcohol and Drug Abuse Patient Records regulations: The Federal rules restrict any use of the information to criminally investigate or prosecute any alcohol or drug abuse patient.[facility] CenterIn the event this information is protected by the Federal Confidentiality of Alcohol and Drug Abuse Patient Records regulations: The Federal rules restrict any use of the information to criminally investigate or prosecute any alcohol or drug abuse patient.[facility] CenterIn the event this information is protected by the Federal Confidentiality of Alcohol and Drug Abuse Patient Records regulations: The Federal rules restrict any use of the information to criminally investigate or prosecute any alcohol or drug abuse patient.[facility] CenterIn the event this information is protected by the Federal Confidentiality of Alcohol and Drug Abuse Patient Records regulations: The Federal rules restrict any use of the information to criminally investigate or prosecute any alcohol or drug abuse patient.[facility] CenterIn the event this information is protected by the Federal Confidentiality of Alcohol and Drug Abuse Patient Records regulations: The Federal rules restrict any use of the information to criminally investigate or prosecute any alcohol or drug abuse patient.[facility] CenterIn the event this information is protected by the Federal Confidentiality of Alcohol and Drug Abuse Patient Records regulations: The Federal rules restrict any use of the information to criminally investigate or prosecute any alcohol or drug abuse patient.[facility] CenterIn the event this information is protected by the Federal Confidentiality of Alcohol and Drug Abuse Patient Records regulations: The Federal rules restrict any use of the information to criminally investigate or prosecute any alcohol or drug abuse patient.[facility] CenterIn the event this information is protected by the Federal Confidentiality of Alcohol and Drug Abuse Patient Records regulations: The Federal rules restrict any use of the information to criminally investigate or prosecute any alcohol or drug abuse patient.[facility] CenterIn the event this information is protected by the Federal Confidentiality of Alcohol and Drug Abuse Patient Records regulations: The Federal rules restrict any use of the information to criminally investigate or prosecute any alcohol or drug abuse patient.[facility] CenterIn the event this information is protected by the Federal Confidentiality of Alcohol and Drug Abuse Patient Records regulations: The Federal rules restrict any use of the information to criminally investigate or prosecute any alcohol or drug abuse patient.[facility] CenterIn the event this information is protected by the Federal Confidentiality of Alcohol and Drug Abuse Patient Records regulations: The Federal rules restrict any use of the information to criminally investigate or prosecute any alcohol or drug abuse patient.[facility] CenterIn the event this information is protected by the Federal Confidentiality of Alcohol and Drug Abuse Patient Records regulations: The Federal rules restrict any use of the information to criminally investigate or prosecute any alcohol or drug abuse patient.[facility] CenterIn the event this information is protected by the Federal Confidentiality of Alcohol and Drug Abuse Patient Records regulations: The Federal rules restrict any use of the information to criminally investigate or prosecute any alcohol or drug abuse patient.[facility] CenterIn the event this information is protected by the Federal Confidentiality of Alcohol and Drug Abuse Patient Records regulations: The Federal rules restrict any use of the information to criminally investigate or prosecute any alcohol or drug abuse patient.[facility] CenterIn the event this information is protected by the Federal Confidentiality of Alcohol and Drug Abuse Patient Records regulations: The Federal rules restrict any use of the information to criminally investigate or prosecute any alcohol or drug abuse patient.[facility] CenterIn the event this information is protected by the Federal Confidentiality of Alcohol and Drug Abuse Patient Records regulations: The Federal rules restrict any use of the information to criminally investigate or prosecute any alcohol or drug abuse patient.[facility] CenterIn the event this information is protected by the Federal Confidentiality of Alcohol and Drug Abuse Patient Records regulations: The Federal rules restrict any use of the information to criminally investigate or prosecute any alcohol or drug abuse patient.[facility] CenterIn the event this information is protected by the Federal Confidentiality of Alcohol and Drug Abuse Patient Records regulations: The Federal rules restrict any use of the information to criminally investigate or prosecute any alcohol or drug abuse patient.[facility] CenterIn the event this information is protected by the Federal Confidentiality of Alcohol and Drug Abuse Patient Records regulations: The Federal rules restrict any use of the information to criminally investigate or prosecute any alcohol or drug abuse patient.[facility] CenterIn the event this information is protected by the Federal Confidentiality of Alcohol and Drug Abuse Patient Records regulations: The Federal rules restrict any use of the information to criminally investigate or prosecute any alcohol or drug abuse patient.[facility] CenterIn the event this information is protected by the Federal Confidentiality of Alcohol and Drug Abuse Patient Records regulations: The Federal rules restrict any use of the information to criminally investigate or prosecute any alcohol or drug abuse patient.[facility] CenterIn the event this information is protected by the Federal Confidentiality of Alcohol and Drug Abuse Patient Records regulations: The Federal rules restrict any use of the information to criminally investigate or prosecute any alcohol or drug abuse patient.[facility] CenterIn the event this information is protected by the Federal Confidentiality of Alcohol and Drug Abuse Patient Records regulations: The Federal rules restrict any use of the information to criminally investigate or prosecute any alcohol or drug abuse patient.[facility] CenterIn the event this information is protected by the Federal Confidentiality of Alcohol and Drug Abuse Patient Records regulations: The Federal rules restrict any use of the information to criminally investigate or prosecute any alcohol or drug abuse patient.[facility] CenterIn the event this information is protected by the Federal Confidentiality of Alcohol and Drug Abuse Patient Records regulations: The Federal rules restrict any use of the information to criminally investigate or prosecute any alcohol or drug abuse patient.[facility] CenterIn the event this information is protected by the Federal Confidentiality of Alcohol and Drug Abuse Patient Records regulations: The Federal rules restrict any use of the information to criminally investigate or prosecute any alcohol or drug abuse patient.[facility] CenterIn the event this information is protected by the Federal Confidentiality of Alcohol and Drug Abuse Patient Records regulations: The Federal rules restrict any use of the information to criminally investigate or prosecute any alcohol or drug abuse patient.[facility] CenterIn the event this information is protected by the Federal Confidentiality of Alcohol and Drug Abuse Patient Records regulations: The Federal rules restrict any use of the information to criminally investigate or prosecute any alcohol or drug abuse patient.[facility] CenterIn the event this information is protected by the Federal Confidentiality of Alcohol and Drug Abuse Patient Records regulations: The Federal rules restrict any use of the information to criminally investigate or prosecute any alcohol or drug abuse patient.[facility] CenterIn the event this information is protected by the Federal Confidentiality of Alcohol and Drug Abuse Patient Records regulations: The Federal rules restrict any use of the information to criminally investigate or prosecute any alcohol or drug abuse patient.[facility] CenterIn the event this information is protected by the Federal Confidentiality of Alcohol and Drug Abuse Patient Records regulations: The Federal rules restrict any use of the information to criminally investigate or prosecute any alcohol or drug abuse patient.[facility] CenterIn the event this information is protected by the Federal Confidentiality of Alcohol and Drug Abuse Patient Records regulations: The Federal rules restrict any use of the information to criminally investigate or prosecute any alcohol or drug abuse patient.[facility] CenterIn the event this information is protected by the Federal Confidentiality of Alcohol and Drug Abuse Patient Records regulations: The Federal rules restrict any use of the information to criminally investigate or prosecute any alcohol or drug abuse patient.[facility] CenterIn the event this information is protected by the Federal Confidentiality of Alcohol and Drug Abuse Patient Records regulations: The Federal rules restrict any use of the information to criminally investigate or prosecute any alcohol or drug abuse patient.[facility] CenterIn the event this information is protected by the Federal Confidentiality of Alcohol and Drug Abuse Patient Records regulations: The Federal rules restrict any use of the information to criminally investigate or prosecute any alcohol or drug abuse patient.[facility] CenterIn the event this information is protected by the Federal Confidentiality of Alcohol and Drug Abuse Patient Records regulations: The Federal rules restrict any use of the information to criminally investigate or prosecute any alcohol or drug abuse patient.[facility] CenterIn the event this information is protected by the Federal Confidentiality of Alcohol and Drug Abuse Patient Records regulations: The Federal rules restrict any use of the information to criminally investigate or prosecute any alcohol or drug abuse patient.[facility] CenterIn the event this information is protected by the Federal Confidentiality of Alcohol and Drug Abuse Patient Records regulations: The Federal rules restrict any use of the information to criminally investigate or prosecute any alcohol or drug abuse patient.[facility] CenterIn the event this information is protected by the Federal Confidentiality of Alcohol and Drug Abuse Patient Records regulations: The Federal rules restrict any use of the information to criminally investigate or prosecute any alcohol or drug abuse patient.[facility] CenterIn the event this information is protected by the Federal Confidentiality of Alcohol and Drug Abuse Patient Records regulations: The Federal rules restrict any use of the information to criminally investigate or prosecute any alcohol or drug abuse patient.[facility] CenterIn the event this information is protected by the Federal Confidentiality of Alcohol and Drug Abuse Patient Records regulations: The Federal rules restrict any use of the information to criminally investigate or prosecute any alcohol or drug abuse patient.[facility] CenterIn the event this information is protected by the Federal Confidentiality of Alcohol and Drug Abuse Patient Records regulations: The Federal rules restrict any use of the information to criminally investigate or prosecute any alcohol or drug abuse patient.[facility] CenterIn the event this information is protected by the Federal Confidentiality of Alcohol and Drug Abuse Patient Records regulations: The Federal rules restrict any use of the information to criminally investigate or prosecute any alcohol or drug abuse patient.[facility]In the event this information is protected by the Federal Confidentiality of Alcohol and Drug Abuse Patient Records regulations: The Federal rules restrict any use of the information to criminally investigate or prosecute any alcohol or drug abuse patient.[facility]In the event this information is protected by the Federal Confidentiality of Alcohol and Drug Abuse Patient Records regulations: The Federal rules restrict any use of the information to criminally investigate or prosecute any alcohol or drug abuse patient.[facility]In the event this information is protected by the Federal Confidentiality of Alcohol and Drug Abuse Patient Records regulations: The Federal rules restrict any use of the information to criminally investigate or prosecute any alcohol or drug abuse patient.[facility]In the event this information is protected by the Federal Confidentiality of Alcohol and Drug Abuse Patient Records regulations: The Federal rules restrict any use of the information to criminally investigate or prosecute any alcohol or drug abuse patient.[facility]In the event this information is protected by the Federal Confidentiality of Alcohol and Drug Abuse Patient Records regulations: The Federal rules restrict any use of the information to criminally investigate or prosecute any alcohol or drug abuse patient.[facility]In the event this information is protected by the Federal Confidentiality of Alcohol and Drug Abuse Patient Records regulations: The Federal rules restrict any use of the information to criminally investigate or prosecute any alcohol or drug abuse patient.[facility]In the event this information is protected by the Federal Confidentiality of Alcohol and Drug Abuse Patient Records regulations: The Federal rules restrict any use of the information to criminally investigate or prosecute any alcohol or drug abuse patient.[facility] CenterIn the event this information is protected by the Federal Confidentiality of Alcohol and Drug Abuse Patient Records regulations: The Federal rules restrict any use of the information to criminally investigate or prosecute any alcohol or drug abuse patient.[facility] CenterIn the event this information is protected by the Federal Confidentiality of Alcohol and Drug Abuse Patient Records regulations: The Federal rules restrict any use of the information to criminally investigate or prosecute any alcohol or drug abuse patient.[facility] CenterIn the event this information is protected by the Federal Confidentiality of Alcohol and Drug Abuse Patient Records regulations: The Federal rules restrict any use of the information to criminally investigate or prosecute any alcohol or drug abuse patient.[facility]In the event this information is protected by the Federal Confidentiality of Alcohol and Drug Abuse Patient Records regulations: The Federal rules restrict any use of the information to criminally investigate or prosecute any alcohol or drug abuse patient.[facility] CenterIn the event this information is protected by the Federal Confidentiality of Alcohol and Drug Abuse Patient Records regulations: The Federal rules restrict any use of the information to criminally investigate or prosecute any alcohol or drug abuse patient.[facility] CenterIn the event this information is protected by the Federal Confidentiality of Alcohol and Drug Abuse Patient Records regulations: The Federal rules restrict any use of the information to criminally investigate or prosecute any alcohol or drug abuse patient.[facility] CenterIn the event this information is protected by the Federal Confidentiality of Alcohol and Drug Abuse Patient Records regulations: The Federal rules restrict any use of the information to criminally investigate or prosecute any alcohol or drug abuse patient.[facility]In the event this information is protected by the Federal Confidentiality of Alcohol and Drug Abuse Patient Records regulations: The Federal rules restrict any use of the information to criminally investigate or prosecute any alcohol or drug abuse patient.[facility] CenterIn the event this information is protected by the Federal Confidentiality of Alcohol and Drug Abuse Patient Records regulations: The Federal rules restrict any use of the information to criminally investigate or prosecute any alcohol or drug abuse patient.[facility] CenterIn the event this information is protected by the Federal Confidentiality of Alcohol and Drug Abuse Patient Records regulations: The Federal rules restrict any use of the information to criminally investigate or prosecute any alcohol or drug abuse patient.[facility] CenterIn the event this information is protected by the Federal Confidentiality of Alcohol and Drug Abuse Patient Records regulations: The Federal rules restrict any use of the information to criminally investigate or prosecute any alcohol or drug abuse patient.[facility] CenterIn the event this information is protected by the Federal Confidentiality of Alcohol and Drug Abuse Patient Records regulations: The Federal rules restrict any use of the information to criminally investigate or prosecute any alcohol or drug abuse patient.[facility] Reason for Visit (unrecogniz ed section and content) Reason Onset Date Comments Community Monitoring Outreach 07/16/2021 [place] [facility] Outreach Reason Comments F/U 6 Month Reason Onset Date Comments Community Monitoring Outreach 07/30/2021 [place] [facility] Out[facility] Reason Onset Date Comments Community Monitoring Outreach 08/03/2021 [place] [facility] Out[facility] Reason Onset Date Comments Community Monitoring Outreach 08/12/2021 [place] [facility] Outreach Reason Onset Date Comments Community Monitoring Outreach 08/17/2021 [place] [facility] Outreach Reason Onset Date Comments Community Monitoring Outreach 09/02/2021 [place] [facility] Outreach Reason Comments Forms Reason Onset Date Comments Refill Request 09/17/2021 OUT OF MEDICATIO N Reason Onset Date Comments Community Monitoring Outreach 09/17/2021 [place] [facility] Outreach Reason Onset Date Comments Community Monitoring Outreach 09/28/2021 [place] [facility] Outreach Reason Onset Date Comments Community Monitoring Outreach 10/05/2021 [place] [facility] Outreach Reason Onset Date Comments Community Monitoring Outreach 10/14/2021 [place] [facility] Outreach Reason Onset Date Comments Community Monitoring Outreach 11/09/2021 [place] [facility] Outreach Reason Onset Date Comments Community Monitoring Outreach 12/11/2021 Reason Onset Date Comments Community Monitoring Outreach 01/19/2022 Reason Onset Date Comments Community Monitoring Outreach 01/11/2022 Reason Onset Date Comments Community Monitoring Outreach 02/10/2022 Reason Comments Refill Request Reason Onset Date Comments Community Monitoring Outreach 03/15/2022 Reason Onset Date Comments Community Monitorig Outreach 03/18/2022 Reason Onset Date Comments Community Monitoring Outreach 04/26/2022 Reason Onset Date Comments Community Monitoring Outreach 05/18/2022 Reason Onset Date Comments Community Monitoring Outreach 06/21/2022 Reason Comments Forms Appointment Reminder Reason Onset Date Comments Community Monitoring Outreach 07/08/2022 Reason Onset Date Comments Community Monitoring Outreach 07/21/2022 Reason Comments Follow Up Reason Comments Results Reason Comments Patient Question Reason Onset Date Comments Community Monitoring Outreach 08/13/2022 Reason Onset Date Comments Community Monitoring Outreach 09/12/2022 Reason Comments F/U 6 months Labs prior Reason Onset Date Comments Community Monitoring Outreach 10/06/2022 Reason Onset Date Comments Community Monitoring Outreach 11/08/2022 Reason Onset Date Comments Community Monitoring Outreach 12/13/2022 Reason Onset Date Comments Refill Request 12/15/2022 Reason Onset Date Comments Community Monitoring Outreach 01/07/2023 Reason Onset Date Comments Community Monitoring Outreach 02/01/2023 Reason Onset Date Comments Community Monitoring Outreach 03/07/2023 Reason Onset Date Comments Community Monitoring Outreach 04/14/2023 Reason Onset Date Comments Community Monitoring Outreach 05/19/2023 Reason Onset Date Comments Refill Request 06/22/2023 Reason Onset Date Comments Community Monitoring Outreach 06/22/2023 Reason Onset Date Comments Community Monitoring Outreach 08/01/2023 Reason Onset Date Comments Refill Request 08/22/2023 Reason Onset Date Comments Community Monitoring Outreach 09/01/2023 Reason Onset Date Comments Refill Request 09/09/2023 Reason Comments Follow Up Rx Refills Reason Onset Date Comments Community Monitoring Outreach 10/10/2023 Reason Onset Date Comments Community Monitoring Outreach 11/14/2023 Reason Onset Date Comments Refill Request 11/22/2023 Out of one medic ation, please send today. Reason Onset Date Comments Refill Request 01/02/2024 Reason Comments Left leg numbness Reason Comments 6 month fup Reason Onset Date Comments requesting medication that is 03/21/2024 Reason Comments Med Change Request Reason Onset Date Comments Refill Request 05/21/2024 Reason Comments Medication Problem Reason Comments Insurance Authorization Reason Onset Date Comments Population Health Navigation Outreach 08/27/2024 [facility] [place] [facility] Reason Comments Patient Update Reason Comments Medicare Wellness Exam Reason Onset Date Comments Refill Request 10/02/2024 Reason Onset Date Comments Refill Request 11/19/2024 Care Teams (unrecognized sec tion and content) Foundry Melt Supervisor Relationship Specialty Start Date End Date Elena Andino MD [address] [place] [address] PCP - General Internal Medicine 06/03/16 Javier Leonard, petroleum refinery operatorOcularist Internal Medicine 08/14/20 Foundry Melt Supervisor Relationship Specialty Start Date End Date Elena Andino MD [address] [place] [address] PCP - General Internal Medicine 06/03/16 Javier Leonard, petroleum refinery operatorOcularist Internal Medicine 08/14/20 Foundry Melt Supervisor Relationship Specialty Start Date End Date Elena Andino MD [address] [place] [address] PCP - General Internal Medicine 06/03/16 Javier Leonard, petroleum refinery operatorOcularist Internal Medicine 08/14/20 Foundry Melt Supervisor Relationship Specialty Start Date End Date Elena Andino MD [address] [place] [address] PCP - General Internal Medicine 06/03/16 Javier Leonard, petroleum refinery operatorOcularist Internal Medicine 08/14/20 Foundry Melt Supervisor Relationship Specialty Start Date End Date Elena Andino MD [address] [place] [address] PCP - General Internal Medicine 06/03/16 Javier Leonard, petroleum refinery operatorOcularist Internal Medicine 08/14/20 Foundry Melt Supervisor Relationship Specialty Start Date End Date Elena Andino MD [address] [place] [address] PCP - General Internal Medicine 06/03/16 Javier Leonard, petroleum refinery operatorOcularist Internal Medicine 08/14/20 Foundry Melt Supervisor Relationship Specialty Start Date End Date Elena Andino MD [address] [place] [address] PCP - General Internal Medicine 06/03/16 Javier Leonard, petroleum refinery operatorOcularist Internal Medicine 08/14/20 Foundry Melt Supervisor Relationship Specialty Start Date End Date Elena Andino MD [address] [place] [address] PCP - General Internal Medicine 06/03/16 Javier Leonard, petroleum refinery operatorOcularist Internal Medicine 08/14/20 Foundry Melt Supervisor Relationship Specialty Start Date End Date Elena Andino MD [address] [place] [address] PCP - General Internal Medicine 06/03/16 Javier Leonard, petroleum refinery operatorOcularist Internal Medicine 08/14/20 Foundry Melt Supervisor Relationship Specialty Start Date End Date Elena Andino MD [address] [place] [address] PCP - General Internal Medicine 06/03/16 Javier Leonard, petroleum refinery operatorOcularist Internal Medicine 08/14/20 Foundry Melt Supervisor Relationship Specialty Start Date End Date Elena Andino MD [address] [place] [address] PCP - General Internal Medicine 06/03/16 Amarjit Herrera, petroleum refinery operatorOcularist Internal Medicine 08/14/20 Foundry Melt Supervisor Relationship Specialty Start Date End Date Elena Andino MD [address] [place] [address] PCP - General Internal Medicine 06/03/16 Amarjit Herrera, petroleum refinery operatorOcularist Internal Medicine 08/14/20 Foundry Melt Supervisor Relationship Specialty Start Date End Date Elena Andino MD [address] [place] [address] PCP - General Internal Medicine 06/03/16 Amarjit Herrera, petroleum refinery operatorOcularist Internal Medicine 08/14/20 Foundry Melt Supervisor Relationship Specialty Start Date End Date Elena Andino MD [address] [place] [address] PCP - General Internal Medicine 06/03/16 Amarjit Herrera, petroleum refinery operatorOcularist Internal Medicine 08/14/20 Foundry Melt Supervisor Relationship Specialty Start Date End Date Elena Andino MD [address] [place] [address] PCP - General Internal Medicine 06/03/16 Amarjit Herrera, petroleum refinery operatorOcularist Internal Medicine 08/14/20 Foundry Melt Supervisor Relationship Specialty Start Date End Date Elena Andino MD [address] [place] [address] PCP - General Internal Medicine 06/03/16 Amarjit Herrera, petroleum refinery operatorOcularist Internal Medicine 08/14/20 Foundry Melt Supervisor Relationship Specialty Start Date End Date Elena Andino MD [address] [place] [address] PCP - General Internal Medicine 06/03/16 Amarjit Herrera, petroleum refinery operatorOcularist Internal Medicine 08/14/20 Foundry Melt Supervisor Relationship Specialty Start Date End Date Elena Andino MD [address] [place] [address] PCP - General Internal Medicine 06/03/16 Amarjit Herrera, petroleum refinery operatorOcularist Internal Medicine 08/14/20 Foundry Melt Supervisor Relationship Specialty Start Date End Date Elena Andino MD [address] [place] [address] PCP - General Internal Medicine 06/03/16 Amarjit Herrera, petroleum refinery operatorOcularist Internal Medicine 08/14/20 Foundry Melt Supervisor Relationship Specialty Start Date End Date Elena Andino MD [address] [place] [address] PCP - General Internal Medicine 06/03/16 Amarjit Herrera, petroleum refinery operatorOcularist Internal Medicine 08/14/20 Foundry Melt Supervisor Relationship Specialty Start Date End Date Elena Andino MD [address] [place] [address] PCP - General Internal Medicine 06/03/16 Amarjit Herrera, petroleum refinery operatorOcularist Internal Medicine 08/14/20 Foundry Melt Supervisor Relationship Specialty Start Date End Date Elena Andino MD [address] [place] [address] PCP - General Internal Medicine 06/03/16 Amarjit Herrera, petroleum refinery operatorOcularist Internal Medicine 08/14/20 Foundry Melt Supervisor Relationship Specialty Start Date End Date Elena Andino MD [address] [place] [address] PCP - General Internal Medicine 06/03/16 Amarjit Herrera, petroleum refinery operatorOcularist Internal Medicine 08/14/20 Foundry Melt Supervisor Relationship Specialty Start Date End Date Elena Andino MD [address] [place] [address] PCP - General Internal Medicine 06/03/16 Amarjit Herrera, petroleum refinery operatorOcularist Internal Medicine 08/14/20 Foundry Melt Supervisor Relationship Specialty Start Date End Date Elena Andino MD [address] [place] [address] PCP - General Internal Medicine 06/03/16 Amarjit Herrera, petroleum refinery operatorOcularist Internal Medicine 08/14/20 Foundry Melt Supervisor Relationship Specialty Start Date End Date Elena Andino MD [address] [place] [address] PCP - General Internal Medicine 06/03/16 Amarjit Herrera, petroleum refinery operatorOcularist Internal Medicine 08/14/20 Foundry Melt Supervisor Relationship Specialty Start Date End Date Elena Andino MD [address] [place] [address] PCP - General Internal Medicine 06/03/16 Amarjit Herrera, petroleum refinery operatorOcularist Internal Medicine 08/14/20 Foundry Melt Supervisor Relationship Specialty Start Date End Date Elena Andino MD [address] [place] [address] PCP - General Internal Medicine 06/03/16 Amarjit Herrera, petroleum refinery operatorOcularist Internal Medicine 08/14/20 Foundry Melt Supervisor Relationship Specialty Start Date End Date Elena Andino MD [address] [place] [address] PCP - General Internal Medicine 06/03/16 Amarjit Herrera, petroleum refinery operatorOcularist Internal Medicine 08/14/20 Foundry Melt Supervisor Relationship Specialty Start Date End Date Elena Andino MD [address] [place] [address] PCP - General Internal Medicine 06/03/16 Amarjit Herrera, petroleum refinery operatorOcularist Internal Medicine 08/14/20 Foundry Melt Supervisor Relationship Specialty Start Date End Date Elena Andino MD [address] [place] [address] PCP - General Internal Medicine 06/03/16 Amarjit Herrera, petroleum refinery operatorOcularist Internal Medicine 08/14/20 Foundry Melt Supervisor Relationship Specialty Start Date End Date Elena Andino MD [address] [place] [address] PCP - General Internal Medicine 06/03/16 Amarjit Herrera, petroleum refinery operatorOcularist Internal Medicine 08/14/20 Foundry Melt Supervisor Relationship Specialty Start Date End Date Elena Andino MD [address] [place] [address] PCP - General Internal Medicine 06/03/16 Amarjit Herrera, petroleum refinery operatorOcularist Internal Medicine 08/14/20 Foundry Melt Supervisor Relationship Specialty Start Date End Date Elena Andino MD [address] [place] [address] PCP - General Internal Medicine 06/03/16 Amarjit Herrera, petroleum refinery operatorOcularist Internal Medicine 08/14/20 Foundry Melt Supervisor Relationship Specialty Start Date End Date Elena Andino MD [address] [place] [address] PCP - General Internal Medicine 06/03/16 Amarjit Herrera, petroleum refinery operatorOcularist Internal Medicine 08/14/20 Foundry Melt Supervisor Relationship Specialty Start Date End Date Elena Andino MD [address] [place] [address] PCP - General Internal Medicine 06/03/16 Amarjit Herrera, petroleum refinery operatorOcularist Internal Medicine 08/14/20 Foundry Melt Supervisor Relationship Specialty Start Date End Date Elena Andino MD [address] [place] [address] PCP - General Internal Medicine 06/03/16 Foundry Melt Supervisor Relationship Specialty Start Date End Date Elena Andino MD [address] [place] [address] PCP - General Internal Medicine 06/03/16 Foundry Melt Supervisor Relationship Specialty Start Date End Date Elena Andino MD [address] [place] [address] PCP - General Internal Medicine 06/03/16 Foundry Melt Supervisor Relationship Specialty Start Date End Date Elena Andino MD [address] [place] [address] PCP - General Internal Medicine 06/03/16 Foundry Melt Supervisor Relationship Specialty Start Date End Date Elena Andino MD [address] [place] [address] PCP - General Internal Medicine 06/03/16 Foundry Melt Supervisor Relationship Specialty Start Date End Date Elena Andino MD [address] [place] [address] PCP - General Internal Medicine 06/03/16 Gene Love, OPTOMECHANICAL ENGINEER.GUIDANCE CONSULTANT [address] [place] [address] Treating Inspector Internal Medicine 03/26/24 Dorcas Rios, OPTOMECHANICAL ENGINEER.CPC CODER [address] [place] [address] Treating Inspector Internal Medicine 03/26/24 Foundry Melt Supervisor Relationship Specialty Start Date End Date Elena Andino MD [address] [place] [address] PCP - General Internal Medicine 06/03/16 Gene Love, OPTOMECHANICAL ENGINEER.GUIDANCE CONSULTANT [address] [place] [address] Treating Inspector Internal Medicine 03/26/24 Dorcas Rios APRN.CPC CODER [address] [place] [address] [facility] Internal Medicine 03/26/24 Foundry Melt Supervisor Relationship Specialty Start Date End Date Elena Andino MD [address] [place] [address] PCP - General Internal Medicine 06/03/16 Gene Love, OPTOMECHANICAL ENGINEER.GUIDANCE CONSULTANT [address] [place] [address] [facility] Internal Medicine 03/26/24 Dorcas Rios OPTOMECHANICAL ENGINEER.CPC CODER [facility] [place] [address] [facility] Internal Medicine 03/26/24 Foundry Melt Supervisor Relationship Specialty Start Date End Date Elena Andino MD [address] [place] [address] PCP - General Internal Medicine 06/03/16 Gene Love, OPTOMECHANICAL ENGINEER.GUIDANCE CONSULTANT [address] [place] [address] [facility] Internal Medicine 03/26/24 Dorcas Rios OPTOMECHANICAL ENGINEER.CPC CODER [address] [place] [address] [facility] Internal Medicine 03/26/24 Foundry Melt Supervisor Relationship Specialty Start Date End Date Elena Andino MD [address] [place] [address] PCP - General Internal Medicine 06/03/16 Gene Love, OPTOMECHANICAL ENGINEER.GUIDANCE CONSULTANT [address] [place] [address] Treating Inspector Internal Medicine 03/26/24 Dorcas Rios OPTOMECHANICAL ENGINEER.CPC CODER [address] [place] [address] Treating Inspector Internal Medicine 07/10/24 Foundry Melt Supervisor Relationship Specialty Start Date End Date Elena Andino MD [address] [place] [address] PCP - General Internal Medicine 06/03/16 Gene Love, OPTOMECHANICAL ENGINEER.GUIDANCE CONSULTANT [address] [place] [address] Treating Inspector Internal Medicine 03/26/24 Dorcas Rios OPTOMECHANICAL ENGINEER.CPC CODER [address] [place] [address] [facility] Internal Medicine 07/10/24 Foundry Melt Supervisor Relationship Specialty Start Date End Date Elena Andino MD [address] [facility] [place] [address] PCP - General Internal Medicine 06/03/16 Gene Love, OPTOMECHANICAL ENGINEER.GUIDANCE CONSULTANT [address] [place] [address] Treating Inspector Internal Medicine 03/26/24 Dorcas Rios OPTOMECHANICAL ENGINEER.CPC CODER [address] [place] [address] [facility] Internal Medicine 07/10/24 Foundry Melt Supervisor Relationship Specialty Start Date End Date Elena Andino MD [address] [place] [address] PCP - General Internal Medicine 06/03/16 Gene Love, OPTOMECHANICAL ENGINEER.GUIDANCE CONSULTANT [address] [place] [address] Treating Inspector Internal Medicine 03/26/24 Dorcas Rios OPTOMECHANICAL ENGINEER.CPC CODER [address] [place] [address] Treating Inspector Internal Medicine 07/10/24 Foundry Melt Supervisor Relationship Specialty Start Date End Date Elena Andino MD [address] [place] [address] PCP - General Internal Medicine 06/03/16 Gene Love, OPTOMECHANICAL ENGINEER.GUIDANCE CONSULTANT [address] [place] [address] Treating Inspector Internal Medicine 03/26/24 Dorcas Rios APRN.CPC CODER [address] [place] [address] Treating Inspector Internal Medicine 07/10/24 Foundry Melt Supervisor Relationship Specialty Start Date End Date Elena Andino MD [address] [place] [address] PCP - General Internal Medicine 06/03/16 Gene Love, OPTOMECHANICAL ENGINEER.GUIDANCE CONSULTANT [address] [place] [address] Treating Inspector Internal Medicine 03/26/24 Dorcas Rios OPTOMECHANICAL ENGINEER.CPC CODER [address] [place] [address] Treating Inspector Internal Medicine 07/10/24 Foundry Melt Supervisor Relationship Specialty Start Date End Date Elena Andino MD [address] [place] [address] PCP - General Internal Medicine 06/03/16 Dorcas Rios APRN.CPC CODER [address] [facility] [place] [address] Treating Inspector Internal Medicine 07/10/24 Gene Love APRN.GUIDANCE CONSULTANT [address] [place] [address] Treating Inspector Internal Medicine 09/05/24 Foundry Melt Supervisor Relationship Specialty Start Date End Date Elena Andino MD [address] [place] [address] PCP - General Internal Medicine 06/03/16 Dorcas Rios APRN.CPC CODER [address] [place] [address] Treating Inspector Internal Medicine 07/10/24 Gene Love, OPTOMECHANICAL ENGINEER.GUIDANCE CONSULTANT [address] [facility] [place] [address] [facility] Internal Medicine 09/05/24 Foundry Melt Supervisor Relationship Specialty Start Date End Date Elena Andino MD [address] [place] [address] PCP - General Internal Medicine 06/03/16 Dorcas Rios OPTOMECHANICAL ENGINEER.CPC CODER [address] [place] [address] [facility] Internal Medicine 07/10/24 Gene Love, OPTOMECHANICAL ENGINEER.GUIDANCE CONSULTANT [address] [place] [address] [facility] Internal Medicine 09/05/24 Foundry Melt Supervisor Relationship Specialty Start Date End Date Elena Andino MD [address] [place] [address] PCP - General Internal Medicine 06/03/16 Dorcas Rios OPTOMECHANICAL ENGINEER.CPC CODER [address] [place] [address] [facility] Internal Medicine 07/10/24 Gene Love, OPTOMECHANICAL ENGINEER.GUIDANCE CONSULTANT [address] [place] [address] [facility] Internal Medicine 09/05/24 Foundry Melt Supervisor Relationship Specialty Start Date End Date Elena Andino MD [address] [place] [address] PCP - General Internal Medicine 06/03/16 Dorcas Rios, OPTOMECHANICAL ENGINEER.CPC CODER [address] [place] [address] [facility] Internal Medicine 07/10/24 Gene Love, OPTOMECHANICAL ENGINEER.GUIDANCE CONSULTANT [address] [place] [address] [facility] Internal Medicine 09/05/24 FOR RECORDS PERTAINING TO PATIENTS WHO ARE OR HAVE BEEN ENROLLED IN A CHEMICAL DEPENDENCY/SUBSTANCEABUSE PROGRAM, SOME INFORMATION MAY BE OMITTED. This clinical summary was aggregated from multiple sources. Caution should be exercised in using it in the provision of clinical care. This summary normalizes information from multiple sources, and as a consequence, information in this document may materially change the coding, format and clinical context of patient data. In addition, data may be omitted in some cases. CLINICAL DECISIONS SHOULD BE BASED ON THE PRIMARY CLINICAL RECORDS. [employer] [facility]. provides no warranty or guarantee of the accuracy or completeness of information in this document.
--- NOTE | 2024-12-23 19:27 | EX.ED.DYSGE1 ---
HPI History of Present Illness Chief Complaint: General Illness Narrative Narrative: Patient is a 74-year-old female presenting to the emergency department for hand weakness yesterday. Patient states that yesterday at some point she is not sure if it was in the morning or at night she woke up and felt like her hands were in cement. Reports no arm weakness and was only isolated to the hands. She states that lasted for a few minutes and then went away. She is on oral anticoagulation, Eliquis. States that she is not sure about what time she had this happen yesterday. She reports that she called her primary care doctor's office today and the nurse answering the phone recommended that she come to the ED to be evaluated. Patient states that her hands do not feel like this anymore. She states over the past week she has been getting intermittent headaches. She denies any visual changes, speech deficits or neck pain. She denies any recent falls or trauma. She denies any headache at time of evaluation. She denies any fevers. She denies any weakness or numbness in her legs. Denies any back pain. [facility] Medical History (Updated 12/23/24 @ 21:[address] Megan Blanchard MD) Hypothyroidism PAF (paroxysmal atrial fibrillation) Tobacco use Chronic obstructive lung disease HLD (hyperlipidemia) Hypertension Popliteal artery occlusion, right Peripheral arterial disease Home Medications ?Medication ?Instructions ?Recorded ?Last Taken ?Type Oxazepam [Serax] 10 mg PO BID PRN PRN Agitation 04/22/13 Unknown History aspirin 81 mg chewable tablet 81 mg PO DAILY@0800 04/22/13 02/18/24 History atenolol 25 mg tablet 75 mg PO BID 04/22/13 Unknown History pravastatin 10 mg tablet 10 mg PO QHS 04/22/13 Unknown History sotalol 80 mg tablet 80 mg PO BID 04/22/13 Unknown History verapamil 80 mg tablet 40 mg PO BID 05/14/14 Unknown History apixaban 5 mg tablet (Eliquis) 5 mg PO DAILY 12/23/24 Unknown History atenolol 50 mg tablet 50 mg PO Q12H 12/23/24 Unknown History levothyroxine 25 mcg tablet 25 mcg PO DAILY 12/23/24 Unknown History lorazepam 0.5 mg tablet mg 12/23/24 Unknown History pravastatin 40 mg tablet 40 mg PO DAILY 12/23/24 Unknown History verapamil 40 mg tablet 40 mg PO Q12H 12/23/24 Unknown History Allergy/AdvReac Type Severity Reaction Status Date / Time thiopental (From Pentothal) Allergy Severe Anaphylaxis Verified 12/23/24 18:45 codeine Allergy Itching Verified 12/23/24 18:45 Penicillins Allergy Unknown Verified 12/23/24 18:45 Family History no significant family his Surgical History History of thrombectomy Social History Smoking Status: Light Smoker (<10/day) ROS ROS ED ROS Narrative See HPI EXAM Physical Exam Narrative Exam Narrative: Vital signs: Reviewed General: Alert and oriented x 3. No acute distress HEENT: Head is normocephalic and atraumatic, sinuses nontender, pupils equal round and reactive. Nares are patent. Oropharynx and throat exams normal. Neck: Supple without lymphadenopathy nontender Cardiovascular: Regular rate and rhythm, no murmurs. No rubs or gallops. Normal S1 and S2. Radial pulses and DP/PT pulses are intact and symmetric bilaterally. Respiratory: Clear to auscultation bilaterally. No wheezes, rales, rhonchi Abdominal: Soft and nontender. Normal bowel sounds. No guarding or rebound. Nonsurgical abdomen Extremities: No tenderness. No bruising. Normal range of motion. Normal sensation. Skin: No rash or redness. The rest of the physical exam is unremarkable Const Vital Signs: 12/23/24 18:46 12/23/24 19:38 12/23/24 21:25 Temperature 97 F L 98 F Temperature Source Temporal Pulse Rate 67 63 Respiratory Rate 14 20 H Respiratory Effort Normal Respiratory Pattern Normal Blood Pressure 146/54 H 144/76 H Blood Pressure Mean 84 98 Pulse Ox 97 96 Oxygen Delivery Method Room Air NIHSS NIHSS Initial: 1a Level of Consciousness: 0 1b LOC Questions (Score 2 if aphasic/stupor): 0 1c LOC Commands (Only score 1st attempt): 0 2 Best Gaze (If aphasic, use reflexive mvmts.): 0 3 Visual: 0 4 Facial Palsy: 0 5 Motor Arm Right (UN = amputation/fusion): 0 5 Motor Arm Left: 0 6 Motor Leg Right: 0 6 Motor Leg Left: 0 7 Limb ataxia (Only + if out of proportion): 0 8 Sensory (Aphasia/stupor=0 or 1, coma=2): 1 9 Best Language: 0 10 Dysarthria (mute, coma=2, intubated=UN): 0 11 Extinction and Inattention (only scored if +): 0 Total Score: 1 MDM MDM MDM Narrative Medical decision making narrative: Patient is a 74-year-old female presenting to the emergency department for bilateral hand weakness that occurred yesterday. Patient was seen and examined. Vitals are stable. Patient resting in bed comfortably no acute distress. Patient is unsure what time of day this happened yesterday. She is on oral anticoagulation. She is a very poor historian. On neurologic exam here in the emergency department she has an NIH of 1 for sensory deficits on the right side of her face, right arm and left leg. She is outside the window for thrombolytic therapy. She has a low NIH I do not think she has an LVO. Stroke team not called for the above reasons. CT imaging ordered. CT brain with no acute abnormalities. CTA head and neck with no acute abnormalities. CBC with no leukocytosis and a normal hemoglobin. BMP with no significant abnormalities. Patient updated on the negative CT imaging. With the NIH of 1 I did recommend admission for MRI. Patient agreeable with the plan. Patient admitted to Dr. Blanchard for further management including MRI for possible TIA/stroke. Clinical impression Numbness History & Record Review Discussion w/independent historian: Patient and Friend Lab Data Attestation: I reviewed the patient's lab results. Labs: Laboratory Results - last 24 hr 12/23/24 19:36 WBC 7.8 RBC 4.47 Hgb 13.8 Hct 41.5 MCV 92.8 MCH 30.9 MCHC 33.3 RDW Std Deviation 45.6 H RDW Coeff of Kayli 13.5 Plt Count 243 MPV 10.2 Immature Gran % (Auto) 0.400 Neut % (Auto) 59.5 Lymph % (Auto) 24.1 [place] % (Auto) 12.1 H Eos % (Auto) 3.3 Baso % (Auto) 0.6 Absolute Neuts (auto) 4.6 Absolute Lymphs (auto) 1.88 Nucleated RBC % 0 Sodium 138 Potassium 4.0 Chloride 98 Carbon Dioxide 30.3 Anion Gap 10 BUN 13 Creatinine 0.79 Est GFR (MDRD) Non-Af 78 BUN/Creatinine Ratio 16.3 Glucose 101 H Calcium 9.4 Radiography Diagnostic Testing: Clinical Impression(s) from Imaging Studies Brain CT 12/23/24 19:50 IMPRESSION: 1. No intracranial hemorrhage. No mass effect or midline shift. 2. Chronic involutional and ischemic gliotic white matter changes. CT is insensitive for early evaluation of acute stroke. If there is clinical concern for acute ischemia, an MRI may be considered. Reading [facility] Head/Neck CTA 12/23/24 19:50 IMPRESSION: No hemodynamically significant stenosis, major vessel occlusion or dissection, or aneurysm greater than 3 mm. Reading Location: [id number] Discharge Plan Triage Chief Complaint: General Illness ED Provider: Angelica Alvarado Dx/Rx/DC Orders Primary Care Provider: Fanta Nichols
[2024-12-23 19:45] LABS: Hematocrit 41.5 % (37-47); Hemoglobin 13.8 g/dL (12.0-15.0); Immature Granulocytes Count 0.030 X10^3/uL (0.0-0.0); Mean Corp Hgb Conc 33.3 g/dL (32-36); Mean Corpuscular Volume 92.8 fL (81-99); Mean Platelet Vol. 10.2 fl (6.2-12.0); NRBC Flagged by Analyzer 0 % (0-5); Platelet Count 243 K/mm3 (150-450); RBC Distribution Width CV 13.5 % (11.6-14.6); RBC Distribution Width SD 45.6 fl (35.1-43.9); Red Blood Count 4.47 M/mm3 (4.2-5.4); White Blood Count 7.8 K/mm3 (4.4-11.0)
--- NOTE | 2024-12-23 19:50 | CT_ITS ---
PROCEDURE: CTA HEAD AND NECK W/ CONTRAST 12/23/2024 REASON FOR EXAM: RIGHT SIDED NUMBNESS TECHNIQUE: Procedure Code: CTCTA.HDNCK Modality: CT Procedure: CTA HEAD AND NECK W/ CONTRAST Multiplanar Sagittal and Coronal images were obtained. CONTRAST: VOLUME: mL One or more dose reduction techniques were used (e.g., Automated exposure control, adjustment of the mA and/or kV according to patient size, use of iterative reconstruction technique). FINDINGS: The bilateral common carotid arteries appear unremarkable. The bilateral carotid bulbs and cervical ICAs are patent, without hemodynamically significant stenosis. The cervical segments of the bilateral vertebral arteries appear codominant and unremarkable. Mild atherosclerotic calcifications are noted within the cavernous segment of the left ICA resulting in less than 50% luminal narrowing. The remainder of the intracranial left ICA appears unremarkable. The intracranial right ICA appears unremarkable. The bilateral ACAs appear unremarkable. The anterior communicating artery is visualized and patent. The bilateral MCAs appear unremarkable. The cervical segments of the bilateral vertebral arteries appear unremarkable. The bilateral PICAs, bilateral AICAs, and bilateral superior cerebellar arteries are patent. The basilar artery appears unremarkable. The bilateral claim analyst appear unremarkable. The left posterior communicating artery is visualized and patent. CT/CTA Head AND Neck W/ Contrast IMPRESSION: No hemodynamically significant stenosis, major vessel occlusion or dissection, or aneurysm greater than 3 mm. Reading Location: [id number]
--- NOTE | 2024-12-23 19:50 | CT_ITS ---
PROCEDURE: BRAIN/HEAD WITHOUT CONTRAST 12/23/2024 REASON FOR EXAM: RIGHT SIDED NUMBNESS TECHNIQUE: Procedure Code: CTBR Modality: CT Procedure: BRAIN/HEAD WITHOUT CONTRAST Coronal and Sagittal reconstruction series were provided. One or more dose reduction techniques were used (e.g., Automated exposure control, adjustment of the mA and/or kV according to patient size, use of iterative reconstruction technique. COMPARISON: None available. FINDINGS: There is no extra-axial or intra-axial intracranial hemorrhage. No mass effect or midline shift is seen. The ventricles, sulci, and cisterns are normal in size and shape for the patient's age. There is normal saab-white matter differentiation. The posterior fossa is grossly unremarkable. The skull is unremarkable. Visualized paranasal sinuses are clear. The mastoid air cells show normal translucency. CT/Brain/Head without Contrast IMPRESSION: 1. No intracranial hemorrhage. No mass effect or midline shift. 2. Chronic involutional and ischemic gliotic white matter changes. CT is insensitive for early evaluation of acute stroke. If there is clinical co ncern for acute ischemia, an MRI may be considered. Reading Location: [facility]
[2024-12-23 20:10] LABS: Anion Gap 10 (5-15); BUN 13 mg/dL (4-19); BUN/Creat Ratio 16.3 RATIO (10-20); Calcium,Total 9.4 mg/dL (7.6-11.0); Carbon Dioxide 30.3 mmol/L (21.0-32.0); Chloride 98 mmol/L (98-108); Glucose 101 mg/dL (70-99); Potassium 4.0 mmol/L (3.3-5.1)
[2024-12-23 21:25] VITALS: BP 144/76; PULSE 63; RESP 20; TEMP 36.6; O2SAT 96; BMI 27.3
--- NOTE | 2024-12-23 21:33 | PCM.HP.STD ---
HPI - General General Date of Admission: 12/23/24 Date of Service: 12/23/24 Chief Complaint: R sided paresthesias, transient BL hand heaviness. HPI Narrative The patient is a 74 y/o F w/ PMHx: Hypothyroidism, PAF, HTN, HLD, COPD, Tobacco use, PAD s/p prior popliteal artery occlusion status post thrombectomy who presents to [facility] ED on 12/23/2024 with history of onset the day prior in the morning potentially upon awakening of her hands feeling very heavy describing it like being in cement with no weakness or debility at that time it was very isolated to both hands which lasted only a couple minutes and then completely abated prompting her eventually to call her primary care office just to review it and see if she should make a visit in addition to reported occasional recent intermittent headaches over the last week prompting them to recommend ED evaluation to be cautious. In the ED physician examination with noted NIH stroke assessment score 1 for mild sensory alteration specifically to the right side of the face as well as right upper extremity and right lower extremity. Workup in the ED included T97, heart rate 67, BP 146/54, respiratory rate 14, 97% on room air, CBC with WC 7.8, [place] 13.8, platelet 243 without marked shift, BMP with glucose 101, BUN/creatinine 13/0.79, GFR 78, CT of the brain with no acute intracranial findings with chronic involutional and ischemic gliotic white matter changes, CTA head and neck with no hemodynamically significant stenosis, major vessel occlusion or dissection or aneurysm greater than 3 mm, EKG pending upon requested evaluation of patient. Given patient outside the window for thrombolytic therapy as well as a low NIH stroke score, stroke alert team was not initiated. [facility] Medical History (Updated 12/23/24 @ 22:[address] Megan Blacnhard MD) Hypothyroidism PAF (paroxysmal atrial fibrillation) Tobacco use Chronic obstructive lung disease HLD (hyperlipidemia) Hypertension Popliteal artery occlusion, right Peripheral arterial disease Home Medications ?Medication ?Instructions ?Recorded ?Last Taken ?Type Oxazepam [Serax] 10 mg PO BID PRN PRN Agitation 04/22/13 Unknown History aspirin 81 mg chewable tablet 81 mg PO DAILY@0800 04/22/13 02/18/24 History atenolol 25 mg tablet 75 mg PO BID 04/22/13 Unknown History pravastatin 10 mg tablet 10 mg PO QHS 04/22/13 Unknown History sotalol 80 mg tablet 80 mg PO BID 04/22/13 Unknown History verapamil 80 mg tablet 40 mg PO BID 05/14/14 Unknown History apixaban 5 mg tablet (Eliquis) 5 mg PO DAILY 12/23/24 Unknown History atenolol 50 mg tablet 50 mg PO Q12H 12/23/24 Unknown History levothyroxine 25 mcg tablet 25 mcg PO DAILY 12/23/24 Unknown History lorazepam 0.5 mg tablet mg 12/23/24 Unknown History pravastatin 40 mg tablet 40 mg PO DAILY 12/23/24 Unknown History verapamil 40 mg tablet 40 mg PO Q12H 12/23/24 Unknown History Allergy/AdvReac Type Severity Reaction Status Date / Time thiopental (From Pentothal) Allergy Severe Anaphylaxis Verified 12/23/24 18:45 codeine Allergy Itching Verified 12/23/24 18:45 Penicillins Allergy Unknown Verified 12/23/24 18:45 Family History (Updated 12/23/24 @ 22:[address] Megan Blanchard MD) Mother Hypertension Anxiety and depression Father , from NH at 48-49 years old. CAD (coronary artery disease) Heart disease Hypertension Myocardial infarction Family History no significant family his Surgical History (Updated 12/23/24 @ 22:[address] Megan Blanchard MD) History of shoulder surgery History of thrombectomy Social History (Updated 12/23/24 @ 22:[address] Megan Blanchard MD) household members: family and other details: Her brother lives with her. Smoking Status: Current every day smoker tobacco type: cigarettes alcohol intake: never substance use type: does not use ROS ROS Narrative Admission Review of Systems: CONSTITUTIONAL: No weight loss, fever, chills, weakness or fatigue. HEENT: + Recent frequent headaches. Eyes: No visual loss, blurred vision, double vision or yellow sclerae. Ears, Nose, Throat: No hearing loss, sneezing, congestion, runny nose or sore throat. SKIN: No rash or itching, lesions, wounds. CARDIOVASCULAR: No chest pain, chest pressure or chest discomfort, palpitations, edema, orthopnea, syncopal events. RESPIRATORY: No shortness of breath, cough or sputum, wheezing, hemoptysis. GASTROINTESTINAL: No anorexia, nausea, vomiting or diarrhea, abdominal pain, melena, BRBPR. GENITOURINARY: No dysuria, frequency, urgency or retention. NEUROLOGICAL: + Recent frequent headaches, paresthesias. No dizziness, syncope, paralysis, ataxia, focal weakness, change in bowel or bladder control, seizure. MUSCULOSKELETAL: No muscle, back pain, joint pain or stiffness. HEMATOLOGIC: No anemia, bleeding or bruising. LYMPHATICS: No enlarged nodes. No history of splenectomy. PSYCHIATRIC: + History of anxiety. ENDOCRINOLOGIC: No reports of sweating, cold or heat intolerance. No polyuria or polydipsia. ALLERGIES: + History of anaphylaxis. Vital Signs Vital Signs Vital Signs: 12/23/24 18:46 12/23/24 19:38 12/23/24 21:25 Temperature 97 F L 98 F Temperature Source Temporal Pulse Rate 67 63 Respiratory Rate 14 20 H Respiratory Effort Normal Respiratory Pattern Normal Blood Pressure 146/54 H 144/76 H Blood Pressure Mean 84 98 Pulse Ox 97 96 Oxygen Delivery Method Room Air Weight Weight: 149 lb 11.2 oz Body Mass Index (BMI) 27.3 Physical Exam Narrative Physical Examination: General: Awake, alert, oriented x 3 and cooperative, seated upright in ED bed, no acute distress. Skin: Normal color, normal turgor, no icterus, no cyanosis except occasional stage ecchymoses, abrasion HEENT: AT/NC, EOMI, PERRLA, MMM, no carotid bruits or JVD noted. Lungs: Mildly diminished, mildly increased respiratory rate but no distress, occasional coughing during evaluation which she notes is chronic, occasional end expiratory wheeze, no rales or rhonchi. Heart: Regular rate and rhythm; no gallop, rub audible. Abdomen: Soft, NTTP, ND, mildly hyperactive BS, no appreciated HSM. Extremities: No cyanosis, no clubbing, no significant distal edema, status post previous thrombectomy to the right popliteal artery and she notes that there is some sensitive areas with palpation to that extremity which are chronic. Neurological: Patient awake, alert, oriented as noted, cognitive function intact; pupils equally reactive to light and accommodation, cranial nerves grossly normal, moving all 4 extremities, no focal deficits, strength preserved, currently sensation is completely normal and equal bilaterally, finger-nose and [id number] appropriate, equivocal Babinski. Psychiatric: Affect appears normal, although very adamant about specific things she wants and does not want, no acute evidence of depressive or anxiety feelings but does have underlying history. Results Lab / Micro Data 12/23/24 19:36 12/23/24 19:36 Labs: Laboratory Results - last 24 hr 12/23/24 19:36: WBC 7.8, RBC 4.47, Hgb 13.8, Hct 41.5, MCV 92.8, MCH 30.9, MCHC 33.3, RDW Std Deviation 45.6 H, RDW Coeff of Kayli 13.5, Plt Count 243, MPV 10.2, Immature Gran % (Auto) 0.400, Neut % (Auto) 59.5, Lymph % (Auto) 24.1, [place] % (Auto) 12.1 H, Eos % (Auto) 3.3, Baso % (Auto) 0.6, Absolute Neuts (auto) 4.6, Absolute Lymphs (auto) 1.88, Nucleated RBC % 0, Sodium 138, Potassium 4.0, Chloride 98, Carbon Dioxide 30.3, Anion Gap 10, BUN 13, Creatinine 0.79, Est GFR (MDRD) Non-Af 78, BUN/Creatinine Ratio 16.3, Glucose 101 H, Calcium 9.4 Imaging Radiology Impression Brain CT 12/23/24 19:50 IMPRESSION: 1. No intracranial hemorrhage. No mass effect or midline shift. 2. Chronic involutional and ischemic gliotic white matter changes. CT is insensitive for early evaluation of acute stroke. If there is clinical concern for acute ischemia, an MRI may be considered. Reading Location[facility] Head/Neck CTA 12/23/24 19:50 IMPRESSION: No hemodynamically significant stenosis, major vessel occlusion or dissection, or aneurysm greater than 3 mm. Reading Location: [id number] Assessment & Plan Assessment/Plan (1) TIA (transient ischemic attack): PLAN: Plan The patient is a 74 y/o F w/ PMHx: Hypothyroidism, PAF, HTN, HLD, COPD, Tobacco use, PAD s/p prior popliteal artery occlusion status post thrombectomy who presents to [facility] ED on 12/23/2024 with history of onset the day prior in the morning potentially upon awakening of her hands feeling very heavy describing it like being in cement with no weakness or debility at that time it was very isolated to both hands which lasted only a couple minutes and then completely abated prompting her eventually to call her primary care office just to review it and see if she should make a visit in addition to reported occasional recent intermittent headaches over the last week prompting them to recommend ED evaluation to be cautious. #1. Right-sided paresthesias and transient bilateral hand heaviness concerning for TIA/CVA: Will admit to PCU, will obtain MRI Brain, ECHO, PT/OT/Speech/Nutrition evaluation per protocol. Patient given resolution of symptoms currently with no further paresthesias and also flat refusal to stay in the hospital for evaluation of TIA if she does not get all of her blood pressure medications will defer permissive hypertension at this time and continue her hypertensive regimen, maintain on asa, continue home statin w/ AM FLP, fall precautions. Mag, TSH, FLP, HgbA1c requested. Maintain on fall and aspiration precautions. Continue asa, eliquis regimen. Neurology consultation requested per protocol. #2. Hypertension: Patient given resolution of symptoms currently with no further paresthesias and also flat refusal to stay in the hospital for evaluation of TIA if she does not get all of her blood pressure medications will defer permissive hypertension at this time and continue her hypertensive regimen. Will have as needed agents for above goal. #3. PAF: Will continue patient home sotalol, temporarily hold atenolol, not chronically anticoagulated as noted above, will continue baby aspirin pending MRI of the brain and neurology evaluation as may need to consider initiation. #4. PAD: Status post previous popliteal artery occlusion status post thrombectomy, will continue aspirin, eliquis, statin, temporally holding hypertensive regimen as noted. #5. Chronic COPD: Not on any chronic inhalers, encouraged tobacco cessation, PRN albuterol, HOB, IS parameters. #6. Tobacco Abuse: Encouraged cessation, inpatient consultation per RT, NR if desired. #7. Hypothyroidism: Will continue patient levothyroxine regimen, TSH requested. #8. DVT prophylaxis: Eliquis. #9. CODE status: Patient does not have healthcare power of area operations manager or living will in place and at this time declines to name anyone who she would want to make medical decisions for her if she could not. She very specifically notes that likely her family would make her DNR and she does not trust them. Discussed CODE status at length including difference between FULL code, DNR-CCA and DNR-CC status. Following discussions about the differences in these status, requested Full Code status. Advanced Care Planning Face to Face Time: 16 minutes. Charges/Coding Visit Charges Inpatient E&M: 92398 Init Hosp L2 Procedures Hospitalists Procedures: 02691 Advncd Care Plan 30 Min
--- NOTE | 2024-12-23 21:37 | EKG12_ITS ---
Test Reason : DYSRHYTHMIA Blood Pressure : */* mmHG Vent. Rate : 62 BPM Atrial Rate : 62 BPM P-R Int : 168 ms QRS Dur : 78 ms QT Int : 442 ms P-R-T Axes : 79 69 -82 degrees QTcB Int : 448 ms Normal sinus rhythm ST & T wave abnormality, consider inferolateral ischemia Abnormal ECG Confirmed by Reji Kang ([id number]), editor newspaper TIKI HARRIS ([id number]) on 12/24/2024 9:51:04 AM Referred By: Confirmed By: Reji Kang
--- OUTSIDE RECORDS SUMMARY | 2024-12-23 21:57 | XMS RPT_ITS | CCD ---
Author Organization [facility] CliniSysd Care Team Providers Care Administrative Technician Name Role Phone BEN, VERONICA Unavailable Unavailable BEN, VERONICA Unavailable Unavailable TALAMPAS, ELENA Unavailable Unavailable BEN, VERONICA Unavailable Unavailable BEN, VERONICA Unavailable Unavailable TALAMPAS, ELENA Unavailable Unavailable Elena Andnio MD Primary Care Provider Javier Leonard RN Unavailable UnavailElena Conde MD Primary Care Provider Javier Leonard RN Unavailable UnavailElena Conde MD Primary Care Provider Amarjit Herrera RN Unavailable Unavailmichael Herrera RN, Amarjit Cruz Unavailable UnavailElena Conde MD Primary Care Provider THU ELENA D Primary Care Unavailable ALLEN PRESTON Admitting Unavailable ALLEN PRESTON Attending Unavailable FAREED CARNEY Consulting Unavailable Love COAL GASIFICATION TECHNICIAN.BILINGUAL TEACHER AIDE, Gene Unavailable Radha COAL GASIFICATION TECHNICIAN.ELECTRODE CLEANER, Dorcas Unavailable Bryan Felder Attending Unavailable Talampas, Elena D Primary Care Unavailable Hitesh Baker Attending Unavailable Talampas, Elena D Primary Care Unavailable Flako Arredondo Attending Unavailable Talampas, Elena D Primary Care Unavailable Radha COAL GASIFICATION TECHNICIAN.ELECTRODE CLEANER, Dorcas Unavailable Love COAL GASIFICATION TECHNICIAN.BILINGUAL TEACHER AIDE, Gene Unavailable LOVEJUANI Attending Unavailable TALAMPAS, ELENA D Primary Care Unavailable AMY ACOSTA Attending Unavailabl e TALAMPAS, ELENA D Primary Care Unavailable Allergies Allergy Classification Reported Allergen(s) Allergy Type Date of Onset Reaction(s) Facility Albuterol (1 source) Albuterol Drug Allergy 1 Intolerance [facility] Work Phone: Famotidine (1 source) Famotidine Drug Allergy 5 Itching [facility] Work Phone: HMG-CoA Reductase Inhibitors (statins) (1 source) atorvastatin Drug Allergy 2 GI Upset [facility] Lincosamides (antibiotic) (1 source) Clindamycin Drug Allergy 4 Diarrhea [facility] nickel (1 source) nickel Drug Allergy 5 Rash [facility] Work Phone: Opioid Agonists (1 source) Codeine Drug Allergy 5 Unknown [facility] Work Phone: Penicillins (antibiotic) (1 source) Penicillins Drug Allergy 5 Unknown [facility] Thiopental (1 source) Thiopental Drug Allergy 5 Intolerance [facility] Work Phone: (20 sources) atorvastatin; Translations: [ATORVASTATIN CALCIUM] Drug Allergy 2 GI Upset [facility] Repository (20 sources) clindamycin; Translations: [CLINDAMYCIN] Drug Allergy 4 Diarrhea [facility] Repository (20 sources) codeine; Translations: [CODEINE] Drug Allergy 5 Unknown [facility] Repository (20 sources) nickel; Translations: [NICKEL] Drug Allergy 5 Rash [facility] Repository (20 sources) Penicillins; Translations: [PENICILLINS] Propensity to adverse reactions (disorder) 5 Unknown [facility] Repository (20 sources) PROPOXYPHENE N-ACETAMINOPHEN; Translations: [PROPOXYPHENE N-ACETAMINOPHEN] Propensity to adverse reactions (disorder) 5 Intolerance [facility] Repository (1 source) OTHER; Translations: [OTHER] Propensity to adverse reactions (disorder) [facility] Repository (20 sources) NITRATE ANALOGUES; Translations: [NITRATE ANALOGUES] Propensity to adverse reactions (disorder) 3 Intolerance [facility] Repository (20 sources) FAMOTIDINE IN 0.9 % NACL; Translations: [FAMOTIDINE IN 0.9 % NACL] Propensity to adverse reactions (disorder) 5 Itching [facility] Repository (20 sources) Albuterol; Translations: [ALBUTEROL] Drug Allergy 1 Intolerance [facility] Work Phone: (20 sources) lotions [Other] Propensity to adverse reactions 5 Intolerance [facility] Work Phone: (20 sources) sodium penathol [Other] Propensity to adverse reactions 5 Intolerance [facility] Work Phone: (20 sources) Thiopental; Translations: [THIOPENTAL] Drug Allergy 5 Intolerance [facility] Work Phone: (1 source) Thiopental Drug Allergy 4 [facility] Repository Medications Current Medications Medication Drug Class(es) Dates Sig (Normalized) Sig (Original) [id number] 200 actuat albuterol 0.09 mg/actuat metered dose inhaler (20 sources) beta2-Adrenergic Agonist Start: 02-09-2021 End: 08-22-2023 take 2 puff(s) by inhalation every four hours as needed for wheezing albuterol HFA (VENTOLIN HFA) 90 mcg/actuation inhaler Inhale 2 Puffs as instructed every 4 hours as needed for wheezing/shortnes s of breath. 1 Each 2 08/22/2023 Active Comment on above: Inhale 2 Puffs as in structed every 4 hours as needed for wheezing/shortness of breath. apixaban 5 mg oral tablet (20 sources) Factor Xa Inhibitor Start: 12-13-2024 take 1 tablet by mouth twice daily apixaban (ELIQUIS) 5 mg tab(s) Take 1 tablet by mouth two times a day. 180 tablet 2 12/13/2024 Active Start: 02-20-2024 End: 09-17-2024 take 1 tablet [...] oral tablet (20 sources) beta-Adrenergic Darlene Start: 12-14-19 take 1.5 tablets by mouth twice daily atenolol (TENORMIN) 50 mg tablet Indications: Paroxysmal atrial fibrillation (HCC) Take 1.5 tablets by mouth two times a day. 270 tablet 2 12/13/2024 Active Start: 09-07-2024 atenolol (TENO RMIN) 50 mg tablet Indications: Paroxysmal atrial fibrillation [...] Start: 06-11-2021 take 1 capsule by mo [facility] twice daily as needed oxazepam (SERAX) 10 mg capsule Indications: Generalized anxiety disorder Take 1 capsule by mouth twice daily as needed for up to 30 days. 60 capsule 0 06/11/2021 Active Comment on above: Take 1 capsule by mo uth twice daily as needed for up to 30 days. Take 1 capsule by mo uth [...] 10 mL injection (DEFINITY) (20 sources) Start: 02-09-2021 End: 05-11-2022 perflutren lipid microspheres 1.3 mL in NaCl (PF) 0.9% 10 mL injection (DEFINITY) pravastatin sodium 40 mg oral tablet (20 sources) HMG-CoA Reductase Inhibitor Start: 11-23-2024 pravastatin (PRAVACHOL) 40 mg tablet Indications: Hyperlipidemia, unspecified hyperlipidemia type TAKE 1 AND 1/2 TABLETS BY MOUTH DAILY AT BEDTIME 135 tablet 3 11/23/2024 Active Start: 06-11-2021 End: 11-22-2023 pravastatin (PRAVACHOL) 40 m g tablet Indications: Hyperlipidemia, unspecified hyperlipidemia type TAKE [...] mg oral tablet (20 sources) Antiarrhythmic Start: 12-14-19 take 1 tablet by mouth twice daily sotalol (BETAPACE) 80 mg tablet Indications: Paroxysmal atrial fibrillation (HCC) Take 1 tablet by mouth two times a day. 180 tablet 2 12/13/2024 Active Start: 03-31-2023 End: 11-22-2023 take 1 tablet by mouth twice daily [...] (ASPERCREME) 10 % crea (20 sources) Start: Trolamine Salicylate-Aloe Vera (ASPERCREME) 10 % crea Apply 1 application to affected area four times daily as needed. 1 Tube 2 01/24/2015 Active Comment on above: Apply 1 application to affected area four times daily as needed. verapamil hydrochloride 40 mg oral tablet (20 sources) Calcium Channel Darlene Start: take 1 tablet by mouth twice daily verapamil 40 mg tablet Indications: Paroxysmal atrial fibrillation (HCC) Take 1 tablet by mouth two times a day. 180 tablet 2 12/13/2024 Active Start: 03-21-2024 End: 09-17-2024 take 1 tablet by mouth twice daily verapamil 40 mg tablet Indications: Paroxysmal atrial fibrillation (HCC) take 1 tablet by mouth twice a day 180 tablet 1 09/11/2024 Active Start: 09-13-2023 take 1 tablet by abelino th twice daily verapamil 40 mg tablet Indications: [...] daily. Take 1 tablet by abelino th three times daily. Take 1 tablet by abelino th two times a day. Completed/Discontinued Medications Medication [...] Coronary arteriosclerosis; Translations: [Atherosclerotic heart disease of [place] coronary artery without angina pectoris] Onset: 10-25-2011 [...] right popliteal artery; Translations: [Unspecified atherosclerosis of [place] arteries of extremities, right leg] Onset: 02-20-2024 [...] Test Name Value Interpretation Reference Range Facility [facility] 10-04-2024 CNOV Office Visit (INTMWS ) BRYLEXI Renae ([id number]) 1950 F Date Time Provider Department 10/04/24 2:40 PM GENE LOVE INTMWS During your visit today, we recorded the following information about you: Pulse Respiration Blood pressure Weight 65/minute 16/minute 109/58 65 kg Height 1.585 m Gene Love APRN.BILINGUAL TEACHER AIDE 10/04/2024 4:00 PM Addendum Lexi Batool Londono is a 74 year old female [...] Sotalol and amlodipine. - Not seeing a auto body repairer fiberglass; last auto body repairer fiberglass was Dr. Mills. - Willing to see a auto body repairer fiberglass if available in [place]. - Reports feeling well and managing with [...] Abs Lymph 1.00 - 4.00 k/uL 2.90 [place]% % 11.5 Abs [place] <0.87 k/uL 1.13 (H) Eosin% % 4.6 [...] Calculated, Non (more content not included)... Normal [facility] 09-13-2024 CNPN Telephone (INTMWS) LEXI LONDONO ([id number]) 1950 F Date Time Provider Department 09/13/24 [...] neighborhood. Asked patient if she tried calling [facility]. Patient reports that they will not do anything for cats and she is stressed out by this. Patient is asking what she can do to help her with her sleeping issues. Patient is going to call pharmacy to see what she can take for sleep. Please review and advise, ALEX Varela Rosa, APRN.TERRY 09/21/2024 8:34 AM Signed Noted, agree, recommend [...] Date Reviewed: 03/21/2024 Reviewed by: Amy Acosta APRN.ELECTRODE CLEANER - Fully Assessed Reason for Visit: Patient [...] Encounter Status:Closed by DORCAS RIOS on 09/21/24 [facility] 08-07-2024 TEDDY Telephone (ANNIA) LEXI LONDONO ([id number]) 1950 F Date Time Provider Department 08/07/24 ELENA ANDINO During your visit today, we recorded the following information about you: Kenia Negrete, RN 08/07/2024 5:16 PM Signed patient is calling [...] Date Reviewed: 03/21/2024 Reviewed by: Amy Acosta APRN.ELECTRODE CLEANER - Fully Assessed Reason for Visit: Medication [...] this m (more content not included)... Normal [facility] LEXI LONDONO ([id number]) 1950 F Date Time Provider Department 07/30/24 ELENA ANDINO INTMWS During your visit today, we recorded the following information about you: Evelia Cochran, RN 07/30/2024 9:29 AM Signed Patient calls and states that prior authorization needs done on medication. Called and spoke with pharmacist at [facility]. Pharmacy did send over prior authorization for medication through cover my medications. Insurance is not wanting to cover the medication due to patient's age and the class medication is in. Prior Authorization Documentation Prior authorization requested for the following medication: Medication: Oxepam Provider: Dr. Elena Andino Insurance Company Name: Medicare Patient ID number: [id number] Pharmacy Name: [facility] Telephone number: [phone] Blanca Polanco LPN 07/30/2024 10:24 AM Signed Unable to complete PA electronically. Called the pharmacy and pharmacy benefits info is ID number [id number] [facility] [id number] N [id number] Group rx [id number]. This was completed via covermymeds. lexi londono (Styles: [id number]) - [id number] Oxazepam 10MG capsules status: PA Request Created: July 30, 2024 Sent: July 30, 2024 Blanca Polanco LPN 07/30/2024 1:47 PM Signed lexi londono (Styles: [id number]) PA Need Help? Call us at Outcome Approved today by [employer] 2017 PA Case: [id number], Status: Approved, Coverage Starts on: 04/18/2024 12:00:00 AM, Coverage Ends on: 04/17/2025 12:00:00 AM. Questions? Contact . Effective Date: 04/18/2024 Authorization Expiration Date: 04/17/2025 Drug Oxazepam 10MG capsules Blanca Polanco LPN 07/30/2024 2:10 PM Signed Message left to [...] Date Reviewed: 03/21/2024 Reviewed by: Amy Acosta APRN.ELECTRODE CLEANER - Fully Assessed Reason for Visit: Insurance Authorization [[id number]] Visit Diagnosis:Generalized anxiety disorder [F41.1] Comment:Stable on [...] Encounter Status:Closed by BLANCA POLANCO on 07/30/24 [facility] 07[facility]23-2024 [facility]INT[facility] LEXI LONDONO ([id number]) 1950 F Date Time Provider Department 07/23/24 ELENA ANDINO INTMWS During your visit today, we recorded the following information about you: ZionJoycelynSalome 07/23/2024 5:18 PM Signed Pt called in stating that the pharmacy called her and her insurance stated they would not cover the oxazepam. Pt was not sure why. Please advise and contact patient. Monica Maguire RN 07/24/2024 8:31 AM Signed Called and [...] review. Per Prior Auth note on Oxazepam: [employer] has a message stating waiting for auth details sent on 07/22 at 541 pm. The below is noted: [employer] MEDICARE PART D (BIN#[id number] PCN#[id number]) - MR: Product Not on FormularyHUMANA MEDICARE PART D (BIN#[id number] PCN#[id number] MEDICARE PART D (BIN#[id number] PCN#[id number]) - RAPD: PREFERRED PRODUCT INFORMATION. Allergies As [...] Date Reviewed: 03/21/2024 Reviewed by: Amy Acosta APRN.ELECTRODE CLEANER - Fully Assessed Reason for Visit: Medication [...] Status:Closed by BLANCA POLANCO on 07/25/24 Normal [facility] Emergency Department Summary on 04-03-2024 Emergency Department Summary [facility] Medical Records Department [address] [place] [address] Emergency Department Summary 04/03/24 MR#: [id number] Acct: [id number] Name: LEXI LONDONO Rep #: [id number] : 1950 73 From: Flako Arredondo DO [...] at that time. Prior similar symptoms: Yes PFSH [facility] Medical History (Updated 04/03/24 @ 17:[address] Flako Arredondo DO) Popliteal artery occlusion, right Anticoagulant long-term [...] (Updated 04/03/24 @ 15:[address] Flako Arredondo DO) History of thrombectomy Social History Smoking [...] wrist splint. Patient was instructed to use [id number] ibuprofen as needed for pain. Patient was instructed to follow-up with her primary care physician in 5 to 7 days. Patient understood and was agreeable with the plan. All questions were answered. Dischar (more content not included)... Normal [facility] Venous Duplex US, Unilateral on 04-03-2024 Venous Duplex US, Unilateral [facility] Cardiovascular Services [address] [place] [address] Venous Duplex US, Unilateral 04/03/24 1546 MR#: [id number] Acct: [id number] Name: LEXI LONDONO Rep #: [id number] : 1950 73 From: Willard Schmidt MD [...] compressible. Patient Safety Preliminary Finding given To [facility] ED Nurse Responsible for patient. VL/Venous [...] Physician: Flako Arredondo Performed By: Kirill Alfaro, T ??? 04/03/242240 Date Willard Schmidt MD CC: Dr. Flako Arredondo, DO; Dr. Elena Andino MD Date Dictated: 04/03/24 154 Date Transcribed: 04/03/242240 Mushroom Growing Supervisor: Signed [facility] 04-02-2024 [facility] Telephone (INTMWS) LEXI LONDONO ([id number]) 1950 F Date Time Provider Department 04/02/24 ELENA ANDINO INTWS During your visit today, we recorded the [...] 12:52 AM Signed Reviewed that she left A in February after treated for peripheral limb [...] Date Reviewed: 03/21/2024 Reviewed by: Amy Acosta APRN.ELECTRODE CLEANER - Fully Assessed Reason for Visit: Patient Question [4817] Prescriptions as of 04/03/2024 - apixaban (ELIQUIS) [...] Encounter Status:Closed by SHERIE CALLES [facility]03[facility] Office [facility] (FAMPWS ) LEXI LONDONO ([id number]) 1950 F Date Time Provider Department 03/21/24 6:20 PM AMY ACOSTA FAMPWS During your visit today, we recorded the following information about you: Pulse Respiration Blood pressure Weight 63/minute 16/minute 118/64 66.7 kg Amy Acosta APRN.ELECTRODE CLEANER 03/21/2024 7:10 PM Signed Chief Complaint Patient presents with: 6 month fup HPI eLxi Londono is a 73 year old female who presents here today for Above Complaints. Lexi is an established patient of Dr. Thu MD. She is a new patient to me today. Concerns today... Needing refills of medications. No concerns or complaints today. Recent [facility] ER visit on 03/05 d/t LLE [...] of complication Noncompliance with medication regimen 12/06/2010 PM - PAST MEDICAL HISTORY OF ASPVD Tendonitis [...] 2 - (more content not included)... Normal [facility] 03-21-2024 [facility] Telephone (INTMWS) LEXI LONDONO ([id number]) 1950 F Date Time Provider Department 03/21/24 ELENA ANDINO INTMWS During your visit today, we recorded the following information about you: Annemarie Waggoner 03/21/2024 9:33 AM Signed Patient requesting medication [...] Please review and advise. KATIE Campbell Stephanie, ALEX 03/21/2024 4:14 PM Signed Ijeoma calls back [...] Date Reviewed: 03/21/2024 Reviewed by: Amy Acosta APRN.ELECTRODE CLEANER - Fully Assessed Reason for Visit: requesting [...] Status:Closed by ELENA ANDINO on 03/21/24 Normal [facility] Basic Metabolic Profile (BMP )on 03-05-2024 BUN/CRE 17.5 RATIO Normal 10-20 [facility] Comment on above: Performed By: #### L 500.2500, L100.0100 ####[facility] [address] [place], [address] CA,Total 9.6 mg/dL Normal 8.5-10.1 [facility] Comment on above: Performed By: #### L 500.2500, L100.0100 ####[facility] [address] [place], [address] Chloride [Moles/Vol] 102 mmol/L Normal 98-107 [facility] Comment on above: Performed By: #### L 500.2500, L100.0100 ####[facility] [address] [place], [address] CO2 [Moles/Vol] 32.0 mmol/L Normal 21.0-32.0 [facility] Comment on above: Performed By: #### L 500.2500, L100.0100 ####[facility] [address] [place], [address] Creatinine [Mass/Vol] 0.74 mg/dL Normal 0.55-1.02 [facility] Comment on above: Result Comment: The validity of the calculated GFR GFRAA in patients over 70 years has not been determined. Clinical correlation is essential. Performed By: #### L 500.2500, L100.0100 ####[facility] [address] [place], [address] ECRCL 55.18 ml/min Normal [facility] Comment on above: Performed By: #### L 500.2500, L100.0100 ####[facility] [address] [place], [address] EST GFR - AA 98 mL/min Normal >60 [facility] Comment on above: Result Comment: Afri can [place] GFR Calc Performed By: #### L 500.2500, L100.0100 ####[facility] [address] [place], [address] GAP 2 Low 5-15 [facility] Comment on above: Performed By: #### L 500.2500, L100.0100 ####[facility] [address] [place], [address] GFR/1.73 sq M.predicted among non-blacks MDRD (S/P/Bld) [Vol rate/Area] 81 mL/min/{1.73_m2} Normal >60 [facility] Comment on above: Result Comment: Non- GFR Calc Performed By: #### L 500.2500, L100.0100 ####[facility] [address] [place], [address] Glucose [Mass/Vol] 109 mg/dL High 74-106 [facility] Comment on above: Result Comment: Fast ing Glucose result from 100 to 125 mg/dL suggests IMPAIRED HOMEOSTASIS per A.D.A. criteria. Performed By: #### L 500.2500, L100.0100 ####[facility] [address] [place], [address] Potassium [Moles/Vol] 4.2 mmol/L Normal 3.5-5.1 [facility] Comment on above: Performed By: #### L 500.2500, L100.0100 ####[facility] [address] [place], [address] Sodium [Moles/Vol] 136 mmol/L Normal 136-145 [facility] Comment on above: Performed By: #### L 500.2500, L100.0100 ####[facility] [address] [place], [address] Urea nitrogen [Mass/Vol] 13 mg/dL Normal 7-18 [facility] Comment on above: Performed By: #### L 500.2500, L100.0100 ####[facility] [address] [place], [address] CBC W/Diff, Automatedon 02-16 Absolute Lymph 2.61 X10 3/uL Normal 0.83-4.51 [facility] Comment on above: Performed By: #### L 500.2500, L100.0100 ####[facility] [address] [place], [address] Absolute Neut 6.9 X10 3/uL Normal 2.0-7.7 [facility] Comment on above: Performed By: #### L 500.2500, L100.0100 ####[facility] [address] [place], [address] Basophils/100 WBC (Bld) 0.6 % Normal 0-1 [facility] Comment on above: Performed By: #### L 500.2500, L100.0100 ####[facility] [address] [place], [address] Eosinophils/100 WBC (Bld) 2.9 % Normal 0-5 [facility] Comment on above: Performed By: #### L 500.2500, L100.0100 ####[facility] [address] [place], [address] Erythrocyte distribution width (RBC) [Ratio] 14.3 % Normal 11.6-14.6 [facility] Comment on above: Performed By: #### L 500.2500, L100.0100 ####[facility] [address] [place], [address] Hematocrit (Bld) [Volume fraction] 39.0 % Normal 37-47 [facility] Comment on above: Performed By: #### L 500.2500, L100.0100 ####[facility] [address] [place], [address] Hemoglobin (Bld) [Mass/Vol] 12.3 g/dL Normal 12.0-15.0 [facility] Comment on above: Performed By: #### L 500.2500, L100.0100 ####[facility] [address] [place], [address] IG% 0.700 Normal 0.0-0.9 [facility] Comment on above: Result Comment: IG% - Immature Granulocytes (promyelocytes, myelocytes and metamyelocytes) > 1% indicates that a LEFT SHIFT is Present. Performed By: #### L 500.2500, L100.0100 ####[facility] [address] [place], [address] Lymphocytes/100 WBC (Bld) 23.0 % Normal 19-41 [facility] Comment on above: Performed By: #### L 500.2500, L100.0100 ####[facility] [address] [place], [address] MCH (RBC) [Entitic mass] 30.5 pg Normal 27.0-32.0 [facility] Comment on above: Performed By: #### L 500.2500, L100.0100 ####[facility] [address] [place], [address] MCHC (RBC) [Mass/Vol] 31.5 g/dL Low 32-36 [facility] Comment on above: Performed By: #### L 500.2500, L100.0100 ####[facility] [address] [place], [address] MCV (RBC) [Entitic vol] 96.8 fL Normal 81-99 [facility] Comment on above: Performed By: #### L 500.2500, L100.0100 ####[facility] [address] [place], [address] Monocytes/100 WBC (Bld) 12.1 % High 0-10 [facility] Comment on above: Performed By: #### L 500.2500, L100.0100 ####[facility] [address] [place], [address] Neutrophils/100 WBC (Bld) 60.7 % Normal 47-70 [facility] Comment on above: Performed By: #### L 500.2500, L100.0100 ####[facility] [address] [place], [address] Nucleated RBC (Bld) [#/Vol] 0 10*3/uL Normal 0-5 [facility] Comment on above: Performed By: #### L 500.2500, L100.0100 ####[facility] [address] [place], [address] Platelet mean volume (Bld) [Entitic vol] 9.3 fL Normal 6.2-12.0 [facility] Comment on above: Performed By: #### L 500.2500, L100.0100 ####[facility] [address] [place], [address] Platelets (Bld) [#/Vol] 390 10*3/uL Normal 150-450 [facility] Comment on above: Performed By: #### L 500.2500, L100.0100 ####[facility] [address] [place], [address] RBC (Bld) [#/Vol] 4.03 10*6/uL Low 4.2-5.4 [facility] Comment on above: Performed By: #### L 500.2500, L100.0100 ####[facility] [address] [place], [address] RDW SD 49.5 fl High 35.1-43.9 [facility] Comment on above: Performed By: #### L 500.2500, L100.0100 ####[facility] [address] [place], [address] WBC (Bld) [#/Vol] 11.4 10*3/uL High 4.4-11.0 [facility] Comment on above: Performed By: #### L 500.2500, L100.0100 ####[facility] [address] [place], [address] Emergency Department Summary on 03-05-2024 Emergency Department Summary [facility] Medical Records Department [address] [place] [address] Emergency Department Summary 03/05/24 MR#: [id number] Acct: [id number] Name: LEXI LONDONO Rep #: [id number] : 1950 73 From: Hitesh Baker MD [...] disease who recently had revascularization surgery at [facility]. She is on Eliquis 5 mg twice [...] right lower extremity) Recent Illness/Hospitalizatio n: Yes [facility] Medical History (Updated 03/05/24 @ 11:03 by [...] lower extremity (more content not included)... Normal [facility] HEALTHon 02-20-2024 ALLIED HEALTH HNO ID: [id number] Author: DIANA ROCK RT(R) Service: Radiology Author Type: Fisheries Diver Type: Allied Health Filed: 02/20/2024 09:48 Note [...] PATIENT PRESENTS WITH AN IMPLANTABLE OR ATTACHED CITY DIRECTOR: No ALLERGIES: Reviewed and unchanged CONTRAST ALLERGY: [...] Filtration Rate (eGFR) is calculated using the 2021 CKD-EPI creatinine equation. This equation utilizes serum [...] PERIPHERAL IV DATA: Inpatient - refer to [facility] documentation RADIOLOGY DEPARTMENT: CT; Exam(s) Completed: CTA Chest SIGNATURE: Diana Rock RT(R) PATIENT NAME: Lexi Londono DATE: February 20, 2024 TIME: 9:47 AM Normal [facility] ANES POSTPROC EVALon 024 ANES POSTPROC EVAL HNO ID: [id number] Author: BETHEL FLAHERTY MD Service: Anesthesiology Author Type: Anesthesiologist Type: Anesthesia Postprocedure Evaluation Filed: 02/20/2024 03:08 Note Text: POST ANESTHESIA EVALUATION NOTE : 1950 Procedure Summary Date: 02/19/24 Room / Location: [place] OR [address] [place] [address] OR Anesthesia Start: 2043 Anesthesia Stop: 02/20/2445 Procedures: ANGIOGRAM EXTREMITY LOWER (Right: Leg) THROMBECTOMY FEMOROPOPLITEAL ARTERY VIA LEG INCISION (Right: Leg) Diagnosis: Ischemia of extremity (Ischemia of extremity [I99.8]) Surgeons: Allen Preston MD Responsible Provider: Bethel Flaherty MD Anesthesia Type: general ASA Status: 4 - Emergent Anesthesia Type: general Airway Type: ETT Last Vitals Vitals Value Taken Time BP 169/77 02/20/24 0225 Temp 02/20/24 0307 Pulse 65 02/20/24 0306 Resp 17 02/20/24 0306 SpO2 98 % 02/20/24 030 Vitals shown include unfiled device data. Post [...] February 20, 2024 TIME: 3:07 AM CSN: [id number] [facility] BRIEF OP NOTon 02-20-2024 BRIEF OP NOT HNO ID: [id number] Author: ALLEN PRESTON MD Service: Vascular Surgery [...] 10:44 AM BRIEF OP NOTE LOG ID: [id number] Surgery/Procedure Date: 02/19/2024 - 02/20/2024 Incision/Procedure Start Time: 9:39 PM Incision Close/Procedure End Time: 12:23 AM Surgeon(s) and Cook Specialty Foreign Food(s): Surgeons and Role: * Allen Preston MD - Primary * Mary Kate Morrow DO - Resident - Assisting Physician Cook Specialty Foreign Food: Christiana Roque PA-C Procedure(s): Angiography, Prenumbra thrombectomy [...] 20, 2024 TIME: 12:29 AM PAGER/CONTACT #: [phone] From 5pm to 6 am and on weekends, please page general surgery on-call [phone] Normal [facility] Basic metabolic 2000 panelon 02-20-2024 Anion gap [Moles/Vol] 9 mmol/L Normal 8-15 [facility] Comment on above: Order Comment: Speci men Type: BLOOD SPECIMENOrdering Facility: [facility] Address: [address] [place] [address] Performed By: #### 2 4321-2 ####[facility] LABORATORYCLIA [id number] [place] [address] [place] Calcium [Mass/Vol] 8.7 mg/dL Normal 8.5-10.2 [facility] Comment on above: Order Comment: Speci men Type: BLOOD SPECIMENOrdering Facility: [facility] Address: [address] [place] [address] Performed By: #### 2 4321-2 ####[facility] LABORATORYCLIA [id number] [place] [address] [place] Chloride [Moles/Vol] 101 mmol/L Normal 98-107 [facility] Comment on above: Order Comment: Speci men Type: BLOOD SPECIMENOrdering Facility: [facility] Address: [address] [place] [address] Performed By: #### 2 4321-2 ####[facility] LABORATORYCLIA [id number] [address] CO2 [Moles/Vol] 26 mmol/L Normal 22-30 [facility] Comment on above: Order Comment: Speci men Type: BLOOD SPECIMENOrdering Facility: [facility] Address: [address] [place] [address] Performed By: #### 2 4321-2 ####[facility]ITAL[facility] [id number] [address] Creatinine [Mass/Vol] 0.50 mg/dL Low 0.58-0.96 [facility] Comment on above: Order Comment: Speci men Type: BLOOD SPECIMENOrdering Facility: [facility] Address: [address] [place] [address] Performed By: #### 2 4321-2 ####[facility] LABORATORYCLIA [id number] [address] Creatinine and Glomerular filtration rate.predicted panel (S/P/Bld) 99 mL/min/1.73m??? Normal >=60 [facility] Comment on above: Order Comment: Speci men Type: BLOOD SPECIMENOrdering Facility: [facility] Address: [address] [place] [address] Result Comment: Florencia mated Glomerular Filtration Rate [...] actual GFR. Performed By: #### 2 4321-2 ####[facility] LABORATORYCLIA [id number] [place] [address] [place] Glucose [Mass/Vol] 157 mg/dL High 74-99 [facility] Comment on above: Order Comment: Speci men Type: BLOOD SPECIMENOrdering Facility: [facility] Address: [address] [place] [address] Result Comment: The [place] Diabetes Association (ADA) provides guidance for cutoff [...] Standards of Medical Care in Diabetes 2016, [place] [employer] Association. Diabetes Care. 2016.39(Suppl 1). Performed By: #### 2 4321-2 ####[facility] LABORATORYCLIA [id number] [place] [address] [place] Potassium [Moles/Vol] 4.4 mmol/L Normal 3.7-5.1 [facility] Comment on above: Order Comment: Brandee men Type: BLOOD SPECIMENOrdering Facility: [facility] Address: [address] [place] [address] Performed By: #### 2 4321-2 ####[facility] LABORATORYCLIA [id number] [place] [address] [place] Sodium [Moles/Vol] 136 mmol/L Normal 136-144 [facility] Comment on above: Order Comment: Speci men Type: BLOOD SPECIMENOrdering Facility: [facility] Address: [address] [place] [address] Performed By: #### 2 4321-2 ####[facility] LABORATORYCLIA [id number] [place] [address] [place] Urea nitrogen [Mass/Vol] 10 mg/dL Normal 7-21 [facility] Comment on above: Order Comment: Speci men Type: BLOOD SPECIMENOrdering Facility: [facility] Address: [address] [place] [address] Performed By: #### 2 4321-2 ####[facility] LABORATORYCLIA [id number] [address] CBC panel Auto (Bld)on 02-19 Erythrocyte distribution width (RBC) [Ratio] 13.7 % Normal 11.5-15.0 [facility] Comment on above: Order Comment: Speci men Type: BLOOD SPECIMENOrdering Facility: [facility] Address: [address] [place] [address] Performed By: #### 5 8410-2 ####[facility] LABORATORYCLIA [id number] [address] Hematocrit (Bld) [Volume fraction] 40.6 % Normal 36.0-46.0 [facility] Comment on above: Order Comment: Speci men Type: BLOOD SPECIMENOrdering Facility: [facility] Address: [address] [place] [address] Performed By: #### 5 8410-2 ####[facility] LABORATORYCLIA [id number] [address] Hemoglobin (Bld) [Mass/Vol] 13.2 g/dL Normal 11.5-15.5 [facility] Comment on above: Order Comment: Speci men Type: BLOOD SPECIMENOrdering Facility: [facility] Address: [address] [place] [address] Performed By: #### 5 8410-2 ####[facility] LABORATORYCLIA [id number] [address] MCH (RBC) [Entitic mass] 31.3 pg Normal 26.0-34.0 [facility] Comment on above: Order Comment: Speci men Type: BLOOD SPECIMENOrdering Facility: [facility] Address: [address] [place] [address] Performed By: #### 5 8410-2 ####[facility] LABORATORYCLIA [id number] [address] MCHC (RBC) [Mass/Vol] 32.5 g/dL Normal 30.5-36.0 [facility] Comment on above: Order Comment: Speci men Type: BLOOD SPECIMENOrdering Facility: [facility] Address: [address] [place] [address] Performed By: #### 5 8410-2 ####[facility] LABORATORYCLIA [id number] [address] [place] MCV (RBC) [Entitic vol] 96.2 fL Normal 80.0-100.0 [facility] Comment on above: Order Comment: Speci men Type: BLOOD SPECIMENOrdering Facility: [facility] Address: [address] [place] [address] Performed By: #### 5 8410-2 ####[facility] LABORATORYCLIA [id number] [address] Nucleated RBC (Bld) [#/Vol] 10*3/uL Normal <0.01 [facility] Comment on above: Order Comment: Speci men Type: BLOOD SPECIMENOrdering Facility: [facility] Address: [address] [place] [address] Performed By: #### 5 8410-2 ####[facility] LABORATORYCLIA [id number] [address] [place] Platelet mean volume (Bld) [Entitic vol] 10.2 fL Normal 9.0-12.7 [facility] Comment on above: Order Comment: Speci men Type: BLOOD SPECIMENOrdering Facility: [facility] Address: [address] [place] [address] Performed By: #### 5 8410-2 ####[facility] LABORATORYCLIA [id number] [address] [place] Platelets (Bld) [#/Vol] 165 10*3/uL Normal 150-400 [facility] Comment on above: Order Comment: Speci men Type: BLOOD SPECIMENOrdering Facility: [facility] Address: [address] [place] [address] Performed By: #### 5 8410-2 ####[facility] LABORATORYCLIA [id number] [address] OF [facility] RBC (Bld) [#/Vol] 4.22 10*6/uL Normal 3.90-5.20 [facility] Comment on above: Order Comment: Speci men Type: BLOOD SPECIMENOrdering Facility: [facility] Address: [address] [place] [address] Performed By: #### 5 8410-2 ####[facility] LABORATORYCLIA [id number] [address] [place] WBC (Bld) [#/Vol] 16.52 10*3/uL High 3.70-11.00 [facility] Comment on above: Order Comment: Speci men Type: BLOOD SPECIMENOrdering Facility: [facility] Address: [address] [place] [address] Performed By: #### 5 8410-2 ####[facility] LABORATORYCLIA [id number] [address] STATES OF [facility] Erythrocyte distribution width (RBC) [Ratio] 13.4 % Normal 11.5-15.0 [facility] Comment on above: Order Comment: Speci men Type: BLOOD SPECIMENOrdering Facility: [facility] Address: [address] [place] [address] Performed By: #### 5 8410-2 ####[facility] LABORATORYCLIA [id number] [address] Hematocrit (Bld) [Volume fraction] 41.9 % Normal 36.0-46.0 [facility] Comment on above: Order Comment: Speci men Type: BLOOD SPECIMENOrdering Facility: [facility] Address: [address] [place] [address] Performed By: #### 5 8410-2 ####[facility] LABORATORYCLIA [id number] [address] [place] Hemoglobin (Bld) [Mass/Vol] 13.4 g/dL Normal 11.5-15.5 [facility] Comment on above: Order Comment: Speci men Type: BLOOD SPECIMENOrdering Facility: [facility] Address: [address] [place] [address] Performed By: #### 5 8410-2 ####[facility] LABORATORYCLIA [id number] [address] MCH (RBC) [Entitic mass] 30.8 pg Normal 26.0-34.0 [facility] Comment on above: Order Comment: Speci men Type: BLOOD SPECIMENOrdering Facility: [facility] Address: [address] [place] [address] Performed By: #### 5 8410-2 ####[facility] LABORATORYCLIA [id number] [address] MCHC (RBC) [Mass/Vol] 32.0 g/dL Normal 30.5-36.0 [facility] Comment on above: Order Comment: Speci men Type: BLOOD SPECIMENOrdering Facility: [facility] Address: [address] [place] [address] Performed By: #### 5 8410-2 ####[facility] LABORATORYCLIA [id number] [address] MCV (RBC) [Entitic vol] 96.3 fL Normal 80.0-100.0 [facility] Comment on above: Order Comment: Speci men Type: BLOOD SPECIMENOrdering Facility: [facility] Address: [address] [place] [address] Performed By: #### 5 8410-2 ####[facility] LABORATORYCLIA [id number] [address] Nucleated RBC (Bld) [#/Vol] 10*3/uL Normal <0.01 [facility] Comment on above: Order Comment: Speci men Type: BLOOD SPECIMENOrdering Facility: [facility] Address: [address] [place] [address] Performed By: #### 5 8410-2 ####[facility] LABORATORYCLIA [id number] [address] [place] Platelet mean volume (Bld) [Entitic vol] 10.2 fL Normal 9.0-12.7 [facility] Comment on above: Order Comment: Speci men Type: BLOOD SPECIMENOrdering Facility: [facility] Address: [address] [place] [address] Performed By: #### 5 8410-2 ####[facility] LABORATORYCLIA [id number] [place] [address] [place] Platelets (Bld) [#/Vol] 192 10*3/uL Normal 150-400 [facility] Comment on above: Order Comment: Speci men Type: BLOOD SPECIMENOrdering Facility: [facility] Address: [address] [place] [address] Performed By: #### 5 8410-2 ####[facility] LABORATORYCLIA [id number] [address] STATES OF [facility] RBC (Bld) [#/Vol] 4.35 10*6/uL Normal 3.90-5.20 [facility] Comment on above: Order Comment: Speci men Type: BLOOD SPECIMENOrdering Facility: [facility] Address: [address] [place] [address] Performed By: #### 5 8410-2 ####[facility] LABORATORYCLIA [id number] [address] [place] WBC (Bld) [#/Vol] 15.63 10*3/uL High 3.70-11.00 [facility] Comment on above: Order Comment: Speci men Type: BLOOD SPECIMENOrdering Facility: [facility] Address: [address] [place] [address] Performed By: #### 5 8410-2 ####[facility] LABORATORYCLIA [id number] [address] CNDSon 02-20-2024 CNDS HNO ID: [id number] Author: DESTINY PAVON MD Service: General Surgery [...] you become constipated, you may use any swzf-htj-ismrmri treatment such as Milk of Magnesia, Sennakot, Prune Juice, Suppositories, etc. 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 Normal [facility] CONSULTon 02-20-2024 CONSULT HNO ID: [id number] Author: HIREN TANNER MD Service: Cardiovascular Medicine [...] needed. Objective (more content not included)... Normal [facility] CTA CHEST (NONGATED) W IVCON on 02-20-2024 CTA CHEST (NONGATED) W IVCON * * *Final Report* * * DATE OF EXAM: Feb 20 2024 9:48AM [facility] 0123 - CTA CHEST (NONGATED) W IVCON [...] Atelectasis versus pneumonia at right lung base. Mushroom Growing Supervisor: VINCENZO Transcribe Date/Time: Feb 20 2024 10:17A Dictated by : PALOMA KHAN MD This examination was interpreted and the report reviewed and electronically signed by: PALOMA KHAN MD on Feb 20 2024 10:50AM EST [id number] Normal [facility] ECHO WITH AGITATED SALINE CO NTRASTon 02-20-2024 ECHO WITH AGITATED SALINE CONTRAST Echocardiography Report: Transthoracic Echo [facility] Date of service: 02/20/2024 7:49:29 AM [facility] Ordering physician: ALLEN PRESTON Indication: Nonsustained atrial fibrillation Technologist: Tiffanie Torres [facility] and staff Interpreting physician: Fareed Carney MD [...] the prior OUTSIDE echocardiographic exam performed on 02/12/2021([place]). * * * Final * * * CC [employer] [facility] : [id number] [id number] Normal [facility] PT panel Coag (PPP)on 2023 INR Coag (PPP) [Relative time] 1.1 {INR} Normal 0.9-1.3 [facility] Comment on above: Order Comment: Speci men Type: BLOOD SPECIMENOrdering Facility: [facility] Address: [address] [place] [address] [place] [address] Result Comment: Ligia min K Antagonist (VKA) Therapeutic Range: INR 2 to 3 (Target INR of 2.5) Note: For patients treated with VKA drugs, such as warfarin, the [place] [employer] 2012 Guideline recommends [...] to 3.5 (target INR of 3). Hanna JOHNSON, et al. Chest 2012, 141:7S-47S Ryan RA, et al. [facility] 2017, 70: 252-289 Performed By: #### 3 4528-0, 72099-6 ####[facility] LABORATORYCLIA [id number] [address] [place] PT Coag (PPP) [Time] 11.3 s Normal 9.7-13.0 [facility] Comment on above: Order Comment: Speci men Type: BLOOD SPECIMENOrdering Facility: [facility] Address: [address] [place] [address] Performed By: #### 3 4528-0, 27490-9 ####[facility] LABORATORYCLIA [id number] [address] [place] THERAPY NTon 02-20-2024 THERAPY NT HNO ID: [id number] Author: ALICIA HAMILTON OTR/Thomas Service: Occupational Therapy Author Type: Occupational Therapist Type: Therapy (PT/OT/Speech/Resp) Filed: 02/20/2024 16:27 Note Text: Occupational Therapy Evaluation Summary SERVICE DATE: 02/20/2024 SERVICE TIME: 1532 to 1600 ROOM: [id number] OT 6 Clicks Score: 18 DISCHARGE RECOMMENDATIONS [...] Functional Limits 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 Reports she ambulates without a device but [...] Unsteadiness on feet TREATMENT INTERVENTIONS Evaluation, Self Detention Management (01200) Timed Code Treatment (minutes): 13 Skilled Treatment Time (minutes): 28 $ Evaluation - Moderate (33692) Billed Units: 1 unit Self Detention Management (44246) Treatment Minutes: 13 $ Self Detention Management (11499) Billed Units: 1 unit TRAINING AND EDUCATION PROVIDED Activity Adaptation/System Configuration Specialist y Strategies, Bed Mobility, Benefits of In-Hospital Mobility, Discharge Planning, Environmental Modification, Functional Mobility Involving ADLs, Grooming Tasks, Positioning, Sitting Balance to Improve [place] with ADLs/Self-Care, Precautions/Restrictio ns, Standing Balance to Improve [place] with ADLs/Self-Care, Toileting , Transfer - Sit [...] Additional Information Pt able to transfer to [facility] for toile (more content not included)... Normal [facility] aPTT PPPon 02-20-2024 aPTT Coag (PPP) [Time] 46.8 s High 23.0-32.4 [facility] Comment on above: Order Comment: Speci men Type: BLOOD SPECIMENOrdering Facility: [facility] Address: [address] [place] [address] Performed By: #### 1 4979-9 ####[facility] LABORATORYCLIA [id number] [place] [address] [place] aPTT Coag (PPP) [Time] 95.7 s High 23.0-32.4 [facility] Comment on above: Order Comment: Speci men Type: BLOOD SPECIMENOrdering Facility: [facility] Address: [address] [place] [id number] Performed By: #### 1 4979-9 ####[facility] LABORATORYCLIA [id number] [place] [id number] [facility] aPTT Coag (PPP) [Time] 34.9 s High 23.0-32.4 [facility] Comment on above: Order Comment: Speci men Type: BLOOD SPECIMENOrdering Facility: [facility] Address: [address] [place] [address] Performed By: #### 3 4528-0, 77472-1 ####[facility] LABORATORYCLIA [id number] [address] 12 Lead EKGon 02-19-2024 12 Lead EKG [facility] Cardiovascular Services [address] [place] [id number] 12 Lead EKG 02/19/24 1509 MR#: [id number] Acct: [id number] Name: LEXI LONDONO Rep #: [id number] : 1950 73 From: Reji Kang MD [...] ECG baseline artifact Confirmed by Reji Kang ([id number]), magazine editor JOB AVENDAÑO ([id number]) on 02/20/2024 9:23:06 AM Referred By: Confirmed By: Reji Kang 02/20/24 0923 Date Reji Kang MD CC: Dr. Elena Andino MD; Dr. Bryan Felder DO Signed Normal [facility] ANES PRE-OPon 02-19-2024 ANES PRE-OP HNO ID: [id number] Author: BETHEL FLAHERTY MD Service: Anesthesiology Author Type: Anesthesiologist Type: Anesthesia Preprocedure Evaluation Filed: 02/20/2024 01:05 Note Text: ANESTHESIOLOGY DAY OF SURGERY NOTE : 1950 Procedure Information Date/Time: 02/19/242019 Procedures: ANGIOGRAM EXTREMITY LOWER (Right: Leg) THROMBECTOMY FEMOROPOPLITEAL ARTERY VIA LEG INCISION (Right: Leg) Location: [place] [facility] 10 / [place] Surgeons: Allen Preston MD Estimated body [...] and consent discussed: yes. Patient / Responsible Democrat agrees to proceed: yes Patient / Surrogate [...] February 19, 2024 TIME: 8:01 PM CSN: [id number] Normal [facility] Basic Metabolic Profile (BMP )on 02-19-2024 BUN/CRE 22.4 RATIO High 10-20 [facility] Comment on above: Performed By: #### L 100.0100, L300.3900, L300.4310, L500.2500, L501.3620, L503.6005 #### [facility] Laboratory [address] [place], [address] CA,Total 9.0 mg/dL Normal 8.5-10.1 [facility] Comment on above: Performed By: #### L 100.0100, L300.3900, L300.4310, L500.2500, L501.3620, L503.6005 #### [facility] Laboratory [address] [place], [address] Chloride [Moles/Vol] 102 mmol/L Normal 98-107 [facility] Comment on above: Performed By: #### L 100.0100, L300.3900, L300.4310, L500.2500, L501.3620, L503.6005 #### [facility] Laboratory [address] [place], [address] CO2 [Moles/Vol] 28.0 mmol/L Normal 21.0-32.0 [facility] Comment on above: Performed By: #### L 100.0100, L300.3900, L300.4310, L500.2500, L501.3620, L503.6005 #### [facility] Laboratory [address] [place], [address] Creatinine [Mass/Vol] 0.80 mg/dL Normal 0.55-1.02 [facility] Comment on above: Result Comment: The validity of the calculated GFR GFRAA in patients over 70 years has not been determined. Clinical correlation is essential. Performed By: #### L 100.0100, L300.3900, L300.4310, L500.2500, L501.3620, L503.6005 #### [facility] Laboratory [address] [place], [address] ECRCL 56.51 ml/min Normal [facility] Comment on above: Performed By: #### L 100.0100, L300.3900, L300.4310, L500.2500, L501.3620, L503.6005 #### [facility] Laboratory [address] [place], [address] EST GFR - AA 90 mL/min Normal >60 [facility] Comment on above: Result Comment: Afri can Bangladeshi GFR Calc Performed By: #### L 100.0100, L300.3900, L300.4310, L500.2500, L501.3620, L503.6005 #### [facility] Laboratory [address] [place], [address] GAP 7 Normal 5-15 [facility] Comment on above: Performed By: #### L 100.0100, L300.3900, L300.4310, L500.2500, L501.3620, L503.6005 #### [facility] Laboratory [address] [place], [address] GFR/1.73 sq M.predicted among non-blacks MDRD (S/P/Bld) [Vol rate/Area] 74 mL/min/{1.73_m2} Normal >60 [facility] Comment on above: Result Comment: Non- GFR Calc Performed By: #### L 100.0100, L300.3900, L300.4310, L500.2500, L501.3620, L503.6005 #### [facility] Laboratory [address] [place], [address] Glucose [Mass/Vol] 149 mg/dL High 74-106 [facility] Comment on above: Result Comment: Fast ing Glucose result greater than or equal to 126 mg/dL suggests DIABETES MELLITUS per A.D.A. criteria. Performed By: #### L 100.0100, L300.3900, L300.4310, L500.2500, L501.3620, L503.6005 #### [facility] Laboratory [address] [place], [address] Potassium [Moles/Vol] 4.5 mmol/L Normal 3.5-5.1 [facility] Comment on above: Result Comment: Slig ht Hemolysis, Result may be falsely increased. Performed By: #### L 100.0100, L300.3900, L300.4310, L500.2500, L501.3620, L503.6005 #### [facility] Laboratory [address] [place], [address] Sodium [Moles/Vol] 137 mmol/L Normal 136-145 [facility] Comment on above: Performed By: #### L 100.0100, L300.3900, L300.4310, L500.2500, L501.3620, L503.6005 #### [facility] Laboratory [address] [place], [address] Urea nitrogen [Mass/Vol] 18 mg/dL Normal 7-18 [facility] Comment on above: Performed By: #### L 100.0100, L300.3900, L300.4310, L500.2500, L501.3620, L503.6005 #### [facility] Laboratory [address] [place], [address] Brain/Head without Contrasto n 02-19-2024 Brain/Head without Contrast [facility] Imaging Services [address] [place] [address] Brain/Head without Contrast MR#: [id number] Acct: [id number] Name: LEXI LONDONO Rep #: [id number] : 1950 F 73 From: Ace Quijano PCP: Dr. Elena Andino MD Status: REG ER Study: Brain/Head without Contrast Date of Exam: 07/09 Exam# [id number] Ordering Dr: Bryan Felder DO [id number] EXAM: CT HEAD WITHOUT INTRAVENOUS CONTRAST CLINICAL [...] Signed: Ace Al MD at 16:49 EST Reading Location ID and State: [facility] / [place] , Service support , CC: Dr. Elena Andino MD; Dr. Bryan Felder DO Mushroom Growing Supervisor: Signed Normal [facility] CBC W/Diff, Automatedon Absolute Lymph 2.18 X10 3/uL Normal 0.83-4.51 [facility] Comment on above: Performed By: #### L 100.0100, L300.3900, L300.4310, L500.2500, L501.3620, L503.6005 #### [facility] Laboratory [address] [place], [address] Absolute Neut 11.6 X10 3/uL High 2.0-7.7 [facility] Comment on above: Performed By: #### L 100.0100, L300.3900, L300.4310, L500.2500, L501.3620, L503.6005 #### [facility] Laboratory [address] [place], [address] Basophils/100 WBC (Bld) 0.4 % Normal 0-1 [facility] Comment on above: Performed By: #### L 100.0100, L300.3900, L300.4310, L500.2500, L501.3620, L503.6005 #### [facility] Laboratory [address] [place], [address] Eosinophils/100 WBC (Bld) 2.1 % Normal 0-5 [facility] Comment on above: Performed By: #### L 100.0100, L300.3900, L300.4310, L500.2500, L501.3620, L503.6005 #### [facility] Laboratory [address] [place], [address] Erythrocyte distribution width (RBC) [Ratio] 13.5 % Normal 11.6-14.6 [facility] Comment on above: Performed By: #### L 100.0100, L300.3900, L300.4310, L500.2500, L501.3620, L503.6005 #### [facility] Laboratory [address] [place], [address] Hematocrit (Bld) [Volume fraction] 45.3 % Normal 37-47 [facility] Comment on above: Performed By: #### L 100.0100, L300.3900, L300.4310, L500.2500, L501.3620, L503.6005 #### [facility] Laboratory [address] [place], [address] Hemoglobin (Bld) [Mass/Vol] 14.7 g/dL Normal 12.0-15.0 [facility] Comment on above: Performed By: #### L 100.0100, L300.3900, L300.4310, L500.2500, L501.3620, L503.6005 #### [facility] Laboratory [address] [place], [address] IG% 0.400 Normal 0.0-0.9 [facility] Comment on above: Result Comment: IG% - Immature Granulocytes (promyelocytes, myelocytes and metamyelocytes) > 1% indicates that a LEFT SHIFT is Present. Performed By: #### L 100.0100, L300.3900, L300.4310, L500.2500, L501.3620, L503.6005 #### [facility] Laboratory [address] [place], [address] Lymphocytes/100 WBC (Bld) 14.1 % Low 19-41 [facility] Comment on above: Performed By: #### L 100.0100, L300.3900, L300.4310, L500.2500, L501.3620, L503.6005 #### [facility] Laboratory [address] [place], [address] MCH (RBC) [Entitic mass] 30.7 pg Normal 27.0-32.0 [facility] Comment on above: Performed By: #### L 100.0100, L300.3900, L300.4310, L500.2500, L501.3620, L503.6005 #### [facility] Laboratory [address] [place], [address] MCHC (RBC) [Mass/Vol] 32.5 g/dL Normal 32-36 [facility] Comment on above: Performed By: #### L 100.0100, L300.3900, L300.4310, L500.2500, L501.3620, L503.6005 #### [facility] Laboratory [address] [place], [address] MCV (RBC) [Entitic vol] 94.6 fL Normal 81-99 [facility] Comment on above: Performed By: #### L 100.0100, L300.3900, L300.4310, L500.2500, L501.3620, L503.6005 #### [facility] Laboratory [address] [place], [address] Monocytes/100 WBC (Bld) 8.5 % Normal 0-10 [facility] Comment on above: Performed By: #### L 100.0100, L300.3900, L300.4310, L500.2500, L501.3620, L503.6005 #### [facility] Laboratory [address] [place], [address] Neutrophils/100 WBC (Bld) 74.5 % High 47-70 [facility] Comment on above: Performed By: #### L 100.0100, L300.3900, L300.4310, L500.2500, L501.3620, L503.6005 #### [facility] Laboratory [address] [place], [address] Nucleated RBC (Bld) [#/Vol] 0 10*3/uL Normal 0-5 [facility] Comment on above: Performed By: #### L 100.0100, L300.3900, L300.4310, L500.2500, L501.3620, L503.6005 #### [facility] Laboratory [address] [place], [address] Platelet mean volume (Bld) [Entitic vol] 10.0 fL Normal 6.2-12.0 [facility] Comment on above: Performed By: #### L 100.0100, L300.3900, L300.4310, L500.2500, L501.3620, L503.6005 #### [facility] Laboratory [address] [place], [address] Platelets (Bld) [#/Vol] 236 10*3/uL Normal 150-450 [facility] Comment on above: Performed By: #### L 100.0100, L300.3900, L300.4310, L500.2500, L501.3620, L503.6005 #### [facility] Laboratory [address] [place], [address] RBC (Bld) [#/Vol] 4.79 10*6/uL Normal 4.2-5.4 [facility] Comment on above: Performed By: #### L 100.0100, L300.3900, L300.4310, L500.2500, L501.3620, L503.6005 #### [facility] Laboratory [address] [place], [address] RDW SD 47.3 fl High 35.1-43.9 [facility] Comment on above: Performed By: #### L 100.0100, L300.3900, L300.4310, L500.2500, L501.3620, L503.6005 #### [facility] Laboratory [address] [place], [address] WBC (Bld) [#/Vol] 15.5 10*3/uL High 4.4-11.0 [facility] Comment on above: Performed By: #### L 100.0100, L300.3900, L300.4310, L500.2500, L501.3620, L503.6005 #### [facility] Laboratory [address] [place], [address] CONFIRM BLOOD TYPEon 024 ABO O Normal [facility] Comment on above: Order Comment: Speci men Type: BLOOD SPECIMENOrdering Facility: [facility] Address: [address] [place] [address] Performed By: #### C ONABO ####[facility] BLOOD BANKCLIA [id number] [place] [address] [place] Rh Nom (Bld) Positive Normal [facility] Comment on above: Order Comment: Speci men Type: BLOOD SPECIMENOrdering Facility: [facility] Address: [address] [place] [address] Performed By: #### C ONABO ####[facility] BLOOD BANKCLIA [id number] [place] [address] [place] CPK Total, Creatine Kinaseon 02-19-2024 CPK TOTAL 61 U/L Normal 26-192 [facility] Comment on above: Performed By: #### L 100.0100, L300.3900, L300.4310, L500.2500, L501.3620, L503.6005 ####[facility] [address] [place], [place], [address] CTA Abd w/Runoff W/WO Contra ston 02-19-2024 CTA Abd w/Runoff W/WO Contrast [facility] Imaging Services [address] [place] [address] CTA Abd w/Runoff W/WO Contrast MR#: [id number] Acct: [id number] Name: LEXI LONDONO Rep #: [id number] : 1950 F 73 From: Ace Quijano PCP: Dr. Elena Andino MD Status: DEP ER Study: CTA Abd w/Runoff W/WO Contrast Date of Exam: 04/20/23 Exam# [id number] Ordering Dr: Bryan Felder DO ADDENDUM by Dr. Ace Al MD on 02/19/24 at 1746 ====== ADDENDUM ====== [id number] ADDENDUM: Additional delayed images were obtained of the bilateral lower extremities. Persistent nonvisualization of the arteries distal to the right trifurcation. The vessels of the trifurcation are seen on the left side to the level of the ankle. Electronically Signed: Ace Al MD at 17:46 EST , N.B. : The above Results were Read Back by Ace Al MD to Bryan Felder DO, and understanding confirmed on 02/19/2024 17:41:27 (ET). 02/19/241745 Date cc: Dr. Elena Andino MD; Dr. Bryan Felder DO * Signed ADDENDUM by Dr. Ace Al MD on 02/19/[address]/CTA Abd w/Runoff W/WO Contrast IMPRESSION: undefined 02/19/241752 Date cc: Dr. Elena Andino MD; Dr. Bryan Felder DO * Signed We are attempting to reach an attending provider to discuss findings. An addendum with communication details will be sent when the communication is complete. [id number] STUDY: CTA OF THE ABDOMINAL AORTA AND [...] Left posterio (more content not included)... Normal [facility] Chest 1 View (Portable)on Chest 1 View (Portable) [facility] Imaging Services [address] [place] [address] Chest 1 View (Portable) MR#: [id number] Acct: [id number] Name: LEXI LONDONO Rep #: [id number] : 1950 F 73 From: Ace Quijano PCP: Dr. Elena Andino MD Status: REG ER Study: Chest 1 View (Portable) Date of Exam: 02/19/24 Exam# [id number] Ordering Dr: Bryan Felder DO [id number] EXAM: XR CHEST, 1 VIEW CLINICAL INDICATION: [...] Signed: Ace Al MD at 16:17 EST Reading Location ID and State: [facility] / [place] , Service support , CC: Dr. Elena Andino MD; Dr. Bryan Felder DO Mushroom Growing Supervisor: Signed [facility] ED NOTEon 02-19-2024 ED NOTE HNO ID: [id number] Author: ESSENCE FRIEND, ALEX Service: ? Author Type: Registered Nurse Type: ED Notes Filed: 02/19/2024 20:38 Note Text: Pt to OR 10 at this time. Normal [facility] ED NOTE HNO ID: [id number] Author: NAMRATA FAYE RN Service: ? Author Type: Registered Nurse Type: ED Notes Filed: 02/19/2024 18:41 Note Text: Bed: 45-ED Expected date: Expected time: Means of arrival: Comments: Adeel tx [facility] ED PROV NOTEon 02-19-2024 ED PROV NOTE HNO ID: [id number] Author: DEBBY LAYNE MD Service: Emergency Medicine [...] Heparin continued and surgery notified DEBBY LAYNE 02/19/24 191 Normal [facility] ED PROV NOTE HNO ID: [id number] Author: DEBBY LAYNE MD Service: Emergency Medicine Author Type: Physician Type: ED Provider Notes Filed: 02/24/2024 12:35 Note Text: ED Provider Note Patient Name: Lexi Londono : 1950 SERVICE DATE: 02/19/24 History Patient presents with: Leg Pain: Pt transfer from [facility] where she presented with RLE numbness. Pt transferred for vascular consult r/t RLE ischemia. Pt presents with cool RLE but states she is getting some feeling back in leg and it feels cold. Heparin at 800 units/hr running. Patient is a 73-year-old female presenting to the emergency department as a transfer from [facility] for vascular consult due to right [...] Temp src Resp SpO2 Weight Height 02/19/24 184702/19/24184702/19/24184702/19/24184702/19/24184702/19/24184702/19/24184702/20/24 0100 115/65 64 36.8 ?C (98.2 ?F) [...] There are (more content not included)... Normal [facility] EKGon 02-19-2024 Electrocardiogram Ventricular Rate : 6 4 BPM Atrial Rate : 64 BPM P-R Interval : 142 ms QRS Duration : 76 ms Q-T Interval : 462 ms QTC Calculation(Bazett) : 476 ms Calculated R [place] : 61 degrees Calculated T [place] : 81 degrees NORMAL SINUS RHYTHM NORMAL ECG NO PREVIOUS ECGS AVAILABLE Confirmed by CHARLENE SMITH MD ([id number]) on 03/14/2024 4:12:12 AM NAME : LEXI LONDONO PID : [id number] : 1950 Gender : Female Race : ORD : Procedure Date : Feb 19 2024 18:50:01 Edit Date : Mar 14 2024 04:12:14 Diagnosis: NORMAL SINUS RHYTHM NORMAL ECG NO PREVIOUS ECGS AVAILABLE Confirmed by CHARLENE SMITH MD ([id number]) on 03/14/2024 4:12:12 AM Test Reason : Location : 4 : [facility] By : CHARLENE SMITH MD Edited By : CHARLENE SMITH MD Referred By : , Acquired by : ALLEN GARCIA [facility] Emergency Department Summary on 02-19-2024 Emergency Department Summary [facility] Medical Records Department [address] [place] [address] Emergency Department Summary 02/19/24 MR#: [id number] Acct: [id number] Name: LEXI LONDONO Rep #: [id number] : 1950 73 From: Bryan Felder DO [...] normal axis (more content not included)... Normal [facility] HISTORY PHYSICALon HISTORY PHYSICAL HNO ID: [id number] Author: ALLEN PRESTON MD Service: Vascular Surgery [...] not limited to bleeding, arterial injury, infection, VT, contrast nephropathy, distal embolization and limb loss. [...] MUSCULOSKELETAL: Endors (more content not included)... Normal [facility] Lactic Acidon 02-19-2024 Lactate [Moles/Vol] 2.2 mmol/L Invalid Interpretation Code 0.4-1.9 [facility] Comment on above: Order Comment: Y Result Comment: Crit ical Result(s) Called at: 16:00:40 02/19/2024 by: JOSE WHITTINGTON. Results read back by Hannah Mckenzie Performed By: #### L 100.0100, L300.3900, L300.4310, L500.2500, L501.3620, L503.6005 ####[facility] [address] [place], [address] OPERATIVE NOon 02-19-2024 OPERATIVE NO HNO ID: [id number] Author: ALLEN PRESTON MD Service: Vascular Surgery Author Type: Physician Type: Operative Report Filed: 02/20/2024 00:53 Note Text: OPERATIVE/PROCEDURE REPORT LOG ID: [id number] Surgery/Procedure Date: 02/19/2024 - 02/20/2024 Incision/Procedure Start Time: 9:39 PM Incision Close/Procedure End Time: 12:23 AM Surgeon(s)/Procedurali st(s) and Cook Specialty Foreign Food(s): Surgeons and Role: * Allen Preston MD - Primary * Mary Kate Morrow DO - Resident - Assisting Physician Cook Specialty Foreign Food: Christiana Roque PA-C PROCEDURE INDICATION: 73 year [...] and permanent ultrasound images were obtained. A 5-Bhutanese sheath was exchanged into the PROGRAM MANAGEMENT MANAGER over a stiff glide wire. The wire [...] remainder of the case. Using a Lightening [place] 7 catheter, suction thrombectomy was performed throughout [...] pulsatile inflow. Embolectomy of the DUANE and GUIDE DOG INSTRUCTOR were performed with a 2 Juan Carlos balloon catheter. No thrombus returned. There was good back bleeding and the outflow was flushed with heparinized saline. The arteriotomy was closed using interrupted 7-0 Prolene sutures. Flow was reestablished in the usual fashion. Doppler signals in the wound were appropriate. There was a biphasic GUIDE DOG INSTRUCTOR signal and a monophasic DP in the [...] Occlusion No visualization of right DUANE, TPT, GUIDE DOG INSTRUCTOR, peroneal Pre-Op/Pre-Procedure Diagnosis: Acute Ischemia of right lower extremity Post-Op/Post-Procedure Diagnosis: Same Estimated Blood Loss: 100 mls Spec (more content not included)... Normal [facility] Partial Thromboplast Timeon 11-03-2024 aPTT Coag (Bld) [Time] 25.6 s Normal 24.1-36.2 [facility] Comment on above: Performed By: #### L 100.0100, L300.3900, L300.4310, L500.2500, L501.3620, L503.6005 #### [facility] Laboratory [address] [place], [address] Prothrombin Time w/INRon INR Coag (PPP) [Relative time] 1.1 {INR} Normal [facility] Comment on above: Performed By: #### L 100.0100, L300.3900, L300.4310, L500.2500, L501.3620, L503.6005 #### [facility] Laboratory [address] [place], [address] PT Coag (PPP) [Time] 13.7 s Normal 11.7-14.9 [facility] Comment on above: Performed By: #### L 100.0100, L300.3900, L300.4310, L500.2500, L501.3620, L503.6005 #### [facility] Laboratory [address] [facility] [place], [address] SURGICAL PATHOLOGYon 024 CASE REPORT Normal [facility] Comment on above: Order Comment: Speci men Type: TISSUE SPECIMENOrdering Facility: [facility] Address: [address] [place] [address] Result Comment: Surg ica Pathology Report Case: [id number] Authorizing Provider: Allen Preston MD Collected: 02/19/2024 11:52 PM Ordering Location: [place] [facility] Received: 02/20/2024 08:02 AM Pathologist: Mildred Valenzuela MD Specimen: Blood Clot (Specify Site in Comments), RIGHT POPLITEAL THROMBUS Performed By: #### S ####[facility] LABORATORYCLIA [id number] [place] [address] [place] CLINICAL HISTORY Normal [facility] Comment on above: Order Comment: Speci men Type: TISSUE SPECIMENOrdering Facility: [facility] Address: [address] [place] [address] Result Comment: Pre- op diagnosis: Ischemia of extremity [I99.8] Performed By: #### S ####[facility] LABORATORYCLIA [id number] [address] FINAL DIAGNOSIS Normal [facility] Comment on above: Order Comment: Speci men Type: TISSUE SPECIMENOrdering Facility: [facility] Address: [address] [place] [address] Result Comment: Cont ents of right popliteal artery, removal: - Organizing blood clot. Performed By: #### S ####[facility] LABORATORYCLIA [id number] [address] FINAL PERFORMING LAB Normal [facility] Comment on above: Order Comment: Speci men Type: TISSUE SPECIMENOrdering Facility: [facility] Address: [address] [place] [address] Result Comment: Diag nostic interpretation performed at [facility], [address] [place] [address] CLIA# [id number] Board Operator: Flako Hamilton M.D. Performed By: #### S ####[facility] LABORATORYCLIA [id number] [address] GROSS DESCRIPTION Normal [facility] Comment on above: Order Comment: Speci [facility] Type: TISSUE SPECIMENOrdering Facility: [facility] Address: [address] [place] [address] Result Comment: A. B lood Clot (Specify Site in Comments) Received in formalin labeled as right popliteal thrombus are multiple irregular shaped segments of dark red organized thrombus aggregating to 2.0 x 2.0 x 0.3 cm. A vascular wall is not grossly appreciated. Industrial Engineer sections are submitted in 1 cassette. Gross examination performed at [facility], [address] [place] [address] CLIA#[id number] [facility] February 20, 2024 10:37 AM Performed By: #### S ####[facility] LABORATORYCLIA [id number] [place] [id number] [facility] TYPE + SCREENon 02-19-2024 ABO O Normal [facility] Comment on above: Order Comment: Speci men Type: BLOOD SPECIMENOrdering Facility: [facility] Address: [address] [place] [address] Performed By: #### T SCR ####[facility] BLOOD BANKCLIA [id number] [address] OF [facility] Rh Nom (Bld) Positive Normal [facility] Comment on above: Order Comment: Speci men Type: BLOOD SPECIMENOrdering Facility: [facility] Address: [address] [place] [address] Performed By: #### T SCR ####[facility] BLOOD BANKCLIA [id number] [address] TYPE AND SCREEN EXPIRATION 02/22/2024 23:59 Normal [facility] Comment on above: Order Comment: Speci men Type: BLOOD SPECIMENOrdering Facility: [facility] [facility] Address: [address] [place] [address] Performed By: #### T SCR ####[facility] BLOOD BANKCLIA [id number] [address] [place] T3 FREE BLDon 07-26-2022 Free T3 [Mass/Vol] 3.6 pg/mL 2.3 - 4.1 pg/mL [facility] T4 FREE/FREE THYROXon 2022 Free T4 [Mass/Vol] 1.0 ng/dL 0.9 - 1.7 ng/dL [facility] CBC W Auto Differential pane l (Bld)on 07-23-2022 Basophils (Bld) [#/Vol] 0.06 10*3/uL <0.11 k/uL [facility] Basophils/100 WBC (Bld) 0.6 % [facility] Differential cell count method Nom (Bld) Auto [facility] Eosinophils (Bld) [#/Vol] 0.45 10*3/uL <0.46 k/uL [facility] Eosinophils/100 WBC (Bld) 4.6 % [facility] Erythrocyte distribution width (RBC) [Ratio] 13.3 % 11.5 - 15.0 % [facility] Hematocrit (Bld) [Volume fraction] 44.7 % 36.0 - 46.0 % [facility] Hemoglobin (Bld) [Mass/Vol] 14.7 g/dL 11.5 - 15.5 g/dL [facility] Immature granulocytes (Bld) [#/Vol] <0.10 k/uL [facility] Immature granulocytes/100 WBC (Bld) 0.2 % [facility] Lymphocytes (Bld) [#/Vol] 2.90 10*3/uL 1.00 - 4.00 k/uL [facility] Lymphocytes/100 WBC (Bld) 29.4 % [facility] MCH (RBC) [Entitic mass] 31.3 pg 26.0 - 34.0 pg [facility] MCHC (RBC) [Mass/Vol] 32.9 g/dL 30.5 - 36.0 g/dL [facility] MCV (RBC) [Entitic vol] 95.1 fL 80.0 - 100.0 fL [facility] Monocytes (Bld) [#/Vol] 1.13 10*3/uL High <0.87 k/uL [facility] Monocytes/100 WBC (Bld) 11.5 % [facility] Neutrophils (Bld) [#/Vol] 5.30 10*3/uL 1.45 - 7.50 k/uL [facility] Neutrophils/100 WBC (Bld) 53.7 % [facility] Nucleated RBC (Bld) [#/Vol] <0.01 k/uL [facility] Nucleated RBC/100 WBC (Bld) [Ratio] 0.0 /100 WBC [facility] Platelet mean volume (Bld) [Entitic vol] 11.0 fL 9.0 - 12.7 fL [facility] Platelets (Bld) [#/Vol] 248 10*3/uL 150 - 400 k/uL [facility] RBC (Bld) [#/Vol] 4.70 10*6/uL 3.90 - 5.2 0 m/uL [facility] WBC (Bld) [#/Vol] 9.86 10*3/uL 3.70 - 11. 00 k/uL [facility] Vital Signs Date Time Vital Sign Value Performing Clinician Sumeet back 10-04-2024 14:54-0400 Body height 158.5 cm Gene Love COAL GASIFICATION TECHNICIAN.BILINGUAL TEACHER AIDE Work Phone: [facility] 10-04-2024 14:54-0400 Body mass index (BMI) [Ratio] 25.87 kg/m2 Gene Love COAL GASIFICATION TECHNICIAN.BILINGUAL TEACHER AIDE Work Phone: [facility] 10-04-2024 14:54-0400 Body weight 65 kg Gene Love COAL GASIFICATION TECHNICIAN.BILINGUAL TEACHER AIDE Work Phone: [facility] 10-04-2024 14:54-0400 Diastolic blood pressure 58 mm[Hg] Gene Love COAL GASIFICATION TECHNICIAN.BILINGUAL TEACHER AIDE Work Phone: [facility] 10-04-2024 14:54-0400 Heart rate 65 /min Gene Love COAL GASIFICATION TECHNICIAN.BILINGUAL TEACHER AIDE Work Phone: [facility] 10-04-2024 14:54-0400 Respiratory rate 16 /min Gene Love COAL GASIFICATION TECHNICIAN.BILINGUAL TEACHER AIDE Work Phone: [facility] 10-04-2024 14:54-0400 Systolic blood pressure 109 mm[Hg] Gene Love COAL GASIFICATION TECHNICIAN.BILINGUAL TEACHER AIDE Work Phone: [facility] 03-21-2024 18:55-0500 Body mass index (BMI) [Ratio] 25.23 kg/m2 Amy Acosta COAL GASIFICATION TECHNICIAN.ELECTRODE CLEANER Work Phone: [facility] 03-21-2024 18:55-0500 Body weight 66.68 kg Amy Acosta COAL GASIFICATION TECHNICIAN.ELECTRODE CLEANER Work Phone: [facility] 03-21-2024 18:55-0500 Diastolic blood pressure 64 mm[Hg] Amy Acosta COAL GASIFICATION TECHNICIAN.ELECTRODE CLEANER Work Phone: [facility] 03-21-2024 18:55-0500 Heart rate 63 /min Amy Acosta COAL GASIFICATION TECHNICIAN.ELECTRODE CLEANER Work Phone: [facility] 03-21-2024 18:55-0500 Respiratory rate 16 /min Amy Acosta COAL GASIFICATION TECHNICIAN.ELECTRODE CLEANER Work Phone: [facility] 03-21-2024 18:55-0500 SaO2% (BldA) [Mass fraction] 97 % Amy Acosta COAL GASIFICATION TECHNICIAN.ELECTRODE CLEANER Work Phone: [facility] 03-21-2024 18:55-0500 Systolic blood pressure 118 mm[Hg] Amy Acosta COAL GASIFICATION TECHNICIAN.ELECTRODE CLEANER Work Phone: [facility] 08-30-2023 18:42-0400 Body mass index (BMI) [Ratio] 27.7 kg/m2 Elena Andnio MD Work Phone: [facility] 08-30-2023 18:42-0400 Body temperature 97.3 [degF] Elena Andino MD Work Phone: [facility] 08-30-2023 18:42-0400 Body weight 67.59 kg Elena Andino MD Work Phone: [facility] 08-30-2023 18:42-0400 Diastolic blood pressure 62 mm[Hg] Elena Andino MD Work Phone: [facility] 08-30-2023 18:42-0400 Heart rate 66 /min Elena Andino MD Work Phone: [facility] 08-30-2023 18:42-0400 Respiratory rate 18 /min Elena Andino MD Work Phone: [facility] 08-30-2023 18:42-0400 SaO2% (BldA) [Mass fraction] 97 % Elena Andino MD Work Phone: [facility] 08-30-2023 18:42-0400 Systolic blood pressure 108 mm[Hg] Elena Andino MD Work Phone: [facility] 08-31-2022 18:22-0400 Body temperature 98.29 [degF] Elena Andino MD Work Phone: [facility] 08-31-2022 18:22-0400 Body weight 73.03 kg Elena Andino MD Work Phone: [facility] 08-31-2022 18:22-0400 Diastolic blood pressure 62 mm[Hg] Elena Andino MD Work Phone: [facility] 08-31-2022 18:22-0400 Heart rate 62 /min Elena Andino MD Work Phone: [facility] 08-31-2022 18:22-0400 Respiratory rate 18 /min Elena Andino MD Work Phone: [facility] 08-31-2022 18:22-0400 SaO2% (BldA) [Mass fraction] 96 % Elena Andino MD Work Phone: [facility] 08-31-2022 18:22-0400 Systolic blood pressure 116 mm[Hg] Elena Andino MD Work Phone: [facility] 07-22-2022 15:12-0400 Body height 156.2 cm Gene Love COAL GASIFICATION TECHNICIAN.BILINGUAL TEACHER AIDE Work Phone: [facility] 07-22-2022 15:12-0400 Body weight 73.03 kg Gene Love COAL GASIFICATION TECHNICIAN.BILINGUAL TEACHER AIDE Work Phone: [facility] 07-22-2022 15:12-0400 Diastolic blood pressure 84 mm[Hg] Gene Love COAL GASIFICATION TECHNICIAN.BILINGUAL TEACHER AIDE Work Phone: [facility] 07-22-2022 15:12-0400 Heart rate 66 /min Gene Love COAL GASIFICATION TECHNICIAN.BILINGUAL TEACHER AIDE Work Phone: [facility] 07-22-2022 15:12-0400 Respiratory rate 16 /min Gene Love COAL GASIFICATION TECHNICIAN.BILINGUAL TEACHER AIDE Work Phone: [facility] 07-22-2022 15:12-0400 SaO2% (BldA) [Mass fraction] 96 % Gene Love COAL GASIFICATION TECHNICIAN.BILINGUAL TEACHER AIDE Work Phone: [facility] 07-22-2022 15:12-0400 Systolic blood pressure 136 mm[Hg] Gene Love COAL GASIFICATION TECHNICIAN.BILINGUAL TEACHER AIDE Work Phone: [facility] 07-17-2021 14:09-0400 Diastolic blood pressure 83 mm[Hg] Gene Love COAL GASIFICATION TECHNICIAN.BILINGUAL TEACHER AIDE Work Phone: [facility] 07-17-2021 14:09-0400 Systolic blood pressure 163 mm[Hg] Gene Love COAL GASIFICATION TECHNICIAN.BILINGUAL TEACHER AIDE Work Phone: [facility] 07-17-2021 14:00-0400 Body weight 70.76 kg Gene Love COAL GASIFICATION TECHNICIAN.BILINGUAL TEACHER AIDE Work Phone: [facility] 07-17-2021 14:00-0400 Heart rate 68 /min Gene Love COAL GASIFICATION TECHNICIAN.BILINGUAL TEACHER AIDE Work Phone: [facility] 07-17-2021 14:00-0400 Respiratory rate 16 /min Gene Love COAL GASIFICATION TECHNICIAN.BILINGUAL TEACHER AIDE Work Phone: [facility] 07-17-2021 14:00-0400 SaO2% (BldA) [Mass fraction] 96 % Genejazlyn Gonzaless COAL GASIFICATION TECHNICIAN.BILINGUAL TEACHER AIDE Work Phone: [facility] Encounters Encounter Date Encounter Type Care Provider Facility Start: 12-23-2024 End: 12-23-2024 ambulatory Michelle Ocampo RN NURSE [employer] BUSINESS ANALYST Comment on above: Neurologic Problem Start: 11-19-2024 End: 11-19-2024 Refill Elena Andino MD Work Phone: [facility] [place] Comment on above: Refill Request Start: 10-04-2024 End: 10-04-2024 ambulatory GENE LOVE Facility:[facility] Start: 10-04-2024 End: 10-04-2024 Patient encounter procedure Gene Love COAL GASIFICATION TECHNICIAN.BILINGUAL TEACHER AIDE Work Phone: [facility] [place] Comment on above: Medicare annual [facility], subsequent (Primary Dx); Generalized anxiety disorder; [...] Elena Andino MD Work Phone: [facility] [place] Comment on above: Patient Update Start: 09-08-2024 End: 09-11-2024 Refill Amyantonino Acosta COAL GASIFICATION TECHNICIAN.ELECTRODE CLEANER Work Phone: [facility] [place] Comment on above: Refill Request Start: 09-07-2024 End: 09-17-2024 Refill Amyantonino Acosta COAL GASIFICATION TECHNICIAN.ELECTRODE CLEANER Work Phone: [facility] [place] Comment on above: Refill Request Start: 08-27-2024 End: 08-27-2024 ambulatory Cassidy Shine MA [facility] [place] Start: 08-27-2024 End: 08-27-2024 Patient encounter procedure Cassidy Shine MA [facility] Comment on above: Population Health Na vigation Outreach [facility] [place] [facility] Start: 07-30-2024 End: 07-30-2024 Orders Only Elena Andino MD Work Phone: [facility] [place] Start: 07-30-2024 End: 07-30-2024 Telephone encounter Elena Andino MD Work Phone: [facility] [place] Comment on above: Insurance Authorizat ion Start: 07-25-2024 End: 07-25-2024 ambulatory Elena Andino MD Work Phone: [facility] [place] Comment on above: Patient Question Start: 07-24-2024 End: 08-24-2024 ambulatory Elena Andino MD Work Phone: [facility] [place] Start: 07-23-2024 End: 07-25-2024 Telephone encounter Elena Andino MD Work Phone: [facility] [place] Comment on above: Medication Problem Start: 07-22-2024 End: 07-22-2024 Orders Only Elena Andino MD Work Phone: [facility] [place] Start: 05-22-2024 End: 05-23-2024 Refill Elena Andino MD Work Phone: [facility] [place] Comment on above: Med Change Request Start: 05-21-2024 End: 05-22-2024 Refill Elena Andino MD Work Phone: [facility] [place] Comment on above: Refill Request Start: 04-12-2024 End: 04-12-2024 Refill Amy Acosta COAL GASIFICATION TECHNICIAN.ELECTRODE CLEANER Work Phone: [facility] [place] Comment on above: Med Change Request Start: 04-03-2024 End: 04-03-2024 Emergency department patient visit Flako Arredondo Facility:[facility] Start: 04-02-2024 End: 04-03-2024 Telephone encounter Elena Andino MD Work Phone: [facility] [place] Comment on above: Patient Question Start: 03-21-2024 End: 03-21-2024 ambulatory AMY ACOSTA Facility:[facility] Start: 03-21-2024 End: 03-21-2024 Office outpatient visit 25 minutes Amy Acosta COAL GASIFICATION TECHNICIAN.ELECTRODE CLEANER Work Phone: Family [facility] Comment on above: Popliteal artery occ lusion, right (HCC) (Primary Dx); Generalized anxiety disorder; Paroxysmal atrial fibrillation (HCC) Start: 03-21-2024 End: 03-21-2024 Telephone encounter Elena Andino MD Work Phone: [facility] [place] Comment on above: requesting medicatio n that is Start: 03-05-2024 End: 03-05-2024 ambulatory Elena Andino MD Work Phone: [facility] [place] Comment on above: Left leg numbness Start: 03-05-2024 End: 03-05-2024 Emergency department patient visit Hitesh Baker Facility:[facility] Start: 02-19-2024 End: 02-20-2024 Evaluation and management of inpatient ELENA ANDINO Facility:[facility] Start: 02-19-2024 End: 02-19-2024 Emergency department patient visit Bryan Felder Facility:[facility] Start: 01-02-2024 End: 01-03-2024 Refill Elena Andino MD Work Phone: [facility] [place] Comment on above: Refill Request Start: 11-22-2023 End: 12-28-2023 Refill Elena Andino MD Work Phone: [facility] [place] Comment on above: Refill Request (Out of [...] above: Refill Request Start: 09-01-2023 ambulatory Amarjit Herrera RN [facility] [...] Elena stern MD Work Phone: Internal Medicine [facility] Start: 08-22-2023 Refill Elena stern MD Work Phone: [facility] [place] Comment on above: Refill Request Start: 08-20-2023 Refill Dorcas Rios APRN.CNP Work Phone: [facility] Comment on above: Refill Request Start: 08-01-2023 ambulatory Amarjit Herrera RN [facility] Comment on above: Community Monitoring Outreach Start: 06-22-2023 Refill Elena stern MD Work Phone: [facility] [place] Comment on above: Refill Request Community Monitoring [...] 02-10-2023 Refill Elena stern MD Work Phone: [facility] Comment on above: Refill Request Start: 02-01-2023 ambulatory Amarjit Herrera RN [facility] Comment on above: Community Monitoring Outreach Start: 01-07-2023 ambulatory Amarjit Herrera RN [facility] Comment on above: Community Monitoring Outreach Start: 12-23-2022 Telephone encounter Elena waters MD Work Phone: [facility] [place] Comment on above: Patient Question Start: 12-15-2022 Refill Elena stern MD Work Phone: [facility] [place] Comment on above: Refill Request Start: 12-13-2022 [...] Elena waters MD Work Phone: [facility] [place] Comment on above: Patient Question Start: 07-23-2022 Telephone encounter Gene dutton COAL GASIFICATION TECHNICIAN.BILINGUAL TEACHER AIDE Work Phone: [facility] [place] Comment on above: Results Start: 07-22-2022 End: 07-22-2022 Office outpatient visit 25 minutes Gene Love COAL GASIFICATION TECHNICIAN.BILINGUAL TEACHER AIDE Work Phone: [facility] [place] Comment on above: Chronic obstructive pulmonary disease, [...] Telephone encounter Elena waters MD Work Phone: [facility] [place] Comment on above: Forms (Appointment R roland) Start: 06-21-2022 ambulatory Amarjit Herrera RN [facility] Comment on above: Community Monitoring Outreach Start: 05-18-2022 ambulatory Amarjit Herrera RN [facility] Comment on above: Community Monitoring Outreach Start: 04-26-2022 ambulatory Amarjit Herrera RN [facility] Care [...] Elena stern MD Work Phone: [facility] [place] Comment on above: Refill Request Start: 12-11-2021 [...] Elena waters MD Work Phone: [facility] [place] Comment on above: Forms Start: 09-02-2021 ambulatory [...] 07-17-2021 End: 07-17-2021 Patient encounter procedure Gene Love APRN.BILINGUAL TEACHER AIDE Work Phone: [facility] [place] Comment on above: Tobacco use disorder (Primary Dx); Chronic obstructive pulmonary disease, unspecified COPD type (HCC); Hyperlipidemia, unspecified hyperlipidemia type; Generalized anxiety disorder; Primary hypertension; ASHD (arteriosclerotic heart disease); Dyspnea on exertion; Colon cancer screening; Paroxysmal atrial fibrillation (HCC) Start: 07-16-2021 ambulatory Javier Leonard RN [facility] Comment on above: Community Monitoring Outreach (COPD Telephonic CDM Outreach) Start: 08-22-2018 [facility] Facility :[facility] Start: 08-19-2017 End: 08-19-2017 [facility] Facility:[facility] Procedures Date Procedure Procedure Detail Performing Clinician Start: 10-04-2024 Adult depression scr eening assessment Genejazlyn Love APRN.BILINGUAL TEACHER AIDE Work Phone: Start: 02-19-2024 Antibody screen ELENA WEAVER Comment on above: Order Comment: Speci men Type: BLOOD SPECIMENOrdering Facility: [facility] Address: [address] [place] [address] Performed By: #### T SCR ####[facility] BLOOD BANKCLIA [id number] [place] [address] [place] Start: 07-22-2022 [employer] COVI D-19 BIVALENT BOOSTER VACCINE, AGE 12+ YR Gene Love APRN.BILINGUAL TEACHER AIDE Work Phone: Start: 07-22-2022 Lipid 1996 panel - S colin or Plasma Amarjit Herrera RN Start: 09-08-2020 Adult depression scr eening assessment Javier Leonard RN Start: 02-10-2016 Mammography Javier german RN Plan of Treatment Date Care Activity Detail Author Start: 07-23-2027 Lipid 1996 panel - S colin or Plasma Lipid Screening [facility] Start: 07-23-2027 Lipid panel Lipid Screening [facility] Start: 07-23-2027 LIPID SCREEN LIPID SCREEN [facility] Start: 02-19-2027 Diabetes Screening Diabetes Screenin g [facility] Start: 10-04-2025 Annual PCP Team Head Men'S Golf Coach primitivo Disease Visit Annual PCP Team Chronic Disease Visit [facility] Start: 10-04-2025 Covid-19 Vaccine () Covid-19 Vaccine () [facility] Comment on above: Postponed from 12/17 (Declined at this time) Start: 10-04-2025 Depression Screening Depression Scre ening [facility] Start: 10-04-2025 Medicare Annual Well ness Visit Medicare Annual Wellness Visit [facility] Start: 10-04-2025 Pneumococcal Vaccine : 50+ (1 of 2 - PCV) Pneumococcal Vaccine: 50+ (1 of 2 - PCV) [facility] Comment on above: Postponed from 09/23 (Declined at this time) Start: 07-26-2025 End: 07-26-2025 Patient encounter procedure 07/26/2025 4:20 PM EDT Office Visit [facility] [place] [address] [place], [place] [phone] Elena Andino MD [address] [place], [place] [id number] 6 month f/u with ekg (appt per pt) [facility] [place] Comment on above: 6 month f/u with ekg (appt per pt) Start: 07-22-2025 DIABETES SCREEN DIABETES SCREEN [facility] Start: 07-22-2025 Diabetes Screening Diabetes Screenin g [facility] Start: 03-21-2025 Annual PCP Team Head Men'S Golf Coach primitivo Disease Visit Annual PCP Team Chronic Disease Visit [facility] Start: 03-21-2025 BP Controlled (<130/80) BP Controlle d (<130/80) [facility] Start: 12-17-2024 Influenza vaccination [facility] Start: 10-04-2024 End: 10-04-2024 Patient encounter procedure 10/04/2024 2:40 PM EDT Office Visit [facility] [place] [address] [place] [address] Gene Love APRN.BILINGUAL TEACHER AIDE [address] [place] [address] medicare wellness/ HCC gaps [facility] [place] Comment on above: medicare wellness/ H CC gaps Start: 10-04-2024 End: 01-03-2025 25-hydroxyvitamin D3 [Mass/volume] in Serum or Plasma VITAMIN D 25 HYDROXY Lab Routine Paroxysmal atrial fibrillation (HCC) Primary hypertension Vitamin D deficiency Expected: 10/04/2024, Expires: 01/03/2025 [facility] Comment on above: Expected: 10/04/2024 , Expires: 01/03/2025 Start: 10-04-2024 End: 01-03-2025 CBC W Auto Differential panel - Blood COMPLETE BLOOD COUNT AND DIFFERENTIAL Lab Routine Paroxysmal atrial fibrillation (HCC) Primary hypertension Expected: 10/04/2024, Expires: 01/03/2025 [facility] Comment on above: Expected: 10/04/2024 , Expires: 01/03/2025 Start: 10-04-2024 End: 01-03-2025 Comprehensive metabolic 2000 panel - Serum or Plasma COMPREHENSIVE METABOLIC PANEL Lab Routine Paroxysmal atrial fibrillation (HCC) Primary hypertension Expected: 10/04/2024, Expires: 01/03/2025 [facility] Comment on above: Expected: 10/04/2024 , Expires: 01/03/2025 Start: 10-04-2024 End: 01-03-2025 Lipid 1996 panel - Serum or Plasma LIPID PANEL, FASTING Lab Routine Paroxysmal atrial fibrillation (HCC) Primary hypertension Expected: 10/04/2024, Expires: 01/03/2025 [facility] Comment on above: Expected: 10/04/2024 , Expires: 01/03/2025 Start: 10-04-2024 End: 01-03-2025 TSH W/REFLEX FT4 TSH W/REFLEX FT4 Lab Routine Paroxysmal atrial fibrillation (HCC) Primary hypertension Expected: 10/04/2024, Expires: 01/03/2025 [facility] Comment on above: Expected: 10/04/2024 , Expires: 01/03/2025 Start: 2024 RSV Vaccine (1 - 1-d ose 75+ series) RSV Vaccine (1 - 1-dose 75+ series) [facility] Start: 09-04-2024 End: 09-04-2024 Patient encounter procedure 09/04/2024 6:40 PM EDT Office Visit [facility] [place] [address] [place], [place] [id number] Elena Andino MD [address] [place], [place] [phone] 6 month follow up [facility] [place] Comment on above: 6 month follow up Start: 08-29-2024 Annual PCP Team Head [employer]S Golf Coach primitivo Disease Visit Annual PCP Team Chronic Disease Visit [facility] Start: 08-29-2024 BP Controlled (<130/80) BP Controlle d (<130/80) [facility] Start: 04-18-2024 Advance Directive Discussion Advance Directive Discussion [facility] Start: 03-06-2024 End: 03-06-2024 Patient encounter procedure 03/06/2024 6:40 PM EST Office Visit [facility] [place] [address] [facility], [place] [id number] Elena Andino MD [address] [place], [place] [phone] 6 month follow up [facility] [place] Comment on above: 6 month follow up Start: 12-18-2023 Covid-19 Vaccine ( season) Covid-19 Vaccine ( season) [facility] Start: 12-18-2023 Covid-19 Vaccine ( season) Covid-19 Vaccine ( season) [facility] Start: 12-18-2023 Influenza vaccination [facility] Start: 09-01-2023 ANNUAL PCP TEAM ACADEMIC INTERN PRIMITIVO DISEASE VISIT ANNUAL PCP TEAM CHRONIC DISEASE VISIT [facility] Start: 09-01-2023 BP CONTROLLED (<130/80) BP CONTROLLE D (<130/80) [facility] Start: 08-30-2023 End: 08-30-2023 Patient encounter procedure 08/30/2023 6:20 PM EDT Office Visit [facility] [place] [address] [facility] [place] [address] Elena Andino MD [address] [place] [address] 6 mo follow up [facility] [place] Comment on above: 6 mo follow up Start: 08-30-2023 End: 11-29-2023 TOXICOLOGY SCREEN, ROUTINE URINE TOXICOLOGY SCREEN, ROUTINE URINE Lab Routine Encounter for long-term current use of medication Expected: 08/30/2023, Expires: 11/29/2023 [facility] Work Phone: Comment on above: Expected: 08/30/2023 , Expires: 11/29/2023 Start: 08-22-2023 End: 11-21-2023 25-hydroxyvitamin D3 [Mass/volume] in Serum or Plasma VITAMIN D 25 HYDROXY Lab Routine Vitamin D deficiency Encounter for long-term current use of medication Expected: 08/22/2023, Expires: 11/21/2023 [facility] Work Phone: Comment on above: Expected: 08/22/2023 , Expires: 11/21/2023 Start: 08-22-2023 End: 11-21-2023 CBC panel - Blood by Automated count COMPLETE BLOOD COUNT Lab Routine Primary hypertension Encounter for long-term current use of medication Expected: 08/22/2023, Expires: 11/21/2023 [facility] [facility] Comment on above: Expected: 08/22/2023 , Expires: 11/21/2023 Start: 08-22-2023 End: 11-21-2023 Comprehensive metabolic 2000 panel - Serum or Plasma COMPREHENSIVE METABOLIC PANEL Lab Routine Primary hypertension Encounter for long-term current use of medication Expected: 08/22/2023, Expires: 11/21/2023 [facility] Comment on above: Expected: 08/22/2023 , Expires: 11/21/2023 Start: 08-22-2023 End: 11-21-2023 Lipid 1996 panel - Serum or Plasma LIPID PANEL BASIC Lab Routine Hyperlipidemia, unspecified hyperlipidemia type Encounter for long-term current use of medication Expected: 08/22/2023, Expires: 11/21/2023 [facility] Comment on above: Expected: 08/22/2023 , Expires: 11/21/2023 Start: 08-22-2023 End: 11-21-2023 Thyrotropin [Units/volume] in Serum or Plasma THYROID STIMULATING HORMONE Lab Routine Acquired hypothyroidism Encounter for long-term current use of medication Expected: 08/22/2023, Expires: 11/21/2023 [facility] Comment on above: Expected: 08/22/2023 , Expires: 11/21/2023 Start: 08-22-2023 End: 11-21-2023 Thyroxine (T4) free [Mass/volume] in Serum or Plasma T4 FREE/FREE THYROXINE Lab Routine Acquired hypothyroidism Encounter for long-term current use of medication Expected: 08/22/2023, Expires: 11/21/2023 [facility] Comment on above: Expected: 08/22/2023 , Expires: 11/21/2023 Start: 08-22-2023 End: 11-21-2023 Triiodothyronine (T3) Free [Mass/volume] in Serum or Plasma T3, FREE Lab Routine Acquired hypothyroidism Encounter for long-term current use of medication Expected: 08/22/2023, Expires: 11/21/2023 [facility] Comment on above: Expected: 08/22/2023 , Expires: 11/21/2023 Start: 08-11-2023 LIPID SCREEN LIPID SCREEN [facility] Start: 07-23-2023 ANNUAL PCP TEAM ACADEMIC INTERN PRIMITIVO DISEASE VISIT ANNUAL PCP TEAM CHRONIC DISEASE VISIT [facility] Start: 07-23-2023 BP CONTROLLED (<130/80) BP CONTROLLE D (<130/80) [facility] Start: 07-23-2023 Hepatitis B surface antibody level LDL CHOLESTEROL [facility] Start: 04-18-2023 Advance Directive Discussion Advance Directive Discussion [facility] Start: 04-18-2023 Behavioral Health Screening Behavioral Health Screening [facility] Start: 04-18-2023 Depression Assessment Depression Ass essment [facility] Start: 12-23-2022 End: 02-22-2023 Thyrotropin [Units/volume] in Serum or Plasma TSH BLD Lab Routine Hypothyroidism, unspecified type Expected: 12/23/2022, Expires: 02/22/2023 [facility] Work Phone: Comment on above: Expected: 12/23/2022 , Expires: 02/22/2023 Start: 12-17-2022 Covid-19 Vaccine () Covid-19 Vaccine () [facility] Start: 12-17-2022 Influenza vaccination [facility] Start: 11-21-2022 COVID-19 VACCINE (6 - Pfizer series) COVID-19 VACCINE (6 - Pfizer series) [facility] Start: 09-16-2022 End: 11-16-2022 Thyrotropin [Units/volume] in Serum or Plasma TSH BLD Lab Routine Elevated TSH Hypothyroidism, unspecified type Expected: 09/16/2022 (Approximate), Expires: 11/16/2022 [facility] Work Phone: Comment on above: Expected: 09/16/2022 (Approximate), Expires: 11/16/2022 Start: 07-23-2022 End: 09-22-2022 THYROID PEROXIDASE ANTIBODY BLOOD THYROID PEROXIDASE ANTIBODY BLOOD Lab Routine Elevated TSH Expected: 07/23/2022, Expires: 09/22/2022 [facility] Work Phone: Comment on above: Expected: 07/23/2022 , Expires: 09/22/2022 Start: 07-22-2022 End: 09-21-2022 Alpha 1 antitrypsin [Mass/volume] in Serum or Plasma [facility] Work Phone: Comment on above: Expected: 07/22/2022 , Expires: 09/21/2022 Start: 07-22-2022 End: 09-21-2022 Comprehensive metabolic 2000 panel - Serum or Plasma [facility] Work Phone: Comment on above: Expected: 07/22/2022 , Expires: 09/21/2022 Start: 07-22-2022 End: 09-21-2022 LIPID PANEL, NONFASTING [facility] Work Phone: Comment on above: Expected: 07/22/2022 , Expires: 09/21/2022 Start: 07-22-2022 End: 09-21-2022 Thyrotropin [Units/volume] in Serum or Plasma [facility] Work Phone: Comment on above: Expected: 07/22/2022 , Expires: 09/21/2022 Start: 07-17-2022 ANNUAL PCP TEAM ACADEMIC INTERN PRIMITIVO DISEASE VISIT ANNUAL PCP TEAM CHRONIC DISEASE VISIT [facility] Start: 04-19-2022 SHINGRIX VACCINE (1 of 2) PARKER GRIX VACCINE (1 of 2) [facility] Comment on above: Postponed from 09/23 (Insurance Coverage) Start: 04-19-2022 Urine microalbumin profile DTAP,TDAP ,TD (1 - Tdap) [facility] Comment on above: Postponed from 09/23 (Insurance Coverage) Start: 04-18-2022 ADVANCE DIRECTIVE DISCUSSION ADVANCE DIRECTIVE DISCUSSION [facility] Start: 04-18-2022 DEPRESSION ASSESSMENT DEPRESSION ASS ESSMENT [facility] Start: 03-09-2022 BP CONTROLLED (<130/80) BP CONTROLLE D (<130/80) [facility] Start: 12-17-[address] [facility] Start: 09-08-2021 Adult depression scr eening assessment DEPRESSION SCREENING [facility] Start: 09-08-2021 ANNUAL PCP TEAM ACADEMIC INTERN PRIMITIVO DISEASE VISIT ANNUAL PCP TEAM CHRONIC DISEASE VISIT [facility] Start: 08-10-2021 DIABETES SCREEN DIABETES SCREEN [facility] Start: 07-24-2021 End: 2021 CBC W Auto Differential panel - Blood CBC + DIFF Lab Routine ASHD (arteriosclerotic heart disease) Expected: 07/24/2021 (Approximate), Expires: 2021 [facility] Work Phone: Comment on above: Expected: 07/24/2021 (Approximate), Expires: 2021 Start: 07-24-2021 End: 2021 Comprehensive metabolic 2000 panel - Serum or Plasma COMP METABOLIC PANEL Lab Routine ASHD (arteriosclerotic heart disease) Expected: 07/24/2021 (Approximate), Expires: 2021 [facility] Work Phone: Comment on above: Expected: 07/24/2021 (Approximate), Expires: 2021 Start: 07-24-2021 End: 2021 LIPID PANEL BASIC LIPID PANEL BASIC Lab Routine ASHD (arteriosclerotic heart disease) Expected: 07/24/2021 (Approximate), Expires: 2021 [facility] Work Phone: Comment on above: Expected: 07/24/2021 (Approximate), Expires: 2021 Start: 07-17-2021 End: 09-16-2021 LIPID PANEL, NONFASTING LIPID PANEL, NONFASTING Lab Routine Hyperlipidemia, unspecified hyperlipidemia type ASHD (arteriosclerotic heart disease) Expected: 07/17/2021, Expires: 09/16/2021 [facility] Work Phone: Comment on above: Expected: 07/17/2021 , Expires: 09/16/2021 Start: 04-27-2021 COVID-19 VACCINE (4 - Booster for Pfizer series) COVID-19 VACCINE (4 - Booster for Pfizer series) [facility] Start: 04-18-2021 ADVANCE DIRECTIVE DISCUSSION ADVANCE DIRECTIVE DISCUSSION [facility] Start: 04-18-2021 DEPRESSION ASSESSMENT DEPRESSION ASS ESSMENT [facility] Start: 02-20-2021 COVID-19 VACCINE (4 - Booster for Pfizer series) COVID-19 VACCINE (4 - Booster for Pfizer series) [facility] Start: 12-17-2020 Influenza vaccination INFLUENZA (#1) [facility] Start: 08-11-2019 Hepatitis B surface antibody level LDL CHOLESTEROL [facility] Start: 07-13-2017 COLORECTAL CANCER SCREENING COLORECTAL CANCER SCREENING [facility] Start: 07-13-2017 FECAL OCCULT BLOOD FECAL OCCULT BLOO D [facility] Start: 07-13-2017 Screening for malign ant neoplasm of colon [facility] Start: 02-09-2017 Mammography [facility] Start: 02-09-2017 Screening for malign ant neoplasm of breast Mammogram Screening [facility] Start: 2014 BONE DENSITY BONE DENSITY [facility] Start: 2014 Bone Density Screening Bone Density Screening [facility] Start: 2014 Screening for osteoporosis Bone Dens ity Screening [facility] Start: 2009 RSV Vaccine (1 - 1-d ose 60+ series) RSV Vaccine (1 - 1-dose 60+ series) [facility] Start: 2009 RSV Vaccine (1 - Ris k 60-74 years 1-dose series) RSV Vaccine (1 - Risk 60-74 years 1-dose series) [facility] Start: 09-24-1999 SHINGRIX VACCINE (1 of 2) PARKER GRIX VACCINE (1 of 2) [facility] Start: 1994 COLOGUARD (FIT-DNA) COLOGUARD (FIT-D NA) [facility] Start: 1994 Colonoscopy COLONOSCOPY [facility] Start: [address] COLONOGRAPHY [facility] Start: 1994 Screening for malign ant neoplasm of colon [facility] Start: 1994 SIGMOIDOSCOPY SIGMOIDOSCOPY [facility] Start: 09-24-1979 Zoledronic acid therapy ALPHA- 1 ANTITRYPSIN DEFICIENCY SCREENING [facility] Start: 1968 Pneumococcal Vaccine : 50+ (1 of 2 - PCV) Pneumococcal Vaccine: 50+ (1 of 2 - PCV) [facility] Start: 1968 Urine microalbumin profile [facility] Start: 09-24-1967 BP CONTROLLED (<130/80) BP CONTROLLE D (<130/80) [facility] Start: 09-24-1967 Depression Screening Depression Scre ening [facility] Start: 09-24-1955 Pneumococcal Vaccine : 65+ (1 - PCV) Pneumococcal Vaccine: 65+ (1 - PCV) [facility] Start: 09-24-1955 Pneumococcal Vaccine : 65+ (1 of 2 - PCV) Pneumococcal Vaccine: 65+ (1 of 2 - PCV) [facility] Start: 09-24-1955 PNEUMOCOCCAL: 65+ (1 - PCV) PNEUMOCOCCAL: 65+ (1 - PCV) [facility] End: 11-03-2025 BD DXA TRABECULAR BONE SCORE (TBS) BD DXA TRABECULAR BONE SCORE (TBS) Radiology Routine Asymptomatic menopause 1 Occurrences starting 10/04/2024 until 11/03/2025 [facility] Comment on above: 1 Occurrences starti ng 10/04/2024 until 11/03/2025 End: 08-23-2025 DBT Breast - bilateral screening MARIA R SCREENING W BRADY Radiology Routine Encounter for screening mammogram for breast cancer 1 Occurrences starting 07/24/2024 until 08/23/2025 [facility] Work Phone: Comment on above: 1 Occurrences starti ng 07/24/2024 until 08/23/2025 End: 11-03-2025 DBT Breast - bilateral screening MARIA R SCREENING W BRADY Radiology Routine Encounter for screening mammogram for breast cancer 1 Occurrences starting 10/04/2024 until 11/03/2025 [facility] Comment on above: 1 Occurrences starti ng 10/04/2024 until 11/03/2025 End: 11-03-2025 DXA Skeletal system.axial Views for bone density DXA-AXIAL SKELETON Radiology Routine Asymptomatic menopause 1 Occurrences starting 10/04/2024 until 11/03/2025 [facility] Comment on above: 1 Occurrences starti ng 10/04/2024 until 11/03/2025 End: 08-21-2023 DXA-AXIAL SKELETON DXA-AXIAL SKELETON Radiology Routine Screening for osteoporosis Asymptomatic menopause 1 Occurrences starting 07/22/2022 until 08/21/2023 [facility] Work Phone: Comment on above: 1 Occurrences starti ng 07/22/2022 until 08/21/2023 ECG COMPLETE ECG COMPLETE ECG Routine Paroxysmal atrial fibrillation (HCC) Primary hypertension Ordered: 10/04/2024 [facility] Comment on above: Ordered: 10/04/2024 Hemoglobin.gastroint estina l.lower [Presence] in Stool by Immunoassay FECAL OCCULT BLOOD TEST Lab Routine Colon cancer screening Ordered: 07/17/2021 [facility] Work Phone: Comment on above: Ordered: 07/17/2021 Hemoglobin.gastroint estina l.lower [Presence] in Stool by Immunoassay FECAL OCCULT BLOOD TEST Lab Routine Screening for colon cancer Ordered: 07/22/2022 [facility] Work Phone: Comment on above: Ordered: 07/22/2022 Hemoglobin.gastroint estina l.lower [Presence] in Stool by Immunoassay IMMUNOCHEMICAL FECAL OCCULT BLOOD TEST Lab Routine Screening for colon cancer Ordered: 10/04/2024 [facility] Work Phone: Comment on above: Ordered: 10/04/2024 End: 09-22-2024 MG Breast Screening MARIA R SCREENING Radiology Routine Encounter for screening mammogram for breast cancer 1 Occurrences starting 08/24/2023 until 09/22/2024 [facility] Work Phone: Comment on above: 1 Occurrences starti ng 08/24/2023 until 09/22/2024 Pneumococcal vaccination PNEUMOC OCCAL VACCINE (PREVNAR 20) Immunization/Injection Routine Encounter for immunization 1 Occurrences starting 07/22/2022 [facility] Work Phone: Comment on above: 1 Occurrences starti ng 07/22/2022 End: 11-13-2022 Screening mammography bi 2-view breast inc cad MARIA R SCREENING Radiology Routine Encounter for screening mammogram for breast cancer 1 Occurrences starting 10/14/2021 until 11/13/2022 [facility] Work Phone: Comment on above: 1 Occurrences starti ng 10/14/2021 until 11/13/2022 Tdap vaccine 7 yrs/> im TDAP VAC CINE, AGE 7+ YR (ADACEL, BOOSTRIX) Immunization/Injection Routine Encounter for immunization 1 Occurrences starting 07/22/2022 [facility] Work Phone: Comment on above: 1 Occurrences starti ng 07/22/2022 [facility] Immunizations Immunization Date Immunization Notes Care Provider Silvia longoria 07-22-2022 COVID-19 booster vaccine, age 12+ yr, bivalent (PFIZER-BIONTECH) Gene Love COAL GASIFICATION TECHNICIAN.BILINGUAL TEACHER AIDE Work Phone: [facility] Work Phone: 07-30-2021 COVID-19 original vaccine, age 12+ yr, monovalent (PFIZER-BIONTECH - MONTENEGRO TOP) Amarjit Herrera RN [facility] 12-26-2020 COVID-19 vaccine, ag e 12+ yr (PFIZER-BIONTECH - PURPLE TOP) Javier Leonard RN [facility] 07-23-2020 COVID-19 vaccine, ag e 12+ yr (PFIZER-BIONTECH - PURPLE TOP) Javier Leonard RN [facility] Work Phone: 07-01-2020 COVID-19 vaccine, ag e 12+ yr (PFIZER-BIONTECH - PURPLE TOP) Javier Leonard RN [facility] Work Phone: 01-04-2018 influenza virus vaccine, unspecified formulation Amarjit Herrera RN [facility] Payers Date Payer Category Payer Self-pay 2018 Medicaid [facility] MED[facility] MEDICAID [id number] 2018-Present [phone] [address] [place] [address] Medicaid [id number] 2015 Medicaid [id number] 2015 Medicaid [id number] 2014 Medicare MEDICARE MEDICAR E A AND B [id number] 2014-Present [phone] [address] [address] [place] [address] Medicare [id number] 2014 Medicare [id number] 2014 Medicare [id number] Medicare [id number] Unknown [id number] Unknown [id number] Unknown [id number] Social History Date Type Detail Facility Start: 04-22-2021 End: 03-21-2024 Tobacco smoking status ARIS Smokes tobacco daily [facility] History of tobacco use [facility]igarette Sm[facility] Start: 04-22-2021 End: 10-04-2024 Alcohol intake Current non-drinker of alcohol (finding) [facility] Start: 04-22-2021 End: 07-22-2022 Tobacco Comment 5-6 cigs daily [facility] Start: 1950 Sex Assigned At Not on file [facility] Start: 07-07-2021 End: 07-17-2021 Exposure to SARS-CoV-2 (event) Not sure [facility] Work Phone: Start: 04-22-2021 End: 08-31-2022 Cigarettes smoked current (pack per day) - Reported 0.3 [facility] Work Phone: Start: 04-22-2021 End: 03-21-2024 Tobacco use and exposure Smokeless tobacco non-user [facility] Start: 08-31-2022 Tobacco Comment 5-6 cigs to no more than 10 per day the past year or so. [facility] Start: 08-31-2022 End: 10-04-2024 Tobacco use panel [facility] Work Phone: Start: 03-19-2012 Adult Depression Screening Assessment 2 [facility] Work Phone: Start: 08-30-2023 Tobacco Comment 5-6 cigs to no more than 10 per day the past year or so. August 30, 2023--10 per day or less depending on stressors [facility] How often to you hav e a drink containing alcohol? Never [facility] Goals Date Patient Goal Desired Activity /State [...] score [AUDIT-C] 0 10/05/19 25 2:56 PM EDT Sonia Love LPN [facility] 02-20-2024 Are you deaf, or do you have serious difficulty hearing No 02/20/2024 10:59 PM Janel Thakur RN No [facility] 02-20-2024 Are you blind, or do you have serious difficulty seeing, even when wearing glasses No 02/20/2024 10:59 PM Janel Thakur RN No [facility] 02-20-2024 Do you have serious difficulty walking or climbing stairs Yes 02/20/2024 10:59 PM Janel Thakur RN Yes [facility] 02-20-2024 Do you have difficul ty dressing or bathing No 02/20/2024 10:59 PM Janel Thakur RN No [facility] 02-20-2024 Because of a physica l, mental, or emotional condition, do you have difficulty doing errands alone such as visiting a physician's office or shopping No 02/20/2024 10:59 PM Janel Thakur RN No [facility] Mental Status Date Assessment Result Facility 02-20-2024 Because of a physica l, mental, or emotional condition, do you have serious difficulty concentrating, remembering, or making decisions No 02/20/2024 10:59 PM Janel Thakur RN No [facility] Clinical Notes 07-16-2021 to 12-23-2024 Telephone Encounter - Michelle Ocampo RN - 12/23/2024 5:40 PM EDTTelephone Encounter - Michelle Ocampo RN - 12/23/2024 5:40 PM EDTTelephone Encounter - Anthony Gonzalez RN - 11/19/2024 12:49 PM EDT Note Date & Type Note Facility 12-23-2024 Telephone encounter Note Reason for Conversation Neurologic Problem Background Yesterday woke up and both hands would not work and reports she tried to get out the front door but could not turn the handle; reports she does not remember going back to bed; states these symptoms lasted about 40 seconds. Denies symptoms at this time. Disposition Go to ED Now Based on symptoms reported and assessment findings at this time, Patient advised to go the Emergency Room now. Encouraged to have someone drive or call call 911 if anything. Patient verbalizes understanding. Reason for Disposition Weakness in both sides of the body or weakness all over Difficulty breathing Protocols Used Weakness (Generalized) and [id number] Neurologic Eqxrunw-TRZNP-VW [facility] 12-23-2024 Miscellaneous Notes Reason for Conversation Neurologic Problem Background Yesterday woke up and both hands would not work and reports she tried to get out the front door but could not turn the handle; reports she does not remember going back to bed; states these symptoms lasted about 40 seconds. Denies symptoms at this time. Disposition Go to ED Now Based on symptoms reported and assessment findings at this time, Patient advised to go the Emergency Room now. Encouraged to have someone drive or call call 911 if anything. Patient verbalizes understanding. Reason for Disposition Weakness in both sides of the body or weakness all over Difficulty breathing Protocols Used Weakness (Generalized) and Fdeyskk-[id number]-WF Neurologic Zrwotqd-LWLSE-SC documented in this encounter [facility] 11-19-2024 Telephone encounter Note Ijeoma checking on refill and advise Rx was sent to pharmacy today. [facility] 11-19-2024 Miscellaneous Notes Ijeoma checking on refill [...] realize she didn't have refills [facility] to [facility]. Ijeoma would like a call at [phone] once sent so she knows to reach out to [facility] to have filled. Katrina Link RN November 19, 2024 8:39 AM documented in this encounter [facility] 11-19-2024 Telephone encounter Note TC patient. No answer or VM. Nelly Aaron MA [facility] 11-19-2024 Telephone encounter Note The patient has [...] realize she didn't have refills [facility] to [facility]. Ijeoma would like a call at [phone] once sent so she knows to reach out to [facility] to have filled. Katrina Link RN November 19, 2024 8:39 AM [facility] 10-04-2024 Telephone encounter Note Already filled today when saw Gene [facility] 10-04-2024 Miscellaneous Notes Already filled today when [...] 2024 4:13 PM documented in this encounter [facility] 10-04-2024 Note HNO ID: [id number] Author: GENE LOVE APRN.BILINGUAL TEACHER AIDE Service: ? Author Type: Nurse Specialist Type: [...] Sotalol and amlodipine. - Not seeing a auto body repairer fiberglass; last auto body repairer fiberglass was Dr. Mills. - Willing to see a auto body repairer fiberglass if available in [place]. - Reports feeling well and managing with [...] Abs Lymph 1.00 - 4.00 k/uL 2.90 [place]ac% % 11.5 Abs [place]renac <0.87 k/uL 1.13 (H) Eosin% % 4.6 [...] - 4.200 mIU/L (more content not included)... [facility] 10-04-2024 History of Present illness Narrative Images [...] Sotalol and amlodipine. - Not seeing a auto body repairer fiberglass; last auto body repairer fiberglass was Dr. Mills. - Willing to see a auto body repairer fiberglass if available in [place]. - Reports feeling well and managing with [...] Abs Lymph 1.00 - 4.00 k/uL 2.90 [place]ac% % 11.5 Abs [place]renac <0.87 k/uL 1.13 (H) Eosin% % 4.6 [...] - ICD9: V03.89, ICD10: Z23 declined - PFI[employer]ER-[employer] COVID-19 VACCINE AGE 12+ YR (COMIRNATY) - [...] - VITAMIN D 25 HYDROXY Gene Love APRN.BILINGUAL TEACHER AIDE documented in this encounter [facility] 10-04-2024 Instructions Gene Love APRN.CNS - 10/04/2024 [...] 07/13/2017 LDL Cholesterol due on 07/23/2023 Covid-19 Vaccine( season) due on 12/18/2023 Advance Directive Discussion [...] review all the medicines you take, even bcca-jqn-nmnmrpx medicines. As you get older, the way [...] usual activities immediately. documented in this encounter [facility] 10-02-2024 Telephone encounter Note The patient has [...] Gonzalez RN October 02, 2024 4:13 PM [facility] 09-21-2024 Telephone encounter Note Noted, agree, recommend appointment to discuss options to help with sleep, she has an upcoming appointment with Gene, can discuss then or sooner if needing addressed before that. [facility] 09-21-2024 Miscellaneous Notes Noted, agree, recommend appointment [...] neighborhood. Asked patient if she tried calling [facility]. Patient reports that they will not do anything for cats and she is stressed out by this. Patient is asking what she can do to help her with her sleeping issues. Patient is going to call pharmacy to see what she can take for sleep. Please review and advise, Evelia Cochran RN documented in this encounter [facility] 09-17-2024 Telephone encounter Note Patient scheduled 10/04/24 with Gene Love. [facility] 09-17-2024 Miscellaneous Notes Patient scheduled 10/04/24 with Gene Love. Patient missed August appointment. Not yet rescheduled The following approved [...] 2024 11:20 AM documented in this encounter [facility] 09-13-2024 Telephone encounter Note Patient calls and [...] neighborhood. Asked patient if she tried calling [facility]. Patient reports that they will not do anything for cats and she is stressed out by this. Patient is asking what she can do to help her with her sleeping issues. Patient is going to call pharmacy to see what she can take for sleep. Please review and advise, Evelia Cochran RN [facility] 09-11-2024 Telephone encounter Note Prescription Refill Information [...] Rahman LPN September 11, 2024 10:12 AM [facility] 09-11-2024 Miscellaneous Notes Prescription Refill Information The [...] 2024 10:12 AM documented in this encounter [facility] 09-07-2024 Telephone encounter Note Patient missed August appointment. Not yet rescheduled The following approved medication requests have been transmitted electronically. Requested Prescriptions Signed Prescriptions Disp Refills atenolol (TENORMIN) 50 mg tablet 270 tablet 0 Sig: take 1 AND 1/2 tablet by mouth twice a day Authorizing Provider: ELENA ANDINO MD Will give more refills at follow up appointment. [facility] 09-07-2024 Telephone encounter Note Prescription Refill Information [...] Stevens LPN September 07, 2024 11:20 AM [facility] 08-27-2024 History of Present illness Narrative POPULATION [...] 2024 11:54 AM documented in this encounter [facility] 08-27-2024 Note HNO ID: [id number] Author: CASSIDY SHINE MA Service: ? Author Type: Esl Instructional Assistant Type: Progress Notes Filed: 08/27/2024 11:58 [...] Shine MA August 27, 2024 11:54 AM [facility] 08-27-2024 Note Patient Outreach (NE TNAV) LEXI LONDONO ([id number]) 1950 F Date Time Provider Department 08/27/24 CASSIDY SHINE NETTRISTIANV During your visit today, we recorded the [...] Date Reviewed: 03/21/2024 Reviewed by: Amy Acosta APRN.ELECTRODE CLEANER - Fully Assessed Reason for Visit: Population Health Navigation Outreach [3910] Cmt: LORA CURIEL [facility] Prescriptions as of 08/27/2024 - ELIQUIS 5 [...] Encounter Status:Closed by CASSIDY SHINE on 08/27/24 [facility] 07-30-2024 Telephone encounter Note Message left to pt with approval. [facility] 07-30-2024 Miscellaneous Notes Message left to pt with approval. lexi londono (Styles: [id number]) PA Need Help? Call us at Outcome Approved today by [employer] 2017 PA Case: [id number], Status: Approved, Coverage Starts on: 04/18/2024 12:00:00 AM, Coverage Ends on: 04/17/2025 12:00:00 AM. Questions? Contact . Effective Date: 04/18/2024 Authorization Expiration Date: 04/17/2025 Drug Oxazepam 10MG capsules Unable to complete PA electronically. Called the pharmacy and pharmacy benefits info is ID number [id number] [employer] [id number] PCN [id number] Group rx [id number]. This was completed via covermymeds. lexi londono (Styles: [email or web address]) - [id number] Oxazepam 10MG capsules status: PA Request Created: July 30, 2024 Sent: July 30, 2024 Patient calls and states that prior authorization needs done on medication. Called and spoke with pharmacist at [facility] Pharmacy did send over prior authorization for medication through cover my medications. Insurance is not wanting to cover the medication due to patient's age and the class medication is in. Prior Authorization Documentation Prior authorization requested for the following medication: Medication: Oxepam Provider: Dr. Elena Andino Insurance Company Name: Medicare Patient ID number: [id number] Pharmacy Name: [facility] Telephone number: [phone] documented in this encounter [facility] 07-30-2024 Telephone encounter Note lexi londono (Styles: [email or web address]) PA Need Help? Call us at Outcome Approved today by [facility] 2017 PA Case: [id number], Status: Approved, Coverage Starts on: 04/18/2024 12:00:00 AM, Coverage Ends on: 04/17/2025 12:00:00 AM. Questions? Contact . Effective Date: 04/18/2024 Authorization Expiration Date: 04/17/2025 Drug Oxazepam 10MG capsules [facility] 07-30-2024 Telephone encounter Note Unable to complete PA electronically. Called the pharmacy and pharmacy benefits info is ID number [id number] [facility] [id number] PCN [id number] Group rx [id number]. This was completed via covermymeds. lexi londono (Styles: [email or web address]) - [id number] Oxazepam 10MG capsules status: PA Request Created: July 30, 2024 Sent: July 30, 2024 [facility] 07-30-2024 Telephone encounter Note Patient calls and states that prior authorization needs done on medication. Called and spoke with pharmacist at [facility] [employer] [employer] Pharmacy did send over prior authorization for medication through cover my medications. Insurance is not wanting to cover the medication due to patient's age and the class medication is in. Prior Authorization Documentation Prior authorization requested for the following medication: Medication: Oxepam Provider: Dr. Elena Andino Insurance Company Name: Medicare Patient ID number: [id number] Pharmacy Name: [facility] Telephone number: [phone] [facility] 07-25-2024 Telephone encounter Note Triage Protocol Advised: [...] vaginal foreign body Protocols used: Medication Question Jpux-BOEQQ-TE, Vaginal Rsivnrap-VZJIC-QS [facility] 07-25-2024 Miscellaneous Notes Triage Protocol Advised: (Upgraded): [...] vaginal foreign body Protocols used: Medication Question Dkiq-XZMBO-UK, Vaginal Qzsspapn-ZHAPV-DM documented in this encounter [facility] 07-24-2024 Telephone encounter Note Called and spoke [...] review. Per Prior Auth note on Oxazepam: [employer] has a message stating waiting for auth details sent on 07/22 at 541 pm. The below is noted: [employer] MEDICARE PART D (BIN#[id number] PCN#[id number]) - MR: Product Not on FormularyHUMANA MEDICARE PART D (BIN#[id number] PCN#[id number] MEDICARE PART D (BIN#[id number] PCN#[id number]) - RAPD: PREFERRED PRODUCT INFORMATION. [facility] 07-24-2024 Miscellaneous Notes Called and spoke with [...] review. Per Prior Auth note on Oxazepam: [employer] has a message stating waiting for auth details sent on 07/22 at 541 pm. The below is noted: [employer] MEDICARE PART D (BIN#[id number] PCN#[id number]) - MR: Product Not on FormularyHUMANA MEDICARE PART D (BIN#[id number] PCN#[id number] MEDICARE PART D (BIN#[id number] PCN#[id number]) - RAPD: PREFERRED PRODUCT INFORMATION. Pt called in stating that the pharmacy called her and her insurance stated they would not cover the oxazepam. Pt was not sure why. Please advise and contact patient. documented in this encounter [facility] 07-24-2024 Note Patient Outreach (IN TMWS) LEXI LONDONO Batool ([id number]) 1950 F Date Time Provider Department 07/24/24 ELENA ANDINO During your visit today, we recorded the [...] Date Reviewed: 03/21/2024 Reviewed by: Amy Acosta APRN.ELECTRODE CLEANER - Fully Assessed Visit Diagnosis:Encounter for screening mammogram for breast cancer [Z12.31] Order(s):[facility] [place] SCREENING [facility] [[id number]] Order #: [id number] FUTURE Prescriptions as of 08/24/2024 - ELIQUIS [...] Encounter Status:Closed by THIEN LUCERO on 08/24/24 [facility] 07-23-2024 Telephone encounter Note Pt called in stating that the pharmacy called her and her insurance stated they would not cover the oxazepam. Pt was not sure why. Please advise and contact patient. [facility] 05-23-2024 Telephone encounter Note The following approved medication requests have been transmitted electronically. Requested Prescriptions Signed Prescriptions Disp Refills ELIQUIS 5 mg tab(s) 180 tablet 3 Sig: take 1 tablet by mouth twice a day Authorizing Provider: ELENA ANDINO MD [facility] 05-23-2024 Miscellaneous Notes The following approved medication requests have been transmitted electronically. Requested Prescriptions Signed Prescriptions Disp Refills ELIQUIS 5 mg tab(s) 180 tablet 3 Sig: take 1 tablet by mouth twice a day Authorizing Provider: ELENA ANDINO MD Requesting 90 day supply. Nelli Ibarra LPN documented in this encounter [facility] 05-22-2024 Telephone encounter Note Requesting 90 day supply. Nelli Ibarra LPN [facility] 05-22-2024 Telephone encounter Note Was seen in [...] 120 days. Authorizing Provider: ELENA ANDINO MD [facility] 05-22-2024 Miscellaneous Notes Was seen in March. [...] 180 days. Patient requesting 90 days Annemarie Waggoner May 21, 2024 10:40 AM documented in this encounter [facility] 05-21-2024 Telephone encounter Note Prescription Refill Information [...] 180 days. Patient requesting 90 days Annemarie Waggoner May 21, 2024 10:40 AM [facility] 04-03-2024 Telephone encounter Note Pt called in and message below given. Pt verbalizes understanding. Sherie Calles LPN [facility] 04-03-2024 Miscellaneous Notes Pt called in and message below given. Pt verbalizes understanding. Sherie Calles LPN Attempted to call x2, vm has not been set up, will continue to try to contact Patient. Nelli Ibarra LPN Attempted to contact patient and no answer. Voicemail box is not set up. Please try contacting patient again. Thank you. Reviewed that she left [facility] in February after treated for peripheral limb [...] Evelia Cochran RN documented in this encounter [facility] 04-03-2024 Telephone encounter Note Attempted to call x2, vm has not been set up, will continue to try to contact Patient. Nelli Ibarra LPN [facility] 04-03-2024 Telephone encounter Note Attempted to contact patient and no answer. Voicemail box is not set up. Please try contacting patient again. Thank you. [facility] 04-03-2024 Telephone encounter Note Reviewed that she left [facility] in February after treated for peripheral limb ischemia with thrombectomy of iliac artery and popliteal artery. Her discharge summary included Eliquis and aspirin was continued. Okay to continue on both. Noted that she was seen by Amy Acosta CNP 03/21/24. Next appointment in August. Follow up sooner as needed. [facility] 04-02-2024 Telephone encounter Note Patient calls and states that she is on Eliquis 5 mg twice a day. Patient is also taking baby aspirin 81 mg. Patient calling and asking if it is ok to continue taking both medications? Please review and advise, Evelia Cochran RN [facility] 03-21-2024 Telephone encounter Note Seen by Amy Henson. RXs taken care of by her. [facility] 03-21-2024 Miscellaneous Notes Seen by Amy Henson. [...] future visit scheduled: yes [facility] documented in this encounter [facility] 03-21-2024 History of Present illness Narrative Chief Complaint Patient presents with: 6 month fup HPI Lexi Londono is a 73 year old female who presents here today for Above Complaints. Lexi is an established patient of Dr. Thu MD. She is a new patient to me today. Concerns today... Needing refills of medications. No concerns or complaints today. Recent [facility] ER visit on 03/05 d/t LLE [...] Patient agreeable to treatment plan. Amy Henson APRN.ELECTRODE CLEANER [address] [place] [address] documented in this encounter [facility] 03-21-2024 Note HNO ID: [id number] Author: AMY ACOSTA APRN.ELECTRODE CLEANER Service: ? Author Type: Nurse Practitioner Type: [...] medications. No concerns or complaints today. Recent [facility] ER visit on 03/05 d/t LLE [...] Never done Mammogram Screening due on 02/09/2017 [facility] (more content not included)... [facility] 03-21-2024 Telephone encounter Note Patient called back and states the other medication needing prescribed is for the verapamil 40mg two times daily. Stefani Vega LPN [facility] 03-21-2024 Telephone encounter Note Ijeoma calls back and states that patient does not have enough medication for tomorrow. Please call Ijeoma when sent to pharmacy. Evelia Cochran RN [facility] 03-21-2024 Telephone encounter Note Patient phones requesting refills as follows: Requested Prescriptions Pending Prescriptions Disp Refills atenolol (TENORMIN) 50 mg tablet 270 tablet 1 Sig: Take 1.5 tablets by mouth two times a day. Please review and advise. Leonie Anton MA [facility] 03-21-2024 Telephone encounter Note Patient requesting medication that is Patient last seen: 08-30-23 Patient future visit scheduled: yes [facility] 03-05-2024 Telephone encounter Note Patient reports she woke up this morning with numbness in left foot. Reports no other symptoms. Reports 2-3 weeks ago she was admitted to [facility] with blood clots in right leg- and [...] walked it off the numbness went away. [place] normal except for the numbness. Reports no reddness or swelling in left leg and no pain, but didn't have these signs with the right leg either. 2-3 weeks ago was admitted to [facility] and had emergency surgery to remove blood [...] symptoms. 8. : No Protocols used: Neurologic Mlczbvr-ZFPDD-RN [facility] 03-05-2024 Miscellaneous Notes Patient reports she woke up this morning with numbness in left foot. Reports no other symptoms. Reports 2-3 weeks ago she was admitted to [facility] with blood clots in right leg- and [...] walked it off the numbness went away. [place] normal except for the numbness. Reports no reddness or swelling in left leg and no pain, but didn't have these signs with the right leg either. 2-3 weeks ago was admitted to [facility] and had emergency surgery to remove blood [...] symptoms. 8. : No Protocols used: Neurologic Unsmixc-YQIDQ-BR documented in this encounter [facility] 02-20-2024 Note HNO ID: [id number] Author: MARY KATE MORROW DO Service: General [...] Kate Morrow DO PGY-5 02/20/2024 10:18 PM [facility] 02-20-2024 Note HNO ID: [id number] Author: MYRTLE MCLEAN RN Service: Care Management [...] Care Advance Directives Current Advance Directive: None Car Distributor Attempted to Assist with AD Completion: Yes [...] General wellness, Be able to go home [place] Explained: [place] Given: No Reason Not Given: [...] appts. (+) PCP (+) RX. - [facility]. Awaiting PT/OT evals. D/C plan TBD. CM to follow. SIGNATURE: Myrtle Mclean RN PATIENT NAME: Lexi Londono DATE: February 20, 2024 TIME: 3:54 PM CONTACT #: [phone] [facility] 02-20-2024 Note HNO ID: [id number] Author: ALLEN PRESTON MD Service: Vascular Surgery [...] guidance with history of AF, no OP auto body repairer fiberglass following - Continue hep gtt, will transition to DOAC on dc - PVRs - Anticipate dc today v. tomorrow Signature: Allen Preston MD Date: 02/20/2024 Time: 2:26 PM Vascular Surgery Progress Note SERVICE DATE: February 20, 2024 Vascular and Thoracic Service Pager: For questions or concerns Mon-Tue 6a-5p please page [phone]. After 5pm and on Weekends and Holidays, please page [phone] if in ICU or [phone] if on RNF. Subjective SUBJECTIVE: NAEON. Patient [...] Therapy: Room Air IANDO: Date 02/19/24699 - 02/20/24 0659 02/20/24 07 - 02/21/24 0659 Shift 5183-7144 2917-9224 8846-2412 24 Hour Total 9731-3666 6790-3064 6417-0674 24 Hour Total INTAKE IV 200 1636 [...] 200 Output ([REMOVED] Indwelling Urinary Catheter 02/20/[address] [facility] Deutsch 16 Fr 02/20/24 0900) [...] fibrillation (non-compliant with AC) who presented with Cochran 2A acute limb ischemia with sensory deficit to RLE. CTA leila (more content not included)... [facility] 02-19-2024 Note HNO ID: [id number] Author: BETHEL FLAHERTY MD Service: Nursing Author [...] February 19, 2024 TIME: 9:32 PM CSN: [id number] [facility] 02-19-2024 Note HNO ID: [id number] Author: SANDEEP COLLIER APRN.CRNA Service: Nursing Author Type: Nurse Resource Paraprofessional Type: Anesthesia Procedure Notes Filed: 02/19/2024 21:24 Note Text: ANESTHESIOLOGY PROCEDURE NOTE Airway General Information Procedure Start Time/Medication Administration: 02/19/2024 9:10 PM Procedure End Time: 02/19/2024 9:10 PM Patient location during procedure: OR Timeout Performed Pre-procedure: timeout performed Consent Obtained: Yes Patient identity confirmed: arm band Staffing DRIVE IN THEATER ATTENDANT: Sandeep Collier APRN.DRIVE IN THEATER ATTENDANT Performed by: TIMMY Indications and Patient Condition Indications for airway management: anesthesia Preoxygenated: yes anesthesia circuit Patient position: sniffing Method: asleep Cricoid Pressure: No Manual In-Line Stabilization: No Difficult Mask: No Final Airway Details Final airway type: endotracheal airway Final Endotracheal Airway: ETT Cuffed: yes Successful intubation technique: direct laryngoscopy Devices used: intubating stylet Endotracheal tube insertion site: oral Blade: Abdno Blade size: #3 ETT size (mm): 7.5 Measured from: lips Measurement (cm): 22 Placement verified by: capnometry Cormack-Lehane Classification: grade I - full view of glottis Number of attempts at approach: 1 SIGNATURE: Sandeep Collier APRN.DRIVE IN THEATER ATTENDANT PATIENT NAME: Lexi Londono DATE: February 19, 2024 TIME: 9:24 PM CSN: [id number] [facility] 01-03-2024 Telephone encounter Note Prior RXs [...] 60 days. Authorizing Provider: ELENA ANDINO MD [facility] 01-03-2024 Miscellaneous Notes Prior RXs for 60 [...] 2024 6:10 PM documented in this encounter [facility] 01-02-2024 Telephone encounter Note Prescription Refill Information [...] Negrete RN January 02, 2024 6:10 PM [facility] 11-22-2023 Telephone encounter Note The following approved [...] a day. Authorizing Provider: ELENA ANDINO MD [facility] 11-22-2023 Miscellaneous Notes The following approved medication [...] Out of levothyroxine. Please send today. Susana Wilson [facility] November 22, 2023 12:02 PM documented in this encounter [facility] 11-22-2023 Telephone encounter Note Prescription Refill Information [...] day. Out of levothyroxine. Please send today. Ssuana Wilson [facility] November 22, 2023 12:02 PM [facility] 11-15-2023 Note HNO ID: [id number] Author: AMARJIT HERRERA RN Service: ? Author Type: Registered Nurse Type: Progress Notes Filed: 11/15/2023 13:28 Note Text: CDM Telephonic Outreach Provider Action/FYI CDM: Copd Called Pt, unable to leave a message to verify symptom status and needs Contacted for: Routine Telephonic Outreach Contact made with patient: No, unable to leave message. Amarjit Herrera RN November 15, 2023 1:21 PM [facility] 11-15-2023 History of Present illness Narrative CDM [...] 2023 3:37 PM documented in this encounter [facility] 11-14-2023 Note HNO ID: [id number] Author: AMARJIT HERRERA RN Service: ? Author [...] Herrera RN November 14, 2023 3:37 PM [facility] 11-14-2023 Note Patient Outreach (AM BC) LEXI LONDONO ([id number]) 1950 F Date Time Provider Department 11/14/23 AMARJIT HERRERAG During your visit today, we recorded the [...] Encounter Status:Closed by AMARJIT HERRERA on 11/15/23 [facility] 10-14-2023 Note HNO ID: [id number] Author: AMARJIT HERRERA RN Service: ? Author [...] Herrera RN October 14, 2023 4:58 PM [facility] 10-14-2023 History of Present illness Narrative CDM [...] 2023 12:52 PM documented in this encounter [facility] 10-12-2023 Note HNO ID: [id number] Author: AMARJIT HERRERA RN Service: ? Author [...] Herrera RN October 12, 2023 5:08 PM [facility] 10-10-2023 Note HNO ID: [id number] Author: AMARJIT HERRERA RN Service: ? Author [...] Herrera RN October 10, 2023 12:52 PM [facility] 10-10-2023 Note Patient Outreach (AM BC) LEXI LONDONO ([id number]) 1950 F Date Time Provider Department 10/10/23 AMARJIT HERRERA [facility] During your visit today, we recorded the [...] Encounter Status:Closed by AMARJIT HERRERA on 10/14/23 [facility] 09-13-2023 Telephone encounter Note Attempted to reach patient, no answer and no VM. Leonie Anton MA [facility] 09-13-2023 Miscellaneous Notes Attempted to reach patient, [...] MD Noted that patient has not seen auto body repairer fiberglass within [facility] system since Dr. Benitez left. See if saw someone outside of [facility] system. She should be established with auto body repairer fiberglass. Noted that had referred to cardiology in [...] you. Celina Leonard. documented in this encounter [facility] 09-13-2023 Telephone encounter Note The following approved [...] MD Noted that patient has not seen auto body repairer fiberglass within [facility] system since Dr. Ben machado. See if saw someone outside of [facility] system. She should be established with auto body repairer fiberglass. Noted that had referred to cardiology in 2021 but no appointment made/kept after that. [facility] 09-09-2023 Telephone encounter Note Patient requesting 90 [...] 03/06/2024 Please advise. Thank you. Celina Leonard. [facility] 09-04-2023 History of Present illness Narrative CDM [...] 2023 4:47 PM documented in this encounter [facility] 08-30-2023 Instructions Elena Andino MD - 08/30/2023 7:06 PM EDT Can get labs drawn at the specialty center close to [facility]. documented in this encounter [facility] 08-30-2023 History of Present illness Narrative This note was created using Vericept. Subjective Lexi Londono is a 72 year [...] Continue present management 4. Paroxysmal atrial fibrillation (HCC) I48.0 5. Encounter for long-term current use [...] Elena Andino MD documented in this encounter [facility] 08-22-2023 Telephone encounter Note The following approved [...] routinely. Will discuss at upcoming August appointment. [facility] 08-22-2023 Miscellaneous Notes The following approved medication [...] up to 60 days. Refused By: ELENA ANIDNO Reason for Refusal: Patient needs appointment Elena [...] Not applicable Please advise. Erlinda Carrillo Pss documented in this encounter [facility] 08-22-2023 Telephone encounter Note Pharmacy verified in Epic Patient has been identified by name and [...] Not applicable Please advise. Erlinda Carrillo Pss [facility] 08-22-2023 Telephone encounter Note Pt needs to contact office [facility] 08-22-2023 Miscellaneous Notes Pt needs to contact office documented in this encounter [facility] 08-03-2023 History of Present illness Narrative CDM Telephonic Outreach Provider Action/FYI CDM: COPD Called Pt, unable to leave?a message to verify symptom status and needs. Pt has a scheduled 08/30/[address] Andino Contacted for: Routine Telephonic Outreach Contact made with patient: No, unable to leave message. Third attempt - patient is unable to be reached. Aamrjit Herrera RN August 03, 2023 1:06 PM [...] 2023 4:40 PM documented in this encounter [facility] 06-28-2023 History of Present illness Narrative CDM [...] 2023 4:14 PM documented in this encounter [facility] 06-22-2023 Miscellaneous Notes Pt reports she is [...] Brenna Lamb RN. documented in this encounter [facility] 05-20-2023 History of Present illness Narrative CDM [...] 2023 2:23 PM documented in this encounter [facility] 04-17-2023 History of Present illness Narrative CDM [...] 2023 11:36 AM documented in this encounter [facility] 03-08-2023 History of Present illness Narrative CDM [...] 2023 3:40 PM documented in this encounter [facility] 02-10-2023 Miscellaneous Notes Patient has been identified [...] patient. Maggie Sue documented in this encounter [facility] 02-04-2023 History of Present illness Narrative CDM [...] 2023 11:23 AM documented in this encounter [facility] 01-10-2023 History of Present illness Narrative CDM [...] 2023 1:51 PM documented in this encounter [facility] 12-23-2022 Miscellaneous Notes Patient called back and [...] atenolol dose for 40 + years. Katrina Link RN documented in this encounter [facility] 12-21-2022 Miscellaneous Notes Apts booked. Sherie Calles [...] medication: Not applicable Please advise. Thank you. Nelli Ibarra LPN Pharmacy [facility] Patient has been identified by name and date of : Yes Patient requesting a call when RX is approved and sent to the pharmacy. Please call patient at: [phone] Patient phones for refill(s): Requested Prescriptions Pending [...] Not applicable Please advise. Erlinda Carrillo Pss documented in this encounter [facility] 12-15-2022 History of Present illness Narrative CDM [...] 2022 11:29 AM documented in this encounter [facility] 11-10-2022 History of Present illness Narrative CDM [...] 2022 1:47 PM documented in this encounter [facility] 10-08-2022 History of Present illness Narrative CDM [...] 2022 2:09 PM documented in this encounter [facility] 09-12-2022 History of Present illness Narrative CDM Telephonic Outreach Provider Action/FYI CDM: COPD Left a message to verify symptom status and needs, Instructed to call PCP with any changes in symptoms or condition. Contacted for: Routine Telephonic Outreach Contact made with patient: No, left message. Amarjit Herrera RN September 12, 2022 7:37 PM documented in this encounter [facility] 08-31-2022 History of Present illness Narrative This note was created using [employer]urious[employer]. Subjective Lexi Londono is a 71 year [...] Abs Lymph 1.00 - 4.00 k/uL 2.90 [place]% % 11.5 Abs [place] <0.87 k/uL 1.13 (H) Eosin% % 4.6 [...] Elena Andino MD documented in this encounter [facility] 08-16-2022 History of Present illness Narrative CDM Telephonic Outreach Provider Action/FYI CDM: COPD Left a message to verify symptom status and needs, Instructed to call PCP with any changes in symptoms or condition. Contacted for: Routine Telephonic Outreach Contact made with patient: No, left message. Amarjit Herrera RN August 16, 2022 4:41 PM CDM Telephonic Outreach Provider Action/FYI CDM: COPD Left a message to verify symptom status and needs, Instructed to call PCP with any changes in symptoms or condition. Contacted for: Routine Telephonic Outreach Contact made with patient: No, left message. Amarjit Herrera RN August 13, 2022 1:20 PM documented in this encounter [facility] 08-11-2022 Miscellaneous Notes Spoke with patient and [...] at times she has to take Swetha Denton. Patient states that she has to take this 2-4 times a week for gas pain. Patient also states that when she eats, her eyes get heavy and she falls asleep. Patient asking for provider to advise about levothyroxine. Please review and advise, Evelia Cochran RN documented in this encounter [facility] 07-27-2022 Miscellaneous Notes Pt called and is [...] or weight gain. documented in this encounter [facility] 07-22-2022 History of Present illness Narrative [facility] TELEPHONIC OUTREACH Provider Action/FYI: CDM: COPD Called Pt to verify COPD or other symptom status and needs, unable to leave a message. 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 [facility] I am calling today for your bi-weekly check in. I am sorry I missed your call. I will reach out to you again tomorrow. (if the third call I will reach out to you again next week) Enter next patient outreach date for the following business day using the Track Pt Outreach. End outreach. Amarjit Herrera RN July 22, 2022 4:24 PM [facility]IGHT [facility] TELEPHONIC OUTREACH Provider Action/FYI: CDM: COPD Called [...] 2022 4:39 PM documented in this encounter [facility] 07-22-2022 History of Present illness Narrative SUBJECTIVE: [...] rescue inhaler noted in outside medication review. Underwater Hunter Trapper: no recent visit, one visit 02/2021 with [...] has a copy of this over at [facility]. Previously noted her friend Ijeoma is [...] ICD9: 496, ICD10: J44.9 (primary diagnosis) - [id number] 2. Encounter for immunization - ICD9: [...] 6-12 mo follow up MD Gene Griffith APRN.CNS Medical Decision Making: Problems: Moderate: 2+ stable chronic illnesses Data: Unique test(s) ordered: 3+ Risk: Moderate: Moderate risk from testing/treatment Medical Decision Making Level: 4 - Moderate documented in this encounter [facility] 07-12-2022 History of Present illness Narrative [facility] TELEPHONIC OUTREACH Provider Action/FYI: CDM: COPD 2nd Call, Left a message to verify symptom status and needs, Instructed to call PCP with any changes in symptoms or condition. Contact made with patient: No - Left message Regi my name is Amarjit Herrera RN your Sugar Cane Planting Equipment Operator from the [facility] I am calling today for your bi-weekly check in. I am sorry I missed your call. I will reach out to you again tomorrow. (if the third call I will reach out to you again next week) Enter next patient outreach date for the following business day using the Track Pt Outreach. End outreach. Amarjit Herrera RN July 12, 2022 6:04 PM [facility] TELEPHONIC OUTREACH Provider Action/FYI: CDM: COPD Left a message to verify symptom status and needs, Instructed to call PCP with any changes in symptoms or condition. Contact made with patient: No - Left message Regi my name is Amarjit Herrera RN your Sugar Cane Planting Equipment Operator from the [facility] I am calling today for your bi-weekly [...] 2022 5:13 PM documented in this encounter [facility] 07-01-2022 Miscellaneous Notes Email sent to Adeel CORLEY to mail out appointment reminder. Patient is calling in today and asked if a print out of all her appointments please be printed out and mailed to her home. I verified address. Thank you. Kait Corley documented in this encounter [facility] 06-22-2022 History of Present illness Narrative [facility] TELEPHONIC OUTREACH Provider Action/FYI: CDM: COPD Left a message to verify symptom status and needs, Instructed to call PCP with any changes in symptoms or condition. 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 [facility] I am calling today for your bi-weekly check in. I am sorry I missed your call. I will reach out to you again tomorrow. (if the third call I will reach out to you again next week) Enter next patient outreach date for the following business day using the Track Pt Outreach. End outreach. Amarjit Herrera RN June 22, 2022 11:05 AM [facility] TELEPHONIC OUTREACH Provider Action/FYI: CDM: COPD Left a message to verify symptom status and needs, Instructed to call PCP with any changes in symptoms or condition. Contact made with patient: No - Left message Hellorie my name is Amarjit Herrera RN your Sugar Cane Planting Equipment Operator from the [facility] I am calling today for your bi-weekly [...] 2022 11:11 AM documented in this encounter [facility] 05-20-2022 History of Present illness Narrative MALIK BURGER TELEPHONIC OUTREACH Provider Action/FYI: CDM: COPD Left a message to verify symptom status and needs, Instructed to call PCP with any changes in symptoms or condition. 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 [facility] I am calling today for your bi-weekly check in. I am sorry I missed your call. I will reach out to you again tomorrow. (if the third call I will reach out to you again next week) Enter next patient outreach date for the following business day using the Track Pt Outreach. End outreach. Amarjit Herrera RN May 20, 2022 10:53 AM [facility] TELEPHONIC OUTREACH Provider Action/FYI: CDM: COPD Left a message to verify symptom status and needs, Instructed to call PCP with any changes in condition 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 [facility] I am calling today for your bi-weekly [...] 2022 2:20 PM documented in this encounter [facility] 04-28-2022 History of Present illness Narrative [facility] TELEPHONIC OUTREACH Provider Action/FYI: CDM: COPD Left a message to verify symptom status and needs, Instructed to call PCP with any changes in symptoms or condition. 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 [facility] I am calling today for your bi-weekly check in. I am sorry I missed your call. I will reach out to you again tomorrow. (if the third call I will reach out to you again next week) Enter next patient outreach date for the following business day using the Track Pt Outreach. End outreach. Amarjit Herrera RN April 28, 2022 10:02 AM [facility] TELEPHONIC OUTREACH Provider Action/FYI: CDM: COPD Left a message to verify symptom status and needs, Instructed to call PCP with any changes in symptoms or condition Contact made with patient: No - Left message Joaolorie my name is Amarjit Herrera RN your Sugar Cane Planting Equipment Operator from the [facility] I am calling today for your bi-weekly [...] 2022 12:43 PM documented in this encounter [facility] 03-18-2022 History of Present illness Narrative [facility] TELEPHONIC OUTREACH Provider Action/FYI: Left a message to verify COPD or other symptoms or needs. Contact made with patient: No - Left message Joaolorie my name is Amarjit Herrera RN your Sugar Cane Planting Equipment Operator from the [facility] I am calling today for your bi-weekly [...] 2022 1:39 PM documented in this encounter [facility] 03-15-2022 History of Present illness Narrative [facility] TELEPHONIC OUTREACH Provider Action/FYI: Left a message to verify COPD or other symptoms or needs. Contact made with patient: No - Left message Joaolorie my name is Amarjit Herrera RN your Sugar Cane Planting Equipment Operator from the [facility] I am calling today for your bi-weekly [...] 2022 10:52 AM documented in this encounter [facility] 02-11-2022 Miscellaneous Notes Schedule her with Rukhsana Pineda or one of the cardiologists. Needs to complete an EKG on the same date Pt states it had been a while since last seen. Sherie Calles LPN Spoke with pt and she states she saw cardiology at the [facility]. Do you want her to make [...] her convenience unless sotalol being followed by auto body repairer fiberglass elsewhere. Patient has been identified by name [...] advise. Erlinda Magaña documented in this encounter [facility] 02-10-2022 History of Present illness Narrative INSIGHT CDM TELEPHONIC OUTREACH Provider Action/FYI: Spk with Pt she denies worsening or new COPD symptoms or needs. 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 [facility] I am calling today for your bi-weekly [...] 2022 12:48 PM documented in this encounter [facility] 01-19-2022 History of Present illness Narrative INSIGHT CDM TELEPHONIC OUTREACH Provider Action/FYI: Spk with Pt [...] like to speak with a social work steam fitter to help give you support for any [...] you up for automated weekly questionnaires through [employer]. This is an easy way for us [...] 2022 2:36 PM documented in this encounter [facility] 01-11-2022 History of Present illness Narrative [facility] TELEPHONIC OUTREACH Provider Action/FYI: Called Pt left a message to verify COPD symptom status and needs. 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 [facility] I am calling today for your bi-weekly [...] 2022 12:10 PM documented in this encounter [facility] 12-11-2021 History of Present illness Narrative INSIGHT CDAnthony TELEPHONIC OUTREACH Provider Action/FYI: Called Pt left a message to verify COPD symptom status and needs. 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 [facility] I am calling today for your bi-weekly [...] 2021 11:33 AM documented in this encounter [facility] 11-11-2021 History of Present illness Narrative [facility] TELEPHONIC OUTREACH Provider Action/FYI: Called Pt left a message to verify COPD symptom status and needs. Contact made with patient: No - Left message Joaolo my name is Amarjit Herrera RN your Sugar Cane Planting Equipment Operator from the [facility] I am calling today for your bi-weekly check in. I am sorry I missed your call. I will reach out to you again tomorrow. (if the third call I will reach out to you again next week) Enter next patient outreach date for the following business day using the Track Pt Outreach. End outreach. Amarjit Herrera RN November 11, 2021 9:27 AM [facility] TELEPHONIC OUTREACH Provider Action/FYI: Called Pt left a message to verify COPD symptom status and needs. Contact made with patient: No - Left message Regi my name is Amarjit Herrera RN your Sugar Cane Planting Equipment Operator from the [facility] I am calling today for your bi-weekly [...] 2021 2:44 PM documented in this encounter [facility] 10-14-2021 History of Present illness Narrative [facility] TELEPHONIC OUTREACH Provider Action/FYI: Called Pt left a message to verify COPD symptom status and needs. 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 [facility] I am calling today for your bi-weekly [...] 2021 3:40 PM documented in this encounter [facility] 10-06-2021 History of Present illness Narrative [facility] TELEPHONIC OUTREACH Provider Action/FYI: Called Pt left a message to verify COPD symptom status and needs. Contact made with patient: No - Left message Joaolo my name is Amarjit Herrera RN your Sugar Cane Planting Equipment Operator from the [facility] I am calling today for your bi-weekly check in. I am sorry I missed your call. I will reach out to you again tomorrow. (if the third call I will reach out to you again next week) Enter next patient outreach date for the following business day using the Track Pt Outreach. End outreach. Amarjit Herrera RN October 06, 2021 11:51 AM [facility] TELEPHONIC OUTREACH Provider Action/FYI: Call to Pt left a message to verify COPD symptom status and needs. Contact made with patient: No - Left message Joaolo my name is Amarjit Herrera RN your Sugar Cane Planting Equipment Operator from the [facility] I am calling today for your bi-weekly [...] 2021 2:22 PM documented in this encounter [facility] 09-28-2021 History of Present illness Narrative INSIGHT CDM TELEPHONIC OUTREACH Provider Action/FYI: Call to Pt left a message to verify COPD symptom status and needs. Contact made with patient: No - Left message Regi my name is Amarjit Herrera RN your Sugar Cane Planting Equipment Operator from the [facility] I am calling today for your bi-weekly [...] 2021 9:22 AM documented in this encounter [facility] 09-17-2021 Miscellaneous Notes PDMP website checked and validated. All prescriptions have been APPROPRIATELY filled. No suspicious activity was identified. 09/17/2021 by Gene Love APRN.BILINGUAL TEACHER AIDE rx sent Last appt with [facility] REFRIGERATION WORKER 07/17/21. Patient has been identified by name [...] Susana Wilson Pss documented in this encounter [facility] 09-17-2021 History of Present illness Narrative MALIK BURGER TELEPHONIC OUTREACH Provider Action/FYI: Call to Pt left a message to verify COPD symptom status and needs. Contact made with patient: No - Left message Regi my name is Amarjit Herrera RN your Sugar Cane Planting Equipment Operator from the [facility] I am calling today for your bi-weekly [...] 2021 3:24 PM documented in this encounter [facility] 09-16-2021 Miscellaneous Notes rec'd via fax from [facility] form expense report. This has been sent to correct department via internal mail. documented in this encounter [facility] 09-03-2021 History of Present illness Narrative MALIK BURGER TELEPHONIC OUTREACH Provider Action/FYI: Call to Pt left a message to verify COPD symptom status and needs. Contact made with patient: No - Left message Joaolo my name is Amarjit Herrera RN your Sugar Cane Planting Equipment Operator from the [facility] I am calling today for your bi-weekly check in. I am sorry I missed your call. I will reach out to you again tomorrow. (if the third call I will reach out to you again next week) Enter next patient outreach date for the following business day using the Track Pt Outreach. End outreach. Amarjit Herrera RN September 03, 2021 1:15 PM MALIK BURGER TELEPHONIC OUTREACH Provider Action/FYI: Call to Pt left a message to verify COPD symptom status and needs. Contact made with patient: No - Left message Regi my name is Amarjit Herrera RN your Sugar Cane Planting Equipment Operator from the [facility] I am calling today for your bi-weekly [...] 2021 12:54 PM documented in this encounter [facility] 08-17-2021 History of Present illness Narrative MAL[facility] TELEPHONIC OUTREACH Provider Action/FYI: Spk with Pt, [...] like to speak with a social work steam fitter to help give you support for any [...] you up for automated weekly questionnaires through [employer]. This is an easy way for us [...] 2:00 PM . documented in this encounter [facility] 08-12-2021 History of Present illness Narrative MALIK HERNANDEZ TELEPHONIC OUTREACH Provider Action/FYI: Call to Pt left a message to verify COPD symptom status and needs. Contact made with patient: No - Left message Regi my name is Amarjit Herrera RN your Sugar Cane Planting Equipment Operator from the [facility] I am calling today for your bi-weekly [...] 2021 11:07 AM documented in this encounter [facility] 08-03-2021 History of Present illness Narrative MALIK HERNANDEZ TELEPHONIC OUTREACH Provider Action/FYI: Call to Pt left a message to verify COPD or other symptoms or needs. Contact made with patient: No - Left message Regi my name is Amarjit Herrera RN your Sugar Cane Planting Equipment Operator from the [facility] I am calling today for your bi-weekly [...] 2021 4:57 PM documented in this encounter [facility] 07-30-2021 History of Present illness Narrative INSIGHT CDM TELEPHONIC OUTREACH Provider Action/FYI: Call to Pt left a message to verify COPD status and needs. Contact made with patient: No - Left message Regi my name is Amarjit Herrera RN your Sugar Cane Planting Equipment Operator from the [facility] I am calling today for your bi-weekly [...] 2021 3:55 PM documented in this encounter [facility] 07-17-2021 Instructions Gene Love APRN.CNS - 07/17/2021 2:35 PM EDT Check to see if your insurance covers Tdap and shingles vaccine and what location to get the vaccine -usually best covered at your local pharmacy where you get prescriptions filled Try the inhaler Dr Montero recommended documented in this encounter [facility] 07-17-2021 History of Present illness Narrative SUBJECTIVE: DTAP,TDAP,TD(1 - Tdap) Never done SHINGRIX VACCINE(1 of 2) Never done BONE DENSITY Never done MAMMOGRAM due on 02/09/2017 COLORECTAL CANCER SCREENING due on 07/13/2017 LDL CHOLESTEROL due on 08/11/2019 ADVANCE DIRECTIVE DISCUSSION Never done DIABETES SCREEN due on 08/10/2021 TARIK Londono is a 70 year old female. [...] has a copy of this over at [facility]. Her friend Ijeoma is her surrogate. [...] needed, maintenance inhaler as prescribed. Follow-up with lead welder 3. Hyperlipidemia, unspecified hyperlipidemia type - ICD9: [...] 6 mo follow up MD Gene Griffith APRN.BILINGUAL TEACHER AIDE Medical Decision Making: Problems: Moderate: 1+ chronic illnesses with change and 2+ stable chronic illnesses Data: Unique test(s) ordered: 3+ Risk: Moderate: Drug management Medical Decision Making Level: 4 - Moderate documented in this encounter [facility] 07-16-2021 History of Present illness Narrative INSIGHT CDM TELEPHONIC OUTREACH Provider Action/FYI: Call to Pt left a message to verify COPD symptom status. 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 [facility] I am calling today for your bi-weekly [...] 2021 12:21 PM documented in this encounter [facility] Evaluation note Diagnosis Tobacco use disorder- Primary Chronic obstructive pulmonary disease, unspecified COPD type (HCC) Hyperlipidemia, unspecified hyperlipidemia type Generalized anxiety disorder Primary hypertension Unspecified essential hypertension ASHD (arteriosclerotic heart disease) Coronary atherosclerosis of unspecified type of vessel, [place] or graft Dyspnea on exertion Other dyspnea and respiratory abnormality Colon cancer screening Special screening for malignant neoplasms, colon Paroxysmal atrial fibrillation (HCC) [facility] Generalized anxiety disorder [facility] Diagnosis Encounter for screening mammogram for breast cancer [facility] Diagnosis Paroxysmal atrial fibrillation (HCC) Atrial fibrillation [facility] Diagnosis Chronic obstructive pulmonary disease, unspecified [...] Coronary atherosclerosis of unspecified type of vessel, [place] or graft Mucopurulent chronic bronchitis (HCC) Mucopurulent chronic bronchitis [facility] Diagnosis Elevated TSH- Primary Nonspecific abnormal results of thyroid function study Abnormal results of thyroid function studies Nonspecific abnormal results of thyroid function study [facility] Diagnosis Elevated TSH- Primary Nonspecific abnormal results of thyroid function study Hypothyroidism, unspecified type documented in this encounter [facility] note* Diagnosis Generalized anxiety disorder- Primary Acquired hypothyroidism Unspecified hypothyroidism Chronic obstructive pulmonary disease, unspecified COPD type (HCC) Tobacco use disorder Primary hypertension Unspecified essential hypertension Dyspnea on exertion Other dyspnea and respiratory abnormality [facility] Diagnosis Generalized anxiety disorder [facility] Diagnosis Hypothyroidism, unspecified type- Primary documented in this encounter [facility] note* Diagnosis Paroxysmal atrial fibrillation (HCC) Atrial fibrillation Hyperlipidemia, unspecified hyperlipidemia type [facility] Diagnosis Paroxysmal atrial fibrillation (HCC) Atrial fibrillation documented in this encounter [facility] note* Diagnosis Paroxysmal atrial fibrillation (HCC) Atrial fibrillation documented in this encounter [facility] note* Diagnosis Acquired hypothyroidism- Primary Unspecified hypothyroidism Hyperlipidemia, unspecified hyperlipidemia type Generalized anxiety disorder Paroxysmal atrial fibrillation (HCC) Atrial fibrillation Primary hypertension Unspecified essential hypertension Vitamin D deficiency Unspecified vitamin D deficiency Encounter for long-term current use of medication documented in this encounter [facility] note* Diagnosis Encounter for screening mammogram for breast cancer documented in this encounter [facility] note* Diagnosis Paroxysmal atrial fibrillation (HCC) Atrial fibrillation documented in this encounter [facility] note* Diagnosis Generalized anxiety disorder- Primary Chronic pain of left ankle Chronic obstructive pulmonary disease, unspecified COPD type (HCC) Paroxysmal atrial fibrillation (HCC) Atrial fibrillation Encounter for long-term current use of medication [facility] At[facility] (HCC)- Primary Atrial fibrillation Tobacco use disorder Hyperlipidemia Other and unspecified hyperlipidemia COPD (chronic obstructive pulmonary disease) (HCC) Chronic airway obstruction, not elsewhere classified Breast screening, unspecified Special screening for malignant neoplasms, colon Hyperlipidemia, unspecified hyperlipidemia type Paroxysmal atrial fibrillation (HCC) Atrial fibrillation documented in this encounter [facility] note* Diagnosis Atrial fibrillation (HCC)- Primary Atrial fibrillation Tobacco use disorder Hyperlipidemia Other and unspecified hyperlipidemia COPD (chronic obstructive pulmonary disease) (HCC) Chronic airway obstruction, not elsewhere classified Breast screening, unspecified Special screening for malignant neoplasms, colon Generalized anxiety disorder documented in this encounter [facility] note* Diagnosis Atrial fibrillation (HCC)- [...] (HCC) Atrial fibrillation documented in this encounter [facility] note* Diagnosis Atrial fibrillation (HCC)- Primary Atrial fibrillation Tobacco use disorder Hyperlipidemia Other and unspecified hyperlipidemia COPD (chronic obstructive pulmonary disease) (HCC) Chronic airway obstruction, not elsewhere classified Breast screening, unspecified Special screening for malignant neoplasms, colon Paroxysmal atrial fibrillation (HCC) Atrial fibrillation documented in this encounter [facility] note* Diagnosis Atrial fibrillation (HCC)- Primary Atrial fibrillation Tobacco use disorder Hyperlipidemia Other and unspecified hyperlipidemia COPD (chronic obstructive pulmonary disease) (HCC) Chronic airway obstruction, not elsewhere classified Breast screening, unspecified Special screening for malignant neoplasms, colon Generalized anxiety disorder documented in this encounter [facility] note* Diagnosis Atrial fibrillation (HCC)- Primary Atrial fibrillation Tobacco use disorder Hyperlipidemia Other and unspecified hyperlipidemia COPD (chronic obstructive pulmonary disease) (HCC) Chronic airway obstruction, not elsewhere classified Breast screening, unspecified Special screening for malignant neoplasms, colon Generalized anxiety disorder documented in this encounter [facility] note* Diagnosis Atrial fibrillation (HCC)- Primary Atrial fibrillation Tobacco use disorder Hyperlipidemia Other and unspecified hyperlipidemia COPD (chronic obstructive pulmonary disease) (HCC) Chronic airway obstruction, not elsewhere classified Breast screening, unspecified Special screening for malignant neoplasms, colon Encounter for screening mammogram for breast cancer [facility] Atrial [facility] (HCC)- Primary Atrial fibrillation Tobacco use disorder Hyperlipidemia Other and unspecified hyperlipidemia COPD (chronic obstructive pulmonary disease) (HCC) Chronic airway obstruction, not elsewhere classified Breast screening, unspecified Special screening for malignant neoplasms, colon Paroxysmal atrial fibrillation (HCC) Atrial fibrillation documented in this encounter [facility]* Diagnosis Atrial fibrillation (HCC)- Primary Atrial fibrillation Tobacco use disorder Hyperlipidemia Other and unspecified hyperlipidemia COPD (chronic obstructive pulmonary disease) (HCC) Chronic airway obstruction, not elsewhere classified Breast screening, unspecified Special screening for malignant neoplasms, colon Paroxysmal atrial fibrillation (HCC) Atrial fibrillation documented in this encounter [facility] note* Diagnosis Atrial fibrillation (HCC)- [...] Coronary atherosclerosis of unspecified type of vessel, [place] or graft Encounter for immunization Need for other specified prophylactic vaccination against single bacterial disease Screening for depression Asymptomatic menopause Encounter for screening mammogram for breast cancer Primary hypertension Unspecified essential hypertension Vitamin D deficiency Unspecified vitamin D deficiency documented in this encounter [facility]* Diagnosis Atrial fibrillation (HCC)- Primary Atrial fibrillation Tobacco use disorder Hyperlipidemia Other and unspecified hyperlipidemia COPD (chronic obstructive pulmonary disease) (HCC) Chronic airway obstruction, not elsewhere classified Breast screening, unspecified Special screening for malignant neoplasms, colon Generalized anxiety disorder documented in this encounter [facility] for referral (narrative)* Diagnostic Procedure Only (Routine) - Pending Review Specialty Diagnoses / Procedures Referred By Contac t Referred To Contact [facility] Diagnoses Encounter for screening mammogram for breast cancer Procedures MARIA R SCREENING SCREENING MAMMOGRAPHY BI 2-VIEW BREAST INC CAD Elena Andino MD [address] [place] [address] [facility] [place] [address] Referral ID Status Reason Start Date Expiration Date Visits Requested Visits Authorized [id number] Pending Review Auto-Generat ed Referral 10/14/2021 11/13/2022 1 1 [facility] Diagnostic Procedure Only (Routine) - Pending Review Specialty Diagnoses / Procedures Referred By Javid t Referred To Contact [facility] Diagnoses Encounter for screening mammogram for breast cancer Procedures MARIA R SCREENING SCREENING MAMMOGRAPHY BI 2-VIEW BREAST INC CAD Elena Andino MD [address] [place] [address] [facility] [address] [place] [address] Referral ID Status Reason Start Date Expiration Date Visits Requested Visits Authorized [id number] Pending Review Auto-Generat ed Referral 08/24/2023 09/22/2024 1 1 [facility] Summary Purpose Family History No Family History Records FoundNo Family History Records FoundNo Family History Records FoundNo Family History Records Found Advance Directives No Advanced Directives Records FoundNo Advanced Directives Records FoundNo Advanced Directives Records FoundNo Advanced Directives Records Found Reason for Referral Specialty Diagnoses / Procedures Referred By Javid jhaveri Referred To Contact [facility]monary [facility] Critical Care Medicine Diagnoses Tobacco use disorder Mucopurulent chronic bronchitis (HCC) Procedures CONSULT TO PULM/CRITICAL CARE OFFICE/OUTPATIENT NEW HIGH MDM 60-74 MINUTES Gene Love, [employer]IDE [address] [place] [address] Referral ID Status Reason Start Date Expiration Date Visits Requested Visits Authorized [id number] Authorized PCP Requested Referral 07/22/2022 07/22/2023 1 1 Specialty Diagnoses / Procedures Referred By Javid jhaveri Referred To Contact Gene Love, [employer] AIDE [address] [place] [address] Referral ID Status Reason Start Date Expiration Date Visits Re quested Visits Authorized [id number] Closed 1 1 Referral ID Status Reason Start Date Expiration Date Visits Re quested Visits Authorized [id number] Denied 1 1 Specialty Diagnoses / Procedures Referred By Contac t Referred To Contact Elena Andino MD [address] [place] [address] Referral ID Status Reason Start Date Expiration Date Visits Re quested Visits Authorized [id number] Closed 1 1 Additional Source Comments INFORMATION SOURCE (unrecogn ized section and content) DATE CREATED AUTHOR 10/06/2017 [facility] DATE CREATED AUTHOR AUTHOR'S ORGANIZ ATION 03/16/2024 [facility] DATE CREATED AUTHOR AUTHOR'S ORGANIZ ATION 05/07/2024 [facility] DATE CREATED AUTHOR AUTHOR'S ORGANIZ ATION 10/07/2024 [facility] Source Comments (unrecognize d section and content) In the event this informatio n is protected by the Federal Confidentiality of Alcohol and Drug Abuse Patient Records regulations: The Federal rules restrict any use of the information to criminally investigate or prosecute any alcohol or drug abuse patient.[facility] the event this information is protected by the Federal Confidentiality of Alcohol and Drug Abuse Patient Records regulations: The Federal rules restrict any use of the information to criminally investigate or prosecute any alcohol or drug abuse patient.[facility] the event this information is protected by the Federal Confidentiality of Alcohol and Drug Abuse Patient Records regulations: The Federal rules restrict any use of the information to criminally investigate or prosecute any alcohol or drug abuse patient.[facility] the event this information is protected by the Federal Confidentiality of Alcohol and Drug Abuse Patient Records regulations: The Federal rules restrict any use of the information to criminally investigate or prosecute any alcohol or drug abuse patient.[facility] the event this information is protected by the Federal Confidentiality of Alcohol and Drug Abuse Patient Records regulations: The Federal rules restrict any use of the information to criminally investigate or prosecute any alcohol or drug abuse patient.[facility] the event this information is protected by the Federal Confidentiality of Alcohol and Drug Abuse Patient Records regulations: The Federal rules restrict any use of the information to criminally investigate or prosecute any alcohol or drug abuse patient.[facility] the event this information is protected by the Federal Confidentiality of Alcohol and Drug Abuse Patient Records regulations: The Federal rules restrict any use of the information to criminally investigate or prosecute any alcohol or drug abuse patient.[facility] the event this information is protected by the Federal Confidentiality of Alcohol and Drug Abuse Patient Records regulations: The Federal rules restrict any use of the information to criminally investigate or prosecute any alcohol or drug abuse patient.[facility] the event this information is protected by the Federal Confidentiality of Alcohol and Drug Abuse Patient Records regulations: The Federal rules restrict any use of the information to criminally investigate or prosecute any alcohol or drug abuse patient.[facility] the event this information is protected by the Federal Confidentiality of Alcohol and Drug Abuse Patient Records regulations: The Federal rules restrict any use of the information to criminally investigate or prosecute any alcohol or drug abuse patient.[facility] the event this information is protected by the Federal Confidentiality of Alcohol and Drug Abuse Patient Records regulations: The Federal rules restrict any use of the information to criminally investigate or prosecute any alcohol or drug abuse patient.[facility] the event this information is protected by the Federal Confidentiality of Alcohol and Drug Abuse Patient Records regulations: The Federal rules restrict any use of the information to criminally investigate or prosecute any alcohol or drug abuse patient.[facility] the event this information is protected by the Federal Confidentiality of Alcohol and Drug Abuse Patient Records regulations: The Federal rules restrict any use of the information to criminally investigate or prosecute any alcohol or drug abuse patient.[facility] the event this information is protected by the Federal Confidentiality of Alcohol and Drug Abuse Patient Records regulations: The Federal rules restrict any use of the information to criminally investigate or prosecute any alcohol or drug abuse patient.[facility] the event this information is protected by the Federal Confidentiality of Alcohol and Drug Abuse Patient Records regulations: The Federal rules restrict any use of the information to criminally investigate or prosecute any alcohol or drug abuse patient.[facility] the event this information is protected by the Federal Confidentiality of Alcohol and Drug Abuse Patient Records regulations: The Federal rules restrict any use of the information to criminally investigate or prosecute any alcohol or drug abuse patient.[facility] the event this information is protected by the Federal Confidentiality of Alcohol and Drug Abuse Patient Records regulations: The Federal rules restrict any use of the information to criminally investigate or prosecute any alcohol or drug abuse patient.[facility] the event this information is protected by the Federal Confidentiality of Alcohol and Drug Abuse Patient Records regulations: The Federal rules restrict any use of the information to criminally investigate or prosecute any alcohol or drug abuse patient.[facility] the event this information is protected by the Federal Confidentiality of Alcohol and Drug Abuse Patient Records regulations: The Federal rules restrict any use of the information to criminally investigate or prosecute any alcohol or drug abuse patient.[facility] Hospital[facility] the event this information is protected by the Federal Confidentiality of Alcohol and Drug Abuse Patient Records regulations: The Federal rules restrict any use of the information to criminally investigate or prosecute any alcohol or drug abuse patient.[facility] HospitalIn the event this information is protected by the Federal Confidentiality of Alcohol and Drug Abuse Patient Records regulations: The Federal rules restrict any use of the information to criminally investigate or prosecute any alcohol or drug abuse patient.[facility] Hospital[facility] the event this information is protected by the Federal Confidentiality of Alcohol and Drug Abuse Patient Records regulations: The Federal rules restrict any use of the information to criminally investigate or prosecute any alcohol or drug abuse patient.[facility] the event this information is protected by the Federal Confidentiality of Alcohol and Drug Abuse Patient Records regulations: The Federal rules restrict any use of the information to criminally investigate or prosecute any alcohol or drug abuse patient.[facility] the event this information is protected by the Federal Confidentiality of Alcohol and Drug Abuse Patient Records regulations: The Federal rules restrict any use of the information to criminally investigate or prosecute any alcohol or drug abuse patient.[facility]In the event this information is protected by the Federal Confidentiality of Alcohol and Drug Abuse Patient Records regulations: The Federal rules restrict any use of the information to criminally investigate or prosecute any alcohol or drug abuse patient.[facility]In the event this information is protected by the Federal Confidentiality of Alcohol and Drug Abuse Patient Records regulations: The Federal rules restrict any use of the information to criminally investigate or prosecute any alcohol or drug abuse patient.[facility] the event this information is protected by the Federal Confidentiality of Alcohol and Drug Abuse Patient Records regulations: The Federal rules restrict any use of the information to criminally investigate or prosecute any alcohol or drug abuse patient.[facility]In the event this information is protected by the Federal Confidentiality of Alcohol and Drug Abuse Patient Records regulations: The Federal rules restrict any use of the information to criminally investigate or prosecute any alcohol or drug abuse patient.[facility]In the event this information is protected by the Federal Confidentiality of Alcohol and Drug Abuse Patient Records regulations: The Federal rules restrict any use of the information to criminally investigate or prosecute any alcohol or drug abuse patient.[facility] the event this information is protected by the Federal Confidentiality of Alcohol and Drug Abuse Patient Records regulations: The Federal rules restrict any use of the information to criminally investigate or prosecute any alcohol or drug abuse patient.[facility] the event this information is protected by the Federal Confidentiality of Alcohol and Drug Abuse Patient Records regulations: The Federal rules restrict any use of the information to criminally investigate or prosecute any alcohol or drug abuse patient.[facility] the event this information is protected by the Federal Confidentiality of Alcohol and Drug Abuse Patient Records regulations: The Federal rules restrict any use of the information to criminally investigate or prosecute any alcohol or drug abuse patient.[facility] the event this information is protected by the Federal Confidentiality of Alcohol and Drug Abuse Patient Records regulations: The Federal rules restrict any use of the information to criminally investigate or prosecute any alcohol or drug abuse patient.[facility] Hospital[facility] the event this information is protected by the Federal Confidentiality of Alcohol and Drug Abuse Patient Records regulations: The Federal rules restrict any use of the information to criminally investigate or prosecute any alcohol or drug abuse patient.[facility] HospitalIn the event this information is protected by the Federal Confidentiality of Alcohol and Drug Abuse Patient Records regulations: The Federal rules restrict any use of the information to criminally investigate or prosecute any alcohol or drug abuse patient.[facility]In the event this information is protected by the Federal Confidentiality of Alcohol and Drug Abuse Patient Records regulations: The Federal rules restrict any use of the information to criminally investigate or prosecute any alcohol or drug abuse patient.[facility]In the event this information is protected by the Federal Confidentiality of Alcohol and Drug Abuse Patient Records regulations: The Federal rules restrict any use of the information to criminally investigate or prosecute any alcohol or drug abuse patient.[facility] the event this information is protected by the Federal Confidentiality of Alcohol and Drug Abuse Patient Records regulations: The Federal rules restrict any use of the information to criminally investigate or prosecute any alcohol or drug abuse patient.[facility] HospitalIn the event this information is protected by the Federal Confidentiality of Alcohol and Drug Abuse Patient Records regulations: The Federal rules restrict any use of the information to criminally investigate or prosecute any alcohol or drug abuse patient.[facility] HospitalIn the event this information is protected by the Federal Confidentiality of Alcohol and Drug Abuse Patient Records regulations: The Federal rules restrict any use of the information to criminally investigate or prosecute any alcohol or drug abuse patient.[facility] HospitalIn the event this information is protected by the Federal Confidentiality of Alcohol and Drug Abuse Patient Records regulations: The Federal rules restrict any use of the information to criminally investigate or prosecute any alcohol or drug abuse patient.[facility] HospitalIn the event this information is protected by the Federal Confidentiality of Alcohol and Drug Abuse Patient Records regulations: The Federal rules restrict any use of the information to criminally investigate or prosecute any alcohol or drug abuse patient.[facility] HospitalIn the event this information is protected by the Federal Confidentiality of Alcohol and Drug Abuse Patient Records regulations: The Federal rules restrict any use of the information to criminally investigate or prosecute any alcohol or drug abuse patient.[facility] HospitalIn the event this information is protected by the Federal Confidentiality of Alcohol and Drug Abuse Patient Records regulations: The Federal rules restrict any use of the information to criminally investigate or prosecute any alcohol or drug abuse patient.[facility] HospitalIn the event this information is protected by the Federal Confidentiality of Alcohol and Drug Abuse Patient Records regulations: The Federal rules restrict any use of the information to criminally investigate or prosecute any alcohol or drug abuse patient.[facility] HospitalIn the event this information is protected by the Federal Confidentiality of Alcohol and Drug Abuse Patient Records regulations: The Federal rules restrict any use of the information to criminally investigate or prosecute any alcohol or drug abuse patient.[facility] HospitalIn the event this information is protected by the Federal Confidentiality of Alcohol and Drug Abuse Patient Records regulations: The Federal rules restrict any use of the information to criminally investigate or prosecute any alcohol or drug abuse patient.[facility] HospitalIn the event this information is protected by the Federal Confidentiality of Alcohol and Drug Abuse Patient Records regulations: The Federal rules restrict any use of the information to criminally investigate or prosecute any alcohol or drug abuse patient.[facility] HospitalIn the event this information is protected by the Federal Confidentiality of Alcohol and Drug Abuse Patient Records regulations: The Federal rules restrict any use of the information to criminally investigate or prosecute any alcohol or drug abuse patient.[facility] HospitalIn the event this information is protected by the Federal Confidentiality of Alcohol and Drug Abuse Patient Records regulations: The Federal rules restrict any use of the information to criminally investigate or prosecute any alcohol or drug abuse patient.[facility] HospitalIn the event this information is protected by the Federal Confidentiality of Alcohol and Drug Abuse Patient Records regulations: The Federal rules restrict any use of the information to criminally investigate or prosecute any alcohol or drug abuse patient.[facility] HospitalIn the event this information is protected by the Federal Confidentiality of Alcohol and Drug Abuse Patient Records regulations: The Federal rules restrict any use of the information to criminally investigate or prosecute any alcohol or drug abuse patient.[facility] HospitalIn the event this information is protected by the Federal Confidentiality of Alcohol and Drug Abuse Patient Records regulations: The Federal rules restrict any use of the information to criminally investigate or prosecute any alcohol or drug abuse patient.[facility] HospitalIn the event this information is protected by the Federal Confidentiality of Alcohol and Drug Abuse Patient Records regulations: The Federal rules restrict any use of the information to criminally investigate or prosecute any alcohol or drug abuse patient.[facility] HospitalIn the event this information is protected by the Federal Confidentiality of Alcohol and Drug Abuse Patient Records regulations: The Federal rules restrict any use of the information to criminally investigate or prosecute any alcohol or drug abuse patient.[facility] HospitalIn the event this information is protected by the Federal Confidentiality of Alcohol and Drug Abuse Patient Records regulations: The Federal rules restrict any use of the information to criminally investigate or prosecute any alcohol or drug abuse patient.[facility] HospitalIn the event this information is protected by the Federal Confidentiality of Alcohol and Drug Abuse Patient Records regulations: The Federal rules restrict any use of the information to criminally investigate or prosecute any alcohol or drug abuse patient.[facility] HospitalIn the event this information is protected by the Federal Confidentiality of Alcohol and Drug Abuse Patient Records regulations: The Federal rules restrict any use of the information to criminally investigate or prosecute any alcohol or drug abuse patient.[facility] HospitalIn the event this information is protected by the Federal Confidentiality of Alcohol and Drug Abuse Patient Records regulations: The Federal rules restrict any use of the information to criminally investigate or prosecute any alcohol or drug abuse patient.[facility] HospitalIn the event this information is protected by the Federal Confidentiality of Alcohol and Drug Abuse Patient Records regulations: The Federal rules restrict any use of the information to criminally investigate or prosecute any alcohol or drug abuse patient.[facility] HospitalIn the event this information is protected by the Federal Confidentiality of Alcohol and Drug Abuse Patient Records regulations: The Federal rules restrict any use of the information to criminally investigate or prosecute any alcohol or drug abuse patient.[facility] HospitalIn the event this information is protected by the Federal Confidentiality of Alcohol and Drug Abuse Patient Records regulations: The Federal rules restrict any use of the information to criminally investigate or prosecute any alcohol or drug abuse patient.[facility] HospitalIn the event this information is protected by the Federal Confidentiality of Alcohol and Drug Abuse Patient Records regulations: The Federal rules restrict any use of the information to criminally investigate or prosecute any alcohol or drug abuse patient.[facility] HospitalIn the event this information is protected by the Federal Confidentiality of Alcohol and Drug Abuse Patient Records regulations: The Federal rules restrict any use of the information to criminally investigate or prosecute any alcohol or drug abuse patient.[facility] HospitalIn the event this information is protected by the Federal Confidentiality of Alcohol and Drug Abuse Patient Records regulations: The Federal rules restrict any use of the information to criminally investigate or prosecute any alcohol or drug abuse patient.[facility] HospitalIn the event this information is protected by the Federal Confidentiality of Alcohol and Drug Abuse Patient Records regulations: The Federal rules restrict any use of the information to criminally investigate or prosecute any alcohol or drug abuse patient.[facility] HospitalIn the event this information is protected by the Federal Confidentiality of Alcohol and Drug Abuse Patient Records regulations: The Federal rules restrict any use of the information to criminally investigate or prosecute any alcohol or drug abuse patient.[facility] HospitalIn the event this information is protected by the Federal Confidentiality of Alcohol and Drug Abuse Patient Records regulations: The Federal rules restrict any use of the information to criminally investigate or prosecute any alcohol or drug abuse patient.[facility] HospitalIn the event this information is protected by the Federal Confidentiality of Alcohol and Drug Abuse Patient Records regulations: The Federal rules restrict any use of the information to criminally investigate or prosecute any alcohol or drug abuse patient.[facility] HospitalIn the event this information is protected by the Federal Confidentiality of Alcohol and Drug Abuse Patient Records regulations: The Federal rules restrict any use of the information to criminally investigate or prosecute any alcohol or drug abuse patient.[facility] HospitalIn the event this information is protected by the Federal Confidentiality of Alcohol and Drug Abuse Patient Records regulations: The Federal rules restrict any use of the information to criminally investigate or prosecute any alcohol or drug abuse patient.[facility] HospitalIn the event this information is protected by the Federal Confidentiality of Alcohol and Drug Abuse Patient Records regulations: The Federal rules restrict any use of the information to criminally investigate or prosecute any alcohol or drug abuse patient.[facility] HospitalIn the event this information is protected by the Federal Confidentiality of Alcohol and Drug Abuse Patient Records regulations: The Federal rules restrict any use of the information to criminally investigate or prosecute any alcohol or drug abuse patient.[facility] HospitalIn the event this information is protected by the Federal Confidentiality of Alcohol and Drug Abuse Patient Records regulations: The Federal rules restrict any use of the information to criminally investigate or prosecute any alcohol or drug abuse patient.[facility] HospitalIn the event this information is protected by the Federal Confidentiality of Alcohol and Drug Abuse Patient Records regulations: The Federal rules restrict any use of the information to criminally investigate or prosecute any alcohol or drug abuse patient.[facility] HospitalIn the event this information is protected by the Federal Confidentiality of Alcohol and Drug Abuse Patient Records regulations: The Federal rules restrict any use of the information to criminally investigate or prosecute any alcohol or drug abuse patient.[facility] HospitalIn the event this information is protected by the Federal Confidentiality of Alcohol and Drug Abuse Patient Records regulations: The Federal rules restrict any use of the information to criminally investigate or prosecute any alcohol or drug abuse patient.[facility] HospitalIn the event this information is protected by the Federal Confidentiality of Alcohol and Drug Abuse Patient Records regulations: The Federal rules restrict any use of the information to criminally investigate or prosecute any alcohol or drug abuse patient.[facility] HospitalIn the event this information is protected by the Federal Confidentiality of Alcohol and Drug Abuse Patient Records regulations: The Federal rules restrict any use of the information to criminally investigate or prosecute any alcohol or drug abuse patient.[facility] Reason for Visit (unrecogniz ed section and [...] Comments Population Health Navigation Outreach 08/27[facility]2024 [facility] Reason Comments Patient Update Reason Comments Medicare Wellness Exam Reason Onset Date Comments Refill Request 10/02/2024 Reason Onset Date Comments Refill Request 11/19/2024 Reason Comments Neurologic Problem Care Teams (unrecognized sec tion and content) Administrative Technician Relationship Specialty Start Date End Date Elena Andino MD [address] [place], [place] [id number] PCP - General Internal Medicine 06/03/16 Javier Leonard, second hand paper machineMarketing Administrator Internal Medicine 08/14/20 Administrative Technician Relationship Specialty Start Date End Date Elena Andino MD [address] [place], [place] [id number] PCP - General Internal Medicine 06/03/16 Javier Leonard, second hand paper machineMarketing Administrator Internal Medicine 08/14/20 Administrative Technician Relationship Specialty Start Date End Date Elena Andino MD [address] [place], [place] [id number] PCP - General Internal Medicine 06/03/16 Javier Leonard, second hand paper machineMarketing Administrator Internal Medicine 08/14/20 Administrative Technician Relationship Specialty Start Date End Date Elena Andino MD [address] [facility] [place] [address] PCP - General Internal Medicine 06/03/16 Javier Leonard, second hand paper machineMarketing Administrator Internal Medicine 08/14/20 Administrative Technician Relationship Specialty Start Date End Date Elena Andino MD [address] [facility] [place] [address] PCP - General Internal Medicine 06/03/16 Javier Leonard, second hand paper machineMarketing Administrator Internal Medicine 08/14/20 Administrative Technician Relationship Specialty Start Date End Date Elena Andino MD [address] [facility] [place] [address] PCP - General Internal Medicine 06/03/16 Javier Leonard, second hand paper machineMarketing Administrator Internal Medicine 08/14/20 Administrative Technician Relationship Specialty Start Date End Date Elena Andino MD [address] [facility] [place] [address] PCP - General Internal Medicine 06/03/16 Javier Leonard, second hand paper machineMarketing Administrator Internal Medicine 08/14/20 Administrative Technician Relationship Specialty Start Date End Date Elena Andino MD [address] [facility] [place] [address] PCP - General Internal Medicine 06/03/16 Javier Leonard, second hand paper machineMarketing Administrator Internal Medicine 08/14/20 Administrative Technician Relationship Specialty Start Date End Date Elena Andino MD [address] [facility] [place] [address] PCP - General Internal Medicine 06/03/16 Javier Leonard, second hand paper machineMarketing Administrator Internal Medicine 08/14/20 Administrative Technician Relationship Specialty Start Date End Date Elena Andino MD [address] [facility] [place] [address] PCP - General Internal Medicine 06/03/16 Javier Leonard, second hand paper machineMarketing Administrator Internal Medicine 08/14/20 Administrative Technician Relationship Specialty Start Date End Date Elena Andino MD [address] [facility] [place] [address] PCP - General Internal Medicine 06/03/16 Amarjit Herrera, second hand paper machineMarketing Administrator Internal Medicine 08/14/20 Administrative Technician Relationship Specialty Start Date End Date Elena Andino MD [address] [facility] [place] [address] PCP - General Internal Medicine 06/03/16 Amarjit Herrera, second hand paper machineMarketing Administrator Internal Medicine 08/14/20 Administrative Technician Relationship Specialty Start Date End Date Elena Andino MD [address] [facility] [place] [address] PCP - General Internal Medicine 06/03/16 Amarjit Herrera, second hand paper machineMarketing Administrator Internal Medicine 08/14/20 Administrative Technician Relationship Specialty Start Date End Date Elena Andino MD [address] [facility] [place] [address] PCP - General Internal Medicine 06/03/16 Amarjit Herrera, second hand paper machineMarketing Administrator Internal Medicine 08/14/20 Administrative Technician Relationship Specialty Start Date End Date Elena Andino MD [address] [facility] [place] [address] PCP - General Internal Medicine 06/03/16 Amarjit Herrera, second hand paper machineMarketing Administrator Internal Medicine 08/14/20 Administrative Technician Relationship Specialty Start Date End Date Elena Andino MD [address] [facility] [place] [address] PCP - General Internal Medicine 06/03/16 Amarjit Herrera, second hand paper machineMarketing Administrator Internal Medicine 08/14/20 Administrative Technician Relationship Specialty Start Date End Date Elena Andino MD [address] [facility] [place] [address] PCP - General Internal Medicine 06/03/16 Amarjit Herrera, second hand paper machineMarketing Administrator Internal Medicine 08/14/20 Administrative Technician Relationship Specialty Start Date End Date Elena Andino MD [address] [facility] [place] [address] PCP - General Internal Medicine 06/03/16 Amarjit Herrera, second hand paper machineMarketing Administrator Internal Medicine 08/14/20 Administrative Technician Relationship Specialty Start Date End Date Elena Andino MD [address] [facility] [place] [address] PCP - General Internal Medicine 06/03/16 Amarjit Herrera, second hand paper machineMarketing Administrator Internal Medicine 08/14/20 Administrative Technician Relationship Specialty Start Date End Date Elena Andino MD [address] [facility] [place] [address] PCP - General Internal Medicine 06/03/16 Amarjit Herrera, second hand paper machineMarketing Administrator Internal Medicine 08/14/20 Administrative Technician Relationship Specialty Start Date End Date Elena Andino MD [address] [facility] [place] [address] PCP - General Internal Medicine 06/03/16 Amarjit Herrera, second hand paper machineMarketing Administrator Internal Medicine 08/14/20 Administrative Technician Relationship Specialty Start Date End Date Elena Andino MD [address] [facility] [place] [address] PCP - General Internal Medicine 06/03/16 Amarjit Herrera, second hand paper machineMarketing Administrator Internal Medicine 08/14/20 Administrative Technician Relationship Specialty Start Date End Date Elena Andino MD [address] [facility] [place] [address] PCP - General Internal Medicine 06/03/16 Amarjit Herrera, second hand paper machineMarketing Administrator Internal Medicine 08/14/20 Administrative Technician Relationship Specialty Start Date End Date Elena Andino MD [address] [facility] [place] [address] PCP - General Internal Medicine 06/03/16 Amarjit Herrera, second hand paper machineMarketing Administrator Internal Medicine 08/14/20 Administrative Technician Relationship Specialty Start Date End Date Elena Andino MD [address] [facility] [place] [address] PCP - General Internal Medicine 06/03/16 Amarjit Herrera, second hand paper machineMarketing Administrator Internal Medicine 08/14/20 Administrative Technician Relationship Specialty Start Date End Date Elena Andino MD [address] [facility] [place] [address] PCP - General Internal Medicine 06/03/16 Amarjit Herrera, second hand paper machineMarketing Administrator Internal Medicine 08/14/20 Administrative Technician Relationship Specialty Start Date End Date Elena Andino MD [address] [facility] [place] [address] PCP - General Internal Medicine 06/03/16 Amarjit Herrera, second hand paper machineMarketing Administrator Internal Medicine 08/14/20 Administrative Technician Relationship Specialty Start Date End Date Elena Andino MD [address] [facility] [place] [address] PCP - General Internal Medicine 06/03/16 Amarjit Herrera, second hand paper machineMarketing Administrator Internal Medicine 08/14/20 Administrative Technician Relationship Specialty Start Date End Date Elena Andino MD [address] [facility] [place] [address] PCP - General Internal Medicine 06/03/16 Amarjit Herrera, second hand paper machineMarketing Administrator Internal Medicine 08/14/20 Administrative Technician Relationship Specialty Start Date End Date Elena Andino MD [address] [facility] [place] [address] PCP - General Internal Medicine 06/03/16 Amarjit Herrera, second hand paper machineMarketing Administrator Internal Medicine 08/14/20 Administrative Technician Relationship Specialty Start Date End Date Elena Andino MD [address] [facility] [place] [address] PCP - General Internal Medicine 06/03/16 Amarjit Herrera, second hand paper machineMarketing Administrator Internal Medicine 08/14/20 Administrative Technician Relationship Specialty Start Date End Date Elena Andino MD [address] [facility] [place] [address] PCP - General Internal Medicine 06/03/16 Amarjit Herrera, second hand paper machineMarketing Administrator Internal Medicine 08/14/20 Administrative Technician Relationship Specialty Start Date End Date Elena Andino MD [address] [facility] [place] [address] PCP - General Internal Medicine 06/03/16 Amarjit Herrera, second hand paper machineMarketing Administrator Internal Medicine 08/14/20 Administrative Technician Relationship Specialty Start Date End Date Elena Andino MD [address] [facility] [place] [address] PCP - General Internal Medicine 06/03/16 Amarjit Herrera, second hand paper machineMarketing Administrator Internal Medicine 08/14/20 Administrative Technician Relationship Specialty Start Date End Date Elena Andino MD [address] [facility] [place] [address] PCP - General Internal Medicine 06/03/16 Amarjit Herrera, second hand paper machineMarketing Administrator Internal Medicine 08/14/20 Administrative Technician Relationship Specialty Start Date End Date Elena Andino MD [address] [facility] [place] [address] PCP - General Internal Medicine 06/03/16 Amarjit Herrera, second hand paper machineMarketing Administrator Internal Medicine 08/14/20 Administrative Technician Relationship Specialty Start Date End Date Elena Anidno MD [address] [facility] [place] [address] PCP - General Internal Medicine 06/03/16 Administrative Technician Relationship Specialty Start Date End Date Elena Andino MD [address] [facility] [place] [address] PCP - General Internal Medicine 06/03/16 Administrative Technician Relationship Specialty Start Date End Date Elena Andino MD [address] [facility] [place] [address] PCP - General Internal Medicine 06/03/16 Administrative Technician Relationship Specialty Start Date End Date Elena Andino MD [address] [facility] [place] [address] PCP - General Internal Medicine 06/03/16 Administrative Technician Relationship Specialty Start Date End Date Elena Andino MD [address] [facility] [place] [address] PCP - General Internal Medicine 06/03/16 Administrative Technician Relationship Specialty Start Date End Date Elena Andino MD [address] [place] [address] PCP - General Internal Medicine 06/03/16 Gene Love, COAL GASIFICATION TECHNICIAN.BILINGUAL TEACHER AIDE [address] [place] [address] Outside [facility] 03/26/24 Dorcas Rios COAL GASIFICATION TECHNICIAN.ELECTRODE CLEANER [address] [place] [address] [facility] 03/26/24 Administrative Technician Relationship Specialty Start Date End Date Elena Andino MD [address] [place] [address] PCP - General Internal Medicine 06/03/16 Gene Love, COAL GASIFICATION TECHNICIAN.BILINGUAL TEACHER AIDE [address] [place] [address] [facility] 03/26/24 Dorcas Rios, COAL GASIFICATION TECHNICIAN.ELECTRODE CLEANER [address] [place] [address] [facility] Internal Medicine 03/26/24 Administrative Technician Relationship Specialty Start Date End Date Elena Andino MD [address] [place] [address] PCP - General Internal Medicine 06/03/16 Gene Love, COAL GASIFICATION TECHNICIAN.BILINGUAL TEACHER AIDE [address] [place] [address] [facility] 03/26/24 Dorcas Rios COAL GASIFICATION TECHNICIAN.ELECTRODE CLEANER [address] [place] [address] [facility] Internal Medicine 03/26/24 Administrative Technician Relationship Specialty Start Date End Date Elena Andino MD [address] [place] [address] PCP - General Internal Medicine 06/03/16 Gene Love, COAL GASIFICATION TECHNICIAN.BILINGUAL TEACHER AIDE [address] [place] [address] [facility] Internal Medicine 03/26/24 Dorcas Rios COAL GASIFICATION TECHNICIAN.ELECTRODE CLEANER [address] [place] [address] [facility] Internal Medicine 03/26/24 Administrative Technician Relationship Specialty Start Date End Date Elena Andino MD [address] [place] [address] PCP - General Internal Medicine 06/03/16 Gene Love, COAL GASIFICATION TECHNICIAN.BILINGUAL TEACHER AIDE [address] [place] [address] [facility] Internal Medicine 03/26/24 Dorcas Rios COAL GASIFICATION TECHNICIAN.ELECTRODE CLEANER [address] [place] [address] [facility] Internal Medicine 07/10/24 Administrative Technician Relationship Specialty Start Date End Date Elena Andino MD [address] [place] [address] PCP - General Internal Medicine 06/03/16 Gene Love, COAL GASIFICATION TECHNICIAN.BILINGUAL TEACHER AIDE [address] [facility] [place] [address] [facility] 03/26/24 Dorcas Rios COAL GASIFICATION TECHNICIAN.ELECTRODE CLEANER [address] [facility] [place] [address] Outside [facility] 07/10/24 Administrative Technician Relationship Specialty Start Date End Date Elena Andino MD [address] [facility] [place] [place] [address] PCP - General Internal Medicine 06/03/16 Gene Love, COAL GASIFICATION TECHNICIAN.BILINGUAL TEACHER AIDE [address] [facility] [place] [address] Outside [facility] 03/26/24 Dorcas Rios COAL GASIFICATION TECHNICIAN.ELECTRODE CLEANER [address] [facility] [place] [address] Outside [facility] 07/10/24 Administrative Technician Relationship Specialty Start Date End Date Elena Andino MD [address] [facility] [place] [address] PCP - General Internal Medicine 06/03/16 Gene Love, COAL GASIFICATION TECHNICIAN.BILINGUAL TEACHER AIDE [address] [facility] [place] [address] Outside [facility] 03/26/24 Dorcas Rios COAL GASIFICATION TECHNICIAN.ELECTRODE CLEANER [address] [facility] [place] [address] Outside [facility] 07/10/24 Administrative Technician Relationship Specialty Start Date End Date Elena Andino MD [address] [place] [address] PCP - General Internal Medicine 06/03/16 Gene Love APRN.BILINGUAL TEACHER AIDE [address] [facility] [place] [address] Outside [facility] 03/26/24 Docras Rios APRN.ELECTRODE CLEANER [address] [facility] [place] [address] Outside [facility] 07/10/24 Administrative Technician Relationship Specialty Start Date End Date Elena Andino MD [address] [facility] [place] [address] PCP - General Internal Medicine 06/03/16 Gene Love APRN.BILINGUAL TEACHER AIDE [address] [facility] [place] [address] [facility] 03/26/24 Dorcas Rios APRN.ELECTRODE CLEANER [address] [facility] [place] [address] Outside [facility] 07/10/24 Administrative Technician Relationship Specialty Start Date End Date Elena Andino MD [address] [facility] [place] [address] PCP - General Internal Medicine 06/03/16 Dorcas Rios COAL GASIFICATION TECHNICIAN.ELECTRODE CLEANER [address] [facility] [place] [address] Outside [facility] 07/10/24 Gene Love COAL GASIFICATION TECHNICIAN.BILINGUAL TEACHER AIDE [address] [facility] [place] [address] Outside [facility] 09/05/24 Administrative Technician Relationship Specialty Start Date End Date Elena Andino MD [address] [place] [address] PCP - General Internal Medicine 06/03/16 Dorcas Rios COAL GASIFICATION TECHNICIAN.ELECTRODE CLEANER [address] [place] [address] Outside [facility] 07/10/24 Gene Love APRN.BILINGUAL TEACHER AIDE [address] [place] [address] Outside [facility] 09/05/24 Administrative Technician Relationship Specialty Start Date End Date Elena Andino MD [address] [place] [address] PCP - General Internal Medicine 06/03/16 Dorcas Rios COAL GASIFICATION TECHNICIAN.ELECTRODE CLEANER [address] [place] [address] Outside [facility] 07/10/24 Gene Love, COAL GASIFICATION TECHNICIAN.BILINGUAL TEACHER AIDE [address] [facility] [place] [address] Outside [facility] 09/05/24 Administrative Technician Relationship Specialty Start Date End Date Elena Andino MD [address] [place] [address] PCP - General Internal Medicine 06/03/16 Dorcas Rios COAL GASIFICATION TECHNICIAN.ELECTRODE CLEANER [address] [facility] [place] [address] Outside [facility] 07/10/24 Gene Love, COAL GASIFICATION TECHNICIAN.BILINGUAL TEACHER AIDE [address] [place], [place] [address] [facility] Internal Medicine 09/05/24 Administrative Technician Relationship Specialty Start Date End Date Elena Andino MD [address] [place], [place] [address] PCP - General Internal Medicine 06/03/16 Dorcas Rios COAL GASIFICATION TECHNICIAN.ELECTRODE CLEANER [address] [place] [address] [facility] Internal Medicine 07/10/24 Gene Love, COAL GASIFICATION TECHNICIAN.BILINGUAL TEACHER AIDE [address] [place] [address] [facility] Internal Medicine 09/05/24 Administrative Technician Relationship Specialty Start Date End Date Elena Andino MD [address] [place] [address] PCP - General Internal Medicine 06/03/16 Dorcas Rios, COAL GASIFICATION TECHNICIAN.ELECTRODE CLEANER [address] [place], [place] [address] [facility] Internal Medicine 07/10/24 Gene Love, COAL GASIFICATION TECHNICIAN.BILINGUAL TEACHER AIDE [address] [place], [place] [address] [facility] Internal [facility] 09/05/24 FOR RECORDS PERTAINING TO [...] BE BASED ON THE PRIMARY CLINICAL RECORDS. [facility] [employer] [facility]. provides no warranty or guarantee of the accuracy or completeness of information in this document.
[2024-12-23 22:11] LABS: Magnesium 2.0 mg/dL (1.5-2.2)
[2024-12-23 22:31] VITALS: BP 142/70; PULSE 60; RESP 18; TEMP 36.8; O2SAT 96
--- NOTE | 2024-12-23 22:31 | ECHOD_ITS ---
Reason For Study Reason For Study: TIA/CVA Procedure This was a 2D Doppler, Color Flow transthoracic echocardiogram. The study was technically difficult. Apicals done from subcostal window. Exam performed portable in patient room. Left Ventricle Normal LV size. Mild concentric left ventricular hypertrophy. The left ventricular ejection fraction is 65 %. Stage 3 diastolic dysfunction. Right Ventricle Normal right ventricle. Atria Mild to moderately dilated left atrium. Normal right atrium. Mitral Valve Mild (1+) mitral valve insufficiency. Tricuspid Valve Mild tricuspid valve insufficiency. Right ventricular systolic pressure estimated to be 57 mmHg. Aortic Valve Trisinus/trileaflet aortic valve. Pulmonic Valve The pulmonic valve is not well visualized. Great Vessels The aortic root is not well visualized. Pericardium/Pleural Epicardial fat. MMode/2D Measurements & Calculations LVIDd: 3.7 cm IVSd: 1.2 cm LA dimension: 4.2 cm LVIDs: 3.2 cm LVPWd: 1.2 cm FS: 13.8 % Time Measurements MV dec time: 0.14 sec Doppler Measurements & Calculations MV E max aristides: 56.9 cm/sec Lat Peak E' Aristides: 7.5 cm/sec Med Peak E' Aristides: 6.8 cm/sec MV A max aristides: 27.6 cm/sec E/E' lat: 7.6 E/E' med: 8.4 MV E/A: 2.1 LV V1 max: 63.1 cm/sec PA V2 max: 86.0 cm/sec MV dec slope: 416.9 cm/sec2 LV V1 max P.6 mmHg PA V2 mean: 62.7 cm/sec LV V1 mean P.81 mmHg LV V1 mean: 42.7 cm/sec LV V1 VTI: 16.7 cm TR max aristides: 324.5 cm/sec TR max P.1 mmHg ECHO/Echo Complete Interpretation Summary Mild concentric left ventricular hypertrophy. The left ventricular ejection fraction is 65 %. Stage 3 diastolic dysfunction. Mild to moderately dilated left atrium. Mild (1+) mitral valve insufficiency. Mild tricuspid valve insufficiency. Right ventricular systolic pressure estimated to be 57 mmHg. The study was technically difficult. Ordering Physician: Megan Blanchard Referring Physician: Fanta Nichols M.D. Performed By: Jazmin Mcdaniel RCS
[2024-12-23 22:40] VITALS: BMI 26.1
[2024-12-23 22:49] VITALS: PULSE 68
[2024-12-24] MEDS: Sotalol Hydrochloride 80 MG Tablet PO ×2 (00:35→10:22)
[2024-12-24] MEDS: APIXABAN 5 MG TABLET PO ×2 (00:35→10:22)
[2024-12-24] MEDS: Nicotine (PBKC) 14 MG Patch TD ×2 (00:38→10:23)
[2024-12-24] MEDS: 0.9% Normal Saline (1000mL) 1,000 ML 100 ML IV (00:38)
[2024-12-24 02:10] VITALS: O2SAT 95
[2024-12-24 02:49] VITALS: BP 92/48; PULSE 66; RESP 17; TEMP 36.4; O2SAT 96
[2024-12-24 03:00] VITALS: PULSE 58
[2024-12-24 03:08] VITALS: BMI 26.1
[2024-12-24 04:45] VITALS: BP 107/55; PULSE 60; RESP 24; O2SAT 94
[2024-12-24 05:47] LABS: Hematocrit 37.8 % (37-47); Hemoglobin 12.2 g/dL (12.0-15.0); Immature Granulocytes Count 0.020 X10^3/uL (0.0-0.0); Mean Corp Hgb Conc 32.3 g/dL (32-36); Mean Corpuscular Volume 94.0 fL (81-99); Mean Platelet Vol. 10.5 fl (6.2-12.0); NRBC Flagged by Analyzer 0 % (0-5); Platelet Count 204 K/mm3 (150-450); RBC Distribution Width CV 13.5 % (11.6-14.6); RBC Distribution Width SD 46.7 fl (35.1-43.9); Red Blood Count 4.02 M/mm3 (4.2-5.4); White Blood Count 8.0 K/mm3 (4.4-11.0)
[2024-12-24 05:58] VITALS: BMI 26.7
[2024-12-24 06:16] LABS: Cholesterol 126 mg/dL (<=200); Low Density Lipoprotein Calc. 62 mg/dL; Triglycerides 99 mg/dL; Very Low Density Lipoprotein 20 mg/dL (5-40); cholesterol:hdl ratio screen 2.82
[2024-12-24 06:19] LABS: AST(SGOT) 28 U/L (<=31); Alanine Aminotransfer ALT/SGPT 20 U/L (<=34); Albumin, Serum 3.3 g/dL (3.4-4.8); Alkaline Phosphatase 95 U/L (35-104); Anion Gap 9 (5-15); BUN 11 mg/dL (4-19); BUN/Creat Ratio 18.0 RATIO (10-20); Calcium,Total 9.0 mg/dL (7.6-11.0); Carbon Dioxide 27.0 mmol/L (21.0-32.0); Chloride 101 mmol/L (98-108); Estimated Creatinine Clearance 54.27 ml/min (50-250); Globulin 2.7 g/dL (2.2-4.2); Glucose 105 mg/dL (70-99); Potassium 3.9 mmol/L (3.3-5.1)
[2024-12-24 06:48] VITALS: BP 112/59; PULSE 58; RESP 16; TEMP 36.5; O2SAT 94
--- NOTE | 2024-12-24 09:40 | MRI_ITS ---
PROCEDURE: BRAIN WITHOUT CONTRAST 12/24/2024 REASON FOR EXAM: TIA/CVA TECHNIQUE: Procedure Code: MRIBR Modality: MR Procedure: BRAIN WITHOUT CONTRAST Multiplanar and multisequence images were obtained. COMPARISON: CTA performed earlier today FINDINGS: Brain: Normal signal. No mass. No MR evidence of restricted diffusion to suggest acute ischemia. No abnormal signal throughout the brain parenchyma. Few T2 signal hyperintensities on FLAIR within the frontal lobes likely related to mild small vessel ischemic changes. Orbits are intact. Ventricles: Normal in size and contour. No midline shift. Major Intracranial Vessels: Normal flow voids seen within the intracranial vasculature. Sinuses: Slight deviation of the nasal septum to the left. Very mild mucoperiosteal thickening involving the maxillary sinuses. Mastoids: Small right mastoid effusion. Soft tissues of the scalp appear normal. MRI/Brain without Contrast IMPRESSION: Mild small-vessel ischemic changes. No acute intracranial abnormality. No MR evidence to suggest ischemia. Reading Location: [id number]
[2024-12-24 10:18] VITALS: BP 138/77; PULSE 64; RESP 16; TEMP 36.9; O2SAT 94
--- NOTE | 2024-12-24 10:21 | CASEMGMT ---
Social Work Per imaging pt negative for stroke, therefore PHQ9 not completed. JANELL Hudson
--- NOTE | 2024-12-24 11:20 | DCINST_ITS ---
Discharge Instructions DC O2, CPAP, BIPAP needs Home O2 Discharge instructions: No Dressing / Incision Discharge Activity: Return to Normal Activity Dressing / Incision Call your doctor if you observe: Fever of 101 or Higher, Shortness of breath, Dizziness, Fainting spells, Swelling in the ankles, Chest pain and Increased palpitations (irregular heartbeat) Follow Up Care Test Results: Test results from this visit will be discussed in further detail at your follow- up appointment, if applicable. Discharge Plan Admission Admit Date/Time: 12/23/24 21:41 Attending Provider: Yousuf Garland Primary Care Provider: Fanta Nichols Consulting Providers: Keo Krishnamurthy; Germaine Pedroza; Helen Osullivan; Emmanuelle Morales; Ana Luisa Cortes; Frederick Cruz; Leonor Sylvester; Byron Mccracken; Eric Douglas; Solomon Hyman; Tammy Scott; Robyn Jewell; Howie Kaur; Celestina Baxter; Peter Tineo; Melinda Dominique; Alex Bowers; Lalitha Phelps; Rodney Abel; Brynn Fair; Renny Braga; Megan Blanchard Discharge Orders/Prescriptions Prescriptions: Continued sotalol 80 MG tablet 80 mg PO BID aspirin 81 MG tablet,chewable 81 mg PO DAILY@0800 verapamil 40 mg tablet 40 mg PO Q12H Patient Comments: [NO ORIGINAL SIG] pravastatin 40 mg tablet 60 mg PO DAILY levothyroxine 25 mcg tablet 25 mcg PO DAILY lorazepam 0.5 mg tablet 0.5 mg Patient Comments: [NO ORIGINAL SIG] atenolol 50 mg tablet 75 mg PO Q12H Patient Comments: [NO ORIGINAL SIG] Eliquis 5 mg tablet 5 mg PO BID Patient Comments: [NO ORIGINAL SIG] oxazepam 10 mg capsule 10 mg PO PRN PRN (Reason: anxiety) Patient Comments: [NO ORIGINAL SIG] Referrals / Follow Up: Fanta Nichols MD [Primary Care Provider] - Within 1 Week Disposition Disposition (needs filled in before D/C Order can be placed): Home, Self Care
--- NOTE | 2024-12-24 11:54 | PHA.DC.MR.R ---
Pharmacy [place] Med Reconciliation Pharmacy Service has performed discharge medication reconciliation for this patient. The patient's discharge medication list was reviewed for discrepancies and discrepancies were resolved. Medications at Discharge Home Medications aspirin 81 mg chewable tablet 81 mg PO DAILY@0800 04/22/13 sotalol 80 mg tablet 80 mg PO BID 04/22/13 apixaban 5 mg tablet (Eliquis) 5 mg PO BID 12/23/24 atenolol 50 mg tablet 75 mg PO Q12H 12/23/24 levothyroxine 25 mcg tablet 25 mcg PO DAILY 12/23/24 lorazepam 0.5 mg tablet 0.5 mg 12/23/24 pravastatin 40 mg tablet 60 mg PO DAILY 12/23/24 verapamil 40 mg tablet 40 mg PO Q12H 12/23/24 oxazepam 10 mg capsule 10 mg PO PRN PRN anxiety 12/24/24
--- NOTE | 2024-12-24 13:01 | CON.PCM.NE_ITS ---
Assessment and Plan: Neuro Assessment/Plan ALEJANDRO LONDONO is a 74 F being evaluated by Teleneurology for bilateral arm heaviness and transient R sided numbness. CTA without flow limiting stenosis. MRI negative. Possible TIA. Plan: - No further work up - continue home medications - Follow up with neurology I personally attended this patient and spent a total time of 32 minutes evaluating this patient including clinical assessment, review of chart, medical history imaging, and determining appropriate treatment and workup. HPI Consult Data Date of Consult: 12/24/24 HPI Narrative HPI Narrative: ALEJANDRO LONDONO, is a 74 F with history of hypothyroidism, PAF, HTN, HLD, COPD, Tobacco use, PAD s/p prior popliteal artery occlusion status post thrombectomy who presented with transient right sided numbness and bilateral arm heaviness. Woke up and her hands felt very heavy. She was unable to use them for about 30- 40 sec and then it improved/resolved. It was not until she came into came to the ER that she noticed some slight numbness to the right side of her face and arm. She also reports intermittent headaches for the last month. Unilateral pain throbbing, no associated symptoms. She does take take ASA 81 for this and it does help somewhat. [facility] Medical History Hypothyroidism PAF (paroxysmal atrial fibrillation) Tobacco use Chronic obstructive lung disease HLD (hyperlipidemia) Hypertension Popliteal artery occlusion, right Peripheral arterial disease Home Medications ?Medication ?Instructions ?Recorded ?Last Taken ?Type aspirin 81 mg chewable tablet 81 mg PO DAILY@0800 08/2912/23/24 15:00 History 81 mg sotalol 80 mg tablet 80 mg PO BID 04/22/13 15:00 History 80 mg apixaban 5 mg tablet (Eliquis) 5 mg PO BID 12/23/24 15:00 History 5 mg atenolol 50 mg tablet 75 mg PO Q12H 12/23/2412/23 15:00 History 75 mg levothyroxine 25 mcg tablet 25 mcg PO DAILY 12/23/24 0 12/23/24 15:00 History 25 mcg lorazepam 0.5 mg tablet 0.5 mg 12/23/24 Unknown Hist ory pravastatin 40 mg tablet 60 mg PO DAILY 12/23/2411/09 15:00 History 60 mg verapamil 40 mg tablet 40 mg PO Q12H 12/23/2412/23 15:00 History 40 mg oxazepam 10 mg capsule 10 mg PO PRN PRN anxiety 12/10 Unknown History Allergy/AdvReac Type Severity Reaction Status Date / Time thiopental (From Pentothal) Allergy Severe Anaphylaxis Verified 12/23/24 18:45 codeine Allergy Itching Verified 12/23/24 18:45 Penicillins Allergy Unknown Verified 12/23/24 18:45 Family History Mother Hypertension Anxiety and depression Father , from [place] at 48-49 years old. CAD (coronary artery disease) Heart disease Hypertension Myocardial infarction Family History no significant family his Surgical History History of shoulder surgery History of thrombectomy Social History household members: family and other details: Her brother lives with her. Smoking Status: Current every day smoker tobacco type: cigarettes alcohol intake: never substance use type: does not use Vital Signs Vital Signs Vital Signs: 12/23/24 18:46 12/23/24 19:38 12/23/24 21:25 Temperature 97 F L 98 F Temperature Source Temporal Pulse Rate 67 63 Pulse Strength Respiratory Rate 14 20 H Respiratory Effort Normal Respiratory Depth Respiratory Pattern Normal Blood Pressure 146/54 H 144/76 H Blood Pressure Mean 84 98 Blood Pressure Source Blood Pressure Position Blood Pressure Location Pulse Ox 97 96 Oxygen Delivery Method Room Air 12/23/24 22:31 12/23/24 22:49 12/24/24 02:10 Temperature 98.3 F Temperature Source Oral Pulse Rate 60 68 Pulse Strength Respiratory Rate 18 Respiratory Effort Respiratory Depth Respiratory Pattern Blood Pressure 142/70 H Blood Pressure Mean 94 Blood Pressure Source Monitor Blood Pressure Position Semi-Fowlers Blood Pressure Location Left Arm Pulse Ox 96 95 Oxygen Delivery Method Room Air Room Air 12/24/24 02:49 12/24/24 03:00 12/24/24 04:45 Temperature 97.6 F L Temperature Source Oral Pulse Rate 66 58 L 60 Pulse Strength Respiratory Rate 17 24 H Respiratory Effort Respiratory Depth Respiratory Pattern Blood Pressure 92/48 L 107/55 L Blood Pressure Mean 62 72 Blood Pressure Source Monitor Monitor Blood Pressure Position Semi-Fowlers Semi-Fowlers Blood Pressure Location Right Arm Right Arm Pulse Ox 96 94 Oxygen Delivery Method Room Air Room Air 12/24/24 06:48 12/24/24 10:18 12/24/24 10:38 Temperature 97.7 F L 98.4 F Temperature Source Oral Oral Pulse Rate 58 L 64 Pulse Strength Normal (2+) Respiratory Rate 16 16 Respiratory Effort Respiratory Depth Respiratory Pattern Blood Pressure 112/59 L 138/77 H Blood Pressure Mean 76 97 Blood Pressure Source Monitor Monitor Blood Pressure Position Semi-Fowlers Sitting Blood Pressure Location Left Arm Right Arm Pulse Ox 94 94 Oxygen Delivery Method Room Air Room Air 12/24/24 10:38 Temperature Temperature Source Pulse Rate Pulse Strength Respiratory Rate Respiratory Effort Respiratory Depth Normal Respiratory Pattern Normal Blood Pressure Blood Pressure Mean Blood Pressure Source Blood Pressure Position Blood Pressure Location Pulse Ox Oxygen Delivery Method Room Air Weight Weight: 66.3 kg Body Mass Index (BMI) 26.7 EEG Results Procedure Details EEG Procedure Details: ALEJANDRO LONDONO is a 74 year old F with a past medical history of , who presents for evaluation of Electroencephalogram on DATE at TIME Physical Exam Neuro oriented x3, CN's II-XII intact bilaterally and moves all extremities Coordination / Balance: ianulg-eo-soch test normal and mfcl-lq-rebx test normal Speech: speech normal Sensory Exam: double simultaneous stimulation for sensation normal Motor Exam: strength 5/5 throughout, no pronator drift and no asterixis Lab / Micro Data 12/24/24 05:06 12/24/24 05:06 Labs: Laboratory Results - last 24 hr 12/23/24 19:36: WBC 7.8, RBC 4.47, Hgb 13.8, Hct 41.5, MCV 92.8, MCH 30.9, MCHC 33.3, RDW Std Deviation 45.6 H, RDW Coeff of Kayli 13.5, Plt Count 243, MPV 10.2, Immature Gran % (Auto) 0.400, Neut % (Auto) 59.5, Lymph % (Auto) 24.1, [place] % (Auto) 12.1 H, Eos % (Auto) 3.3, Baso % (Auto) 0.6, Absolute Neuts (auto) 4.6, Absolute Lymphs (auto) 1.88, Nucleated RBC % 0, Sodium 138, Potassium 4.0, Chloride 98, Carbon Dioxide 30.3, Anion Gap 10, BUN 13, Creatinine 0.79, Est GFR (MDRD) Non-Af 78, BUN/Creatinine Ratio 16.3, Glucose 101 H, Calcium 9.4, Magnesium 2.0 12/24/24 05:06: WBC 8.0, RBC 4.02 L, Hgb 12.2, Hct 37.8, MCV 94.0, MCH 30.3, MCHC 32.3, RDW Std Deviation 46.7 H, RDW Coeff of Kayli 13.5, Plt Count 204, MPV 10.5, Immature Gran % (Auto) 0.200, Neut % (Auto) 51.9, Lymph % (Auto) 31.8, M eugenie % (Auto) 12.2 H, Eos % (Auto) 3.4, Baso % (Auto) 0.5, Absolute Neuts (auto) 4.2, Absolute Lymphs (auto) 2.55, Nucleated RBC % 0, Sodium 137, Potassium 3.9, Chloride 101, Carbon Dioxide 27.0, Anion Gap 9, BUN 11, Creatinine 0.64 L, Estim Creat Clear Calc 54.27, Est GFR (MDRD) Non-Af 92, BUN/Creatinine Ratio 18.0, G lucose 105 H, Hemoglobin A1c 5.4, Calcium 9.0, Total Bilirubin < 0.15, AST 28, ALT 20, Alkaline Phosphatase 95, Total Protein 6.0, Albumin 3.3 L, Globulin 2.7, Albumin/Globulin Ratio 1.2, Triglycerides 99, Cholesterol 126, LDL Cholesterol, Calc 62, VLDL Cholesterol 20, HDL Cholesterol 45, Cholesterol/HDL Ratio 2.82, T SH 4.970 H Imaging Radiology Impression Brain CT 12/23/24 19:50 IMPRESSION: 1. No intracranial hemorrhage. No mass effect or midline shift. 2. Chronic involutional and ischemic gliotic white matter changes. CT is insensitive for early evaluation of acute stroke. If there is clinical concern for acute ischemia, an MRI may be considered. Reading Location[facility] Head/Neck CTA 12/23/24 19:50 IMPRESSION: No hemodynamically significant stenosis, major vessel occlusion or dissection, or aneurysm greater than 3 mm. Reading Location: [facility] Echocardiogram 12/23/24 22:31 Interpretation Summary Mild concentric left ventricular hypertrophy. The left ventricular ejection fraction is 65 %. Stage 3 diastolic dysfunction. Mild to moderately dilated left atrium. Mild (1+) mitral valve insufficiency. Mild tricuspid valve insufficiency. Right ventricular systolic pressure estimated to be 57 mmHg. The study was technically difficult. Ordering Physician: Megan Blanchard Referring Physician: Fanta Nichols M.D. Performed By: Jazmin Mcdaniel RCS Brain MRI 12/24/24 09:40 IMPRESSION: Mild small-vessel ischemic changes. No acute intracranial abnormality. No MR evidence to suggest ischemia. Reading Location: [facility] [place] Active Medications Active Medications Active Medications: Current Medications Generic Name Dose Route Start Last Admin Trade Name Freq PRN Reason Stop Dose Admin Acetaminophen 650 mg 12/23/24 22:31 Acetaminophen 325 Mg Tablet PO Q4H PRN PRN Fever, pain 1-01/25 Al Hydroxide/Mg Hydroxide 30 ml 12/23/24 22:31 Mag Hydrox/Al Hydrox/Simeth 30 Ml Udc PO Q6H PRN PRN Gastric Burning Albuterol Sulfate 2.5 mg 12/23/24 22:31 Albuterol 2.5 Mg/3 Ml Vial.Neb. INHALATION Q2H PRN PRN Dyspnea, wheezing Apixaban 5 mg 12/23/24 22:31 12/24/24 10:22 Apixaban 5 Mg Tablet PO 5 mg BID ANA Administration Aspirin 81 mg 12/24/24 08:00 12/24/24 10:23 Aspirin 81 Mg Tab.Chew PO 81 mg BREAKFAST ANA Administration Atenolol 50 mg 12/23/24 22:31 12/24/24 10:23 Atenolol 50 Mg Tablet PO 50 mg Q12 ANA Administration Protocol Guaifenesin 20 ml 12/23/24 22:31 Guaifenesin 10 Ml Udc (200mg/10ml) PO Q4H PRN PRN COUGH Hydralazine HCl 5 mg 12/23/24 22:31 Hydralazine 20 Mg/Ml Vial IV 12/24/24 22:31 Q30M PRN maintain BP parameters with HR <60 Sodium Chloride 250 mls @ 15 mls/hr 12/23/24 22:36 IV .[id number] PRN Saline Flush Sodium Chloride 250 mls @ 15 mls/hr 12/23/24 22:36 IV .[id number] PRN Additional IVPB Infusion Labetalol HCl 10 - 20 mg 12/23/24 22:31 Labetalol 20 Mg/4 Ml Vial IV 12/24/24 22:31 Q10M PRN PRN maintain BP parameters with HR >/=60 Levothyroxine Sodium 25 mcg 12/24/24 06:00 12/24/24 05:29 Levothyroxine 25 Mcg Tablet PO 25 mcg DAILY@0600 ANA Administration Lorazepam 0.5 mg 12/23/24 22:39 12/24/24 01:14 Lorazepam 0.5 Mg Tablet PO 0.5 mg BID PRN PRN Administration AGITATION Melatonin 3 mg 12/23/24 22:31 Melatonin 3 Mg Tablet PO QHS PRN PRN INSOMNIA Nicotine 14 mg 12/23/24 22:31 12/24/24 10:23 Nicotine (Pbkc) 14 Mg Patch TD 14 mg DAILY ANA Administration Ondansetron HCl 4 mg 12/23/24 22:31 Ondansetron 4 Mg/2 Ml Vial IV Q8H PRN PRN NAUSEA/VOMITING Pravastatin Sodium 40 mg 12/24/24 10:00 12/24/24 10:24 Pravastatin 40 Mg Tablet PO 40 mg DAILY ANA Administration Senna/Docusate Sodium 2 tablet 12/23/24 22:31 Senna/Docusate Sodium 1 Tablet PO BID PRN PRN Constipation Sodium Chloride 10 - 40 ml 12/23/24 22:36 0.9% Saline Lock 10 Ml Syringe IV UD PRN SALINE FLUSH Sotalol HCl 80 mg 12/23/24 22:31 12/24/24 10:22 Sotalol Hydrochloride 80 Mg Tablet PO 80 mg BID ANA Administration Protocol Verapamil HCl 40 mg 12/23/24 22:45 12/24/24 10:23 Verapamil 80 Mg Tablet PO 40 mg Q12 ANA Administration NIHSS NIHSS Nursing Documentation NIHSS Nursing Documentation: NIH Stroke Scale Start: 12/23/24 21:08 Freq: Status: Discharge Protocol: Activity Type Activity Date Activity User E-sign Co-sign Detail Recorded Client Recorded Date Recorded By Document 12/23/24 21:08 ed 12/23/24 21:08 12/23/24 21:08 NIH Stroke Scale [NIHSS] A score of 0 is normal or asymptomatic . Total possible score is 42. Inpatient: RN or Physician to activate a stroke alert for onset of new stroke symptoms or with NIHSS increase >/= 3 points. Following change in neurological status, NIHSS will be performed per physician order or more frequently PRN. -1a. Level of Consciousness 0 - Alert; keenly responsive -1b. LOC Questions 0 - Answers BOTH questions correctly -1c. LOC Commands 0 - Performs BOTH tasks correctly -2. Best Gaze 0 - Normal -3. Visual 0 - No visual loss -4. Facial Palsy 0 - Normal symmetrical movements -5a. Left Arm 0 - No drift; arm holds 90 ( or 45) degrees for full 10 seconds -5b. Right Arm 0 - No drift; arm holds 90 ( or 45) degrees for full 10 seconds -6a. Left Leg 0 - No drift; leg holds 30- degree position for full 5 seconds -6b. Right Leg 0 - No drift; leg holds 30- degree position for full 5 seconds -7. Limb Ataxia 0 - Absent -8. Sensory 1 - Mild-to- moderate sensory loss; -9. Best Language 0 - No aphasia; normal -10. Dysarthria 0 - Normal -11. Extinction and Inattention 0 - No abnormality -Total 1 Query Text:A score of 0 is normal or asymptomatic. Total possible score is 42 . ED: Notify Physician for NIHSS increase by > / = 3 points. Inpatient: RN or Physician to activate a stroke alert for NIHSS increase of > / = 3 points. NIHSS: Ischemic Stroke/TIA Start: 12/23/24 22:31 Text: For PCU Patients: NIH and Neuro Check every 4 Status: Active hours, PRN and with change in RN caregiver. Freq: [id number] Protocol: Activity Type Activity Date Activity User E-sign Co-sign Detail Recorded Client Recorded Date Recorded By Document 12/24/24 10:18 NB Desktop 12/24/24 10:21 NB 12/24/24 10:18 -1a. Level of Consciousness 0 - Alert; keenly responsive -1b. LOC Questions 0 - Answers BOTH questions correctly -1c. LOC Commands 0 - Performs BOTH tasks correctly -2. Best Gaze 0 - Normal -3. Visual 0 - No visual loss -4. Facial Palsy 0 - Normal symmetrical movements -5a. Left Arm 0 - No drift; arm holds 90 ( or 45) degrees for full 10 seconds -5b. Right Arm 0 - No drift; arm holds 90 ( or 45) degrees for full 10 seconds -6a. Left Leg 0 - No drift; leg holds 30- degree position for full 5 seconds -6b. Right Leg 0 - No drift; leg holds 30- degree position for full 5 seconds -7. Limb Ataxia 0 - Absent -8. Sensory 0 - Normal; no sensory loss -9. Best Language 0 - No aphasia; normal -10. Dysarthria 0 - Normal -11. Extinction and Inattention 0 - No abnormality -Total 0 Query Text:A score of 0 is normal or asymptomatic. Total possible score is 42 . ED: Notify Physician for NIHSS increase by > / = 3 points. Inpatient: RN or Physician to activate a stroke alert for NIHSS increase of > / = 3 points. Coma Scale [Assess] -Eye Opening Spontaneous -Motor Obeys Commands -Verbal Oriented [Total] -Coma Scale Total 15
--- NOTE | 2024-12-24 13:35 | CASEMGMT ---
Patient has order for discharge. RN CM in to discuss needs at help at discharge. Patient denies needs or help at discharge. Patient had no further questions or concerns.
--- NOTE | 2024-12-24 14:55 | PCM.DC.SUM ---
Providers Date of Admission: 12/23/24 Primary Care Physician: Dr. Fanta Nichols MD Consultations 12/23/24 22:31 Consult: Tele-Neurology Routine Consulting Provider: [facility] Reason for Consult: Acute Ischemic Stroke/TIA EMERGENT Consult: No MD Notified: Yes Date Notified: 12/24/24 Time Notified: 02:37 Method of Notification: Answering Service Nursing Unit Staff Notify [facility] of Tele-Neurology Consult: Yes Reason For Visit: TIA/CVA Diagnosis Discharge Diagnosis (1) TIA (transient ischemic attack): Status: Acute Code(s): G45.9 - Transient cerebral ischemic attack, unspecified Medications at Discharge Home Medications aspirin 81 mg chewable tablet 81 mg PO DAILY@0800 04/22/13 sotalol 80 mg tablet 80 mg PO BID 04/22/13 apixaban 5 mg tablet (Eliquis) 5 mg PO BID 12/23/24 atenolol 50 mg tablet 75 mg PO Q12H 12/23/24 levothyroxine 25 mcg tablet 25 mcg PO DAILY 12/23/24 lorazepam 0.5 mg tablet 0.5 mg 12/23/24 pravastatin 40 mg tablet 60 mg PO DAILY 12/23/24 verapamil 40 mg tablet 40 mg PO Q12H 12/23/24 oxazepam 10 mg capsule 10 mg PO PRN PRN anxiety 12/24/24 Hospital Course Operations None Procedures 2-D Echocardiogram Summary of Care Provided Minutes Spent on Discharge: 31 Hospital Course: Per HPI: The patient is a 74 y/o F w/ PMHx: Hypothyroidism, PAF, HTN, HLD, COPD, Tobacco use, PAD s/p prior popliteal artery occlusion status post thrombectomy who presents to [facility] [place] ED on 12/23/2024 with history of onset the day prior in the morning potentially upon awakening of her hands feeling very heavy describing it like being in cement with no weakness or debility at that time it was very isolated to both hands which lasted only a couple minutes and then completely abated prompting her eventually to call her primary care office just to review it and see if she should make a visit in addition to reported occasional recent intermittent headaches over the last week prompting them to recommend ED evaluation to be cautious. In the ED physician examination with noted NIH stroke assessment score 1 for mild sensory alteration specifically to the right side of the face as well as right upper extremity and right lower extremity. Workup in the ED included T97, heart rate 67, BP 146/54, respiratory rate 14, 97% on room air, CBC with WC 7.8, [place] 13.8, platelet 243 without marked shift, BMP with glucose 101, BUN/creatinine 13/0.79, GFR 78, CT of the brain with no acute intracranial findings with chronic involutional and ischemic gliotic white matter changes, CTA head and neck with no hemodynamically significant stenosis, major vessel occlusion or dissection or aneurysm greater than 3 mm, EKG pending upon requested evaluation of patient. Given patient outside the window for thrombolytic therapy as well as a low NIH stroke score, stroke alert team was not initiated. Hospital Course: 1. TIA?74-year-old female presents to the hospital with signs concerning for stroke. She was complaining of right sided paresthesias as well as transient bilateral hand heaviness. MRI was unremarkable for stroke and neurology did not feel any further workup was necessary. Echocardiogram demonstrated an EF of 65% with stage III diastolic dysfunction forts we do not have a prior to compare to. Her RVSP is 57 mmHg. She does not complain of any shortness of breath or chest heaviness. She is already on Eliquis and aspirin and 60 mg of pravastatin so no further medication changes are necessary. If necessary she can follow-up with neurology as an outpatient though given the resolution of her symptoms and the fact that she is already on maximal therapy not sure what else there would be to be gained at this point. I discussed with her the possibility of discharge today and she expressed understanding of the risks and benefits of going home and would like to go home today. On discharge her NIH was 0. 2. Paroxysmal A-fib, essential hypertension, peripheral artery disease, chronic COPD with tobacco abuse, hypothyroidism all chronic medical conditions which complicate her care. Her home medications were continued where appropriate Physical Exam Narrative General: Alert, Oriented x3, Cooperative, No apparent distress HEENT: Atraumatic, PERRLA, EOMI, Normocephalic Oral: Moist Mucosa Neck: Supple, No JVD Lungs: Diminished, Normal air movement, No rhonchi, No wheeze, No rales Cardiovascular: Regular rate, Regular Rhythm, Normal S1, Normal S2, No murmurs Abdomen: Soft, Non Tender, Non-Distended, No Hepato-splenomegaly Extremities: No edema, Capillary Refill Less than 3 Seconds Skin: No rashes, No breakdown Musculoskeletal: No Tenderness to Palpation of Joints or Extremities Neurological: No focal neurological deficits, Motor Exam 5/5 strength throughout, Sensory exam intact to light touch and pain Psych/Mental Status: Normal Affect, Appropriate Weight / BMI Weight Weight: 146 lb 2.664 oz Body Mass Index (BMI) 26.7 ABG / Lab / Microbiology Data 12/24/24 05:06 12/24/24 05:06 Laboratory: Laboratory Results - last 24 hr 12/23/24 19:36: WBC 7.8, RBC 4.47, Hgb 13.8, Hct 41.5, MCV 92.8, MCH 30.9, MCHC 33.3, RDW Std Deviation 45.6 H, RDW Coeff of Kayli 13.5, Plt Count 243, MPV 10.2, Immature Gran % (Auto) 0.400, Neut % (Auto) 59.5, Lymph % (Auto) 24.1, [place] % (Auto) 12.1 H, Eos % (Auto) 3.3, Baso % (Auto) 0.6, Absolute Neuts (auto) 4.6, Absolute Lymphs (auto) 1.88, Nucleated RBC % 0, Sodium 138, Potassium 4.0, Chloride 98, Carbon Dioxide 30.3, Anion Gap 10, BUN 13, Creatinine 0.79, Est GFR (MDRD) Non-Af 78, BUN/Creatinine Ratio 16.3, Glucose 101 H, Calcium 9.4, Magnesium 2.0 12/24/24 05:06: WBC 8.0, RBC 4.02 L, Hgb 12.2, Hct 37.8, MCV 94.0, MCH 30.3, MCHC 32.3, RDW Std Deviation 46.7 H, RDW Coeff of Kayli 13.5, Plt Count 204, MPV 10.5, Immature Gran % (Auto) 0.200, Neut % (Auto) 51.9, Lymph % (Auto) 31.8, Vance % (Auto) 12.2 H, Eos % (Auto) 3.4, Baso % (Auto) 0.5, Absolute Neuts (auto) 4.2, Absolute Lymphs (auto) 2.55, Nucleated RBC % 0, Sodium 137, Potassium 3.9, Chloride 101, Carbon Dioxide 27.0, Anion Gap 9, BUN 11, Creatinine 0.64 L, Estim Creat Clear Calc 54.27, Est GFR (MDRD) Non-Af 92, BUN/Creatinine Ratio 18.0, Glucose 105 H, Hemoglobin A1c 5.4, Calcium 9.0, Total Bilirubin < 0.15, AST 28, ALT 20, Alkaline Phosphatase 95, Total Protein 6.0, Albumin 3.3 L, Globulin 2.7, Albumin/Globulin Ratio 1.2, Triglycerides 99, Cholesterol 126, LDL Cholesterol, Calc 62, VLDL Cholesterol 20, HDL Cholesterol 45, Cholesterol/HDL Ratio 2.82, TSH 4.970 H Radiography Diagnostic Testing: Radiology Impression Brain CT 12/23/24 19:50 IMPRESSION: 1. No intracranial hemorrhage. No mass effect or midline shift. 2. Chronic involutional and ischemic gliotic white matter changes. CT is insensitive for early evaluation of acute stroke. If there is clinical concern for acute ischemia, an MRI may be considered. Reading [facility] Head/Neck CTA 12/23/24 19:50 IMPRESSION: No hemodynamically significant stenosis, major vessel occlusion or dissection, or aneurysm greater than 3 mm. Reading Location: [id number] Echocardiogram 12/23/24 22:31 Interpretation Summary Mild concentric left ventricular hypertrophy. The left ventricular ejection fraction is 65 %. Stage 3 diastolic dysfunction. Mild to moderately dilated left atrium. Mild (1+) mitral valve insufficiency. Mild tricuspid valve insufficiency. Right ventricular systolic pressure estimated to be 57 mmHg. The study was technically difficult. Ordering Physician: Megan Blanchard Referring Physician: Fanta Nichols M.D. Performed By: Jazmin Mcdaniel RCS Brain MRI 12/24/24 09:40 IMPRESSION: Mild small-vessel ischemic changes. No acute intracranial abnormality. No MR evidence to suggest ischemia. Reading Location: [id number] Instructions Call your doctor if you observe: Fever of 101 or Higher, Shortness of breath, Dizziness, Fainting spells, Swelling in the ankles, Chest pain and Increased palpitations (irregular heartbeat) DC O2, CPAP, BIPAP Needs Home O2 Discharge instructions: No Meaningful Use Info Meaningful Use Meaningful Use Diagnoses (Choose all that apply): None applicable Discharge Plan Admission Admit Date/Time: 12/23/24 21:41 Attending Provider: Yousuf Garland Primary Care Provider: Fanta Nichols Consulting Providers: Keo Krishnamurthy; Germaine Pedroza; Helen Osullivan; Emmanuelle Morales; Ana Luisa Cortes; Frederick Cruz; Leonor Sylvester; Byron Mccracken; Eric Douglas; Solomon Hyman; Tammy Scott; Robyn Jewell; Howie Kaur; Celestina Baxter; Peter Tineo; Melinda Dominique; Alex Bowers; Lalitha Phelps; Rodney Abel; Brynn Fair; Renny Braga; Megan Blanchard Discharge Orders/Prescriptions Prescriptions: Continued sotalol 80 MG tablet 80 mg PO BID aspirin 81 MG tablet,chewable 81 mg PO DAILY@0800 verapamil 40 mg tablet 40 mg PO Q12H Patient Comments: [NO ORIGINAL SIG] pravastatin 40 mg tablet 60 mg PO DAILY levothyroxine 25 mcg tablet 25 mcg PO DAILY lorazepam 0.5 mg tablet 0.5 mg Patient Comments: [NO ORIGINAL SIG] atenolol 50 mg tablet 75 mg PO Q12H Patient Comments: [NO ORIGINAL SIG] Eliquis 5 mg tablet 5 mg PO BID Patient Comments: [NO ORIGINAL SIG] oxazepam 10 mg capsule 10 mg PO PRN PRN (Reason: anxiety) Patient Comments: [NO ORIGINAL SIG] Referrals / Follow Up: Fanta Nichols MD [Primary Care Provider] - Within 1 Week Disposition Disposition (needs filled in before D/C Order can be placed): Home, Self Care Charges/Coding Visit Charges Inpatient E&M: 70613 Disch Hosp >30min
== END 2024-12-24 14:14 | disposition home or self-care (01) ==
LOC: ED 21:42 → PCU 21:54
PROVIDERS: Admitting Provider Family Medicine; Emergency Provider Student in an Organized Health Care Education/Training Program; PCP Internal Medicine; Visit Provider Family Medicine
DX: G45.9 Transient cerebral ischemic attack, unspecified (principal); J44.9 Chronic obstructive pulmonary disease, unspecified; I48.0 Paroxysmal atrial fibrillation; I73.9 Peripheral vascular disease, unspecified; I10 Essential (primary) hypertension; E03.9 Hypothyroidism, unspecified; R29.701 NIHSS score 1; Z79.890 Hormone replacement therapy; Z79.899 Other long term (current) drug therapy; E78.5 Hyperlipidemia, unspecified; F17.210 Nicotine dependence, cigarettes, uncomplicated; Z79.01 Long term (current) use of anticoagulants; R20.9 Unspecified disturbances of skin sensation; R20.2 Paresthesia of skin
CPT/HCPCS: 36415; 70450; 70496; 70498; 70551; 80048; 80053; 80061; 83036; 83735; 84443; 85025; 93005; 93306; 94762; 96360; 96361; 99221; 99283; Q9967; A4216; G0378